=== PATIENT | male | born 1940 | race Caucasian/White ===

== ENCOUNTER → 2023-11-07 14:21 | Outpatient (REF) | payer MEDICARE, OTHER, SELFPAY | LOC: HWRAD 14:21 | PROVIDERS: ATTENDING PHYSICIAN Specialist; FAMILY PHYSICIAN Family Medicine | DX: R31.0 Gross hematuria (principal) | CPT/HCPCS: 76770 ==

== ENCOUNTER 2023-12-06 06:09 | Inpatient (IN) | payer MEDICARE, OTHER, SELFPAY ==
[2023-12-06] VITALS (15 sets, daily range): BP systolic 82–237; BP diastolic 39–115; BMI 24.1
--- NOTE | 2023-12-06 03:31 | ED.GENMED ---
History of Present Illness
<RIMA Wolfe - Last Filed: 12/07/23 06:39>
General
Chief Complaint: Breathing Problem
Source: patient
Exam Limitations: none
Time Seen by Provider: 12/06/23 03:17
Nursing documentation reviewed up to this point in time: agreed with
Travel History
Have you had any contact with someone who has COVID-19?: No
Do you have any symptoms of coronavirus? Fever > 100 degrees, chills, cough, shortness of breath, sore throat, loss of taste or smell, muscle aches, or headache?: No
History of Present Illness
History of Present Illness:
patient is an 83 y/o male with PMH of COPD presenting after a fall. patient states that he had a fall and landed on his hip. Patient admits that he is currently having lateral right hip pain. Patient admits pain shoots down right leg. Patient cannot
weight bear. Patient denies tingling. On admission patient was wheezing with decreased o2 saturation. Patient was placed on non rebreather until oxygen could be set up. patients BP on admission was 237/115. patient admits to a history of COPD with
B/L wheezing. 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 Patient admits that he had a should surgery earlier this week. Patient is on a blood thinner.
Past History
<RIMA Wolfe - Last Filed: 12/07/23 06:39>
Past History
ED Past Medical History: HTN and Hypercholesterolemia
ED Past Surgical History: Appendectomy and Orthopedic
Social History
Tobacco: Non-smoker
Living: with family
Employment: Employed
Review of Systems
<RIMA Wolfe - Last Filed: 12/07/23 06:39>
Review of Systems
All Other Systems: Not applicable
Constitutional: Reports no symptoms
EENT: Reports no symptoms
Respiratory: Reports cough and trouble breathing
Cardiac: Reports no symptoms
ABD/GI: Reports no symptoms
: Reports no symptoms
Musculoskeletal: Reports joint pain, joint swelling and edema
Skin: Reports no symptoms
Neurological: Reports no symptoms
Endocrine: Reports no symptoms
Hematologic/Lymphatic: Reports no symptoms
Psychiatric: Reports no symptoms
Phy Exam
<RIMA Wolfe - Last Filed: 12/07/23 06:39>
General Physical Exam
General Presentation: well appearing and no apparent distress
General Skin: warm and dry
General Habitus: normal
General Mental: alert
General Hydration: appears well hydrated
ENT Exam
ENT Exam: EOMI, pharynx normal, neck supple and normocephalic
Eye Exam
Eye Exam: PERRL, cornea clear and conjunctiva normal
Cardiovascular Exam
Cardiovascular Exam: normal peripheral pulses and tachycardia
Pulmonary Exam
Pulmonary Exam: generalized wheezing and respiratory distress
Respiratory Effort: tachypnea
Oxygen Status: bagged mask assistance
Cough: non productive cough
Breath Sounds: Wheeze: generalized
Gastrointestinal Exam
Gastrointestinal Exam: normal bowel sounds, non tender, soft, no organomegaly, no pulsatile mass and non distended
Neurological Exam
Neurological Exam: alert, oriented x3, no motor deficits and speech normal
Musculoskeletal Exam
Musculoskeletal Exam: other (pain to R hip on palpation)
Skin Exam
Skin Exam: normal color, warm/dry, no rash and no petechia
Psychiatric Exam
Psychiatric Exam: normal mood/affect
Scores
<RIMA Wolfe - Last Filed: 12/07/23 06:39>
Heart Failure Risk
Heart Failure Risk Score: Not Applicable
Course
<RIMA Wolfe Last Filed: 12/07/23 06:39>
Orders/Labs/Results
Orders:
Orders
12/06/23 03:14
EKG [Electrocardiogram (*1)] Urgent
Reason for Study: Shortness of Breath
EKG- Treatment ONCE
12/06/23 03:15
Portable Chest Xray [CR Chest Portable - 1 View] Urgent
Comment:
Reason For Exam: shortness of breath
Reason Study Needs to be Portable: Patient Unstable
12/06/23 03:16
Ipratropium/Albuterol Sulfate [Duoneb] 3 ml .ROUTE .STK-MED ONE
12/06/23 03:21
Hip, Right 2-3 Views [CR Hip - RT w/wo Pel 2-3 Vw*] Urgent
Comment:
Reason For Exam: fall
Include a pelvis x-ray?: Yes
12/06/23 03:27
Furosemide [Lasix] 60 mg IV NOW STA
12/06/23 03:28
Cardiac Monitoring- Treatment ONCE
EKG- Treatment ONCE
12/06/23 03:33
Type+Screen Urgent
Complete Blood Count/With Diff Urgent
Comprehensive Metabolic Panel Urgent
Magnesium Urgent
NT-proBNP Urgent
PTT Urgent
Prothrombin Time Urgent
TSH Urgent
Troponin I Urgent
12/06/23 03:41
HYDROmorphone [Dilaudid] 0.5 mg IV NOW STA
12/06/23 05:36
Admit/Transfer Patient As Directed
Co-Sign Provider:
Level of Care: Inpatient admission
Assign to:: IMU- Intermediate Care
Physician / Group: htay
Diagnosis: Acute Rt Rt intertrochanteric Fx, acute HF, PABLO, acute hypoxic RF
Reason for Hospitalization: Acute Rt Rt intertrochanteric Fx, acute HF, PABLO, Hyperkalemia , acute hypoxic RF
Expected length of stay greater than two midnights?: Yes
ELOS- Estimated Length of Stay in days: 5
I certify the patient meets the requirements for IP care: Yes
12/06/23 05:38
Code Status As Directed
Resuscitation Status: Full Code
12/06/23 06:19
COVID-19 Antigen Urgent
Source: Nasal Swab
12/06/23 07:13
HYDROmorphone [Dilaudid] 0.5 mg IV Q3HPRN PRN
12/06/23 08:14
Acetaminophen [Tylenol] 650 mg PO Q4HWA
Carvedilol [Coreg] 6.25 mg PO BID
Gabapentin [Neurontin] 300 mg PO DAILY
12/06/23 08:14
CARDIOLOGY CONSULT Routine
Consulting Provider: Wally Cuba
Was physician already notified: No
Reason for consult: Acute Rt Rt intertrochanteric Fx, acute HF, PABLO, acute hypoxic RF
Consult Notification Routine
Specialty to Notify: Cardiology
Date consulting provider notified: 12/06/23
Time consulting provider notified: 10:06
Notified:: Service
Bedside Glucose Monitoring As Directed
Frequency: AC&HS
Comment: Change to q6h if pt on TPN, tube feeding or not eating
Bladder Scan As Directed
Follow Bladder Retention/Intermittent Cath Algorithm?: Yes
PRN if no void in __ hours: 6
Comment: if not voiding 6 hrs upon arrival to floor, bladder scan & follow algorithm
12/06/23 09:24
Pneumatic Compression Sleeves As Directed
Type: Knee high
12/06/23 10:01
Dextrose 50%-Water [Dextrose 50% Syringe] 12.5 grams IV [id number] PRN
Glucagon [GlucaGen] 1 mg IM PRN PRN
Insulin Aspart Corrective Low [Novolog Flexpen-Low Resistance] See Protocol SC AC
Ipratropium/Albuterol Sulfate [Duoneb] 3 ml INH R Q4HPRN PRN
Magnesium Hydroxide [Milk of Magnesia] 30 ml PO DAILYPRN PRN
Oxycodone [Roxicodone] 5 mg PO Q4HPRN PRN
Tamsulosin [Flomax] 0.4 mg PO DAILYPRN PRN
12/06/23 10:01
HF DIETARY CONSULT Routine
HF EDUCATOR CONSULT Routine
Comment:
ORTHOPEDIC CONSULT Routine
Consulting Provider: Agapito Allison
Was physician already notified: Yes
Reason for consult: Acute Rt Rt intertrochanteric Fx, acute HF, PABLO, acute hypoxic RF
Activity As Directed
Activity Level: With Assistance
Intake/ Output As Directed
Frequency: Per unit guidelines
Intake/ Output As Directed
Frequency: Per unit guidelines
Patient Education As Directed
Type: CHF folder
Comment: give on admission. Document in Interdisciplinary Education record
Sleep Apnea Assessment by RN As Directed
Comment:
Physician Instructions:
Straight Cath As Directed
Frequency: Per Retention Algorithm
Additional Instructions: straight cath as needed per acute urinary retention algorithm for 24 hrs
Additional Instructions: for bladder scan greater than 400 mL
Vital Signs As Directed
Frequency: Other
Additional Instructions:: Q12 or per unit guidelines if more frequent.
Vital Signs As Directed
Frequency: Per unit guidelines
Weight As Directed
Frequency: Daily
Type of Scale: Standing Scale
Comment: Daily morning weight. If unable to stand, use balanced bed scale.
Weight As Directed
Frequency: Once
Type of Scale: Standing Scale
Comment: Upon Admission. If unable to stand, use balanced bed scale.
Pulse Ox/cont/shift [RESP] Routine
Quantity: 1
Special Instructions: Daily pulse oximetry at rest. If greater than 92% at rest also obtain pulse oximetry
while ambulating as tolerated.
DX Deep Vein Thrombosis Video Routine
12/06/23 10:14
BMP [Basic Metabolic Panel] Routine
Troponin I Q6H
Comment: at admission & every 6 hours x 2 (3 total), ECG to be done with each level
12/06/23 12:00
Furosemide [Lasix] 40 mg IV DAILY
Ipratropium/Albuterol Sulfate [Duoneb] 3 ml INH R QID
12/06/23 18:00
Gabapentin [Neurontin] 200 mg PO QPM
12/06/23 20:00
Docusate Sodium [Colace] 100 mg PO BID
Sennosides [Senokot] 17.2 mg PO BID
12/06/23 22:00
Atorvastatin [Lipitor] 10 mg PO HS
12/07/23 04:55
Comprehensive Metabolic Panel IN AM
Glycohemoglobin (HgbA1c) IN AM
Prothrombin Time IN AM
12/08/23 06:00
Basic Metabolic Panel IN AM
Prothrombin Time IN AM
12/09/23 06:00
Prothrombin Time IN AM
Abnormal Lab Results
12/06/23
03:33
RBC 3.62 L 10^6/uL
(4.70-6.10)
Hgb 9.9 L g/dL
(13.0-18.0)
Hct 30.4 L %
(39.0-52.0)
MCHC 32.6 L g/dL
(33.0-37.0)
RDW 14.6 H %
(11.5-14.5)
Absolute Lymphs (auto) 0.9 L 10^3/uL
(1.2-3.4)
Neutrophils % 77.4 H %
(42.2-75.2)
Lymphocytes % 11.5 L %
(20.5-51.1)
PT 17.7 H Sec
(11.4-14.6)
Potassium 5.8 H mmol/L
(3.5-5.1)
BUN 46 H mg/dl
(9-20)
Creatinine 1.5 H mg/dL
(0.7-1.3)
Glucose 182 H mg/dl
(70-99)
Magnesium 2.4 H mg/dl
(1.6-2.3)
Alkaline Phosphatase 130 H U/L
(38-126)
Troponin I 0.042 H* ng/ml
12/06/23 03:33
12/06/23 03:33
Vital Signs
Initial and Last Documented VS:
Initial Vital Signs
Temp Pulse Resp BP Pulse Ox
99.4 F 95 24 237/115 88
12/06/23 03:20 12/06/23 03:20 12/06/23 03:20 12/06/23 03:20 12/06/23 03:20
Last Documented Vital Signs
Temp Pulse Resp BP Pulse Ox
98.3 F 93 18 130/69 91
12/07/23 03:27 12/07/23 03:27 12/07/23 03:27 12/07/23 03:27 12/07/23 03:27
<Prabhakar Carrera, DO - Last Filed: 12/06/23 05:47>
Orders/Labs/Results
Orders:
Orders
12/06/23 03:14
EKG [Electrocardiogram (*1)] Urgent
Reason for Study: Shortness of Breath
EKG- Treatment ONCE
12/06/23 03:15
Portable Chest Xray [CR Chest Portable - 1 View] Urgent
Comment:
Reason For Exam: shortness of breath
Reason Study Needs to be Portable: Patient Unstable
12/06/23 03:16
Ipratropium/Albuterol Sulfate [Duoneb] 3 ml .ROUTE .STK-MED ONE
12/06/23 03:21
Hip, Right 2-3 Views [CR Hip - RT w/wo Pel 2-3 Vw*] Urgent
Comment:
Reason For Exam: fall
Include a pelvis x-ray?: Yes
12/06/23 03:27
Furosemide [Lasix] 60 mg IV NOW STA
12/06/23 03:28
Cardiac Monitoring- Treatment ONCE
EKG- Treatment ONCE
12/06/23 03:33
Type+Screen Urgent
Complete Blood Count/With Diff Urgent
Comprehensive Metabolic Panel Urgent
Magnesium Urgent
NT-proBNP Urgent
PTT Urgent
Prothrombin Time Urgent
TSH Urgent
Troponin I Urgent
12/06/23 03:41
HYDROmorphone [Dilaudid] 0.5 mg IV NOW STA
12/06/23 05:36
Admit/Transfer Patient As Directed
Co-Sign Provider:
Level of Care: Inpatient admission
Assign to:: IMU- Intermediate Care
Physician / Group: rexy
Diagnosis: Acute Rt Rt intertrochanteric Fx, acute HF, PABLO, acute hypoxic RF
Reason for Hospitalization: Acute Rt Rt intertrochanteric Fx, acute HF, PABLO, Hyperkalemia , acute hypoxic RF
Expected length of stay greater than two midnights?: Yes
ELOS- Estimated Length of Stay in days: 5
I certify the patient meets the requirements for IP care: Yes
12/06/23 05:38
Code Status As Directed
Resuscitation Status: Full Code
12/06/23 06:19
COVID-19 Antigen Urgent
Source: Nasal Swab
12/06/23 07:13
HYDROmorphone [Dilaudid] 0.5 mg IV Q3HPRN PRN
12/06/23 08:14
Acetaminophen [Tylenol] 650 mg PO Q4HWA
Carvedilol [Coreg] 6.25 mg PO BID
Gabapentin [Neurontin] 300 mg PO DAILY
12/06/23 08:14
CARDIOLOGY CONSULT Routine
Consulting Provider: Wally Cuba
Was physician already notified: No
Reason for consult: Acute Rt Rt intertrochanteric Fx, acute HF, PABLO, acute hypoxic RF
Consult Notification Routine
Specialty to Notify: Cardiology
Date consulting provider notified: 12/06/23
Time consulting provider notified: 10:06
Notified:: Service
Bedside Glucose Monitoring As Directed
Frequency: AC&HS
Comment: Change to q6h if pt on TPN, tube feeding or not eating
Bladder Scan As Directed
Follow Bladder Retention/Intermittent Cath Algorithm?: Yes
PRN if no void in __ hours: 6
Comment: if not voiding 6 hrs upon arrival to floor, bladder scan & follow algorithm
12/06/23 09:24
Pneumatic Compression Sleeves As Directed
Type: Knee high
12/06/23 10:01
Dextrose 50%-Water [Dextrose 50% Syringe] 12.5 grams IV [id number] PRN
Glucagon [GlucaGen] 1 mg IM PRN PRN
Insulin Aspart Corrective Low [Novolog Flexpen-Low Resistance] See Protocol SC AC
Ipratropium/Albuterol Sulfate [Duoneb] 3 ml INH R Q4HPRN PRN
Magnesium Hydroxide [Milk of Magnesia] 30 ml PO DAILYPRN PRN
Oxycodone [Roxicodone] 5 mg PO Q4HPRN PRN
Tamsulosin [Flomax] 0.4 mg PO DAILYPRN PRN
12/06/23 10:01
HF DIETARY CONSULT Routine
HF EDUCATOR CONSULT Routine
Comment:
ORTHOPEDIC CONSULT Routine
Consulting Provider: Agapito Allison
Was physician already notified: Yes
Reason for consult: Acute Rt Rt intertrochanteric Fx, acute HF, PABLO, acute hypoxic RF
Activity As Directed
Activity Level: With Assistance
Intake/ Output As Directed
Frequency: Per unit guidelines
Intake/ Output As Directed
Frequency: Per unit guidelines
Patient Education As Directed
Type: CHF folder
Comment: give on admission. Document in Interdisciplinary Education record
Sleep Apnea Assessment by RN As Directed
Comment:
Physician Instructions:
Straight Cath As Directed
Frequency: Per Retention Algorithm
Additional Instructions: straight cath as needed per acute urinary retention algorithm for 24 hrs
Additional Instructions: for bladder scan greater than 400 mL
Vital Signs As Directed
Frequency: Other
Additional Instructions:: Q12 or per unit guidelines if more frequent.
Vital Signs As Directed
Frequency: Per unit guidelines
Weight As Directed
Frequency: Daily
Type of Scale: Standing Scale
Comment: Daily morning weight. If unable to stand, use balanced bed scale.
Weight As Directed
Frequency: Once
Type of Scale: Standing Scale
Comment: Upon Admission. If unable to stand, use balanced bed scale.
Pulse Ox/cont/shift [RESP] Routine
Quantity: 1
Special Instructions: Daily pulse oximetry at rest. If greater than 92% at rest also obtain pulse oximetry
while ambulating as tolerated.
DX Deep Vein Thrombosis Video Routine
12/06/23 10:14
BMP [Basic Metabolic Panel] Routine
Troponin I Q6H
Comment: at admission & every 6 hours x 2 (3 total), ECG to be done with each level
12/06/23 12:00
Furosemide [Lasix] 40 mg IV DAILY
Ipratropium/Albuterol Sulfate [Duoneb] 3 ml INH R QID
12/06/23 18:00
Gabapentin [Neurontin] 200 mg PO QPM
12/06/23 20:00
Docusate Sodium [Colace] 100 mg PO BID
Sennosides [Senokot] 17.2 mg PO BID
12/06/23 22:00
Atorvastatin [Lipitor] 10 mg PO HS
12/07/23 04:55
Comprehensive Metabolic Panel IN AM
Glycohemoglobin (HgbA1c) IN AM
Prothrombin Time IN AM
12/08/23 06:00
Basic Metabolic Panel IN AM
Prothrombin Time IN AM
12/09/23 06:00
Prothrombin Time IN AM
Abnormal Lab Results
12/06/23
03:33
RBC 3.62 L 10^6/uL
(4.70-6.10)
Hgb 9.9 L g/dL
(13.0-18.0)
Hct 30.4 L %
(39.0-52.0)
MCHC 32.6 L g/dL
(33.0-37.0)
RDW 14.6 H %
(11.5-14.5)
Absolute Lymphs (auto) 0.9 L 10^3/uL
(1.2-3.4)
Neutrophils % 77.4 H %
(42.2-75.2)
Lymphocytes % 11.5 L %
(20.5-51.1)
PT 17.7 H Sec
(11.4-14.6)
Potassium 5.8 H mmol/L
(3.5-5.1)
BUN 46 H mg/dl
(9-20)
Creatinine 1.5 H mg/dL
(0.7-1.3)
Glucose 182 H mg/dl
(70-99)
Magnesium 2.4 H mg/dl
(1.6-2.3)
Alkaline Phosphatase 130 H U/L
(38-126)
Troponin I 0.042 H* ng/ml
12/06/23 03:33
12/06/23 03:33
Vital Signs
Initial and Last Documented VS:
Initial Vital Signs
Temp Pulse Resp BP Pulse Ox
99.4 F 95 24 237/115 88
12/06/23 03:20 12/06/23 03:20 12/06/23 03:20 12/06/23 03:20 12/06/23 03:20
Last Documented Vital Signs
Temp Pulse Resp BP Pulse Ox
98.3 F 93 18 130/69 91
12/07/23 03:27 12/07/23 03:27 12/07/23 03:27 12/07/23 03:27 12/07/23 03:27
<RIMA Wolfe - Last Filed: 12/07/23 06:39>
MDM/Problems Addressed
Differential Diagnosis Includes:
Hip Fracture
Soft tissue swelling
COPD exacerbation
congestive HF
MDM/Problems Addressed:
hip pain
Chronic conditions affecting care: COPD
<Prabhakar Carrera DO - Last Filed: 12/06/23 05:47>
MDM/Problems Addressed
Acute Exacerbation and/or Progression of Chronic Illness: HTN, Cardiomyopathy, Arrhythmia and COPD
<RIMA Wolfe - Last Filed: 12/07/23 06:39>
*Critical Care Note
Total Time (30-74mins, 75-104mins- exclusive of procedures): Not Applicable
<Prabhakar Carrera DO - Last Filed: 12/06/23 05:47>
*Radiology
Radiology exam reviewed: preliminary read by ED provider
*Pulse Oximetry
Patient hypoxic: yes
*EKG
Interpreted by ED Provider?: Yes
Interpretation: abnormal
Comparison EKG: no comparison EKG present
Heart Rate: 100
Rate: normal
Rhythm: sinus
Ischemia: non-specific ST changes
*Organizational Effectiveness Consultant Interpretation
Rate: normal
Interpretation: normal
Heart Rate: 88
Rhythm: sinus
*Critical Care Note
Total Time (30-74mins, 75-104mins- exclusive of procedures): 30
ED Attending Note
<RIMA Wolfe - Last Filed: 12/07/23 06:39>
-
Portions of this chart may have been created with voice recognition software.� Occasional wrong word or��sound alike� substitutions may have occurred due to the inherent limitations of voice recognition software.
<Prabhakar Carrera, DO - Last Filed: 12/06/23 05:47>
ED Attending Note
Patient seen and examined by attending physician: Yes
I performed the substantive portion of visit, reviewed & personally made and approve the management plan that is documented in note by myself or NITESH.: Yes
ED Attending Note:
Seen with student examined independently reviewed with EMS and nursing 83-year-old male status post total shoulder replacement COPD A-fib possible CHF by my review of the past medical records cardiology consultation presents after a fall EMS reports
that with audibly wheezing, no head strike, pulse ox down, has lower extremity edema blood pressure chest x-ray has been ordered
Possible pulmonary edema plan will be diuresis labs oxygen pelvis film
Discharge Plan
Departure
Patient Disposition: Admit
Date of Disposition: 12/06/23
Time of Disposition: 04:47
Presentation/result/management discussed w/ accepting MD/DO: Hospitalist
Patient with high blood pressure during this ER visit?: No
Condition: Fair
Discharge Problem:
Closed fracture of right hip, Acute hypoxic respiratory failure
Interventions
Interventions:
*Risk Screen - Suicide Last Done: 12/06/23 03:24
*General Assessment Last Done: 12/06/23 03:22
*Neglect/Abuse Screening Last Done: 12/06/23 03:24
ED- Fall Risk Assessment Last Done: 12/06/23 03:24
*ED COVID-19 Vaccine History Last Done: 12/06/23 03:22
*Nursing Disposition Last Done: 12/06/23 17:22
ED- Cardiac Assessment Last Done: 12/06/23 03:24
ED- Pulmonary Assessment Last Done: 12/06/23 03:24
Discharge Date and Time
Discharge Date/Time: 12/06/23 17:23
[2023-12-06] MEDS: LASIX 60 MG IV (03:36)
[2023-12-06] MEDS: DILAUDID 0.5 MG IV ×3 (03:45→11:51)
[2023-12-06 03:50] LABS: % Basophils 0.5 % (0-2); % Eosinophils 3.3 % (0-6); % Immature Granulocytes 0.5 % (0-0.5); % Lymphocytes 11.5 % (20.5-51.1); % Monocytes 6.8 % (1.7-9.3); % Neutrophils 77.4 % (42.2-75.2); Absolute Eosinophils 0.2 10^3/uL (0-0.7); Absolute Lymphocytes 0.9 10^3/uL (1.2-3.4); Absolute Monocytes 0.5 10^3/uL (0.1-0.6); Absolute Neutrophils 5.7 10^3/uL (1.4-6.5); Hematocrit 30.4 % (39.0-52.0); Hemoglobin 9.9 g/dL (13.0-18.0); Mean Corp Hgb Conc. 32.6 g/dL (33.0-37.0); Mean Corpuscular Hgb 27.3 pg (27.0-31.0); Mean Platelet Volume 9.7 fL (7.4-10.4); Nucleated Red Blood Cells % 0 % (-); Platelet Count 257 10^3/uL (130-400); Red Blood Cell Count 3.62 10^6/uL (4.70-6.10); Red Cell Dist. Width 14.6 % (11.5-14.5); White Blood Cell Count 7.4 10^3/uL (4.8-10.8)
[2023-12-06 04:05] LABS: ALT (SGPT) 30 U/L (0-50); APTT 33.4 Sec (23.4-35.0); AST (SGOT) 44 U/L (17-59); Albumin 3.8 g/dl (3.5-5.0); Alkaline Phosphatase 130 U/L (38-126); Blood Urea Nitrogen 46 mg/dl (9-20); Calcium 9.3 mg/dl (8.4-10.2); Carbon Dioxide 28 mmol/L (22-30); Chloride 102 mmol/L (98-107); Estimated Creatinine Clearance 43 ml/min; Glucose 182 mg/dl (70-99); INR 1.47; Magnesium 2.4 mg/dl (1.6-2.3); PT 17.7 Sec (11.4-14.6); Potassium 5.8 mmol/L (3.5-5.1); Sodium 140 mmol/L (135-145); Total Bilirubin 0.5 mg/dl (0.2-1.3); Total Protein 6.6 g/dl (6.3-8.2); eGFR 46.19
[2023-12-06 04:26] LABS: NT-proBNP 1200 pg/ml; Troponin I 0.042 ng/ml
[2023-12-06 04:41] LABS: TSH 1.21 uIU/ml (0.47-4.68)
--- NOTE | 2023-12-06 05:26 | HPS.HSE ---
Family Physician
-
Family Physician: Ruben Quiles
Chief Complaint
-
Fall, SoB, low Pox
History of Present Illness
83M HX HTN, T2DM, COPD, Prx AF on Eliquis [facility] s/p mechanical fall. He was found on the floor and difficulty breathing. Report landed on the Rt Hip and immedialy he cannot wt bear. He was [facility] wearing NRM due to desaturation.
As per ER attd , dyspnea and POx is much improved after IV Lasix 60 and IV Dilaudid.
ROS
Rt Hip Pain s/p mechanical fall
SoB
Medical History
Past Medical History
Past Medical History: Reports Other
Additional Past Medical History:
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
Type 2 diabetes mellitus
Paroxysmal atrial fibrillation on Eliquis
Essential hypertension
Hypertension
HLD
Paroxysmal Atrial Fibrillation
Past Surgical History: Reports Other
Additional Past Surgical History:
Left Shoulder Arthroplasty and Subsequent Revision
Left Shoulder Explantation and Placement of Spacer
Appendectomy
Social History
Tobacco: Smoker
Alcohol: Occasional
Family History
Family History: Not pertinent
Allergies / Home Medications
Allergies reflects when Allergies were last updated in [facility].
Home Medications with original date entered in [facility]
Allergy/Medication List:
Allergies
Allergy/AdvReac Type Severity Reaction Status Date / Time
No Known Allergies Allergy Verified 12/06/23 03:49
Home Medications
acetaminophen 500 mg tablet 1,000 mg PO Q8H PRN mild pain 03/19/23
allopurinol 100 mg tablet 100 mg PO DAILY Gout 03/19/23
apixaban 5 mg tablet 5 mg PO BID Blood Clot Prevention/Tx 03/19/23
ascorbic acid (vitamin C) 250 mg tablet (Vitamin C) 250 mg PO DAILY Supplement 03/19/23
benazepril 20 mg tablet 20 mg PO HS Blood Pressure 03/19/23
carvedilol 6.25 mg tablet 6.25 mg PO BID Heart Disease/Condition 03/19/23
cholecalciferol (vitamin D3) 50 mcg (2,000 unit) tablet (Vitamin D3) 50 mcg PO DAILY Supplement 03/19/23
coenzyme Q10 100 mg capsule (Co Q-10) 100 mg PO DAILY Supplement 03/19/23
folic acid 1 mg tablet 1 mg PO DAILY Supplement 03/19/23
metformin 500 mg tablet 500 mg PO BID@0800,1700 Diabetes 03/19/23
simvastatin 20 mg tablet 20 mg PO HS High Cholesterol 03/19/23
zolpidem 10 mg tablet 10 mg PO HS PRN insomnia 03/19/23
gabapentin 100 mg capsule 200 mg PO QPM Pain 03/29/23
gabapentin 100 mg capsule 300 mg PO DAILY Pain 03/29/23
tamsulosin 0.4 mg capsule 0.4 mg PO DAILY 12/06/23
Review of Systems
-
Constitutional: Reports No Symptoms
EENT: Reports No Symptoms
Respiratory: Reports Trouble Breathing
Cardiac: Denies Chest Pain
Abdomen/GI: Reports No Symptoms
: Reports No Symptoms
Musculoskeletal: Reports Joint Pain (Rt hip pain)
Skin: Reports No Symptoms
Neurological: Reports No Symptoms
Endocrine: Reports No Symptoms
Hematologic/Lymphatic: Reports No Symptoms
Psych: Reports No Symptoms
Physical Exam
Vital Signs
Vital Signs
Temp Pulse Resp BP Pulse Ox
99.4 F 88 19 124/58 97
12/06/23 03:20 12/06/23 04:01 12/06/23 04:01 12/06/23 04:01 12/06/23 04:01
Physical Exam
General: Well Nourished and Respiratory Distress
HEENT: NormoCephalic and Moist mucous membranes
Respiratory: Wheezes (minimal ) and Rales (at base )
Cardiac: S1/S2 and Regular Rhythm
GI: Soft, Non Tender, Non Distended and Normal Bowel Sounds
Musculoskeletal: Other (Rt hip pain to palpation, Lt shoulder with dressing, echimoses in Lt proximal arm )
Skin: Warm and Dry
Neuro: AO x 3
Psych: Anxious
Laboratory Results
-
12/06/23 03:33
12/06/23 03:33
Laboratory Results
PT 17.7 Sec (11.4-14.6) H 12/06/23 03:33
INR 1.47 12/06/23 03:33
APTT 33.4 Sec (23.4-35.0) 12/06/23 03:33
Total Bilirubin 0.5 mg/dl (0.2-1.3) 12/06/23 03:33
AST 44 U/L (17-59) 12/06/23 03:33
ALT 30 U/L (0-50) 12/06/23 03:33
Alkaline Phosphatase 130 U/L (38-126) H 12/06/23 03:33
Troponin I 0.042 ng/ml H* 12/06/23 03:33
Data Reviewed
-
Diagnostic Radiology: Report Reviewed by me
Medical Tests (Nuc Med, Echo, EKG etc): Report Reviewed by me
Lab Data: Labs Reviewed by me
Old Records: Reviewed
Impression/Plan
-
Reviewed VS: T 99.5 BP 237/115 ---> 124/58 HR 94 RR 24 POx 88 on NRM
Data
WCC 7.4
Hgb 9.9 - baseline was 11-12
INR 1.47
K 5.8
Cr 1.5 - was 0.7 on 09/17/23
eGFR 46
TPNI 0.042
p BNP 1200
CXR; CHF in my view
Rt Hip XR; Rt intertrochanteric Fx
EKG report
SINUS TACHYCARDIA
RIGHT BUNDLE BRANCH BLOCK
LEFT ANTERIOR FASCICULAR BLOCK
SEPTAL INFARCT , AGE UNDETERMINED
ABNORMAL ECG
WHEN COMPARED WITH ECG OF 17-SEP-2023 21:55,
SEPTAL INFARCT IS NOW PRESENT
02/18/23 ECHO
LVEF 65-70
indeterminate diastolic function
Mild AR
Est. pulmonary artery pressure of 35 mmHg
Last hospitalist admission: 09/18/23 - 09/18/23 DC Dx; Influenza A
ASSESSMENT & PLAN
Acute Rt Rt intertrochanteric Fx
RCRI Class II (+ acute HF)
- last dose of Eliquis was on Tuesday pm
- NPO and IVF
- Fx set protocol
- Pre OP Card eval
- Ortho consulted
Suspect acute HF type unknown - flash Pul edema ?
Associated acute hypoxic RF ; now on 4 L NC O2
Clinically significantly improved s/p Lasix and dilaudis
- IV Lasix 20 daily
- cont Carvedilol
- daily BMP
- daily IOs
- [facility] card consult for preop
PABLO - suspect cardiorenalsyndrome
Hyperkalemia 2/2 PABLO
- Held Benazepril
- Repeat K at 7 am
in NSR
HX Prx AF
- held Eliquis - last dose was Tuesday pm
- cont Carvedilol
HTN urgency - significantly improved BP s/p lasix and Dilaudid
Essential HTN
-adequate pain control
- cont carvedilol
T2DM
- Held Metformin
- add ISS low
HLD
- on Simvastatin
POD5 Lt shoulder arthroplasty at [facility] [place]
S/p should surgery earlier this week.
HX Infected left shoulder prosthesis - s/p explantation and replacement : S/p IV ABx fo 6 weeks in 2022
- Follow-up with Ortho at [place]
HX Gout
- stable
DVT Px: SCD , held Apixaban
Full code
IMU
[2023-12-06 07:02] LABS: COVID-19 Antigen Negative (Negative)
--- NOTE | 2023-12-06 07:13 | CON.ORTHO ---
Consultation
-
Date/Time Consultation Requested: 12/06/2023 @ 7:02
Date/Time Consultation Performed: 12/06/2023 @ 7:05
Requesting Provider: Ruben Queen PA-C
Performing Provider: Seth Giraldo PA-C for Dr. Allison
Reason for Consultation: Right Intertrochanteric Hip Fracture
Consultation - Orthopedics
History
HPI: The patient is a 83-year-old male with a past medical history significant for Hypertension, Type 2 Diabetes, COPD, Paroxysmal Atrial Fibrillation on Eliquis (last dose 12/05/2023 at 8 PM), who presented to [facility] with right hip pain
following a mechanical fall earlier this morning. Patient reports that he was getting up from bed when he unfortunately fell directly on his right hip. Patient was unable to get up from the floor and was brought to [facility] for
evaluation. X-rays were obtained revealing a right intertrochanteric hip fracture. Currently, he is resting in bed and does report mild discomfort to the right hip with any movement. He denies any other injuries. At baseline, patient is fully
ambulatory without assistance. Patient reports some shortness of breath, which improved per ER attending after IV Lasix 60 and IV Dilaudid. Of significance, patient recently underwent revision of left total shoulder replacement for prosthetic
infection this past , 12/01/2023 at [facility] with Dr. Ley. Orthopedic surgery was consulted regarding management of his right hip fracture.
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
, 12/01/2023, type 2 diabetes, paroxysmal atrial fibrillation on Eliquis, essential hypertension, hyperlipidemia.
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
replacement this past , 12/01/2023.
SOCIAL HISTORY: Reports tobacco use, reports occasional alcohol use. Denies any recreational drug use. Lives at home and is fully ambulatory at baseline.
FAMILY HISTORY: Non-contributory.
REVIEW OF SYSTEMS: 12-point review of systems obtained and negative except those mentioned in the HPI.
Allergies / Home Medications
Allergy/AdvReac Type Severity Reaction Status Date / Time
No Known Allergies Allergy Verified 12/06/23 03:49
Medication Instructions Recorded
acetaminophen 500 mg tablet 1,000 mg PO Q8H PRN mild pain 03/19/23
allopurinol 100 mg tablet 100 mg PO DAILY Gout 03/19/23
apixaban 5 mg tablet 5 mg PO BID Blood Clot 03/19/23
Prevention/Tx
ascorbic acid (vitamin C) 250 mg 250 mg PO DAILY Supplement 03/19/23
tablet (Vitamin C)
benazepril 20 mg tablet 20 mg PO HS Blood Pressure 03/19/23
carvedilol 6.25 mg tablet 6.25 mg PO BID Heart 03/19/23
Disease/Condition
cholecalciferol (vitamin D3) 50 50 mcg PO DAILY Supplement 03/19/23
mcg (2,000 unit) tablet (Vitamin
D3)
coenzyme Q10 100 mg capsule (Co 100 mg PO DAILY Supplement 03/19/23
Q-10)
folic acid 1 mg tablet 1 mg PO DAILY Supplement 03/19/23
metformin 500 mg tablet 500 mg PO BID@0800,1700 Diabetes 03/19/23
simvastatin 20 mg tablet 20 mg PO HS High Cholesterol 03/19/23
zolpidem 10 mg tablet 10 mg PO HS PRN insomnia 03/19/23
gabapentin 100 mg capsule 200 mg PO QPM Pain 03/29/23
gabapentin 100 mg capsule 300 mg PO DAILY Pain 03/29/23
tamsulosin 0.4 mg capsule 0.4 mg PO DAILY 12/06/23
Vital Signs / Lab Results
Temp Pulse Resp BP Pulse Ox
99.4 F 83 18 142/60 99
03/19/24 03:20 12/06/23 06:18 12/06/23 06:18 12/06/23 06:18 12/06/23 06:18
12/06/23 03:33
12/06/23 03:33
RADIOGRAPHIC FINDINGS:
CR Hip - RT w/wo Pel 2-3 Vw was obtained at [facility] on 12/06/2023 and was made available for my review today. I appreciate a right intertrochanteric hip fracture. Radiology report is not yet available for review.
PHYSICAL EXAM:
General: Well-developed, well-nourished male in no apparent distress.
HEENT: NCAT, sclera anicteric, normal conversational hearing.
Heart: No JVD.
Lungs: Normal work of breathing on On 4 L/min nasal cannula.
MSK: Focused examination of the right lower extremity reveals leg shortened and externally rotated. Positive logroll. Positive tenderness to palpation over the right hip. Range of motion deferred secondary to known fracture. Able to plantarflex
and dorsiflex the ankle. Patient is able to wiggle all toes. NVI distally. Focused examination of the left upper extremity reveals Mepilex dressing over the axillary crease with some bloody drainage contained within the Mepilex dressing. Sling
intact. Range of motion deferred.
Assessment / Plan
ASSESSMENT: 83-year-old male with a right intertrochanteric hip fracture; on Eliquis last dose 12/05/2023 at 8 PM.
PLAN: Unfortunately, the patient has sustained a right hip fracture following a mechanical fall earlier this morning. We discussed the treatment options. After thorough discussion, shared decision was to proceed with operative fixation. The
risks, benefits, potential complications, and expected postoperative course were reviewed. Surgical and blood consents were obtained and placed in the patient's chart in the ED. We will plan for OR either , 12/08/2023, or 12/09/2023
for a right hip open reduction internal fixation under the direction of Dr. Allison allowing for Eliquis washout. Patient will need preoperative cardiology evaluation per medical team. Patient is to remain NPO pMN Tuesday or . He is to
remain strict nonweightbearing to the right lower extremity until postop. Preoperative Ancef, iodine irrigation, and TXA irrigation on-call to the OR. Type and screen ordered. Right hip was marked as the correct surgical extremity. Continue with
pain management per primary team. Patient was scheduled to follow-up with his orthopedic surgeon Dr. Ley at [facility] for his left reverse total shoulder replacement this week. Orthopedic surgery will continue to follow along.
--- NOTE | 2023-12-06 08:56 | W.PN.HOSP.TC ---
Today's Communication/Plan
-
Ok for tele
continue diuresis
low sodium diet today; OR either or Tue
pain control
SCD's
ortho/cards consult
Assessment / Plan
Assessment / Plan
Mr. 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
short of breath. Patient found to have right intertrochanteric fracture. Also found to have heart failure.
Acute Rt Rt intertrochanteric Fx
RCRI Class II (+� acute HF)
- last dose of Eliquis was on Tuesday 8 pm
- appreciate ortho consult; Surgery either on or Tuesday
- He is to remain strict nonweightbearing to the right lower extremity until postop
- diet ordered
- continue to hold Eliquis
- Pre OP Card eval
- pain control
Suspect acute HF type unknown - flash Pul edema ?
Associated acute hypoxic RF ; now on 4 L NC O2
Clinically significantly improved s/p Lasix 60mg and Dilaudid
- IV Lasix 40 daily
- cont Carvedilol
- daily BMP
- daily IOs
- [facility] card consult for preop
-OK for tele
PABLO - suspect cardiorenal syndrome
Hyperkalemia 2/2 PABLO
- Held Benazepril
- awaiting AM labs
in NSR
HX Prx AF
- held Eliquis - last dose was Tuesday pm
- cont Carvedilol
HTN urgency - significantly improved BP s/p lasix and Dilaudid
Essential HTN
-adequate pain control
- cont� carvedilol�
T2DM
- Held Metformin
- add ISS low
HLD
- on Simvastatin
POD5 Lt shoulder arthroplasty at [facility]
S/p� should surgery earlier this week.
HX Infected left shoulder prosthesis� - s/p� explantation and replacement : S/p� IV ABx� fo 6 weeks in�November� 2022
�- Follow-up with Ortho at [place]
HX Gout
- stable
�
DVT Px: SCD , held Apixaban
Full code
=
Anticipated Discharge: > 48 hours
Subjective/Interval History
-
Date of Service: December 06, 2023
breathing improved
patient states he wasn't short of breath prior to fall but reported some wheezing
currently chest pain free
pain controlled with dilaudid
Objective Data
-
Labs:
Laboratory Results
12/06/23 12/06/23
03:33 08:14
WBC 7.4
Hgb 9.9 L
Hct 30.4 L
Plt Count 257
PT 17.7 H
INR 1.47
APTT 33.4
Sodium 140 Pending
Potassium 5.8 H Pending
Chloride 102 Pending
Carbon Dioxide 28 Pending
BUN 46 H Pending
Creatinine 1.5 H Pending
Glucose 182 H Pending
Calcium 9.3 Pending
Total Bilirubin 0.5
AST 44
ALT 30
Alkaline Phosphatase 130 H
Vital Signs:
Vital Signs
Temp Pulse Resp BP Pulse Ox
99.4 F 93 16 159/70 100
12/06/23 03:20 12/06/23 07:28 12/06/23 07:28 12/06/23 07:28 12/06/23 07:28
I&O
12/05/23 12/06/23 12/07/23
06:59 06:59 06:59
Output Total 500 / 500
Balance -500 / -500
Review of Systems
-
History Source: Patient
All other systems: Reviewed and negative
Physical Exam
-
General: No Apparent Distress
HEENT: Normocephalic, Atraumatic, Anicteric, PERRLA, Nose Appears Normal and Ears Appear Normal
Respiratory: Clear to Auscultation; Negative Wheezes, Rhonchi or Crackles
Cardiac: S1/S2, Irregular Rhythm and JVD; Negative Murmur
GI: Soft, Nontender, Nondistended and Normal Bowel Sounds
Genito-urinary: Other (left shoulder in sling; bandage over prior surgery site; + ecchymosis)
Musculoskeletal: No Clubbing, No Cyanosis and No Edema
Skin: Warm and Dry; Negative Jaundice
Neuro: AO x 3 and Nonfocal/Grossly Intact
Hematologic / Lymphatic: No Lymphadenopathy
Psych: Intact Judgement/Insight and Anxious
Data Reviewed
-
Diagnostic Radiology: Report Reviewed by me
Labs: Labs Reviewed by me
--- NOTE | 2023-12-06 09:39 | CON.CAR ---
Addendum entered and electronically signed by Vinod Thornton MD 12/06/23 13:07:
I saw and examined the patient.
The [employer] Laborer's note was reviewed and I agree with the note.
Comment:
GEN: No distress, awake, Ox3
HEENT: supple, anicteric, mmm
LUNGS: Scattered rhonchi
CV: Reg, S1/S2, 1/6 syst LSB, s3+
ABD: soft, BS+, NT/ND
EXT: trace edema
NEURO: Gross non-focal
SKIN: No rash
Plan:
83-year-old male with past medical history of paroxysmal atrial fibrillation, hypertension, hyperlipidemia, COPD, current tobacco abuse, right bundle branch block who had a left total shoulder replacement 5 days ago. He restarted Eliquis 12/03/2023.
Yesterday he had a mechanical fall and was found on the floor short of breath. Potassium was elevated at 5.7 and creatinine was up to 1.7.
Chest x-ray suggested increased vascular markings and possible CHF. He was hypoxic.
Will give Lasix 40 mg IV x 1 and follow potassium and kidney function. Check total CK as he was on the floor for extended period of time
Hold Eliquis in preparation for surgery later this week. Continue Coreg. Hold benazepril with elevated creatinine.
Follow on telemetry.
He will be ready for surgery likely on . He will be moderate risk.
Original Note:
Consultation
Consultation Request
Date/Time Consultation Requested: 12/06/2023
Date/Time Consultation Performed: 12/06/2023
Requesting Provider: Dr. Eubanks
Performing Provider: Lyn Frost PA-C for Dr. Thornton
Reason for Consultation: Acute hypoxic respiratory failure, pulmonary edema, pre-operative clearance
Medical History
-
History of Present Illness:
Patient is an 83-year-old male with past medical history significant for paroxysmal atrial fibrillation on chronic anticoagulation with Eliquis, hypertension, hyperlipidemia, type 2 diabetes, COPD, right bundle branch block who presented to
emergency department 12/06/2023 after having a mechanical fall and was found on the floor with acute shortness of breath. Patient complained of right hip pain and was unable to bear weight. On EMS arrival he was found to have acute hypoxic
respiratory failure with low pulse oximetry. In emergency department patient was provided IV Lasix and IV Dilaudid with some improvement of oxygenation. He was found to have acute right intertrochanteric fracture. He also had PABLO with
hyperkalemia. EKG showed sinus rhythm/tachycardia, troponin elevated at 0.042. proBNP 1200. Chest x-ray demonstrated increased interstitial markings suggestive of pulmonary edema.
At time of this evaluation he is sitting in bed, wearing oxygen but reports that he is feeling better. Denies CP, palpitations, edema. His significant other, Chrissy, reports he did seem more SOB over the last day or so following his Left total
shoulder replacement on 12/01/23. He resumed Eliquis 12/03/23.
PMH:
Paroxysmal atrial fibrillation
Chronic anticoagulation on Eliquis
Ongoing tobacco abuse
Hypertension
Hypercholesterolemia
RBBB
Type 2 diabetes
History of gout
Bilateral carotid artery stenosis, moderate to severe
Presumed COPD
COVID 19 infection March 2023
Cervical laminectomy October 2022
Small bowel obstruction March 2023
History of reverse left total shoulder with revision in 03/17/2023
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
Past Medical History
Past Medical History: Other (See HPI)
Past Surgical History: Appendectomy and Orthopedic (Rotator cuff procedure, left shoulder replacement 2020, muscle transfer March 17, 2023 at [place])
Social History
Tobacco: Smoker
Alcohol: Occasional
Drug: None
Personal:
Living: With Roomate (Chrissy, significant other)
Employment: Retired
Family History
Family History: Other (Father stroke, sibling had lung cancer)
Allergies / Home Medications
Allergy/AdvReac Type Severity Reaction Status Date / Time
No Known Allergies Allergy Verified 12/06/23 03:49
Medication Instructions Recorded Confirmed Type
allopurinol 100 mg tablet 100 mg PO DAILY Gout 03/19/23 12/06/23 History
apixaban 5 mg tablet 5 mg PO BID Blood Clot 03/19/23 12/06/23 History
Prevention/Tx
ascorbic acid (vitamin C) 250 mg 250 mg PO DAILY Supplement 03/19/23 12/06/23 History
tablet (Vitamin C)
benazepril 20 mg tablet 20 mg PO DAILY Blood Pressure 03/19/23 12/06/23 History
carvedilol 6.25 mg tablet 6.25 mg PO BID Heart 03/19/23 12/06/23 History
Disease/Condition
cholecalciferol (vitamin D3) 50 50 mcg PO DAILY Supplement 03/19/23 12/06/23 History
mcg (2,000 unit) tablet (Vitamin
D3)
folic acid 1 mg tablet 1 mg PO DAILY Supplement 03/19/23 12/06/23 History
metformin 500 mg tablet 500 mg PO BID Diabetes 03/19/23 12/06/23 History
simvastatin 20 mg tablet 20 mg PO QPM High Cholesterol 03/19/23 12/06/23 History
zolpidem 10 mg tablet 10 mg PO HS PRN insomnia 03/19/23 12/06/23 History
gabapentin 100 mg capsule 200 mg PO DAILY Pain 03/29/23 12/06/23 History
gabapentin 100 mg capsule 300 mg PO HS Pain 03/29/23 12/06/23 History
tamsulosin 0.4 mg capsule 0.4 mg PO DAILY 12/06/23 12/06/23 History
Review of Systems
-
History Source: Patient
All other systems: Negative unless noted
Physical Exam
Vital Signs
Temp Pulse Resp BP Pulse Ox
99.4 F 93 16 159/70 100
12/06/23 03:20 12/06/23 07:28 12/06/23 07:28 12/06/23 07:28 12/06/23 07:28
GEN: No distress, awake, Ox3, sitting in bed wearing oxygen
HEENT: supple, anicteric, mmm
LUNGS: few crackles at bases with mildly diminished B' on 4 LPM N/c
CV: Reg, S1/S2, no murmur, rub or gallops
ABD: soft, BS+, NT/ND
EXT: No edema, clubbing or cyanosis; LUE in immobilizer with acel in place with dried heme on bandage and moderate ecchymosis of Left arm
NEURO: Gross non-focal
SKIN: No rash, warm, dry, pink
Lab Results
12/06/23 03:33
Troponin I 0.042 ng/ml H* 12/06/23 03:33
Eol-J-Cgpeswapymv Pept 1200 pg/ml 12/06/23 03:33
Impression / Plan
-
PCP: Sarmad Elizabeth
Radio Maintainer: Dr. Membreno
Impression:
Presented 12/06/2023 with shortness of breath after having mechanical fall and unable to bear weight
Mechanical fall
Right hip pain, right intertrochanteric fracture
Acute hypoxic respiratory failure
Acute heart failure, proBNP 1200 vs flash pulm edema
Hyperkalemia
PABLO
Abnormal troponin, initial 0.042
Paroxysmal atrial fibrillation
Chronic anticoagulation on Eliquis
Chronic HFpEF
Ongoing tobacco abuse
Hypertension
Hypercholesterolemia
RBBB
Type 2 diabetes
History of gout
Bilateral carotid artery stenosis, moderate to severe
Presumed COPD
COVID 19 infection March 2023
Cervical laminectomy October 2022
Small bowel obstruction March 2023
History of reverse left total shoulder with revision in 03/17/2023
Hospitalized August 2023 with flu
Echocardiogram February 2023: Mild LVH, EF 65-70%, aortic sclerosis with mild aortic regurgitation, normal RV, normal atria, mild mitral regurgitation, mild TR, pulmonary artery pressure 35 mmHg
lexiscan mibi revealed fixed inferior defect in 03/2014.
Plan:
Patient is an 83-year-old male with past medical history significant for paroxysmal atrial fibrillation on chronic anticoagulation with Eliquis, hypertension, hyperlipidemia, type 2 diabetes, COPD, right bundle branch block who presented to
emergency department 12/06/2023 after having a mechanical fall and was found on the floor with acute shortness of breath. Patient complained of right hip pain and was unable to bear weight. On EMS arrival he was found to have acute hypoxic
respiratory failure with low pulse oximetry. In emergency department patient was provided IV Lasix and IV Dilaudid with some improvement of oxygenation. He was found to have acute right intertrochanteric fracture. He also had PABLO with
hyperkalemia. EKG showed sinus rhythm/tachycardia, troponin elevated at 0.042. proBNP 1200. Chest x-ray demonstrated increased interstitial markings suggestive of pulmonary edema.
At time of this evaluation he is sitting in bed, wearing oxygen but reports that he is feeling better. Denies CP, palpitations, edema. His significant other, Chrissy, reports he did seem more SOB over the last day or so following his Left total
shoulder replacement on 12/01/23. He resumed Eliquis 12/03/23.
-Presented 12/06/2023 with shortness of breath after having mechanical fall and unable to bear weight
-Acute heart failure with preserved ejection fraction, proBNP 1200, chest x-ray demonstrated bilateral interstitial edema. Provided 60 mg IV Lasix in emergency department with improvement of shortness of breath.
-Continue to monitor response to IV Lasix. Agree with IV diuresis with 40 mg daily.
-PABLO with admission creatinine 1.5, repeat pending
-Hyperkalemic on admission, repeat BNP pending. Continue to monitor and trend electrolytes
-Currently on 4 L/min nasal cannula, wean as tolerated
-Noted to have right intertrochanteric hip fracture. Orthopedics following with plan 2 OR either 12/08/2023 or 12/09/2023
-History of paroxysmal atrial fibrillation. Patient currently in sinus rhythm. Resumed Eliquis 12/02, last dose 12/04 in pm. Hold Eliquis pending OR later this week. Continue to monitor on telemetry. Continue Coreg.
Data Reviewed
-
EKG: Report Reviewed by me, Discussed with Physician, Discussed with Patient and Discussed with Family
Radiology: Report Reviewed by me, Discussed with Physician, Discussed with Patient and Discussed with Family
Labs: Labs Reviewed by me, Discussed with Physician, Discussed with Patient and Discussed with Family
Old Records: Reviewed
[2023-12-06 10:41] LABS: Blood Urea Nitrogen 45 mg/dl (9-20); Calcium 8.6 mg/dl (8.4-10.2); Carbon Dioxide 28 mmol/L (22-30); Chloride 106 mmol/L (98-107); Estimated Creatinine Clearance 38 ml/min; Glucose 141 mg/dl (70-99); Potassium 5.7 mmol/L (3.5-5.1); Sodium 138 mmol/L (135-145); eGFR 39.75
[2023-12-06] MEDS: DUONEB 3 ML INH (11:44)
[2023-12-06] MEDS: NEURONTIN 300 MG PO (11:50)
[2023-12-06] MEDS: COREG 6.25 MG PO (11:50)
[2023-12-06] MEDS: LASIX 40 MG IV (11:51)
[2023-12-06] MEDS: TYLENOL 650 MG PO ×4 (11:51→21:25)
[2023-12-06] MEDS: NOVOLOG FLEXPEN-LOW RESISTANCE SC ×3 (13:01→18:44)
[2023-12-06 13:02] LABS: Glucose - Point of Care 231 mg/dl (70-99)
[2023-12-06] MEDS: NOVOLOG FLEXPEN-LOW RESISTANCE 2 UNITS SC (13:10)
[2023-12-06 13:53] LABS: Creatine Phosphokinase 132 U/L (55-170)
[2023-12-06] MEDS: ProAmatine 5 MG PO (14:51)
[2023-12-06] MEDS: DUONEB INH ×2 (16:20→16:38)
[2023-12-06 16:48] LABS: Potassium 5.5 mmol/L (3.5-5.1)
[2023-12-06 17:05] LABS: Troponin I 0.046 ng/ml
--- NOTE | 2023-12-06 17:17 | W.PN.UPDATE ---
Addendum entered and electronically signed by Franny Quintero MD 12/06/23 18:17:
given decreased O2 needs and persistent low BP will give small bolus back
I had re-examined patient earlier and JVP no longer evident on exam, he does not appear in resp distress
Original Note:
Update Note
Progress Note Update
patient with low BP this afternoon. He states he has been urinating significantly; s/p midodrine with improvement. Hg drop from 9.9 to 8. No obvious new bruising on exam (bruising along left arm from prior surgical site).
concern for hematoma post fall. will obtain non-con CT (creatinine 1.7). blood consent signed. patient hoping to avoid any transfusion but accepting for life saving measures. will trend Hg.
[2023-12-06 18:43] LABS: Glucose - Point of Care 106 mg/dl (70-99)
[2023-12-06 20:22] LABS: Hemoglobin 8.5 g/dL (13.0-18.0)
[2023-12-06] MEDS: NEURONTIN 200 MG PO (21:12)
[2023-12-06] MEDS: COLACE PO (21:12)
[2023-12-06] MEDS: SENOKOT PO (21:13)
[2023-12-06] MEDS: LIPITOR 10 MG PO (21:25)
[2023-12-06 21:35] LABS: Glucose - Point of Care 215 mg/dl (70-99)
--- NOTE | 2023-12-06 21:35 | PTCARENOTE ---
Notified [facility] RESH[facility] Brush of Hemaglobin result of 8.5 (per Dr. Quintero's order); no further orders received at this time.
[2023-12-07] VITALS (7 sets, daily range): BP systolic 94–176; BP diastolic 59–96
[2023-12-07] MEDS: TYLENOL PO ×2 (00:50→04:30)
[2023-12-07 05:06] LABS: Hematocrit 27.1 % (39.0-52.0); Hemoglobin 9.1 g/dL (13.0-18.0); Mean Corp Hgb Conc. 33.6 g/dL (33.0-37.0); Mean Corpuscular Hgb 27.7 pg (27.0-31.0); Mean Corpuscular Volume 82.4 fL (80.0-94.0); Mean Platelet Volume 9.6 fL (7.4-10.4); Platelet Count 198 10^3/uL (130-400); Red Blood Cell Count 3.29 10^6/uL (4.70-6.10); Red Cell Dist. Width 14.4 % (11.5-14.5); White Blood Cell Count 6.3 10^3/uL (4.8-10.8)
[2023-12-07 05:20] LABS: INR 1.26; PT 15.6 Sec (11.4-14.6)
[2023-12-07 05:37] LABS: ALT (SGPT) 23 U/L (0-50); AST (SGOT) 32 U/L (17-59); Albumin 3.4 g/dl (3.5-5.0); Alkaline Phosphatase 110 U/L (38-126); Blood Urea Nitrogen 47 mg/dl (9-20); Carbon Dioxide 26 mmol/L (22-30); Chloride 103 mmol/L (98-107); Estimated Creatinine Clearance 36 ml/min; Glucose 127 mg/dl (70-99); Potassium 5.8 mmol/L (3.5-5.1); Sodium 134 mmol/L (135-145); Total Bilirubin 0.8 mg/dl (0.2-1.3); Total Protein 6.1 g/dl (6.3-8.2); eGFR 37.12
[2023-12-07 05:59] LABS: Troponin I 0.035 ng/ml
--- NOTE | 2023-12-07 06:05 | PTCARENOTE ---
Morning lab Troponin 0.035 critical value, but trending down as previous two were 0.060, 0.046; Terry Brush notified; no further orders at this time.
[2023-12-07 07:59] LABS: Glucose - Point of Care 158 mg/dl (70-99)
--- NOTE | 2023-12-07 08:27 | W.PN.HOSP.TC ---
Today's Communication/Plan
-
-resume coreg
-urine studies, UA
-Eliquis held
-NIGEL-I held
-appreciate renal, cards and ortho consults
-OR tomorrow or [facility]
Assessment / Plan
Assessment / Plan
Mr. 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
short of breath. Patient found to have right intertrochanteric fracture. Also found to have hypoxic respiratory insufficiency with CXR suggestive of heart failure.
CXR
IMPRESSION:
Increased interstitial markings within both lungs, most suggestive of pulmonary edema. Bilateral interstitial pneumonia would be a differential consideration.
Hip X-Ray
IMPRESSION: Intertrochanteric fracture of the right proximal femur.
�
CT A/P
IMPRESSION:
1. � Acute nondisplaced intertrochanteric fracture of the right proximal femur.
2. � No CT evidence for large acute soft tissue hematoma in the right proximal thigh.
3. � No CT evidence for acute retroperitoneal hemorrhage.
4. � Very severe diverticulosis in the descending and sigmoid colon.
5. � Moderate chronic bilateral renal disease.
6. � Severely enlarged prostate gland causing chronic urinary bladder outlet obstruction.
7. � Chronic infrarenal abdominal aortic dissection.
8. � Small hiatal hernia.
9. � Severe pancreatic parenchymal atrophy (lipomatosis).
10. 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
TTE 12/06/23
CONCLUSIONS
�Normal left ventricular size, wall thickness and systolic function.
�LV ejection fraction is 60-65% by visual assessment.
�No mitral stenosis.
�No aortic stenosis.
�Trace aortic regurgitation.
�Structurally normal tricuspid valve without significant stenosis or
�regurgitation.
�Normal pericardium without effusion.
�
Acute Rt Rt intertrochanteric Fx
RCRI Class II (+� acute HF)
- last dose of Eliquis was on Tuesday 8 pm
- appreciate ortho consult; Surgery either on or Tuesday
- He is to remain strict nonweightbearing to the right lower extremity until postop
- diet ordered
- continue to hold Eliquis
- Pre OP Card eval appreciated
- pain control
Hypoxic Respiratory Insufficiency
-s/p diuresis; patient now on room air
-concern raised for HF but now patient with rising creatinine post diuresis - further lasix held
-TTE results above - EF 60-65%
PABLO - creatinine remains elevated post lasix; potassium remains elevated
Hyperkalemia 2/2 PABLO
-Hold NIGEL-I
-start Lokelma
-low K diet
-may need fluis back?
-will consult renal today
Hypotension and Anemia
-afternoon 12/05 patient with dropping BP to SBP 80's and drop in Hg. CT A/P scan obtained non-con without e/o bleed. Hg back to > 9 this AM and BP actually hypertensive
-resume Coreg
-blood consent is signed
in NSR
HX Prx AF
- held Eliquis - last dose was Tuesday 8 pm
- cont Carvedilol
HTN urgency
Essential HTN
-adequate pain control
- cont� carvedilol�
T2DM
- Held Metformin
- add ISS low
HLD
- on Simvastatin
POD5 Lt shoulder arthroplasty at [facility]
S/p� should surgery earlier this week.
HX Infected left shoulder prosthesis� - s/p� explantation and replacement : S/p� IV ABx� fo 6 weeks in�November� 2022
�- Follow-up with Ortho at [place]
HX Gout
- stable
�
DVT Px: SCD , held Apixaban
Full code
=
Anticipated Discharge: > 48 hours
Subjective/Interval History
-
Date of Service: December 07, 2023
Objective Data
-
Labs:
Laboratory Results
12/07/23 12/07/23
04:55 14:00
WBC 6.3
Hgb 9.1 L
Hct 27.1 L
Plt Count 198 D
PT 15.6 H
INR 1.26
Sodium 134 L
Potassium 5.8 H Pending
Chloride 103
Carbon Dioxide 26
BUN 47 H
Creatinine 1.8 H
Glucose 127 H
Calcium 9.0
Total Bilirubin 0.8
AST 32
ALT 23
Alkaline Phosphatase 110
Vital Signs:
Vital Signs
Temp Pulse Resp BP Pulse Ox
99.3 F 107 18 176/96 96
12/07/23 07:20 12/07/23 07:20 12/07/23 07:20 12/07/23 07:20 12/07/23 07:20
I&O
12/06/23 12/07/23 12/08/23
06:59 06:59 06:59
Intake Total 480 / 480
Output Total 500 / 500 925 / 925
Balance -500 / -500 -445 / -445
--- NOTE | 2023-12-07 08:47 | W.PN.UPDATE ---
Update Note
Progress Note Update
Mr. Fry is resting comfortably in bed this morning. He does endorse continued pain about the hip.
Directed exam of RLE reveals no obvious erythema, ecchymosis or lesions. Tenderness to palpation about the anterior and lateral hip. Thigh soft and compressible. Calf soft and nontender. Patient able to wiggle toes, plantar and dorsiflex ankle.
Neurovascularly intact distally.
Right intertrochanteric femur fracture
--We plan to proceed with OR tomorrow under the direction of Dr. Allison after Eliquis washout. Surgical and blood consents are signed and on the patient's chart.
--NWB to RLE until surgery.
--NPO after midnight for surgery 12/08/23.
--Continue current pain management regimen. Ice for pain and edema control.
--Hgb 9.1 this AM. Continue to monitor.
--T+S completed.
--Please reach out with any additional orthopedic questions or concerns.
[2023-12-07] MEDS: NOVOLOG FLEXPEN-LOW RESISTANCE SC ×4 (09:28→16:43)
[2023-12-07] MEDS: COREG 6.25 MG PO ×2 (09:29→20:40)
[2023-12-07] MEDS: SENOKOT 17.1999999999999993 MG PO ×2 (09:29→20:40)
[2023-12-07] MEDS: FLOMAX 0.400000000000000022 MG PO (09:29)
[2023-12-07] MEDS: FOLVITE 1 MG PO (09:30)
[2023-12-07] MEDS: COLACE 100 MG PO ×2 (09:30→20:40)
[2023-12-07] MEDS: TYLENOL 650 MG PO ×5 (09:30→23:01)
[2023-12-07] MEDS: ZYLOPRIM 100 MG PO (09:30)
[2023-12-07] MEDS: NEURONTIN 300 MG PO (09:30)
[2023-12-07] MEDS: LOKELMA 10 GRAM PO ×3 (09:30→17:29)
[2023-12-07 09:49] LABS: Glycohemoglobin (HgbA1c) 6.6 % (4.0-5.6)
[2023-12-07] MEDS: ROXICODONE 5 MG PO (10:13)
--- NOTE | 2023-12-07 10:40 | CM ---
Addendum entered by Dick Hair 12/07/23 11:13:
Patient reported PCP is Dr. Sarmad Elizabeth with [facility] and records reflect Dr. Ruben Quiles.
Patient has been receiving outpatient PT for L shoulder and arm at [facility] in [place]. He prefers to do outpatient therapy after R hip surgery.
Original Note:
Initial assessment completed with patient who lives with his significant other in a one story home with no basement and 1 step to enter. 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 There is a RW in the home. No psychiatric hospitalizations.
Daughter is HC POA. Pharmacy is [facility] [address] [facility] in [place] and PCP is Dr. Sarmad Elizabeth at [facility]. Anticipate need for SNF. Will provide list after PT evaluation.
[2023-12-07] MEDS: NICODERM TRANSDERMAL 7 MG TRANSDERM (12:20)
[2023-12-07 12:51] LABS: Glucose - Point of Care 141 mg/dl (70-99)
--- NOTE | 2023-12-07 13:07 | W.CON.NEPH ---
Consultation
-
Date/Time Consultation Requested: 12/07/23 0844
Date/Time Consultation Performed: 1030
Requesting Provider: Franny Flores
Performing Provider: Clarisse Boswell
Reason for Consultation: PABLO, hyperkalemia
Medical History
-
Chief Complaint: fall and right hip fracture
History of Present Illness:
83-year-old male with past medical history of paroxysmal atrial fibrillation on AC, BB, HTN on Benzapril, DM on metformin, BPH on Flomax, hyperlipidemia, COPD, current tobacco abuse, right bundle branch block who had a left total shoulder
replacement on 11/30 at [place].�He had fall as he was trying to get out of bed and fell o his right hip. In ER noted to have left hip fracture but also note dwith acute respiratory failure with CHF and HTN BP in 200 range. He received lasix in ER, cr
was at 1.5 on admit on 12/05. repeat labs shows cr cont to increase and at 1.8 this am.. He did have hypotension in 80s last evening improving with out IVF(pt refused), in addition he also has persistent hyperkalemia. CT abd with out IV contrast
shows no bleeding. He reports no CP or sob this am. No dysuria. No n/v or abd pain. Pt is not very cooperative providing history, most of the history obtained through chart.
Past Medical History
Paroxysmal atrial fibrillation
Chronic anticoagulation on Eliquis
Ongoing tobacco abuse
Hypertension
Hypercholesterolemia
RBBB
Type 2 diabetes
History of gout
Bilateral carotid artery stenosis, moderate to severe
Presumed COPD
COVID 19 infection March 2023
Cervical laminectomy October 2022
Small bowel obstruction March 2023
History of reverse left total shoulder with revision in 03/17/2023
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
Past Surgical History: None and Other (Appendectomy and Orthopedic (Rotator cuff procedure, left shoulder replacement 2020, muscle transfer March 17, 2023 at [place]))
Social History
Tobacco: Smoker
Alcohol: Occasional
Drug: None
Personal:
Living: With Roomate (significant other)
Employment: Retired
Family History
no CKD
father stroke
sibling had lung cancer
Allergies / Home Medications
Allergy/AdvReac Type Severity Reaction Status Date / Time
No Known Allergies Allergy Verified 12/06/23 03:49
Medication Instructions Recorded Confirmed Type
allopurinol 100 mg tablet 100 mg PO DAILY Gout 03/19/23 12/06/23 History
apixaban 5 mg tablet 5 mg PO BID Blood Clot 03/19/23 12/06/23 History
Prevention/Tx
ascorbic acid (vitamin C) 250 mg 250 mg PO DAILY Supplement 03/19/23 12/06/23 History
tablet (Vitamin C)
benazepril 20 mg tablet 20 mg PO DAILY Blood Pressure 03/19/23 12/06/23 History
carvedilol 6.25 mg tablet 6.25 mg PO BID Heart 03/19/23 12/06/23 History
Disease/Condition
cholecalciferol (vitamin D3) 50 50 mcg PO DAILY Supplement 03/19/23 12/06/23 History
mcg (2,000 unit) tablet (Vitamin
D3)
folic acid 1 mg tablet 1 mg PO DAILY Supplement 03/19/23 12/06/23 History
metformin 500 mg tablet 500 mg PO BID Diabetes 03/19/23 12/06/23 History
simvastatin 20 mg tablet 20 mg PO QPM High Cholesterol 03/19/23 12/06/23 History
zolpidem 10 mg tablet 10 mg PO HS PRN insomnia 03/19/23 12/06/23 History
gabapentin 100 mg capsule 200 mg PO DAILY Pain 03/29/23 12/06/23 History
gabapentin 100 mg capsule 300 mg PO HS Pain 03/29/23 12/06/23 History
tamsulosin 0.4 mg capsule 0.4 mg PO DAILY Urinary Issue 12/06/23 12/06/23 History
Review of Systems
-
All other systems: Negative unless noted
Physical Exam
Vital Signs
Vital Signs
Temp Pulse Resp BP Pulse Ox
99.4 F 91 18 102/59 93
12/07/23 11:00 12/07/23 11:00 12/07/23 11:00 12/07/23 11:00 12/07/23 11:00
Lab Results
WBC 6.3 10^3/uL (4.8-10.8) 12/07/23 04:55
RBC 3.29 10^6/uL (4.70-6.10) L 12/07/23 04:55
Hgb 9.1 g/dL (13.0-18.0) L 12/07/23 04:55
Hct 27.1 % (39.0-52.0) L 12/07/23 04:55
Plt Count 198 10^3/uL (130-400) D 12/07/23 04:55
Sodium 134 mmol/L (135-145) L 12/07/23 04:55
Chloride 103 mmol/L (98-107) 12/07/23 04:55
Carbon Dioxide 26 mmol/L (22-30) 12/07/23 04:55
BUN 47 mg/dl (9-20) H 12/07/23 04:55
Creatinine 1.8 mg/dL (0.7-1.3) H 12/07/23 04:55
eGFR 37.12 12/07/23 04:55
Glucose 127 mg/dl (70-99) H 12/07/23 04:55
Calcium 9.0 mg/dl (8.4-10.2) 12/07/23 04:55
Enq-Z-Ujhmxmeqhuk Pept 1200 pg/ml 12/06/23 03:33
Albumin 3.4 g/dl (3.5-5.0) L 12/07/23 04:55
CXR 12/05:
PROCEDURE: CR Chest Portable - 1 View
CLINICAL INDICATION: 83-year-old with right hip fracture. Shortness of breath. On review of CoreFlow progress note, patient reportedly underwent revision of left total shoulder replacement on December 01, 2023 at the [facility].
TECHNIQUE: Portable AP sitting view of the chest obtained at 0310 hours.
COMPARISON: Previous chest radiographs, the most recent from September 17, 2023.
FINDINGS: A left shoulder prosthesis is present.
There is air density within the region of the superior aspect of the left shoulder joint, inferior to the distal clavicle and acromion. This is compatible with a history of recent surgery on December 01, 2023.
Cardiac silhouette size is within normal limits. There are increased interstitial markings within both lungs with slight indistinctness of the central pulmonary vasculature, and findings are suggestive of interstitial pulmonary edema pattern.
Differential consideration of interstitial pneumonia, felt to be less likely.
IMPRESSION:
Increased interstitial markings within both lungs, most suggestive of pulmonary edema. Bilateral interstitial pneumonia would be a differential consideration.
Echo on 12/05:
CONCLUSIONS
�Normal left ventricular size, wall thickness and systolic function.
�LV ejection fraction is 60-65% by visual assessment.
�No mitral stenosis.
�No aortic stenosis.
�Trace aortic regurgitation.
�Structurally normal tricuspid valve without significant stenosis or
�regurgitation.
�Normal pericardium without effusion.
CT 12/05:
Exams:� CT Abd/pelvis Wo Iv Cont
CPT: 33922
PROCEDURE: CT Abdomen and Pelvis without IV Contrast
CLINICAL INDICATION: Fall. Acute drop in hemoglobin. On Eliquis anticoagulation therapy. Acute right intertrochanteric proximal femoral fracture. Acute heart failure. Acute kidney injury.
TECHNIQUE: A CT examination of the abdomen and pelvis was performed without intravenous contrast. Oral contrast was not administered. Coronal and sagittal reformatted images were obtained. Automatic exposure control radiation dose reduction
technology was utilized.
COMPARISON: Comparison is made with an ultrasound examination of the kidneys and urinary bladder performed 11/07/[address] examination of the abdomen and pelvis performed 04/01/2023.
FINDINGS:
CHEST: The heart is normal in size. There is mild calcific atherosclerotic plaque in the thoracic aorta. There is no pericardial effusion. There are minimal bilateral pleural effusions. There is moderate centrilobular and paraseptal emphysema in
both lungs. There is a mild amount of subpleural subsegmental atelectasis in the basilar segments of the lower lobes of both lungs.
ABDOMEN: The liver, gallbladder, bile ducts appear normal. There is severe diffuse pancreatic parenchymal atrophy. The spleen is normal in size. There is no mesenteric or retroperitoneal lymphadenopathy. The adrenal glands are small in size. There
is severe calcific atherosclerotic plaque in the abdominal aorta. There is a chronic infrarenal abdominal aortic dissection which is not definitively changed. There is no retroperitoneal lymphadenopathy.
KIDNEYS: There is moderate bilateral renal cortical volume loss. There is no evidence for intrarenal calculus, ureteral calculus, or hydroureteronephrosis. There is a mild to moderate amount of bilateral perinephric fat stranding and inflammation.
There is no loculated perinephric fluid collection.
There is a small sliding-type hiatal hernia. The stomach is mildly distended with air. The duodenum and jejunum appear normal. There is no upper abdominal ascites or pneumoperitoneum.
PELVIS: There is no abnormal small bowel wall thickening or distention. The appendix is not clearly identified. There are surgical clips in the right lower quadrant adjacent to the cecum which could be secondary to a previous appendectomy. There is
a moderate amount of fecal material in the cecum and ascending colon. There is very severe diverticulosis in the descending colon and sigmoid colon.
The prostate gland is severely enlarged. The seminal vesicles are small in size. The urinary bladder is mildly distended. There is mild diffuse urinary bladder wall thickening and trabeculation. There is a small to moderate size fat-containing right
indirect inguinal hernia. There is minimal peritoneal fluid in the pelvis. There is no pelvic lymphadenopathy.
There is no CT evidence for acute retroperitoneal hematoma. There is a mild amount of extraperitoneal edema and inflammation in the inferior pelvis posterior to the rectum in the presacral space.
SKELETON: There is severe multilevel discogenic degenerative disease throughout the thoracic and lumbar spine with severe multilevel loss of intervertebral disc space height, large multilevel vertebral body endplate osteophytes, and multilevel
intervertebral disc vacuum phenomenon. There are multilevel calcified disc herniations in the lumbar spine causing central canal stenosis. There is mild to moderate bilateral arthritis of the sacroiliac joints.
There is an acute nondisplaced intertrochanteric fracture of the right proximal femur. There is acute soft tissue edema around the acute proximal femoral fracture. There is no CT evidence for large acute soft tissue hematoma. 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
osteoarthritis of the hips.
IMPRESSION:
1. � Acute nondisplaced intertrochanteric fracture of the right proximal femur.
2. � No CT evidence for large acute soft tissue hematoma in the right proximal thigh.
3. � No CT evidence for acute retroperitoneal hemorrhage.
4. � Very severe diverticulosis in the descending and sigmoid colon.
5. � Moderate chronic bilateral renal disease.
6. � Severely enlarged prostate gland causing chronic urinary bladder outlet obstruction.
7. � Chronic infrarenal abdominal aortic dissection.
8. � Small hiatal hernia.
9. � Severe pancreatic parenchymal atrophy (lipomatosis).
10. 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
Physical Exam
General: Awake, Alert, Oriented, AOx3, No Distress and Nontoxic
HEENT: EOMI and Anicteric
Respiratory: Clear, Nonlabored Respirations and Other (decreased BS)
Cardiac: S1/S2 and Regular Rate/Rhythm
Abdomen: Soft, Nontender and Nondistended
Musculoskeletal: No Cyanosis and No Edema
Skin: No Rash
Neuro: Nonfocal/Grossly Intact
Psych: Insight/judgement good and Appropriate
Assessment/Plan
-
IMP:
Acute Rt Rt intertrochanteric Fx s/p M fall
Acute hypoxic respiratory failure
Acute on chronic DCHF
HTN urgency
Hyperkalemia
PABLO
Hypotension
Anemia
Abnormal troponin, peak 0.06
Paroxysmal atrial fibrillation
Chronic anticoagulation on Eliquis
Chronic HFpEF
Ongoing tobacco abuse
Hypertension
Hypercholesterolemia
RBBB
Type 2 diabetes
History of gout
Bilateral carotid artery stenosis, moderate to severe
Presumed COPD
COVID 19 infection March 2023
Cervical laminectomy October 2022
Small bowel obstruction March 2023
History of reverse left total shoulder with revision in 03/17/2023
Lt shoulder arthroplasty at [facility] 12/01/23
HX Infected left shoulder prosthesis� - s/p� explantation and replacement : S/p� IV ABx� fo 6 weeks in�Nov2022
Plan:
A/w fall and noted right hip fracture waiting ELiquis wash out , recent left shoulder arthroplasty on 11/30 at [place]
PABLO-cr is high since admit upto 1.8, Dec cr was at 0.7-0.8, suspect hemodynamic related with significant drop in BPs on 12/05 from 230 to 80s
need urine studies and bladder scan was 0 before and non oliguric, check CK
no hydro on CT but has mod renal cortical thinning, need to monitor UOP if possible
holding lasix with PABLO
LOkelma course for hyperkalemia-holding ACEI, recheck labs later today
current BP are stable on BB
hold metformin and avoid nephrotoxins
for OR tomorrow hopefully k will be ok
d/w primary and nursing
Data Reviewed
-
Radiology: Report Reviewed by me
CT Scan: Report Reviewed by me
Labs: Labs Reviewed by me, Discussed with Physician and Discussed with Nurse
--- NOTE | 2023-12-07 13:17 | W.PN.CARDCBS ---
Addendum entered and electronically signed by Emil Membreno MD 12/07/23 16:39:
I saw and examined the patient.
The CATERING ASSISTANT or PA's note was reviewed and I agree with the note.
Comment: General: Well developed, well nourished in NAD.
Neck: Supple, no JVD, HJR, carotids +2 B/L, no bruits bilaterally.
Heart: Non displaced PMI, RRR, no murmurs, No S3, S4, no rubs.
Lungs: Clear to auscultation bilaterally, no wheeze, rhonchi, rubs bilaterally,
normal expiratory phase.
Extremities: No clubbing, cyanosis or edema bilaterally.
Neuro: Grossly nonfocal, awake, alert and oriented x3.
Stable cardiology status for right hip surgery in AM. Eliquis on hold for surgery. Hold off on Lasix and NIGEL inhibitor with renal insufficiency. Creatinine worsened slightly to 1.8 on 12/07
Original Note:
Today's Communication / Plan
-
hold off on further lasix
eliquis on hold. continue coreg
nigel on hold. K correction
plan for OR in AM
Impression / Plan
-
PCP: Sarmad Elizabeth
Steam Drier Operator: Dr. Membreno
Impression:
Presented 12/06/2023 with shortness of breath after having mechanical fall and unable to bear weight
Mechanical fall
Right hip pain, right intertrochanteric fracture
Acute hypoxic respiratory failure
Acute heart failure, proBNP 1200 vs flash pulm edema
Hyperkalemia
PABLO
Abnormal troponin, peak 0.06
Paroxysmal atrial fibrillation
Chronic anticoagulation on Eliquis
Chronic HFpEF
Ongoing tobacco abuse
Hypertension
Hypercholesterolemia
RBBB
Type 2 diabetes
History of gout
Bilateral carotid artery stenosis, moderate to severe
Presumed COPD
COVID 19 infection March 2023
Cervical laminectomy October 2022
Small bowel obstruction March 2023
History of reverse left total shoulder with revision in 03/17/2023
Hospitalized August 2023 with flu
Echocardiogram February 2023: Mild LVH, EF 65-70%, aortic sclerosis with mild aortic regurgitation, normal RV, normal atria, mild mitral regurgitation, mild TR, pulmonary artery pressure 35 mmHg
lexiscan mibi revealed fixed inferior defect in 03/2014.
Plan:
-He underwent L TSR 12/01/23. eliquis was resumed 12/03/23. Presented 12/06/2023 with shortness of breath after having mechanical fall and unable to bear weight
-imaging with evidence of R intertroch hip fracture
-he is frustrated today, states he is waiting to hear 'exactly' what surgery he is having tomorrow. he reports continued R leg discomfort
-he reports breathing is fine. not requiring supp O2. received 60mg IV lasix 12/05. hold off on additional diuretic at this time given hypotension overnight and uptrending Cr
-K remains elevated. OP benazepril on hold. lokelma ordered by primary service. nephrology to eval
-currently in SR on review of tele. eliquis on hold. continue OP coreg
-follow hgb, 9.1 on 12/06
-he is felt to be moderately elevated cardiac risk for surgery, however this risk is not prohibitive to proceed as scheduled due to urgency of surgery
-will follow perioperatively
-d/w nursing
PREADMIT DATA:
Patient is an 83-year-old male with past medical history significant for paroxysmal atrial fibrillation on chronic anticoagulation with Eliquis, hypertension, hyperlipidemia, type 2 diabetes, COPD, right bundle branch block who presented to
emergency department 12/06/2023 after having a mechanical fall and was found on the floor with acute shortness of breath. Patient complained of right hip pain and was unable to bear weight. On EMS arrival he was found to have acute hypoxic
respiratory failure with low pulse oximetry. In emergency department patient was provided IV Lasix and IV Dilaudid with some improvement of oxygenation. He was found to have acute right intertrochanteric fracture. He also had PABLO with
hyperkalemia. EKG showed sinus rhythm/tachycardia, troponin elevated at 0.042. proBNP 1200. Chest x-ray demonstrated increased interstitial markings suggestive of pulmonary edema.
Progress Note - Steam Drier Operator
Subjective
Date of Service: December 07, 2023
frustrated with multitude of complaints. no SOB
Objective
Labs:
12/07/23 04:55
Labs
Hgb 9.1 g/dL (13.0-18.0) L 12/07/23 04:55
Hct 27.1 % (39.0-52.0) L 12/07/23 04:55
Plt Count 198 10^3/uL (130-400) D 12/07/23 04:55
PT 15.6 Sec (11.4-14.6) H 12/07/23 04:55
INR 1.26 12/07/23 04:55
APTT 33.4 Sec (23.4-35.0) 12/06/23 03:33
Sodium 134 mmol/L (135-145) L 12/07/23 04:55
Potassium 5.8 mmol/L (3.5-5.1) H 12/07/23 04:55
BUN 47 mg/dl (9-20) H 12/07/23 04:55
Creatinine 1.8 mg/dL (0.7-1.3) H 12/07/23 04:55
Glucose 127 mg/dl (70-99) H 12/07/23 04:55
Troponins
12/06/23 12/06/23 12/06/23
03:33 10:14 14:14
Troponin I 0.042 H* 0.060 H* D Cancelled
12/06/23 12/06/23 12/07/23
16:17 20:14 04:55
Troponin I 0.046 H* Cancelled 0.035 H*
Vital Signs and I&O:
Vital Signs
Temp Pulse Resp BP Pulse Ox
99.4 F 91 18 102/59 93
12/07/23 11:00 12/07/23 11:00 12/07/23 11:00 12/07/23 11:00 12/07/23 11:00
Vital Signs
Temp Pulse Resp BP Pulse Ox
99.4 F 91 18 102/59 93
12/07/23 11:00 12/07/23 11:00 12/07/23 11:00 12/07/23 11:00 12/07/23 11:00
Intake & Output
12/05/23 12/06/23 12/07/23 12/08/23
07:59 07:59 07:59 07:59
Intake Total 480 / 480
Output Total 500 / 500 925 / 925
Balance -500 / -500 -445 / -445
Physical Exam
Physical Exam
GEN: No distress, awake, alert, oriented x3
HEENT: supple, anicteric, mmm, eomi
LUNGS: few exp wheezes
CV: Reg, S1/S2, no murmur
ABD: soft, BS+, NT/ND
EXT: No cyanosis, clubbing, edema
NEURO: Gross non-focal
SKIN: Warm, pink, dry. No rash. L shoulder dressing with mod-large amount of dried blood. katie-incisional ecchymoses
[2023-12-07 14:24] LABS: Potassium 5.7 mmol/L (3.5-5.1)
--- NOTE | 2023-12-07 15:50 | PN.CDI ---
CDI
- -
CDI:
Physician Documentation Request
Admit Date: 12/06/23 06:09
Dear Doctor Leon,
Patient admitted for hip fracture.
ER Physician Documentation: 'patient states that he had a fall and landed on his hip.'
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
12/06 Hospitalist PN: 'Acute Rt Rt intertrochanteric Fx'
Please provide further specificity regarding the diagnosis of fracture:
Due to a combination of trauma and a pathological process but the trauma alone would not likely have been sufficient to cause the fracture
Traumatic Fracture
Other
Use of terms such as suspected, likely, concern for, or probable (associated with a specific diagnosis that is being evaluated, monitored, or treated as if it exists) are acceptable and can be coded in the inpatient setting, when documented at the
time of discharge.
Thank you,
Gilda Dale RN, BSN
CDI Specialist
Available via [place] text
Please use your independent medical judgment in providing your response.
[2023-12-07 16:39] LABS: Glucose - Point of Care 134 mg/dl (70-99)
[2023-12-07 16:47] LABS: Urine Albumin Negative (Neg - Trace); Urine Bilirubin Negative (Negative); Urine Character Clear (Clear); Urine Color Yellow; Urine Glucose Negative (Negative); Urine Ketone Negative (Negative); Urine Leukocyte Negative (Negative); Urine Nitrite Negative (Negative); Urine Occult Blood Negative (Negative); Urine Urobilinogen Negative (Neg - 1+)
[2023-12-07 17:16] LABS: Urine Sodium 60 mmol/L (30-90)
[2023-12-07] MEDS: NEURONTIN 200 MG PO (17:28)
--- NOTE | 2023-12-07 18:29 | PTCARENOTE ---
Patient very difficult this shift. Consumed half of one dose of lokelma, regardless of continual re-educating r/t potassium level. Spoke with daughter twice and notified of refusal, patient then appeared to be more receptive to care. Lewis candelario
Basil Moore PA-C gave recommendation for removal of L aquacel dressing removal, cleanse, and to cut tails close to skin. Ortho notified and stated they would remove. Patient made aware.
[2023-12-07 18:57] LABS: Creatine Phosphokinase 159 U/L (55-170)
[2023-12-07] MEDS: LIPITOR 10 MG PO (20:40)
[2023-12-07 21:19] LABS: Potassium 4.8 mmol/L (3.5-5.1)
[2023-12-07 21:30] LABS: Glucose - Point of Care 156 mg/dl (70-99)
--- NOTE | 2023-12-07 21:30 | PTCARENOTE ---
Notified House SOURCING COORDINATOR of K+ result, no new orders at this time
[2023-12-08] VITALS (21 sets, daily range): BP systolic 81–141; BP diastolic 46–122; PULSE 78; O2SAT 88; BMI 23.6
[2023-12-08] MEDS: TYLENOL 650 MG PO ×4 (04:39→20:53)
[2023-12-08] MEDS: DILAUDID 0.5 MG IV (04:40)
[2023-12-08 05:03] LABS: % Basophils 0.7 % (0-2); % Eosinophils 7.9 % (0-6); % Immature Granulocytes 0.4 % (0-0.5); % Lymphocytes 12.7 % (20.5-51.1); % Monocytes 9.1 % (1.7-9.3); % Neutrophils 69.2 % (42.2-75.2); Absolute Eosinophils 0.4 10^3/uL (0-0.7); Absolute Lymphocytes 0.7 10^3/uL (1.2-3.4); Absolute Monocytes 0.5 10^3/uL (0.1-0.6); Absolute Neutrophils 3.9 10^3/uL (1.4-6.5); Hematocrit 25.9 % (39.0-52.0); Hemoglobin 8.3 g/dL (13.0-18.0); Mean Corpuscular Hgb 26.9 pg (27.0-31.0); Mean Corpuscular Volume 84.1 fL (80.0-94.0); Nucleated Red Blood Cells % 0 % (-); Platelet Count 202 10^3/uL (130-400); Red Blood Cell Count 3.08 10^6/uL (4.70-6.10); Red Cell Dist. Width 14.1 % (11.5-14.5); White Blood Cell Count 5.6 10^3/uL (4.8-10.8)
[2023-12-08 05:09] LABS: INR 1.32; PT 16.4 Sec (11.4-14.6)
[2023-12-08 05:39] LABS: Blood Urea Nitrogen 41 mg/dl (9-20); Calcium 8.7 mg/dl (8.4-10.2); Carbon Dioxide 28 mmol/L (22-30); Chloride 99 mmol/L (98-107); Estimated Creatinine Clearance 50 ml/min; Glucose 134 mg/dl (70-99); Magnesium 2.2 mg/dl (1.6-2.3); Potassium 5.1 mmol/L (3.5-5.1); Sodium 135 mmol/L (135-145); eGFR 54.85
[2023-12-08] MEDS: LOKELMA 10 GRAM PO ×2 (06:16→17:19)
[2023-12-08 07:07] LABS: Glucose - Point of Care 153 mg/dl (70-99)
--- NOTE | 2023-12-08 07:12 | W.PN.UPDATE ---
Update Note
Progress Note Update
Patient for open reduction internal fixation right hip intertrochanteric fracture later today. He will remain n.p.o. and antibiotics on-call to operating room. Surgical/blood consent signed and surgical location marked.
Status post second stage revision left shoulder replacement December 01, 2023 at [facility]. At his surgeon's request dressing was removed. Incision appears clean, dry and intact. No warmth or erythema noted. Ecchymosis present
primarily in the upper arm. Incision was cleaned with alcohol and Betadine then Steri-Strips applied. New Aquacel dressing placed. Follow-up with his shoulder surgeon after discharge from [facility].
--- NOTE | 2023-12-08 08:43 | W.PN.HOSP.TC ---
Addendum entered and electronically signed by Franny Quintero MD 12/08/23 08:47:
Due to a combination of trauma and a pathological process but the trauma alone would not likely have been sufficient to cause the fracture
Original Note:
Today's Communication/Plan
-
NPO for OR today
K WNL; PABLO resolving
Assessment / Plan
Assessment / Plan
Mr. 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
short of breath. Patient found to have right intertrochanteric fracture. Also found to have hypoxic respiratory insufficiency with CXR suggestive of heart failure.
CXR
IMPRESSION:
Increased interstitial markings within both lungs, most suggestive of pulmonary edema. Bilateral interstitial pneumonia would be a differential consideration.
Hip X-Ray
IMPRESSION: Intertrochanteric fracture of the right proximal femur.
�
CT A/P
IMPRESSION:
1. � Acute nondisplaced intertrochanteric fracture of the right proximal femur.
2. � No CT evidence for large acute soft tissue hematoma in the right proximal thigh.
3. � No CT evidence for acute retroperitoneal hemorrhage.
4. � Very severe diverticulosis in the descending and sigmoid colon.
5. � Moderate chronic bilateral renal disease.
6. � Severely enlarged prostate gland causing chronic urinary bladder outlet obstruction.
7. � Chronic infrarenal abdominal aortic dissection.
8. � Small hiatal hernia.
9. � Severe pancreatic parenchymal atrophy (lipomatosis).
10. 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
TTE 12/06/23
CONCLUSIONS
�Normal left ventricular size, wall thickness and systolic function.
�LV ejection fraction is 60-65% by visual assessment.
�No mitral stenosis.
�No aortic stenosis.
�Trace aortic regurgitation.
�Structurally normal tricuspid valve without significant stenosis or
�regurgitation.
�Normal pericardium without effusion.
�
Acute Rt Rt intertrochanteric Fx
RCRI Class II (+� acute HF)
- last dose of Eliquis was on Tuesday 8PM
- appreciate ortho consult; NPO for OR today
- He is to remain strict nonweightbearing to the right lower extremity until postop
- Pre OP Card eval appreciated
- pain control
Hypoxic Respiratory Insufficiency
-s/p diuresis; patient now on room air
-concern raised for HF but now patient with rising creatinine post diuresis - further lasix held
-TTE results above - EF 60-65%
PABLO
Hyperkalemia 2/2 PABLO
-renal function improved with holding lasix; K WNL
-appreciate renal consult
Hypotension and Anemia
-afternoon 12/05 patient with dropping BP to SBP 80's and drop in Hg. CT A/P scan obtained non-con without e/o bleed. Hg back to > 9 this AM and BP actually hypertensive
-resume Coreg
-blood consent is signed
in NSR
HX Prx AF
- held Eliquis - last dose was Tuesday 8 pm
- cont Carvedilol
HTN urgency
Essential HTN
-adequate pain control
- cont� carvedilol�
T2DM
- Held Metformin
- add ISS low
HLD
- on Simvastatin
POD5 Lt shoulder arthroplasty at [facility]
S/p� should surgery earlier this week.
HX Infected left shoulder prosthesis� - s/p� explantation and replacement : S/p� IV ABx� fo 6 weeks in�November� 2022
�- Follow-up with Ortho at [place]
- this AM: �Incision was cleaned with alcohol and Betadine then Steri-Strips applied.� New Aquacel dressing placed per ortho
HX Gout
- stable
�
DVT Px: SCD , held Apixaban
Full code
=
Anticipated Discharge: 24 - 48 hours
Subjective/Interval History
-
Date of Service: December 08, 2023
denies chest pain or shortness of breath
Objective Data
-
Labs:
Laboratory Results
12/07/23 12/08/23
20:58 04:20
WBC 5.6
Hgb 8.3 L
Hct 25.9 L
Plt Count 202
PT 16.4 H
INR 1.32
Sodium 135
Potassium 4.8 5.1
Chloride 99
Carbon Dioxide 28
BUN 41 H
Creatinine 1.3
Glucose 134 H
Calcium 8.7
Vital Signs:
Vital Signs
Temp Pulse Resp BP Pulse Ox
99.2 F 84 18 140/75 97
12/08/23 07:15 12/08/23 07:15 12/08/23 07:15 12/08/23 07:15 12/08/23 07:15
I&O
12/07/23 12/08/23 12/09/23
06:59 06:59 06:59
Intake Total 480 / 480 1200 / 1200
Output Total 925 / 925 1575 / 1575
Balance -445 / -445 -375 / -375
Review of Systems
-
History Source: Patient
All other systems: Reviewed and negative
Physical Exam
-
General: No Apparent Distress
HEENT: Normocephalic, Atraumatic, Anicteric, PERRLA, Nose Appears Normal and Ears Appear Normal
Respiratory: Clear to Auscultation; Negative Wheezes
Cardiac: S1/S2 and Irregular Rhythm; Negative Murmur
GI: Soft, Nontender, Nondistended and Normal Bowel Sounds
Genito-urinary: Other (left shoulder in sling; bandage over prior surgery site; + ecchymosis)
Musculoskeletal: No Clubbing, No Cyanosis and No Edema
Skin: Warm and Dry; Negative Jaundice
Neuro: AO x 3 and Nonfocal/Grossly Intact
Hematologic / Lymphatic: No Lymphadenopathy
Psych: Intact Judgement/Insight and Anxious
Data Reviewed
-
Diagnostic Radiology: Report Reviewed by me
Labs: Labs Reviewed by me
[2023-12-08] MEDS: NOVOLOG FLEXPEN-LOW RESISTANCE SC ×3 (09:07→17:23)
[2023-12-08] MEDS: NICODERM TRANSDERMAL 7 MG TRANSDERM (09:08)
[2023-12-08] MEDS: NEURONTIN PO (09:10)
[2023-12-08] MEDS: SENOKOT 17.1999999999999993 MG PO ×2 (09:11→20:53)
[2023-12-08] MEDS: COLACE 100 MG PO ×2 (09:12→20:52)
[2023-12-08] MEDS: FOLVITE 1 MG PO (09:12)
[2023-12-08] MEDS: COREG 6.25 MG PO ×2 (09:12→20:53)
[2023-12-08] MEDS: FLOMAX 0.400000000000000022 MG PO (09:12)
[2023-12-08] MEDS: ZYLOPRIM 100 MG PO (09:12)
--- NOTE | 2023-12-08 09:20 | W.PN.CARDCBS ---
Addendum entered and electronically signed by Courtney Chisholm DO 12/08/23 23:16:
I saw and examined the patient.
The Snow Maker's note was reviewed and I agree with the note.
Comment: Patient seen and examined this morning at 10 AM; late entry. He was seen and examined prior to the OR in room 10/20/2003. Complaining of hip pain but otherwise no complaints. No chest pain or pressure. No shortness of breath.
GEN: No distress, awake, alert, oriented x3
HEENT: mmm
LUNGS: CTA B/L anterolaterally, no wheezes
CV: Reg, S1/S2, no murmur
ABD: soft, BS+, NT/ND
EXT: No edema
NEURO: Gross non-focal
SKIN: L shoulder aquacel dressing c/d/i
Plan:
Presented following mechanical fall with right intertrochanteric fracture for ORIF today
-Stable from a cardiovascular standpoint to proceed with surgery as planned although moderately elevated risk factors.
-Monitor on telemetry following surgery.
-Monitor postop hemoglobin/creatinine/electrolytes.
-Hold Eliquis
Acute hypoxic respiratory failure/heart failure with preserved ejection fraction
-Initial proBNP 1200
-Responded well to IV Lasix on 12/05; holding further Lasix. Was not on diuretics prehospitalization
-Monitor closely post op
Paroxysmal atrial fibrillation in sinus rhythm
-Continue telemetry monitoring
-Continue carvedilol
-Resume Eliquis anticoagulation when safer from a postop standpoint
Bilateral carotid artery stenosis�outpatient surveillance monitoring
Acute kidney insufficiency following diuresis with hyperkalemia
-Appreciate nephrology input
-Follow renal function and potassium postop
-Holding NIGEL inhibitor and metformin
-Avoid NSAIDs
-He underwent redo L TSR 12/01/23 at [facility] with history of infected left shoulder prosthesis s/p� explantation; S/p� IV ABx� fo 6 weeks in�November� 2022
-Supportive orthopedic care
Will follow with you
Original Note:
Today's Communication / Plan
-
for OR today
Cr and K improved
he is felt to be moderately elevated cardiac risk for surgery, however this risk is not prohibitive to proceed
resume eliquis post op when safe from ortho standpoint. in SR
Impression / Plan
-
PCP: Sarmad Elizabeth
Prototype Engineer Manager: Dr. Membreno
Impression:
Presented 12/06/2023 with shortness of breath after having mechanical fall and unable to bear weight
Mechanical fall
Right hip pain, right intertrochanteric fracture
Acute hypoxic respiratory failure
Acute heart failure, proBNP 1200 vs flash pulm edema
Hyperkalemia
PABLO
Abnormal troponin, peak 0.06
Paroxysmal atrial fibrillation
Chronic anticoagulation on Eliquis
Chronic HFpEF
Ongoing tobacco abuse
Hypertension
Hypercholesterolemia
RBBB
Type 2 diabetes
History of gout
Bilateral carotid artery stenosis, moderate to severe
Presumed COPD
COVID 19 infection March 2023
Cervical laminectomy October 2022
Small bowel obstruction March 2023
History of reverse left total shoulder with revision in 03/17/2023
Hospitalized August 2023 with flu
Echocardiogram February 2023: Mild LVH, EF 65-70%, aortic sclerosis with mild aortic regurgitation, normal RV, normal atria, mild mitral regurgitation, mild TR, pulmonary artery pressure 35 mmHg
lexiscan mibi revealed fixed inferior defect in 03/2014.
Plan:
-He underwent L TSR 12/01/23. eliquis was resumed 12/03/23. Presented 12/06/2023 with shortness of breath after having mechanical fall and unable to bear weight
-imaging with evidence of R intertroch hip fracture
-pain for OR later today
-no issues with breathing. received dose of IV lasix 60mg on 12/05 due to concern for acute pulm edema and Cr bumped to 1.8. improved 12/07 to 1.3. holding on further diuretic at this time
-K improving, 5.1 on 12/07. OP benazepril, metformin on hold. received lokelma per primary service. nephrology to jory
-currently in SR with occasional PVCs on review of tele. eliquis on hold. continue OP coreg
-follow hgb, 8.3 on 12/07
-he is felt to be moderately elevated cardiac risk for surgery, however this risk is not prohibitive to proceed as scheduled due to urgency of surgery
-will follow perioperatively
PREADMIT DATA:
Patient is an 83-year-old male with past medical history significant for paroxysmal atrial fibrillation on chronic anticoagulation with Eliquis, hypertension, hyperlipidemia, type 2 diabetes, COPD, right bundle branch block who presented to
emergency department 12/06/2023 after having a mechanical fall and was found on the floor with acute shortness of breath. Patient complained of right hip pain and was unable to bear weight. On EMS arrival he was found to have acute hypoxic
respiratory failure with low pulse oximetry. In emergency department patient was provided IV Lasix and IV Dilaudid with some improvement of oxygenation. He was found to have acute right intertrochanteric fracture. He also had PABLO with
hyperkalemia. EKG showed sinus rhythm/tachycardia, troponin elevated at 0.042. proBNP 1200. Chest x-ray demonstrated increased interstitial markings suggestive of pulmonary edema.
Progress Note - Prototype Engineer Manager
Subjective
Date of Service: December 08, 2023
Denies chest pain or difficulty breathing. Reports continued right leg pain
Objective
Labs:
12/08/23 04:20
12/08/23 04:20
Labs
Hgb 8.3 g/dL (13.0-18.0) L 12/08/23 04:20
Hct 25.9 % (39.0-52.0) L 12/08/23 04:20
Plt Count 202 10^3/uL (130-400) 12/08/23 04:20
PT 16.4 Sec (11.4-14.6) H 12/08/23 04:20
INR 1.32 12/08/23 04:20
APTT 33.4 Sec (23.4-35.0) 12/06/23 03:33
Sodium 135 mmol/L (135-145) 12/08/23 04:20
Potassium 5.1 mmol/L (3.5-5.1) 12/08/23 04:20
BUN 41 mg/dl (9-20) H 12/08/23 04:20
Creatinine 1.3 mg/dL (0.7-1.3) 12/08/23 04:20
Glucose 134 mg/dl (70-99) H 12/08/23 04:20
Troponins
12/06/23 12/06/23 12/06/23
03:33 10:14 14:14
Troponin I 0.042 H* 0.060 H* D Cancelled
12/06/23 12/06/23 12/07/23
16:17 20:14 04:55
Troponin I 0.046 H* Cancelled 0.035 H*
Vital Signs and I&O:
Vital Signs
Temp Pulse Resp BP Pulse Ox
99.2 F 84 18 140/75 97
12/08/23 07:15 12/08/23 07:15 12/08/23 07:15 12/08/23 07:15 12/08/23 07:15
Vital Signs
Temp Pulse Resp BP Pulse Ox
99.2 F 84 18 140/75 97
12/08/23 07:15 12/08/23 07:15 12/08/23 07:15 12/08/23 07:15 12/08/23 07:15
Intake & Output
12/06/23 12/07/23 12/08/23 12/09/23
07:59 07:59 07:59 07:59
Intake Total 480 / 480 1200 / 1200
Output Total 500 / 500 925 / 925 1575 / 1575
Balance -500 / -500 -445 / -445 -375 / -375
Physical Exam
Physical Exam
GEN: No distress, awake, alert, oriented x3
HEENT: supple, anicteric, mmm, eomi
LUNGS: CTA B/L anterolaterally, no wheezes
CV: Reg, S1/S2, no murmur
ABD: soft, BS+, NT/ND
EXT: No cyanosis, clubbing, edema
NEURO: Gross non-focal
SKIN: Warm, pink, dry. No rash. L shoulder aquacel dressing c/d/i
--- NOTE | 2023-12-08 10:30 | PTCARENOTE ---
Patient uncooperative with care during shift. Patient refusing turning and repositioning and insulin. Patient education provided. Patient not receptive to education, will continue to reinforce. Dr. Quintero notified.
--- NOTE | 2023-12-08 11:07 | W.PN.NEPH.PH ---
Today's Communication / Plan
-
observe off lasix
Assessment/Plan
-
IMP:
Acute Rt Rt intertrochanteric Fx s/p M fall
Acute hypoxic respiratory failure
Acute on chronic DCHF
HTN urgency
Hyperkalemia
PABLO
Hypotension
Anemia
Abnormal troponin, peak 0.06
Paroxysmal atrial fibrillation
Chronic anticoagulation on Eliquis
Chronic HFpEF
Ongoing tobacco abuse
Hypertension
Hypercholesterolemia
RBBB
Type 2 diabetes
History of gout
Bilateral carotid artery stenosis, moderate to severe
Presumed COPD
COVID infection March 2023
Cervical laminectomy October 2022
Small bowel obstruction March 2023
History of reverse left total shoulder with revision in 03/17/2023
Lt shoulder arthroplasty at [facility] 12/01/23
HX Infected left shoulder prosthesis� - s/p� explantation and replacement : S/p� IV ABx� fo 6 weeks in�Nov2022
Plan:
A/w fall and noted right hip fracture waiting ELiquis wash out , recent left shoulder arthroplasty on 11/30 at [facility]
PABLO-baseline in Dec cr was at 0.7-0.8, cr peak at 1.8 and improving to 1.2 today
felt to be hemodynamic related with significant drop in BPs on 12/05 from 230 to 80s
bland UA and bladder scan was 0 before and non oliguric, normal CK
no hydro on CT but has mod renal cortical thinning
seem euvolemic on RA, no lasix
k normalized, would still hold ACEI till renal function return baseline
current BP are stable on BB
holdresume metformin if renal functions table tomorrow
for OR today
d/e nursing
will s/o, call with ?s
-
-
Date of Service: December 08, 2023
CC / HPI / ROS
-
Chief Complaint:
PABLO
History of Present Illness:
cr improving to 1.2
BP stable
k better at 5.1
Review of Systems:
non oliguric
pain controlled when not moving
no cp or sob
Labs
-
Labs:
WBC 5.6 10^3/uL (4.8-10.8) 12/08/23 04:20
RBC 3.08 10^6/uL (4.70-6.10) L 12/08/23 04:20
Hgb 8.3 g/dL (13.0-18.0) L 12/08/23 04:20
Hct 25.9 % (39.0-52.0) L 12/08/23 04:20
Plt Count 202 10^3/uL (130-400) 12/08/23 04:20
Sodium 135 mmol/L (135-145) 12/08/23 04:20
Potassium 5.1 mmol/L (3.5-5.1) 12/08/23 04:20
Chloride 99 mmol/L (98-107) 12/08/23 04:20
Carbon Dioxide 28 mmol/L (22-30) 12/08/23 04:20
BUN 41 mg/dl (9-20) H 12/08/23 04:20
Creatinine 1.3 mg/dL (0.7-1.3) 12/08/23 04:20
eGFR 54.85 12/08/23 04:20
Glucose 134 mg/dl (70-99) H 12/08/23 04:20
Calcium 8.7 mg/dl (8.4-10.2) 12/08/23 04:20
Izx-V-Vplynlxwwkg Pept 1200 pg/ml 12/06/23 03:33
Albumin 3.4 g/dl (3.5-5.0) L 12/07/23 04:55
Physical Exam
-
Vital Signs:
Vital Signs
Temp Pulse Resp BP Pulse Ox
99.2 F 84 18 140/75 97
12/08/23 07:15 12/08/23 07:15 12/08/23 07:15 12/08/23 07:15 12/08/23 07:15
Cardiovascular:: Regular rate and rhythm
Respiratory:: Bilateral: CTA
Lung Excursion:: Normal
Abdomen:: Nontender and Soft
Extremity Edema:: None: Bilateral:
Ramesh Catheter: No
[2023-12-08] MEDS: TYLENOL PO (12:02)
--- NOTE | 2023-12-08 14:41 | W.PN.UPDATE ---
Update Note
Progress Note Update
Patient s/p right hip gamma nail under the direction of Dr. Rose.
WBAT, restart Eliquis tomorrow.
Dr. Rose contacted Dr. Ley from [facility], and Mr. Fry may be WBAT to his left upper extremity.
[2023-12-08 14:49] LABS: Glucose - Point of Care 116 mg/dl (70-99)
--- NOTE | 2023-12-08 15:01 | CM ---
Patient had ORIF RLE. Per their request, met with daughter and significant other to discuss discharge plan of care. Provided [employer] lists [place] [id number]. They chose 5 preferences and referrals have been forwarded. [facility] is main
preference.
[2023-12-08] MEDS: DILAUDID 0.25 MG IV ×2 (15:21→15:35)
[2023-12-08] MEDS: NORMOSOL-R 1000 IV (15:41)
[2023-12-08] MEDS: ROXICODONE 10 MG PO ×2 (16:35→21:13)
[2023-12-08] MEDS: LOKELMA PO (16:38)
--- NOTE | 2023-12-08 16:41 | PTCARENOTE ---
1615: Patient received from PACU. Patient with decreased movement. Neurovascular assessment otherwise intact. R hip dressing clean, dry, and intact. IV fluids infusing per order. Telemetry reapplied. Bed locked in lowest position and safety
precautions maintained. Daughter and significant other at bedside. Urinal and call hardin within reach. PT and OT in to see patient.
[2023-12-08 17:06] LABS: Glucose - Point of Care 153 mg/dl (70-99)
[2023-12-08] MEDS: NEURONTIN 200 MG PO (18:06)
[2023-12-08] MEDS: ANCEF 5 IV (20:54)
[2023-12-08] MEDS: LIPITOR 10 MG PO (21:15)
[2023-12-08 21:37] LABS: Glucose - Point of Care 267 mg/dl (70-99)
--- NOTE | 2023-12-08 22:30 | PTCARENOTE ---
Patient HS blood sugar 267; notified House VICENTE Travis, no further orders at this time.
[2023-12-09] VITALS (8 sets, daily range): BP systolic 106–124; BP diastolic 50–67; PULSE 72; O2SAT 97–99; BMI 24.7
[2023-12-09] MEDS: TYLENOL 650 MG PO ×6 (00:17→21:25)
[2023-12-09] MEDS: ROXICODONE 10 MG PO ×4 (01:16→21:26)
[2023-12-09] MEDS: NORMOSOL-R 1000 IV (01:58)
--- NOTE | 2023-12-09 03:00 | PTCARENOTE ---
Patient complaining about the amount of times he is urinating; on his admission date a condom cath was offered, but patient refused; patient is now requesting a condom cath as he has not slept due to frequent need to urinate; Condom Cath #25 applied
and attached to drainage bag; will continue to monitor.
[2023-12-09] MEDS: ANCEF 5 IV (04:16)
[2023-12-09] MEDS: LOKELMA PO (05:29)
--- NOTE | 2023-12-09 05:30 | PTCARENOTE ---
Patient refused his 0600 dose of Lokelma; patient stated 'I will not drink that again, I will talk to the doctor during his rounds this morning to address my Potassium by changing my diet!'; attempted to have an education session with patient, but
he repeated same statement; will include in my end of shift nursing report to dayshift RN.
[2023-12-09 06:28] LABS: Hematocrit 24.2 % (39.0-52.0); Mean Corp Hgb Conc. 33.1 g/dL (33.0-37.0); Mean Corpuscular Hgb 27.4 pg (27.0-31.0); Mean Corpuscular Volume 82.9 fL (80.0-94.0); Mean Platelet Volume 10.1 fL (7.4-10.4); Platelet Count 214 10^3/uL (130-400); Red Blood Cell Count 2.92 10^6/uL (4.70-6.10); Red Cell Dist. Width 13.7 % (11.5-14.5); White Blood Cell Count 5.8 10^3/uL (4.8-10.8)
[2023-12-09 06:31] LABS: INR 1.32; PT 16.5 Sec (11.4-14.6)
--- NOTE | 2023-12-09 06:40 | W.PN.ORTHO ---
Today's Communication / Plan
-
83-year-old male status post right cephalomedullary nail fixation with Dr. Rose 08 December 2023 postop day 1
Weightbearing as tolerated to right lower extremity with assist devices as indicated
PT/OT/DC planning
Diet per primary
Pain well-controlled on current regimen
DVT prophylaxis: Resume Eliquis today baseline
Orthopedic surgery will continue to follow
Assessment
.
Distal Motor Intact: Yes
Dressing:
Clean, dry and intact.
Plan
.
Surgery / Date: 08 December [address] Rose
Activity:
Out of bed.
PT/OT
Subjective
.
.:
Patient resting comfortably. He reports his hip is doing well but is more upset about this diet
Vital Signs and Labs
.
Vital Signs and Labs:
Temp Pulse Resp BP Pulse Ox
97.5 F 68 18 108/66 99
12/09/23 03:08 12/09/23 03:08 12/09/23 03:08 12/09/23 03:08 12/09/23 03:08
PT 16.5 Sec (11.4-14.6) H 12/09/23 04:45
INR 1.32 12/09/23 04:45
Physical Exam
-
Neurovascularly intact to right lower extremity with intact dry dressings
[2023-12-09 06:41] LABS: Blood Urea Nitrogen 39 mg/dl (9-20); Calcium 8.4 mg/dl (8.4-10.2); Carbon Dioxide 28 mmol/L (22-30); Chloride 98 mmol/L (98-107); Estimated Creatinine Clearance 59 ml/min; Glucose 169 mg/dl (70-99); Magnesium 2.3 mg/dl (1.6-2.3); Potassium 5.7 mmol/L (3.5-5.1); Sodium 133 mmol/L (135-145); eGFR > 60.00
[2023-12-09 07:33] LABS: Glucose - Point of Care 143 mg/dl (70-99)
[2023-12-09] MEDS: NOVOLOG FLEXPEN-LOW RESISTANCE SC (07:59)
--- NOTE | 2023-12-09 08:44 | W.PN.HOSP.TC ---
Today's Communication/Plan
-
treat K - additional Lokelma - fluids + lasix then stop running fluids
hopefully liberalize diet this afternoon as this is what patient is most upset about
stop NIGEL-I
will need follow up labs post DC
PT/OT
appreciate ortho
Assessment / Plan
Assessment / Plan
Mr. 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
short of breath. Patient found to have right intertrochanteric fracture. Also found to have hypoxic respiratory insufficiency with CXR suggestive of heart failure.
CXR
IMPRESSION:
Increased interstitial markings within both lungs, most suggestive of pulmonary edema. Bilateral interstitial pneumonia would be a differential consideration.
Hip X-Ray
IMPRESSION: Intertrochanteric fracture of the right proximal femur.
�
CT A/P
IMPRESSION:
1. � Acute nondisplaced intertrochanteric fracture of the right proximal femur.
2. � No CT evidence for large acute soft tissue hematoma in the right proximal thigh.
3. � No CT evidence for acute retroperitoneal hemorrhage.
4. � Very severe diverticulosis in the descending and sigmoid colon.
5. � Moderate chronic bilateral renal disease.
6. � Severely enlarged prostate gland causing chronic urinary bladder outlet obstruction.
7. � Chronic infrarenal abdominal aortic dissection.
8. � Small hiatal hernia.
9. � Severe pancreatic parenchymal atrophy (lipomatosis).
10. 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
TTE 12/06/23
CONCLUSIONS
�Normal left ventricular size, wall thickness and systolic function.
�LV ejection fraction is 60-65% by visual assessment.
�No mitral stenosis.
�No aortic stenosis.
�Trace aortic regurgitation.
�Structurally normal tricuspid valve without significant stenosis or
�regurgitation.
�Normal pericardium without effusion.
�
Acute Rt Rt intertrochanteric Fx
RCRI Class II (+� acute HF)
- Pre OP Card poloal appreciated
- OR was delayed for Eliquis washout
- now s/p Open reduction, internal fixation right hip with IM
gamma nailing on 12/07
- continue pain control
- PT/OT - eventual SNF
Hypoxic Respiratory Insufficiency
-s/p diuresis; patient now on room air
-concern raised for HF but now patient with rising creatinine post diuresis - further lasix held
-TTE results above - EF 60-65%
PABLO
Hyperkalemia 2/2 PABLO
-renal function improved with holding lasix
-appreciate renal consult
-K normalized pre-op but now up to 5.7; he refused lokelma last night
-additional lokelma this AM - 250cc bolus + lasix then stop fluids (some JVP seen on exam)
-repeat K this afternoon and if resolved can liberalize diet
-stop NIGEL-I on DC
Hypotension and Anemia
-afternoon 12/05 patient with dropping BP to SBP 80's and drop in Hg. CT A/P scan obtained non-con without e/o bleed. Hg back to > 9 this AM and BP actually hypertensive
-resume Coreg
-blood consent is signed
in NSR
HX Prx AF
- OK to resume Eliquis per ortho
- cont Carvedilol
HTN urgency
Essential HTN
- adequate pain control
- cont� carvedilol�
T2DM
- Held Metformin
- add ISS low
HLD
- on Simvastatin
POD5 Lt shoulder arthroplasty at [facility]
S/p� should surgery earlier this week.
HX Infected left shoulder prosthesis� - s/p� explantation and replacement : S/p� IV ABx� fo 6 weeks in�November� 2022
�- Follow-up with Ortho at [place]
-12/07 AM: �Incision was cleaned with alcohol and Betadine then Steri-Strips applied.� New Aquacel dressing placed per ortho
HX Gout
- stable
�
DVT Px: SCD , held Apixaban
Full code
=
Anticipated Discharge: 24 - 48 hours
Subjective/Interval History
-
Date of Service: December 09, 2023
patient angry this morning about diet
Objective Data
-
Labs:
Laboratory Results
12/09/23 12/09/23 12/09/23
04:45 12:00 14:00
WBC 5.8
Hgb 8.0 L
Hct 24.2 L
Plt Count 214
PT 16.5 H
INR 1.32
Sodium 133 L
Potassium 5.7 H Cancelled Pending
Chloride 98
Carbon Dioxide 28
BUN 39 H
Creatinine 1.1
Glucose 169 H
Calcium 8.4
Vital Signs:
Vital Signs
Temp Pulse Resp BP Pulse Ox
97.8 F 64 16 115/60 97
12/09/23 07:25 12/09/23 07:25 12/09/23 07:25 12/09/23 07:25 12/09/23 07:25
I&O
12/08/23 12/09/23 12/10/23
06:59 06:59 06:59
Intake Total 1200 / 1200 2230 / 2230
Output Total 1575 / 1575 925 / 925
Balance -375 / -375 1305 / 1305
Review of Systems
-
History Source: Patient
All other systems: Reviewed and negative
Physical Exam
-
General: No Apparent Distress
HEENT: Normocephalic, Atraumatic, Anicteric, PERRLA, Nose Appears Normal and Ears Appear Normal
Respiratory: Clear to Auscultation; Negative Wheezes
Cardiac: S1/S2 and Irregular Rhythm; Negative Murmur
GI: Soft, Nontender, Nondistended and Normal Bowel Sounds
Genito-urinary: Other (left shoulder in sling; bandage over prior surgery site; + ecchymosis)
Musculoskeletal: No Clubbing, No Cyanosis and No Edema
Skin: Warm and Dry; Negative Jaundice
Neuro: AO x 3 and Nonfocal/Grossly Intact
Hematologic / Lymphatic: No Lymphadenopathy
Psych: Intact Judgement/Insight and Anxious
Data Reviewed
-
Diagnostic Radiology: Report Reviewed by me
Labs: Labs Reviewed by me
--- NOTE | 2023-12-09 09:21 | W.PN.CARDCBS ---
Addendum entered and electronically signed by Henrry Watkins DO 12/09/23 11:37:
I saw and examined the patient.
The Manager Program's note was reviewed and I agree with the note.
Comment:
In bed, reporting R hip/leg pain; no cp, sob, palpitations, lh, dizziness, weakness, pnd, orthopnea, edema, or syncope.
GEN: No distress, awake, alert, oriented x3. on supp O2
HEENT: supple, anicteric, mmm, eomi
LUNGS: CTA B/L anterolaterally, no wheezes
CV: Reg, S1/S2, no murmur
ABD: soft, BS+, NT/ND
EXT: No cyanosis, clubbing, edema
NEURO: Gross non-focal
SKIN: Warm, pink, dry. No rash. L shoulder aquacel dressing c/d/i. R hip dressing c/d/i
: vamsi
A/P as below.
Hold outpatient use due to hyperkalemia; repeat electrolytes pending
Continue beta-elizabeth
Continue Eliquis; telemetry sinus rhythm
Wean O2 as tolerated
Postoperative care per orthopedics
No further recommendations from cardiovascular standpoint, will sign off, please call with questions
Will assist in arranging outpatient cardiac follow-up with patient's primary internal sales, Dr. Emil Membreno
Original Note:
Today's Communication / Plan
-
OP benazepril stopped due to persistent hyperkalemia
continue coreg.
OP eliquis resumed. in SR.
wean supp O2
PT/OT
will arrange OP cardiac follow up
Impression / Plan
-
PCP: Sarmad Elizabeth
Rail Detector Car Operator: Dr. Membreno
Impression:
Presented 12/06/2023 with shortness of breath after having mechanical fall and unable to bear weight
Mechanical fall
Right hip pain, right intertrochanteric fracture
Acute hypoxic respiratory failure
Acute heart failure, proBNP 1200 vs flash pulm edema
Hyperkalemia
PABLO
Abnormal troponin, peak 0.06
Paroxysmal atrial fibrillation
Chronic anticoagulation on Eliquis
Chronic HFpEF
Ongoing tobacco abuse
Hypertension
Hypercholesterolemia
RBBB
Type 2 diabetes
History of gout
Bilateral carotid artery stenosis, moderate to severe
Presumed COPD
COVID 19 infection March 2023
Cervical laminectomy October 2022
Small bowel obstruction March 2023
History of reverse left total shoulder with revision in 03/17/2023
Hospitalized August 2023 with flu
Echocardiogram February 2023: Mild LVH, EF 65-70%, aortic sclerosis with mild aortic regurgitation, normal RV, normal atria, mild mitral regurgitation, mild TR, pulmonary artery pressure 35 mmHg
lexiscan mibi revealed fixed inferior defect in 03/2014.
Plan:
-He underwent L TSR 12/01/23. Presented 12/06/2023 with shortness of breath after having mechanical fall and unable to bear weight
-R intertroch hip fracture s/p ORIF with IM gamma nail 12/07
-feeling well overnight. no SOB.
-currently on 4L NC, wean to off as able. received dose of IV lasix 60mg on 12/05 due to concern for acute pulm edema and Cr bumped to 1.8. improving 12/08 to 1.1. was not on lasix prior to admission
-remains with hyperkalemia. OP benazepril stopped. nephrology following. receiving lokelma
-remains in SR upon review of tele overnight. continue OP coreg. eliquis resumed 12/08
-follow hgb, 8.0 on 12/08
-PT/OT/post op care
-will arrange OP cardiac follow up
PREADMIT DATA:
Patient is an 83-year-old male with past medical history significant for paroxysmal atrial fibrillation on chronic anticoagulation with Eliquis, hypertension, hyperlipidemia, type 2 diabetes, COPD, right bundle branch block who presented to
emergency department 12/06/2023 after having a mechanical fall and was found on the floor with acute shortness of breath. Patient complained of right hip pain and was unable to bear weight. On EMS arrival he was found to have acute hypoxic
respiratory failure with low pulse oximetry. In emergency department patient was provided IV Lasix and IV Dilaudid with some improvement of oxygenation. He was found to have acute right intertrochanteric fracture. He also had PABLO with
hyperkalemia. EKG showed sinus rhythm/tachycardia, troponin elevated at 0.042. proBNP 1200. Chest x-ray demonstrated increased interstitial markings suggestive of pulmonary edema.
Progress Note - Rail Detector Car Operator
Subjective
Date of Service: December 09, 2023
he has many concerns. denies CP, SOB.
Objective
Labs:
12/09/23 04:45
Labs
Hgb 8.0 g/dL (13.0-18.0) L 12/09/23 04:45
Hct 24.2 % (39.0-52.0) L 12/09/23 04:45
Plt Count 214 10^3/uL (130-400) 12/09/23 04:45
PT 16.5 Sec (11.4-14.6) H 12/09/23 04:45
INR 1.32 12/09/23 04:45
APTT 33.4 Sec (23.4-35.0) 12/06/23 03:33
Sodium 133 mmol/L (135-145) L 12/09/23 04:45
Potassium Cancelled 12/09/23 12:00
BUN 39 mg/dl (9-20) H 12/09/23 04:45
Creatinine 1.1 mg/dL (0.7-1.3) 12/09/23 04:45
Glucose 169 mg/dl (70-99) H 12/09/23 04:45
Troponins
12/06/23 12/06/23 12/06/23
10:14 14:14 16:17
Troponin I 0.060 H* D Cancelled 0.046 H*
12/06/23 12/07/23
20:14 04:55
Troponin I Cancelled 0.035 H*
Vital Signs and I&O:
Vital Signs
Temp Pulse Resp BP Pulse Ox
97.8 F 64 16 115/60 97
12/09/23 07:25 12/09/23 07:25 12/09/23 07:25 12/09/23 07:25 12/09/23 07:25
Vital Signs
Temp Pulse Resp BP Pulse Ox
97.8 F 64 16 115/60 97
12/09/23 07:25 12/09/23 07:25 12/09/23 07:25 12/09/23 07:25 12/09/23 07:25
Intake & Output
12/07/23 12/08/23 12/09/23 12/10/23
07:59 07:59 07:59 07:59
Intake Total 480 / 480 1200 / 1200 2230 / 2230
Output Total 925 / 925 1575 / 1575 925 / 925
Balance -445 / -445 -375 / -375 1305 / 1305
Physical Exam
Physical Exam
GEN: No distress, awake, alert, oriented x3. on supp O2
HEENT: supple, anicteric, mmm, eomi
LUNGS: CTA B/L anterolaterally, no wheezes
CV: Reg, S1/S2, no murmur
ABD: soft, BS+, NT/ND
EXT: No cyanosis, clubbing, edema
NEURO: Gross non-focal
SKIN: Warm, pink, dry. No rash. L shoulder aquacel dressing c/d/i. R hip dressing c/d/i
: vamsi
[2023-12-09] MEDS: COLACE 100 MG PO ×2 (09:44→19:26)
[2023-12-09] MEDS: FOLVITE 1 MG PO (09:44)
[2023-12-09] MEDS: SENOKOT 17.1999999999999993 MG PO ×2 (09:44→19:26)
[2023-12-09] MEDS: NEURONTIN PO (09:44)
[2023-12-09] MEDS: LOKELMA 10 GRAM PO ×2 (09:44→17:05)
[2023-12-09] MEDS: FLOMAX 0.400000000000000022 MG PO (09:44)
[2023-12-09] MEDS: ZYLOPRIM 100 MG PO (09:44)
[2023-12-09] MEDS: ELIQUIS 5 MG PO ×2 (09:45→19:26)
[2023-12-09] MEDS: NICODERM TRANSDERMAL 7 MG TRANSDERM (09:45)
[2023-12-09] MEDS: COREG 6.25 MG PO ×2 (09:45→19:27)
[2023-12-09] MEDS: LASIX 20 MG IV ×2 (09:46→17:05)
[2023-12-09] MEDS: NSS 250 IV ×2 (09:47→09:55)
[2023-12-09] MEDS: NORMOSOL-R IV (10:05)
[2023-12-09] MEDS: DILAUDID 0.5 MG IV (11:11)
--- NOTE | 2023-12-09 11:36 | PTCARENOTE ---
Patient uncooperative this AM with staff. Patient refusing medications and care until seen by hospitalist. Argumentative, yelling, and cursing at nursing staff. Patient stated 'I want my diet changed now, or you will not like it, you will be hearing
from my fur machine operator; I am not taking any medications that are not emergent right now'. Patient education provided on medications and care. Patient stated 'all nurses are stupid' and continued to focus conversation on potassium restriction lifted from his
diet. Dr. Quintero notified and to patients bedside. Demetrice Dalal, professional nursing tutor also into see patient. Care ongoing at this time.
[2023-12-09 11:54] LABS: Glucose - Point of Care 168 mg/dl (70-99)
[2023-12-09] MEDS: NOVOLOG FLEXPEN-LOW RESISTANCE 1 UNITS SC ×2 (12:06→17:25)
[2023-12-09] MEDS: MILK OF MAGNESIA 30 ML PO (13:24)
--- NOTE | 2023-12-09 14:33 | CM ---
Per MD, possible discharge on 12/10/23. Has been accepted to [facility]. Admissions called daughter. Will need transport.
NURSE TO NURSE REPORT # [phone] Ext [phone]
FAX # [phone]
Please call Urvashi in admissions on her cell # [phone]
[2023-12-09 14:57] LABS: Potassium 5.8 mmol/L (3.5-5.1)
[2023-12-09 15:53] LABS: Glucose - Point of Care 170 mg/dl (70-99)
[2023-12-09] MEDS: ROXICODONE 5 MG PO (16:59)
[2023-12-09] MEDS: DULCOLAX 10 MG RECTAL (17:00)
--- NOTE | 2023-12-09 18:14 | PTCARENOTE ---
Pt found to be chewing nicotine gum this afternoon, brought in from home via his significant other. Dr Quinteor notified, nicotine gum ordered PRN and nicotine patch discontinued. Patch removed by RN. Pt directed to ring call hardin for gum when needed,
significant other directed to take home personal nicotine gum as hospital will supply. Pt and significant other verbalized understanding.
[2023-12-09] MEDS: NEURONTIN 200 MG PO (18:35)
[2023-12-09] MEDS: NICORETTE 2 MG PO ×2 (19:27→21:25)
--- NOTE | 2023-12-09 20:52 | PTCARENOTE ---
Pt asked to go on bedpan but refused staff to touch his right leg or assist with turns. Nsg educated pt on what is needed on turns and care but became very argumentative and verbally aggressive. Pt asked to be left alone given callbell and
encouraged to call if in need of care.
--- NOTE | 2023-12-09 21:06 | PTCARENOTE ---
Spoke with pt significant other on phone and she agreed that pt will need to be touched and assisted with turns if he want to attempt bedpan and getting cleaned up. Pt continues to argue this with significant other and staff. He says he needs to be
sedated for this type of care. Nsg educated can be provided pain medications as per MAR. Pt refusing care at this time. Encouraged to call if he needs assistance.
[2023-12-09] MEDS: LIPITOR 10 MG PO (21:25)
[2023-12-09 21:48] LABS: Potassium 4.9 mmol/L (3.5-5.1)
[2023-12-09 22:13] LABS: Glucose - Point of Care 163 mg/dl (70-99)
--- NOTE | 2023-12-09 22:41 | PTCARENOTE ---
House provider notified of pt's potassium level 4.9 at this time
[2023-12-10] MEDS: TYLENOL PO (00:44)
[2023-12-10 03:30] VITALS: BP 123/61
[2023-12-10] MEDS: ROXICODONE 10 MG PO ×4 (03:43→16:37)
[2023-12-10] MEDS: TYLENOL 650 MG PO ×5 (03:44→20:43)
--- NOTE | 2023-12-10 04:21 | PTCARENOTE ---
Pt has been agreeable to have PCT assist with bedpan.
[2023-12-10 06:00] VITALS: BMI 25.2
[2023-12-10 06:22] LABS: Hemoglobin 7.2 g/dL (13.0-18.0)
[2023-12-10 07:00] VITALS: BP 112/49; BMI 25.2
--- NOTE | 2023-12-10 07:16 | W.PN.ORTHO ---
Addendum entered and electronically signed by Ata Franz PA-C 12/10/23 07:45:
[facility] hopefully today
Original Note:
Today's Communication / Plan
-
PT/OT
Weightbearing as tolerated with walker right lower extremity
Eliquis DVT prophylaxis
Likely require nursing home facility once medically stable
Skin clip removal 2 weeks postop
Follow-up Dr. Rose 1 month for x-ray and to check his progress
Follow-up Dr. Vazquez at [facility] for left shoulder next 2 weeks
Assessment
.
Distal Motor Intact: Yes
Dressing:
Clean, dry and intact.
Plan
.
Surgery / Date: 08 December [address] Rose
DVT Prophylaxis: Other (Eliquis)
Activity:
Out of bed.
PT/OT
Discharge Plan: SNF
Subjective
.
.:
Patient resting comfortably.
Vital Signs and Labs
.
Vital Signs and Labs:
Lab Results
12/10/23 05:15
12/09/23 21:27
Temp Pulse Resp BP Pulse Ox
98.4 F 67 18 123/61 100
12/10/23 03:30 12/10/23 03:30 12/10/23 03:30 12/10/23 03:30 12/10/23 03:30
PT 16.5 Sec (11.4-14.6) H 12/09/23 04:45
INR 1.32 12/09/23 04:45
[2023-12-10 07:42] LABS: Blood Urea Nitrogen 49 mg/dl (9-20); Calcium 8.4 mg/dl (8.4-10.2); Carbon Dioxide 29 mmol/L (22-30); Chloride 97 mmol/L (98-107); Estimated Creatinine Clearance 40 ml/min; Glucose 142 mg/dl (70-99); Sodium 135 mmol/L (135-145); eGFR 42.75
[2023-12-10 07:54] LABS: Glucose - Point of Care 161 mg/dl (70-99)
--- NOTE | 2023-12-10 08:05 | W.PN.HOSP.TC ---
Today's Communication/Plan
-
patient refusing blood transfusin
renal reconsulted for PABLO
repeat labs at noon
Assessment / Plan
Assessment / Plan
Mr. 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
short of breath. Patient found to have right intertrochanteric fracture. Also found to have hypoxic respiratory insufficiency with CXR suggestive of heart failure.
CXR
IMPRESSION:
Increased interstitial markings within both lungs, most suggestive of pulmonary edema. Bilateral interstitial pneumonia would be a differential consideration.
Hip X-Ray
IMPRESSION: Intertrochanteric fracture of the right proximal femur.
�
CT A/P
IMPRESSION:
1. � Acute nondisplaced intertrochanteric fracture of the right proximal femur.
2. � No CT evidence for large acute soft tissue hematoma in the right proximal thigh.
3. � No CT evidence for acute retroperitoneal hemorrhage.
4. � Very severe diverticulosis in the descending and sigmoid colon.
5. � Moderate chronic bilateral renal disease.
6. � Severely enlarged prostate gland causing chronic urinary bladder outlet obstruction.
7. � Chronic infrarenal abdominal aortic dissection.
8. � Small hiatal hernia.
9. � Severe pancreatic parenchymal atrophy (lipomatosis).
10. 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
TTE 12/06/23
CONCLUSIONS
�Normal left ventricular size, wall thickness and systolic function.
�LV ejection fraction is 60-65% by visual assessment.
�No mitral stenosis.
�No aortic stenosis.
�Trace aortic regurgitation.
�Structurally normal tricuspid valve without significant stenosis or
�regurgitation.
�Normal pericardium without effusion.
�
Acute Rt Rt intertrochanteric Fx
RCRI Class II (+� acute HF)
- Pre OP Card eval appreciated
- OR was delayed for Eliquis washout
- now s/p Open reduction, internal fixation right hip with IM
gamma nailing on 12/07
- continue pain control
- PT/OT - eventual SNF
Hypoxic Respiratory Insufficiency
-s/p diuresis on admission
-concern raised for HF but now patient with rising creatinine post diuresis - further lasix held
-TTE results above - EF 60-65%
PABLO
Hyperkalemia 2/2 PABLO
-renal function initially improved with holding lasix
-K normalized pre-op but patient hyperkalmic post op day 1
-on 12/08 I gave small bolus with lasix 20mg IV x 2 to flush out K. Unfortunately now he has PABLO again
-K is now normal s/p lasix and lokelma
-given the difficulty with volume balance and controlling potassium; patient refuses more orders from me until sees nephrology
-I also wanted to give 1 unit PRBC but patient refuses
-repeat labs at noon
-renal consulted again
-stop NIGEL-I on DC
Post-op Anemia
Acute blood loss anemia
-I discussed wanting to give patient a transfusion this morning and he refuses. discussed risks on heart and high potential Hg will continue to drop.
Hypotension and Anemia
-afternoon 12/05 patient with dropping BP to SBP 80's and drop in Hg. CT A/P scan obtained non-con without e/o bleed. Hg back to > 9 this AM and BP actually hypertensive
-resume Coreg
-blood consent is signed
in NSR
HX Prx AF
- OK to resume Eliquis per ortho
- cont Carvedilol
HTN urgency
Essential HTN
- adequate pain control
- cont� carvedilol�
T2DM
- Held Metformin
- add ISS low
HLD
- on Simvastatin
POD5 Lt shoulder arthroplasty at [facility]
S/p� should surgery earlier this week.
HX Infected left shoulder prosthesis� - s/p� explantation and replacement : S/p� IV ABx� fo 6 weeks in�November� 2022
�- Follow-up with Ortho at [place]
-3 AM: �Incision was cleaned with alcohol and Betadine then Steri-Strips applied.� New Aquacel dressing placed per ortho
HX Gout
- stable
�
DVT Px: SCD , held Apixaban
Full code
=
Anticipated Discharge: 24 - 48 hours
Subjective/Interval History
-
Date of Service: December 10, 2023
patient unwilling to accept blood transfusion
denies chest pain
denies shortness of breath
Objective Data
-
Labs:
Laboratory Results
12/09/23 12/10/23 12/10/23
21:27 05:15 12:00
Hgb 7.2 L Pending
Sodium 135 Pending
Potassium 4.9 Pending
Chloride 97 L Pending
Carbon Dioxide 29 Pending
BUN 49 H Pending
Creatinine 1.6 H Pending
Glucose 142 H Pending
Calcium 8.4 Pending
Vital Signs:
Vital Signs
Temp Pulse Resp BP Pulse Ox
97.9 F 70 14 112/49 92
12/10/23 07:00 12/10/23 07:00 12/10/23 07:00 12/10/23 07:00 12/10/23 07:00
I&O
12/09/23 12/10/23 12/11/23
06:59 06:59 06:59
Intake Total 2230 / 2230 1030 / 1030
Output Total 925 / 925 1325 / 1325
Balance 1305 / 1305 -295 / -295
Review of Systems
-
History Source: Patient
All other systems: Reviewed and negative
Physical Exam
-
General: No Apparent Distress
HEENT: Normocephalic, Atraumatic, Anicteric, PERRLA, Nose Appears Normal and Ears Appear Normal
Respiratory: Clear to Auscultation; Negative Wheezes
Cardiac: S1/S2 and Irregular Rhythm; Negative Murmur
GI: Soft, Nontender, Nondistended and Normal Bowel Sounds
Genito-urinary: Other (left shoulder in sling; bandage over prior surgery site; + ecchymosis)
Musculoskeletal: No Clubbing, No Cyanosis and No Edema
Skin: Warm and Dry; Negative Jaundice
Neuro: AO x 3 and Nonfocal/Grossly Intact
Hematologic / Lymphatic: No Lymphadenopathy
Psych: Intact Judgement/Insight and Anxious
Data Reviewed
-
Diagnostic Radiology: Report Reviewed by me
Labs: Labs Reviewed by me
[2023-12-10] MEDS: COLACE PO ×2 (08:22→20:48)
[2023-12-10] MEDS: SENOKOT PO ×2 (08:23→20:48)
[2023-12-10] MEDS: NEURONTIN 300 MG PO (08:24)
[2023-12-10] MEDS: FLOMAX 0.400000000000000022 MG PO (08:24)
[2023-12-10] MEDS: ZYLOPRIM 100 MG PO (08:25)
[2023-12-10] MEDS: ELIQUIS 5 MG PO ×2 (08:25→20:44)
[2023-12-10] MEDS: NOVOLOG FLEXPEN-LOW RESISTANCE 1 UNITS SC ×3 (08:26→17:12)
[2023-12-10] MEDS: FOLVITE 1 MG PO (08:26)
[2023-12-10] MEDS: COREG PO ×2 (08:27→20:47)
[2023-12-10 11:48] LABS: Glucose - Point of Care 170 mg/dl (70-99)
[2023-12-10 12:31] LABS: Hemoglobin 7.4 g/dL (13.0-18.0)
[2023-12-10 12:48] LABS: Blood Urea Nitrogen 46 mg/dl (9-20); Calcium 8.2 mg/dl (8.4-10.2); Carbon Dioxide 31 mmol/L (22-30); Chloride 100 mmol/L (98-107); Estimated Creatinine Clearance 50 ml/min; Glucose 148 mg/dl (70-99); Potassium 4.9 mmol/L (3.5-5.1); Sodium 133 mmol/L (135-145); eGFR 54.85
--- NOTE | 2023-12-10 13:28 | W.PN.UPDATE ---
Update Note
Progress Note Update
labs look better, no need for renal consult
no need to keep checking labs given no further fluids or lasix
Hg stable 7.4; he refuses transfusion. IV iron ordered if he will accept
--- NOTE | 2023-12-10 14:09 | CM ---
CM spoke with Ngoc from [facility], was unable to verify patients insurance on Tuesday and is unfortunately unable to verify until Tuesday. Ngoc reports she can then accept patient on Tuesday. TT sent to Hospitalist and nurse. AUDREY will continue
to follow for discharge planning needs.
Plan; [facility] SN[facility], Tuesday
NURSE TO NURSE REPORT # [phone] Ext [phone]
FAX # [phone]
Please call Urvashi in admissions on her cell # [phone]
[2023-12-10] MEDS: NICORETTE 2 MG PO (14:10)
[2023-12-10] MEDS: FEOSOL 325 MG PO (14:10)
[2023-12-10 15:20] VITALS: BP 119/81; PULSE 80; PULSE 83; O2SAT 93; O2SAT 94
[2023-12-10 15:59] VITALS: BP 107/53
--- NOTE | 2023-12-10 16:41 | PTCARENOTE ---
during VAT rounds, pt c/o right ac skin tear. pt unsure when/how tear occurred, appears there was a piv last documented 12/07. primary RN aware. area cleansed with saline, foam dressing applied. pt resting, call hardin in reach
[2023-12-10 16:57] LABS: Glucose - Point of Care 179 mg/dl (70-99)
[2023-12-10] MEDS: NEURONTIN 200 MG PO (17:12)
[2023-12-10] MEDS: ROXICODONE 5 MG PO (20:43)
[2023-12-10] MEDS: LIPITOR 10 MG PO (20:44)
[2023-12-10 21:42] LABS: Glucose - Point of Care 162 mg/dl (70-99)
[2023-12-10 22:10] VITALS: BP 131/67
[2023-12-10 23:59] VITALS: BP 131/67
[2023-12-11] MEDS: TYLENOL 650 MG PO ×3 (06:07→17:11)
[2023-12-11] MEDS: ROXICODONE 5 MG PO (06:07)
[2023-12-11 07:00] VITALS: BMI 25.2
[2023-12-11 07:20] VITALS: BP 147/60
[2023-12-11 07:23] LABS: Glucose - Point of Care 132 mg/dl (70-99)
--- NOTE | 2023-12-11 07:40 | W.PN.HOSP.TC ---
Today's Communication/Plan
-
expect DC to SNF tomorrow
see bold
Assessment / Plan
Assessment / Plan
Mr. 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
short of breath. Patient found to have right intertrochanteric fracture. Also found to have hypoxic respiratory insufficiency with CXR suggestive of heart failure.
CXR
IMPRESSION:
Increased interstitial markings within both lungs, most suggestive of pulmonary edema. Bilateral interstitial pneumonia would be a differential consideration.
Hip X-Ray
IMPRESSION: Intertrochanteric fracture of the right proximal femur.
�
CT A/P
IMPRESSION:
1. � Acute nondisplaced intertrochanteric fracture of the right proximal femur.
2. � No CT evidence for large acute soft tissue hematoma in the right proximal thigh.
3. � No CT evidence for acute retroperitoneal hemorrhage.
4. � Very severe diverticulosis in the descending and sigmoid colon.
5. � Moderate chronic bilateral renal disease.
6. � Severely enlarged prostate gland causing chronic urinary bladder outlet obstruction.
7. � Chronic infrarenal abdominal aortic dissection.
8. � Small hiatal hernia.
9. � Severe pancreatic parenchymal atrophy (lipomatosis).
10. 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
TTE 12/06/23
CONCLUSIONS
�Normal left ventricular size, wall thickness and systolic function.
�LV ejection fraction is 60-65% by visual assessment.
�No mitral stenosis.
�No aortic stenosis.
�Trace aortic regurgitation.
�Structurally normal tricuspid valve without significant stenosis or
�regurgitation.
�Normal pericardium without effusion.
�
Acute Rt Rt intertrochanteric Fx
RCRI Class II (+� acute HF)
- Pre OP Card eval appreciated
- OR was delayed for Eliquis washout
- now s/p Open reduction, internal fixation right hip with IM gamma nailing on 12/07
- continue pain control; oxy PRN
- PT/OT - eventual SNF - cannot take place until auth obtained Tuesday
Hypoxic Respiratory Insufficiency
-s/p diuresis on admission
-concern was raised for HF but patient developed rising creatinine post diuresis
-TTE results above - EF 60-65%
PABLO
Hyperkalemia 2/2 PABLO
-renal function initially improved with holding lasix
-K normalized pre-op but patient was hyperkalemic post op day 1
-on 12/08 I gave small bolus with lasix 20mg IV x 2 to flush out K. PABLO post lasix which resolved on its own following day
-K is now normal s/p lasix and lokelma given on 12/08
-stop NIGEL-I on DC
-no need for further labs inpatient given no further administration of lasix
-repeat BMP next week
-renal was reconsulted on 12/09 but consult cancelled as patient's labs normalized
Post-op Anemia
Acute blood loss anemia
-I discussed wanting to give patient a transfusion morning of 12/09 and he refuses. discussed risks on heart and potential Hg will continue to drop.
-repeat Hg on 12/09 was stable, 7.4
-patient refuses IV Iron, oral supplementation ordered
Hypotension and Anemia -afternoon 12/05 patient with dropping BP to SBP 80's and drop in Hg. CT A/P scan obtained non-con without e/o bleed. Hg back to > 9 following AM and BP actually hypertensive
in NSR
HX Prx AF
- OK to resume Eliquis per ortho
- cont Carvedilol
HTN urgency
Essential HTN
- adequate pain control
- cont� carvedilol�
T2DM
- resume Metformin on DC
- add ISS low
HLD
- on Simvastatin
POD5 Lt shoulder arthroplasty at [facility]
S/p� should surgery earlier this week.
HX Infected left shoulder prosthesis� - s/p� explantation and replacement : S/p� IV ABx� fo 6 weeks in�November� 2022
�- Follow-up with Ortho at [place]
-3/ AM: �Incision was cleaned with alcohol and Betadine then Steri-Strips applied.� New Aquacel dressing placed per ortho
HX Gout
- stable
�
DVT Px: Eliquis
Full code
=
Anticipated Discharge: 24 - 48 hours
Subjective/Interval History
-
Date of Service: December 11, 2023
no new complaints
he denies chest pain or shortness of breath
Objective Data
-
Vital Signs:
Vital Signs
Temp Pulse Resp BP Pulse Ox
98.6 F 89 20 131/67 97
12/10/23 22:10 12/10/23 22:10 12/10/23 22:10 12/10/23 22:10 12/10/23 22:10
I&O
12/10/23 12/11/23 12/12/23
06:59 06:59 06:59
Intake Total 1030 / 1030 1400 / 1400
Output Total 1325 / 1325 3100 / 3100
Balance -295 / -295 -1700 / -1700
Review of Systems
-
History Source: Patient
All other systems: Reviewed and negative
Physical Exam
-
General: No Apparent Distress
HEENT: Normocephalic, Atraumatic, Anicteric, PERRLA, Nose Appears Normal and Ears Appear Normal
Respiratory: Clear to Auscultation; Negative Wheezes
Cardiac: S1/S2 and Irregular Rhythm; Negative Murmur
GI: Soft, Nontender, Nondistended and Normal Bowel Sounds
Genito-urinary: Other (left shoulder in sling; bandage over prior surgery site; + ecchymosis)
Musculoskeletal: No Clubbing, No Cyanosis and No Edema
Skin: Warm and Dry; Negative Jaundice
Neuro: AO x 3 and Nonfocal/Grossly Intact
Hematologic / Lymphatic: No Lymphadenopathy
Psych: Intact Judgement/Insight and Anxious
Data Reviewed
-
Diagnostic Radiology: Report Reviewed by me
Labs: Labs Reviewed by me
[2023-12-11] MEDS: NOVOLOG FLEXPEN-LOW RESISTANCE SC (07:53)
[2023-12-11] MEDS: NEURONTIN 300 MG PO (08:00)
[2023-12-11] MEDS: COREG 6.25 MG PO ×2 (08:00→20:10)
[2023-12-11] MEDS: FOLVITE 1 MG PO (08:00)
[2023-12-11] MEDS: ZYLOPRIM 100 MG PO (08:00)
[2023-12-11] MEDS: TYLENOL PO ×3 (08:00→21:55)
[2023-12-11] MEDS: FEOSOL 325 MG PO (08:00)
[2023-12-11] MEDS: COLACE PO ×2 (08:00→20:10)
[2023-12-11] MEDS: FLOMAX 0.400000000000000022 MG PO (08:00)
[2023-12-11] MEDS: ELIQUIS 5 MG PO ×2 (08:00→20:10)
[2023-12-11] MEDS: SENOKOT PO ×2 (08:01→20:10)
--- NOTE | 2023-12-11 08:12 | W.PN.ORTHO ---
Today's Communication / Plan
-
PT/OT
Eliquis
Discharge to [facility] once medically stable
Orthopedics to sign off for now
Follow-up left shoulder Dr. Vazquez at [facility] in next 2 weeks
Skin clip removal 2 weeks postop either in office or at longterm facility
Follow-up Dr. Rose with [facility] in 1 month for x-ray
Assessment
.
Distal Motor Intact: Yes
Dressing:
Clean, dry and intact.
Plan
.
Surgery / Date: 08 December [address] Rose
DVT Prophylaxis: Other (Eliquis)
Activity:
Out of bed.
PT/OT
Discharge Plan: SNF
Subjective
.
.:
Patient resting comfortably.
Vital Signs and Labs
.
Vital Signs and Labs:
Lab Results
12/10/23 12:18
12/10/23 12:18
Temp Pulse Resp BP Pulse Ox
98.1 F 76 18 147/60 94
12/11/23 07:20 12/11/23 07:20 12/11/23 07:20 12/11/23 07:20 12/11/23 07:20
PT 16.5 Sec (11.4-14.6) H 12/09/23 04:45
INR 1.32 12/09/23 04:45
[2023-12-11] MEDS: ROXICODONE 10 MG PO ×2 (10:21→14:21)
[2023-12-11 11:20] VITALS: BP 120/79
[2023-12-11 11:51] LABS: Glucose - Point of Care 154 mg/dl (70-99)
[2023-12-11] MEDS: NOVOLOG FLEXPEN-LOW RESISTANCE 1 UNITS SC ×2 (12:30→17:11)
[2023-12-11] MEDS: LIDOCAINE 4% PATCH 1 PATCH TOPICAL (12:30)
[2023-12-11 13:13] VITALS: BP 129/70; PULSE 73
[2023-12-11 15:15] VITALS: BP 132/72
--- NOTE | 2023-12-11 15:56 | CM ---
CM reviewed chart. Ngoc from [facility] can accept patient tomorrow. CM will continue to follow for discharge planning needs.
Plan; [facility] SNF, Tuesday, Please call Urvashi in admissions on her cell # [phone]
NURSE TO NURSE REPORT # [phone] Ext [phone]
FAX # [phone]
[2023-12-11 16:00] VITALS: BMI 25.1
[2023-12-11 17:02] LABS: Glucose - Point of Care 156 mg/dl (70-99)
[2023-12-11] MEDS: NEURONTIN 200 MG PO (17:11)
[2023-12-11] MEDS: NICORETTE 2 MG PO (20:10)
[2023-12-11 21:32] LABS: Glucose - Point of Care 189 mg/dl (70-99)
[2023-12-11] MEDS: LIPITOR 10 MG PO (21:56)
[2023-12-11 22:59] VITALS: BP 152/73
[2023-12-12] MEDS: TYLENOL PO ×2 (00:39→05:00)
[2023-12-12 07:00] VITALS: BMI 25.1
[2023-12-12 07:15] VITALS: BP 166/72
[2023-12-12 07:41] LABS: Glucose - Point of Care 168 mg/dl (70-99)
--- NOTE | 2023-12-12 07:49 | W.PN.HOSP.TC ---
Addendum entered and electronically signed by Rodolfo Santacruz MD 12/12/23 11:53:
Correction in bold font, as below:
Post-op Anemia
Acute blood loss anemia
-Dr. Quintero discussed wanting to give patient a transfusion morning of 12/09 and he refuses. discussed risks on heart and potential Hg will continue to drop.
-repeat Hg on 12/09 was stable, 7.4
-patient refuses IV Iron, oral supplementation ordered
Original Note:
Today's Communication/Plan
-
Discharge today
Assessment / Plan
Assessment / Plan
Physical Exam
General: No Apparent Distress
HEENT: Normocephalic, Atraumatic
Respiratory: Clear to Auscultation
Cardiac: S1/S2 and Irregular Rhythm
GI: Soft, Nontender, Nondistended and Normal Bowel Sounds
Genito-urinary: Left shoulder bandage over prior surgery site; + ecchymosis
Musculoskeletal: No Cyanosis and No Edema
Skin: Warm and Dry
Neuro: AO x 3 and Nonfocal/Grossly Intact
Psych: Intact Judgement/Insight and Anxious

Assessment/Plan
Mr. 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
short of breath. Patient found to have right intertrochanteric fracture. Also found to have hypoxic respiratory insufficiency with CXR suggestive of heart failure.
CXR
IMPRESSION:
Increased interstitial markings within both lungs, most suggestive of pulmonary edema. Bilateral interstitial pneumonia would be a differential consideration.
Hip X-Ray
IMPRESSION: Intertrochanteric fracture of the right proximal femur.
�
CT A/P
IMPRESSION:
1. � Acute nondisplaced intertrochanteric fracture of the right proximal femur.
2. � No CT evidence for large acute soft tissue hematoma in the right proximal thigh.
3. � No CT evidence for acute retroperitoneal hemorrhage.
4. � Very severe diverticulosis in the descending and sigmoid colon.
5. � Moderate chronic bilateral renal disease.
6. � Severely enlarged prostate gland causing chronic urinary bladder outlet obstruction.
7. � Chronic infrarenal abdominal aortic dissection.
8. � Small hiatal hernia.
9. � Severe pancreatic parenchymal atrophy (lipomatosis).
10. 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
TTE 12/06/23
CONCLUSIONS
�Normal left ventricular size, wall thickness and systolic function.
�LV ejection fraction is 60-65% by visual assessment.
�No mitral stenosis.
�No aortic stenosis.
�Trace aortic regurgitation.
�Structurally normal tricuspid valve without significant stenosis or
�regurgitation.
�Normal pericardium without effusion.
�
Acute Rt Rt intertrochanteric Fx internal fixation right hip with IM gamma nailing on 12/07
RCRI Class II (+� acute HF)
- Pre OP Card eval appreciated
- OR was delayed for Eliquis washout
- now s/p Open reduction, internal fixation right hip with IM gamma nailing on 12/07
- continue pain control; oxy PRN
- PT/OT - discharge to SNF today
-Follow-up left shoulder Dr. Vazquez at [facility] in next 2 weeks
-Skin clip removal 2 weeks postop either in office or at [facility] facility
-Follow-up Dr. Rose with [facility] in 1 month for x-ray
Hypoxic Respiratory Insufficiency
-s/p diuresis on admission
-concern was raised for HF but patient developed rising creatinine post diuresis
-TTE results above - EF 60-65%
PABLO
Hyperkalemia 2/2 PABLO
-renal function initially improved with holding lasix
-K normalized pre-op but patient was hyperkalemic post op day 1
-on 12/08 I gave small bolus with lasix 20mg IV x 2 to flush out K. PABLO post lasix which resolved on its own following day
-K is now normal s/p lasix and lokelma given on 12/08
-stop NIGEL-I on DC
-no need for further labs inpatient given no further administration of lasix
-repeat BMP next week
-renal was reconsulted on 12/09 but consult cancelled as patient's labs normalized
Post-op Anemia
Acute blood loss anemia
-I discussed wanting to give patient a transfusion morning of 12/09 and he refuses. discussed risks on heart and potential Hg will continue to drop.
-repeat Hg on 12/09 was stable, 7.4
-patient refuses IV Iron, oral supplementation ordered
Hypotension and Anemia -afternoon 12/05 patient with dropping BP to SBP 80's and drop in Hg. CT A/P scan obtained non-con without e/o bleed. Hg back to > 9 following AM and BP actually hypertensive
in NSR
HX Prx AF
- OK to resume Eliquis per ortho
- cont Carvedilol
HTN urgency
Essential HTN
- adequate pain control
- cont� carvedilol�
T2DM
- resume Metformin on DC
- add ISS low
HLD
- on Simvastatin
POD5 Lt shoulder arthroplasty at [facility]
S/p� shoulder surgery recently
HX Infected left shoulder prosthesis� - s/p� explantation and replacement : S/p� IV ABx� fo 6 weeks in�November� 2022
�- Follow-up with Ortho at [facility]
-12/07 AM: �Incision was cleaned with alcohol and Betadine then Steri-Strips applied.� New Aquacel dressing placed per ortho
History of Gout
- stable
�
DVT Px: Eliquis
Full code
More than 30 minutes spent in discharge including
Final examination of the patient
Summarizing hospital stay
Instructions for continuing care to all relevant caregivers
Preparation of discharge records, prescriptions, and referral forms
Total time spent (in minutes): 38
Anticipated Discharge: Today
Subjective/Interval History
-
Date of Service: December 12, 2023
Patient was seen and examined. He reported being worried about pain and plan going forward, otherwise no new symptoms or complaints.
Objective Data
-
Vital Signs:
Vital Signs
Temp Pulse Resp BP Pulse Ox
98.8 F 83 18 152/73 98
12/11/23 22:59 12/11/23 22:59 12/11/23 22:59 12/11/23 22:59 12/11/23 22:59
I&O
12/11/23 12/12/23 12/13/23
06:59 06:59 06:59
Intake Total 1400 / 1400 1620 / 1620
Output Total 3100 / 3100 2925 / 2925
Balance -1700 / -1700 -1305 / -1305
[2023-12-12] MEDS: NOVOLOG FLEXPEN-LOW RESISTANCE 1 UNITS SC (08:31)
[2023-12-12] MEDS: SENOKOT 17.1999999999999993 MG PO (08:32)
[2023-12-12] MEDS: TYLENOL 650 MG PO ×2 (08:32→11:23)
[2023-12-12] MEDS: FEOSOL 325 MG PO (08:32)
[2023-12-12] MEDS: LIDOCAINE 4% PATCH 1 PATCH TOPICAL (08:32)
[2023-12-12] MEDS: NEURONTIN 300 MG PO (08:32)
[2023-12-12] MEDS: FLOMAX 0.400000000000000022 MG PO (08:32)
[2023-12-12] MEDS: FOLVITE 1 MG PO (08:32)
[2023-12-12] MEDS: ZYLOPRIM 100 MG PO (08:33)
[2023-12-12] MEDS: COREG 6.25 MG PO (08:33)
[2023-12-12] MEDS: ELIQUIS 5 MG PO (08:33)
[2023-12-12] MEDS: COLACE 100 MG PO (08:33)
[2023-12-12] MEDS: ROXICODONE 10 MG PO (08:42)
--- NOTE | 2023-12-12 10:16 | CM ---
CM following re:discharge planning.
Reviewed pt's chart, met with pt.
According to MD pt is medically stable to be discharged today. Pt is aware, expressed his agreement with discharge. IMM reviewed, placed in chart, pt has a copy.
CM spoke to [facility] area director of home health sales Jeanne and she confirmed that pt is accepted for admission today.
[facility] nursing report: [phone] Ext [phone]
Discharge instructions fax: [phone]
D/C plan: [facility].
--- NOTE | 2023-12-12 11:55 | PTCARENOTE ---
Called [facility] 3 times for report, voicemail left. Number used [phone]. [phone].
--- NOTE | 2023-12-12 12:02 | W.DS.TRANS ---
DC Summary - Counter Stacker
-
Discharge Instructions:
Discharge Diagnosis/Procedures Open reduction, internal fixation right hip with
IM gamma nailing on 12/08/23.
Hypoxic Respiratory Insufficiency, Increased
interstitial markings within both lungs, acute
kidney injury, hyperkalemia, post-op blood loss
anemia
Trace aortic regurgitation
Acute Rt Rt intertrochanteric fracture internal
fixation right hip with IM gamma nailing on 12/07
/24
Hypoxic Respiratory Insufficiency
PABLO
Hyperkalemia Secondary to PABLO
Post-op Anemia
Acute blood loss anemia
Hypotension - RESOLVED
Atrial Fibrillation
Hypertensive urgency
Essential Hypertension
T2DM
Hyperlipidemia
Recent Lt shoulder arthroplasty at [facility]
[place]
S/p shoulder surgery recently
History of Infected left shoulder prosthesis -
s/p explantation and replacement : S/p IV ABx
for 6 weeks in July 2023
History of Gout
Very severe diverticulosis in the descending and
sigmoid colon
Moderate chronic bilateral renal disease
Severely enlarged prostate gland causing chronic
urinary bladder outlet obstruction
Chronic infra-renal abdominal aortic dissection
Small hiatal hernia
Severe pancreatic parenchymal atrophy (
lipomatosis)
Severe multilevel discogenic degenerative
disease in the lumbar and thoracic spine
Diet As tolerated,Low Fat,Low Cholesterol
Activity Other activity
Additional Activity Weightbearing as tolerated with walker right
lower extremity
Driving Restrictions No driving
Bathing Restrictions None
Blood Work CBC and BMP on Tuesday12/14/23
Other Services PT,OT
Instructions:
Stand-Alone Forms:
Changes to Home Medications: Yes
Discharge Medications:
DC Medications w/original date entered in [employer]
allopurinol 100 mg tablet 100 mg PO DAILY Gout 03/19/23
apixaban 5 mg tablet 5 mg PO BID Blood Clot Prevention/Tx 03/19/23
ascorbic acid (vitamin C) 250 mg tablet (Vitamin C) 250 mg PO DAILY Supplement 03/19/23
carvedilol 6.25 mg tablet 6.25 mg PO BID Heart Disease/Condition 03/19/23
cholecalciferol (vitamin D3) 50 mcg (2,000 unit) tablet (Vitamin D3) 50 mcg PO DAILY Supplement 03/19/23
folic acid 1 mg tablet 1 mg PO DAILY Supplement 03/19/23
metformin 500 mg tablet 500 mg PO BID Diabetes 03/19/23
simvastatin 20 mg tablet 20 mg PO QPM High Cholesterol 03/19/23
zolpidem 10 mg tablet 10 mg PO HS PRN insomnia 03/19/23
gabapentin 100 mg capsule 200 mg PO DAILY Pain 03/29/23
gabapentin 100 mg capsule 300 mg PO HS Pain 03/29/23
tamsulosin 0.4 mg capsule 0.4 mg PO DAILY Urinary Issue 12/06/23
acetaminophen 325 mg tablet 650 mg PO Q4HWA #60 tabs 12/12/23
docusate sodium 100 mg capsule 100 mg PO BID #60 caps 12/12/23
ferrous sulfate 325 mg (65 mg iron) tablet (FeroSul) 325 mg PO Q OTHER DAY #60 tabs 12/12/23
lidocaine 4 % topical patch 1 patch topical DAILY #30 ea 12/12/23
nicotine (polacrilex) 2 mg gum 2 mg PO Q2HPRN PRN nicotine craving #20 ea 12/12/23
sennosides 8.6 mg tablet (Senna Laxative) 17.2 mg PO BID #60 tabs 12/12/23
Home Medication Changes
New medications include Tylenol, Docusate, Ferrous Sulfate, Lidocaine Patch, Nicotine Gum, Senna Laxative
Holding medications Metformin and Zolpidem
Stopped Benazepril
Pending Results: No
Total time spent discharging patient (in min): 38
--- NOTE | 2023-12-14 21:42 | W.DCSUMMARY ---
Discharge Summary
Discharge Data
Date of Admission: 12/06/23
Date of Discharge: 12/12/23
Total time spent discharging patient (in min): 38
-
Pending Results: No
Hospital Course
83 y/o male with a past medical history significant for recent left total shoulder replacement, Hypertension, Type 2 Diabetes, COPD, Paroxysmal Atrial Fibrillation on Eliquis, who presented to [facility] with right hip pain following a
mechanical fall. Patient was found to have an acute right intertrochanteric hip fracture. Orthopedics was consulted and patient's Eliquis was held. Cardiology was also consulted for pre-operative clearance, as well as for pulmonary edema and
hypoxia. He received some intravenous Lasix but then got hypotensive and creatinine increased so Lasix was subsequently held and some intravenous fluids were ordered back for him. Nephrology was consulted for acute kidney injury and hyperkalemia.
Patient had an open reduction, internal fixation right hip with IM gamma nailing performed on December 08, 2023. Patient refused blood transfusion for post-op anemia. Patient was later determined to be stable for discharge with close outpatient
follow-up including repeat Basic Metabolic Panel labwork.
Discharge Plan
-
Patient Disposition: Residential/SNF
Discharge Diagnosis/Procedures: Open reduction, internal fixation right hip with IM gamma nailing on 12/08/23.
Hypoxic Respiratory Insufficiency, Increased interstitial markings within both lungs, acute kidney injury, hyperkalemia, post-op blood loss anemia
Trace aortic regurgitation
Acute Rt Rt intertrochanteric fracture internal fixation right hip with IM gamma nailing on 12/08/23
Hypoxic Respiratory Insufficiency
PABLO
Hyperkalemia Secondary to PABLO
Post-op Anemia
Acute blood loss anemia
Hypotension - RESOLVED
Atrial Fibrillation
Hypertensive urgency
Essential Hypertension
T2DM
Hyperlipidemia
Recent Lt shoulder arthroplasty at [facility]
S/p shoulder surgery recently
History of Infected left shoulder prosthesis - s/p explantation and replacement : S/p IV ABx for 6 weeks in July 2023
History of Gout
Very severe diverticulosis in the descending and sigmoid colon
Moderate chronic bilateral renal disease
Severely enlarged prostate gland causing chronic urinary bladder outlet obstruction
Chronic infra-renal abdominal aortic dissection
Small hiatal hernia
Severe pancreatic parenchymal atrophy (lipomatosis)
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
Condition: Fair
Diet: As tolerated, Low Fat and Low Cholesterol
Activity: Other activity
Additional Activity: Weightbearing as tolerated with walker right lower extremity
Driving Restrictions: No driving
Bathing Restrictions: None
Blood Work: CBC and BMP on Tuesday12/14/23
Other Services: PT and OT
Activity Restrictions/Additional Instructions:
Follow-up with Dr. Vazquez at [facility] for left shoulder within the next 1-2 weeks
Referrals:
Jayy Rose MD [Active] - in two to three weeks (Post-op follow-up)
Emil Membreno MD [Active] - 01/06/24 11:20 am (Your appointment from 12/13/23 has been cancelled. You are now scheduled on 01/05 at [facility] in [facility]. Please call with questions. )
Jovi Quiles MD [Family Provider] - in less than 1 week
Additional Discharge Medication Instructions: STOP BENAZEPRIL given high potassium levels
HOLDING Metformin and Zolpidem until outpatient/SNF physician believes okay to resume
Prescriptions:
New
docusate sodium 100 mg Capsule
100 mg PO BID Qty: 60 0RF
ferrous sulfate [FeroSul] 325 mg (65 mg iron) Tablet
325 mg PO Q OTHER DAY Qty: 60 0RF
lidocaine 4 % Adhesive Patch,Medicated
1 patch topical DAILY Qty: 30 0RF
Rx Instructions:
Remove patch daily at 8 pm
nicotine (polacrilex) 2 mg Gum
2 mg PO Q2HPRN PRN (Reason: nicotine craving) Qty: 20 0RF
sennosides [Senna Laxative] 8.6 mg Tablet
17.2 mg PO BID Qty: 60 1RF
acetaminophen 325 mg Tablet
650 mg PO Q4HWA Qty: 60 0RF
Continued
carvedilol 6.25 mg tablet
6.25 mg PO BID
allopurinol 100 mg tablet
100 mg PO DAILY
ascorbic acid (vitamin C) [Vitamin C] 250 mg Tablet
250 mg PO DAILY
simvastatin 20 mg tablet
20 mg PO QPM
folic acid 1 mg Tablet
1 mg PO DAILY
cholecalciferol (vitamin D3) [Vitamin D3] 50 mcg (2,000 unit) Tablet
50 mcg PO DAILY
apixaban 5 mg Tablet
5 mg PO BID
gabapentin 100 mg capsule
200 mg PO DAILY
gabapentin 100 mg capsule
300 mg PO HS
tamsulosin 0.4 mg Capsule
0.4 mg PO DAILY
Held
metformin 500 mg tablet
500 mg PO BID
Hold Instructions: Resume on 12/16/23. Resume this medication only if renal function is okay
zolpidem 10 mg tablet
10 mg PO HS PRN (Reason: insomnia)
Hold Instructions: Resume on 12/20/23. Resume this medication only if outpatient physicians say it is okay to resume this medication.
Patient Comments:
12/06/2023, pt. filled this med. on 11/21/2023 for 90 tablets per PDMP.
Discontinued
benazepril 20 mg tablet
20 mg PO DAILY
Discharge Orders:
Discharge Patient (As Directed); Ordered 12/12/23
Ordered By: Rodolfo Santacruz
Discharge Date and Time
Discharge Date/Time: 12/12/23 12:08
Print Language: [id number]
== END 2023-12-12 12:08 | DRG 480 ==
LOC: 2 SOUTH 06:09
PROVIDERS: Orthopaedic Surgery; Student in an Organized Health Care Education/Training Program; ADMITTING PHYSICIAN Internal Medicine; ATTENDING PHYSICIAN Hospitalist; CONSULT PHYSICIAN Internal Medicine; CONSULT PHYSICIAN Internal Medicine Cardiovascular Disease; CONSULT PHYSICIAN Orthopaedic Surgery; EMERGENCY PHYSICIAN Emergency Medicine; FAMILY PHYSICIAN Internal Medicine
PROC: 0QS606Z Reposition Right Upper Femur with Intramedullary Internal Fixation Device, Open Approach (ICD-10-PCS; 2023-12-08)
DX: S72.141A Displaced intertrochanteric fracture of right femur, initial encounter for closed fracture (principal); I50.33 Acute on chronic diastolic (congestive) heart failure; J96.01 Acute respiratory failure with hypoxia; N17.9 Acute kidney failure, unspecified; W19.XXXA Unspecified fall, initial encounter; I11.0 Hypertensive heart disease with heart failure; I48.0 Paroxysmal atrial fibrillation; I16.0 Hypertensive urgency
CPT/HCPCS: 71045; 73030; 73502; 73552; 74176; 76000; 80048; 80053; 81003; 82550; 82570; 82962; 83036; 83735; 83880; 84132; 84300; 84443; 84484; 85018; 85025; 85027; 85610; 85730; 86850; 86900; 86901; 87811; 93005; 93306; 94640; 96374; 96375; 97110; 97162; 97167; 97530; 99291; 99406; C1713; C1769; J2916

== ENCOUNTER → 2024-01-13 10:00 | Outpatient (REF) | payer MEDICARE, OTHER, SELFPAY | LOC: PAVMRI 10:00 | PROVIDERS: ATTENDING PHYSICIAN Physician Assistant | DX: M25.552 Pain in left hip (principal) | CPT/HCPCS: 73721 ==

== ENCOUNTER 2024-01-13 14:46 | Inpatient (IN) | payer MEDICARE, OTHER, SELFPAY ==
[2024-01-13] VITALS (8 sets, daily range): BP systolic 125–164; BP diastolic 49–112; BMI 24.6; BMI 33.7
--- NOTE | 2024-01-13 12:46 | ED.GENMED ---
History of Present Illness
General
Chief Complaint: Musculo-Skeletal Complaint
Source: patient, spouse and family
Time Seen by Provider: 01/13/24 12:26
Travel History
Have you had any contact with someone who has COVID-19?: No
Do you have any symptoms of coronavirus? Fever > 100 degrees, chills, cough, shortness of breath, sore throat, loss of taste or smell, muscle aches, or headache?: No
History of Present Illness
History of Present Illness:
83-year-old male with past medical history of hypertension, hyperlipidemia and atrial fibrillation presenting to the emergency department from outpatient MRI after an MRI revealed a closed left femoral neck fracture stemming from a fall this past
Tuesday where patient was attempting to get out of bed to use his walker but fell on his left side. Patient went to the orthopedist on Tuesday who had ordered an x-ray which was unclear as to if a fracture had occurred so the MRI was ordered. patient
states he is having discomfort on the left side but stating the right side where he has had previous hip repair is bothering him more. Patient has been able to walk with his walker since the injury. He otherwise has no other concerns at this time.
Past History
Past History
ED Past Medical History: HTN and Hypercholesterolemia
ED Past Surgical History: Appendectomy and Orthopedic
Social History
Tobacco: Non-smoker
Alcohol: None
Drug: None
Personal:
Living: with family
Employment: Employed
Review of Systems
Review of Systems
All Other Systems: ROS reviewed and negative except as documented in HPI and ROS
Phy Exam
Physical Exam
Physical Exam:
GENERAL: Alert , in no apparent distress
EYE: Clear conjunctiva
NECK: Supple
ENT: o/p clr, mmm.
CARDIAC: Irregularly irregular, tachycardic
LUNGS: Clear breath sounds bilaterally, no acute respiratory distress,
ABDOMEN: Soft, without focal tenderness, no r/g, no cvat
NEUROLOGICAL: Alert and oriented
SKIN: Warm and dry, skin intact.
MUSCULOSKELETAL: No edema, well perfused. Tenderness along the lateral aspect of the left proximal femur. Patient still allows for some range of motion does have discomfort while doing so. Bilateral lower extremities are neurovascularly intact
PSYCH: Normal and appropriate interaction.
Scores
Heart Failure Risk
Heart Failure Risk Score: Not Applicable
Heart Score for Chest Pain Patients
STEMI patient?: Not applicable
Withdrawal Assessment of Alcohol
Withdrawal Assessment Completed?: Not applicable
Course
Orders/Labs/Results
Orders:
Orders
01/13/24 12:41
Electrocardiogram (*1) Urgent
Reason for Study: PreOp
EKG- Treatment ONCE
01/13/24 12:59
CMP [Comprehensive Metabolic Panel] Urgent
Complete Blood Count/With Diff Urgent
PTT Urgent
Prothrombin Time Urgent
01/13/24 13:02
Metoprolol [Lopressor] 5 mg IV NOW STA
01/13/24 14:10
Admit/Transfer Patient As Directed
Co-Sign Provider:
Level of Care: Inpatient admission
Assign to:: Telemetry
Physician / Group: Dr Moore
Diagnosis: Left Hip fracture
Reason for Telemetry: Arrhythmia
Date to Stop Telemetry: 01/16/24
Time to Stop Telemetry: 11:00
Reason for Hospitalization: pte p/w fall and hip fracture
Expected length of stay greater than two midnights?: Yes
ELOS- Estimated Length of Stay in days: 2
I certify the patient meets the requirements for IP care: Yes
01/13/24 14:12
Code Status As Directed
Resuscitation Status: Full Code
01/13/24 14:21
ORTHOPEDIC CONSULT Routine
Consulting Provider: Smita Winkler I.
Was physician already notified: Yes
Reason for consult: L Hip fracture
Dextrose 50%-Water [Dextrose 50% Syringe] 12.5 grams IV [id number] PRN
Glucagon [GlucaGen] 1 mg IM PRN PRN
HYDROmorphone [Dilaudid] 0.25 mg IV Q4HPRN PRN
01/13/24 14:22
Bedside Glucose Monitoring As Directed
Frequency: AC&HS
Additional Instructions:: Change to q6h if pt on TPN, tube feeding or not eating
01/13/24 14:23
Metoprolol [Lopressor] 5 mg IV Q6HPRN PRN
01/13/24 14:24
HydrALAZINE [Apresoline] 10 mg IV Q6HPRN PRN
01/13/24 14:26
HydrALAZINE [Apresoline] 10 mg IV Q6HPRN PRN
01/13/24 Dinner
Cholesterol Lowering
At Your Request: Full Participation
Cholesterol Lowering: Sodium, 2 Gram
1999 yoko/17 CHO Diabetic
01/13/24 15:17
Bisacodyl [Dulcolax] 10 mg RECTAL [id number] PRN
Docusate W/Senna [Senokot-S] 1 tablet PO BIDPRN PRN
Nicotine Polacrilex [Nicorette] 2 mg PO Q2HPRN PRN
Oxycodone Controlled Release [Oxycontin (Controlled Release)] 10 mg PO TIDPRN PRN
Polyethylene Glycol Powder [Miralax] 17 grams PO DAILYPRN PRN
Zolpidem Tartrate [Ambien] 10 mg PO HSPRN PRN
01/13/24 15:17
Activity As Directed
Activity Level: Bedrest
Comment: Out
Pneumatic Compression Sleeves As Directed
Type: Knee high
Vital Signs As Directed
Frequency: Per unit guidelines
DX Deep Vein Thrombosis Video Routine
01/13/24 16:30
Insulin Aspart Corrective Mod [Novolog Flexpen-Moderate Resistance] See Protocol SC AC
01/13/24 17:00
METFORMIN HCl [Glucophage] 500 mg PO BID AT 0800,1700
01/13/24 18:00
Atorvastatin [Lipitor] 10 mg PO QPM
01/13/24 20:00
Carvedilol [Coreg] 6.25 mg PO BID
01/13/24 22:00
Gabapentin [Neurontin] 300 mg PO HS
01/14/24 06:00
Basic Metabolic Panel IN AM
Complete Blood Count/No Diff IN AM
Glycohemoglobin (HgbA1c) IN AM
Magnesium IN AM
01/14/24 08:00
FOLic ACID [Folvite] 1 mg PO DAILY
Gabapentin [Neurontin] 200 mg PO DAILY
Lisinopril [Zestril] 20 mg PO DAILY
Polyethylene Glycol Powder [Miralax] 17 grams PO DAILY
Tamsulosin [Flomax] 0.4 mg PO DAILY
01/16/24 11:00
DC Protocol for Telemetry ONCE
Abnormal Lab Results
01/13/24
12:59
RBC 3.53 L 10^6/uL
(4.70-6.10)
Hgb 9.6 L g/dL
(13.0-18.0)
Hct 29.5 L %
(39.0-52.0)
MCHC 32.5 L g/dL
(33.0-37.0)
RDW 14.9 H %
(11.5-14.5)
Absolute Lymphs (auto) 0.6 L 10^3/uL
(1.2-3.4)
Lymphocytes % 12.9 L %
(20.5-51.1)
PT 18.6 H Sec
(11.4-14.6)
BUN 22 H mg/dl
(9-20)
Glucose 156 H mg/dl
(70-99)
Alkaline Phosphatase 149 H U/L
(38-126)
Total Protein 6.2 L g/dl
(6.3-8.2)
01/13/24 12:59
01/13/24 12:59
Vital Signs
Initial and Last Documented VS:
Initial Vital Signs
Temp Pulse Resp BP Pulse Ox
98.4 F 129 18 134/76 98
01/13/24 11:44 01/13/24 11:44 01/13/24 11:44 01/13/24 11:44 01/13/24 11:44
Last Documented Vital Signs
Temp Pulse Resp BP Pulse Ox
98.2 F 75 14 158/76 95
01/13/24 15:23 01/13/24 15:23 01/13/24 15:23 01/13/24 15:23 01/13/24 15:23
MDM/Problems Addressed
MDM/Problems Addressed:
83-year-old male presenting emergency department after he had an MRI earlier this morning which showed a oblique fracture of the left femoral neck. Patient brought to the emergency department to ultimately be admitted to be evaluated by orthopedics
with likely plan for surgery. Based off of patient's history of atrial fibrillation and being anticoagulated on Eliquis unlikely for surgery today. Patient was also incidentally found to be in A-fib with RVR. Family unsure if patient took his
Eliquis or his other medications today. Patient may require medications for rate control. Will discuss case with hospitalist team as well as notify orthopedic team.
Chronic conditions affecting care: Arrhythmia
Acute Exacerbation and/or Progression of Chronic Illness: Arrhythmia
*Pulse Oximetry
Patient hypoxic: no
*EKG
Interpreted by ED Provider?: Yes
Heart Rate: 127
Rate: tachycardiac
Rhythm: a-fib
Hyampom: normal axis
Ischemia: no ischemia
*Steel Estimator Interpretation
Rate: tachycardiac
Rhythm: a-fib
*Critical Care Note
Total Time (30-74mins, 75-104mins- exclusive of procedures): Not Applicable
Data Reviewed
Review of Other/Old Records Reveals: Radiology Studies
Patient Management
Discussion with other providers: Hospitalist and Gauge And Weigh Machine Adjuster
Escalation/DeEscalation of care consider admission/obs:
Orthopedics team is aware and will consult on the patient. Hospitalist team is also aware and accepts for continued evaluation and treatment.
ED Attending Note
-
Portions of this chart may have been created with voice recognition software.� Occasional wrong word or��sound alike� substitutions may have occurred due to the inherent limitations of voice recognition software.
Discharge Plan
Departure
Patient Disposition: Admit
Date of Disposition: 01/13/24
Time of Disposition: 12:46
Presentation/result/management discussed w/ accepting MD/DO: Hospitalist
Discharge Problem:
Closed fracture of neck of left femur, Anemia
Interventions
Interventions:
*Risk Screen - Suicide Last Done: 01/13/24 11:57
*General Assessment Last Done: 01/13/24 11:57
*Neglect/Abuse Screening Last Done: 01/13/24 11:57
*ED COVID-19 Vaccine History Last Done: 01/13/24 11:57
*Nursing Disposition Last Done: 01/13/24 15:09
ED-Musculoskeletal Assessment Last Done: 01/13/24 12:03
Discharge Date and Time
Discharge Date/Time: 01/13/24 15:10
[2024-01-13] MEDS: LOPRESSOR 5 MG IV (13:05)
[2024-01-13 13:09] LABS: % Eosinophils 3.3 % (0-6); % Immature Granulocytes 0.2 % (0-0.5); % Lymphocytes 12.9 % (20.5-51.1); % Monocytes 8.8 % (1.7-9.3); % Neutrophils 73.8 % (42.2-75.2); Absolute Basophils 0.1 10^3/uL (0-0.2); Absolute Eosinophils 0.2 10^3/uL (0-0.7); Absolute Lymphocytes 0.6 10^3/uL (1.2-3.4); Absolute Monocytes 0.4 10^3/uL (0.1-0.6); Absolute Neutrophils 3.5 10^3/uL (1.4-6.5); Hematocrit 29.5 % (39.0-52.0); Hemoglobin 9.6 g/dL (13.0-18.0); Mean Corp Hgb Conc. 32.5 g/dL (33.0-37.0); Mean Corpuscular Hgb 27.2 pg (27.0-31.0); Mean Corpuscular Volume 83.6 fL (80.0-94.0); Mean Platelet Volume 9.8 fL (7.4-10.4); Nucleated Red Blood Cells % 0 % (-); Platelet Count 265 10^3/uL (130-400); Red Blood Cell Count 3.53 10^6/uL (4.70-6.10); Red Cell Dist. Width 14.9 % (11.5-14.5); White Blood Cell Count 4.8 10^3/uL (4.8-10.8)
--- NOTE | 2024-01-13 13:13 | HPS.HSE ---
Family Physician
-
Family Physician: Sarmad Quiles
Chief Complaint
-
Sent to the hospital for left hip fracture.
History of Present Illness
Patient 83 years old male history of hypertension, hyperlipidemia, A-fib, CHF, presented to the hospital after a fall last on the when he was trying to get out of bed and used his walker but fell onto his left side. Patient had x-rays and MRI and
seen by orthopedic as outpatient and images revealed that he has a left hip fracture so he was sent over to the hospital for further evaluation. Patient found to be in atrial fibrillation with rapid ventricular response and he has been given IV
Lopressor x1 in the ED. He admitted he was upset about what transpired with his diagnosis when he had that episode of tachyarrhythmia. He currently denies any chest pain or shortness of breath or palpitations or diaphoresis and syncope. By the
time of my evaluation his A-fib under control with heart rates in the 70s to 80s. Denies fevers or chills. He does take anticoagulation and last time he took Eliquis was this morning prior to admission. In the ED, hemoglobin 9.6, sodium 138,
potassium 4.5, creatinine 0.7, glucose 156. He was referred to hospitalist for further evaluation.
Medical History
Past Medical History
Past Medical History: Reports Other (Hypertension, hyperlipidemia, paroxysmal atrial fibrillation, chronic diastolic congestive heart failure, diabetes mellitus type 2, BPH, history of gout, peripheral vascular disease, small bowel obstruction in
the past, possible COPD.)
Past Surgical History: Reports Other (Reverse left total shoulder with revision, cervical laminectomy, left shoulder replacement, appendectomy, rotator cuff procedure.)
Social History
Tobacco: Smoker
Alcohol: Occasional
Drug: None
Family History
Family History: Not pertinent
Allergies / Home Medications
Allergies reflects when Allergies were last updated in [facility].
Home Medications with original date entered in [facility]
Allergy/Medication List:
Allergies
Allergy/AdvReac Type Severity Reaction Status Date / Time
No Known Allergies Allergy Verified 12/06/23 03:49
Home Medications
allopurinol 100 mg tablet 100 mg PO DAILY Gout 03/19/23
apixaban 5 mg tablet 5 mg PO BID Blood Clot Prevention/Tx 03/19/23
ascorbic acid (vitamin C) 250 mg tablet (Vitamin C) 250 mg PO DAILY Supplement 03/19/23
carvedilol 6.25 mg tablet 6.25 mg PO BID Heart Disease/Condition 03/19/23
cholecalciferol (vitamin D3) 50 mcg (2,000 unit) tablet (Vitamin D3) 50 mcg PO DAILY Supplement 03/19/23
folic acid 1 mg tablet 1 mg PO DAILY Supplement 03/19/23
metformin 500 mg tablet 500 mg PO BID Diabetes 03/19/23
simvastatin 20 mg tablet 20 mg PO QPM High Cholesterol 03/19/23
zolpidem 10 mg tablet 10 mg PO HS PRN insomnia 03/19/23
gabapentin 100 mg capsule 200 mg PO DAILY Pain 03/29/23
gabapentin 100 mg capsule 300 mg PO HS Pain 03/29/23
tamsulosin 0.4 mg capsule 0.4 mg PO DAILY Urinary Issue 12/06/23
acetaminophen 325 mg tablet 650 mg (2 x 325 mg) PO Q4HWA #60 tabs 12/12/23
docusate sodium 100 mg capsule 100 mg PO BID #60 caps 12/12/23
ferrous sulfate 325 mg (65 mg iron) tablet (FeroSul) 325 mg PO Q OTHER DAY #60 tabs 12/12/23
lidocaine 4 % topical patch 1 patch topical DAILY #30 ea 12/12/23
nicotine (polacrilex) 2 mg gum 2 mg PO Q2HPRN PRN nicotine craving #20 ea 12/12/23
sennosides 8.6 mg tablet (Senna Laxative) 17.2 mg (2 x 8.6 mg) PO BID #60 tabs 12/12/23
Review of Systems
-
A 12 point ROS was completed and negative except as noted: Yes
Physical Exam
Vital Signs
Vital Signs
Temp Pulse Resp BP Pulse Ox
98.4 F 117 14 138/112 97
01/13/24 11:44 01/13/24 13:05 01/13/24 12:15 01/13/24 13:05 01/13/24 12:15
Physical exam:
General:. No acute distress at the moment
HEENT: Normocephalic, Atraumatic and Moist Mucous Membranes
Respiratory: Clear to Auscultation; Negative Wheezes, Rales or Rhonchi
Cardiac: Irregular rate and rhythm, and S1/S2
GI: Soft, Nontender and Nondistended
Musculoskeletal: Left lower extremity not much shortened and externally rotated. No Clubbing, No Cyanosis and No Edema
Neuro: Awake, Alert and Oriented
Psych: Calm
Physical Exam
General: Other
Impression/Plan
-
IMPRESSION:
Patient 83 years old male with multiple comorbidities came into the hospital after a fall and sustained a left hip fracture. Patient increased risk morbidity mortality due to acute presentation and multiple comorbidities subsequently treated in the
hospital and manage accordingly.
PLAN:
Left hip fracture:
Hip MRI confirms oblique fracture involving the left femoral neck
Pain control
SCD for DVT prophylaxis
OR delayed for Eliquis washout
PT OT postop
Orthopedic consulted ([place] texted Ortho today)
Preop evaluation felt to be moderately elevated however risk is not prohibitive to proceed once Eliquis out of his system.
A-fib rapid ventricular response:
Reviewed and interpreted by myself twelve-lead EKG shows atrial fibrillation at 123 bpm with underlying right bundle branch block pattern and left anterior fascicular block with nonspecific ST-T changes abnormalities.
Responded well to IV Lopressor in the ER.
Continue IV Lopressor as needed
Resume oral carvedilol tonight.
Hold off anticoagulant and will resume Eliquis when safe from a postop standpoint
Cardiac monitoring
Anemia:
Hemoglobin today 9.6 which is close or better to his baseline
Last hemoglobin on November 2023 was 7.4
Continue to monitor hemoglobin
Chronic diastolic CHF:
Does not appear to be decompensated state. Currently euvolemic
Monitor ins and outs and daily weights
Reviewed last echocardiogram November 2023, EF 60 to 65% trace aortic regurgitation, no other significant abnormalities.
CKD:
Creatinine today stable at 0.7
Last creatinine on November 2023 was 1.3 with a GFR of around 50
Continue to monitor renal function closely
Hypertension:
Continue carvedilol
Will continue with his home regimen
Add IV hydralazine as needed
Adjust blood pressure medications according to his blood pressure
Hyperlipidemia:
Continue home statins
Diabetes mellitus type 2:
Insulin sliding scale
Diabetic diet
Continue oral hypoglycemics but hold day of surgery
Gout:
Continue allopurinol
BPH:
Continue Flomax
DVT prophylaxis:
SCDs
CODE STATUS:
Full code
Total time spent on today's encounter was 75 minutes which included time spent in counseling the patient/family regarding diagnosis and treatment plan as listed above, goals of care, and symptom management. Case was discussed with nursing staff,
specialists, and care coordinators/case management. All labs and imaging personally reviewed by me. Remainder the time spent in detailed review of previous records, lab data, imaging, and other medical provider documentation.
[2024-01-13 13:18] LABS: INR 1.57; PT 18.6 Sec (11.4-14.6)
[2024-01-13 13:19] LABS: APTT 33.5 Sec (23.4-35.0)
[2024-01-13 13:26] LABS: ALT (SGPT) 18 U/L (0-50); AST (SGOT) 21 U/L (17-59); Albumin 3.5 g/dl (3.5-5.0); Alkaline Phosphatase 149 U/L (38-126); Blood Urea Nitrogen 22 mg/dl (9-20); Calcium 9.6 mg/dl (8.4-10.2); Carbon Dioxide 27 mmol/L (22-30); Chloride 105 mmol/L (98-107); Estimated Creatinine Clearance 92 ml/min; Glucose 156 mg/dl (70-99); Potassium 4.5 mmol/L (3.5-5.1); Sodium 138 mmol/L (135-145); Total Bilirubin 0.6 mg/dl (0.2-1.3); Total Protein 6.2 g/dl (6.3-8.2); eGFR > 60.00
--- NOTE | 2024-01-13 16:07 | CON.ORTHO ---
Consultation
-
Date/Time Consultation Performed: 01/13/24 @ 1:15pm
Performing Provider: Adela Mayorga PA-C for Smita Winkler
Reason for Consultation: left hip fracture
Consultation - Orthopedics
History
HPI: 83yo male who was sent to the ER for further management after outpatient MRI revealed left hip fracture. Patient was seen in our outpatient office on 01/09/24 for left hip pain. There was questionable fracture vs early osteoarthritis. Patient
sent for urgent MRI left hip which revealed left hip fracture. Patient did have an injury on 01/08/24 when he fell onto the left side when he was reaching for his walker. He has been able to bear some weight to the left leg but does continue with
pain. Of note, he recently underwent ORIF right hip fracture following a fall on 12/08/[address] Rose. He did well following this procedure. He does take Eliquis for Afib with his last dose being this morning.
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
hypertension, hyperlipidemia.
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
replacement 12/01/2023, right hip gamma nail 12/08/[address] Rose
SOCIAL HISTORY: Reports tobacco use, reports occasional alcohol use. Denies any recreational drug use. Lives at home and is fully ambulatory at baseline.
FAMILY HISTORY: Non contributory
REVIEW OF SYSTEMS: 12 point review of systems obtained and negative except those mentioned in the HPI
Allergies / Home Medications
Allergy/AdvReac Type Severity Reaction Status Date / Time
No Known Allergies Allergy Verified 12/06/23 03:49
�Medication �Instructions �Recorded
apixaban 5 mg tablet 5 mg PO BID Blood Clot 03/19/23
Prevention/Tx
ascorbic acid (vitamin C) 250 mg 250 mg PO DAILY PRN Supplement 03/19/23
tablet (Vitamin C)
carvedilol 6.25 mg tablet 6.25 mg PO BID Heart 03/19/23
Disease/Condition
folic acid 1 mg tablet 1 mg PO DAILY Supplement 03/19/23
simvastatin 20 mg tablet 20 mg PO QPM High Cholesterol 03/19/23
gabapentin 100 mg capsule 200 mg PO DAILY Pain 03/29/23
tamsulosin 0.4 mg capsule 0.4 mg PO DAILY Urinary Issue 12/06/23
nicotine (polacrilex) 2 mg gum 2 mg PO Q2HPRN PRN nicotine 12/12/23
craving #20 ea
benazepril 20 mg tablet 20 mg PO DAILY 01/13/24
gabapentin 300 mg capsule 300 mg PO HS 01/13/24
metformin 500 mg tablet 500 mg PO BID 01/13/24
oxycodone 10 mg tablet,crush 10 mg PO TIDPRN PRN severe pain 01/13/24
resistant,extended release 12 hr
(OxyContin)
zolpidem 10 mg tablet 10 mg PO HSPRN PRN insomnia 01/13/24
Vital Signs / Lab Results
Temp Pulse Resp BP Pulse Ox
98.2 F 75 14 158/76 95
01/13/24 15:23 01/13/24 15:23 01/13/24 15:23 01/13/24 15:23 01/13/24 15:23
01/13/24 12:59
01/13/24 12:59
RADIOGRAPHIC FINDINGS:
MRI left hip reveals oblique fracture involving the left femoral neck
PHYSICAL EXAM:
General: AAOx3, well developed well nourish male in no acute distress
HEENT: NCAT, sclera anicteric, normal hearing
Heart: No JVD
Lungs: Normal work of breathing on room air
MSK: Focused exam of left hip reveals skin intact. +Tenderness to palpation generally about the hip. +Log roll. ROM deferred. Calf soft and nontender. NVI distally
Assessment / Plan
ASSESSMENT: Left femoral neck fracture
PLAN: Mr. Fry unfortunately sustained a left femoral neck fracture revealed on outpatient MRI earlier today. Recommend ORIF left hip. The risks, benefits, and potential complications were discussed. He did take Eliquis this morning, therefore will
allow for washout and plan for surgery on 01/16/24 under the direction of Dr. Winkler. Surgical and blood consents obtained. He will require medical and cardiac clearance. He will need to be NPO after midnight Tuesday evening. He is to remain
on bedrest for now. Pain management as needed. His hemoglobin in the ER is 9.6 will continue to monitor. He will require medical clearance for the OR. We will continue to follow along.
[2024-01-13 16:50] LABS: Glucose - Point of Care 140 mg/dl (70-99)
[2024-01-13] MEDS: GLUCOPHAGE 500 MG PO (17:08)
[2024-01-13] MEDS: LIPITOR 10 MG PO (17:08)
[2024-01-13] MEDS: COREG 6.25 MG PO (19:46)
[2024-01-13] MEDS: OXYCONTIN (CONTROLLED RELEASE) 10 MG PO (19:46)
[2024-01-13 21:53] LABS: Glucose - Point of Care 137 mg/dl (70-99)
[2024-01-13] MEDS: AMBIEN 10 MG PO (21:56)
[2024-01-13] MEDS: NEURONTIN 300 MG PO (21:56)
[2024-01-14 04:36] VITALS: BP 118/62
[2024-01-14 07:09] LABS: Glucose - Point of Care 123 mg/dl (70-99)
[2024-01-14 07:10] VITALS: BP 132/65
[2024-01-14] MEDS: MIRALAX 17 GRAMS PO (07:43)
[2024-01-14] MEDS: COREG 6.25 MG PO ×2 (07:57→20:08)
[2024-01-14] MEDS: GLUCOPHAGE 500 MG PO ×2 (07:57→15:49)
[2024-01-14] MEDS: FOLVITE 1 MG PO (07:58)
[2024-01-14] MEDS: ZESTRIL 20 MG PO (07:58)
[2024-01-14] MEDS: NEURONTIN 200 MG PO (07:58)
[2024-01-14] MEDS: OXYCONTIN (CONTROLLED RELEASE) 10 MG PO ×3 (08:00→20:08)
[2024-01-14 08:04] LABS: Hematocrit 26.8 % (39.0-52.0); Hemoglobin 8.4 g/dL (13.0-18.0); Mean Corp Hgb Conc. 31.3 g/dL (33.0-37.0); Mean Corpuscular Hgb 26.8 pg (27.0-31.0); Mean Corpuscular Volume 85.4 fL (80.0-94.0); Mean Platelet Volume 10.1 fL (7.4-10.4); Platelet Count 243 10^3/uL (130-400); Red Blood Cell Count 3.14 10^6/uL (4.70-6.10); Red Cell Dist. Width 14.9 % (11.5-14.5); White Blood Cell Count 4.3 10^3/uL (4.8-10.8)
--- NOTE | 2024-01-14 08:06 | PTCARENOTE ---
advised pt that doctor recommends bed rest, pt became very upset at nurse. raising his voice. stating his fracture will become unstable staying in bed. Nurse just stated reasons for percaustions. and then got him OOB to chair. Refused Flomax states
takes at night. will changed time. Pain only 3-4 only has 10mg Oxy
[2024-01-14 08:48] LABS: Blood Urea Nitrogen 22 mg/dl (9-20); Calcium 9.2 mg/dl (8.4-10.2); Carbon Dioxide 27 mmol/L (22-30); Chloride 104 mmol/L (98-107); Estimated Creatinine Clearance 72 ml/min; Glucose 110 mg/dl (70-99); Magnesium 1.8 mg/dl (1.6-2.3); Potassium 4.2 mmol/L (3.5-5.1); Sodium 139 mmol/L (135-145); eGFR > 60.00
--- NOTE | 2024-01-14 09:14 | W.PN.HOSP.TC ---
Today's Communication/Plan
-
Plan for hip surgery
Assessment / Plan
Assessment / Plan
Physical exam:
General:. No acute distress at the moment
HEENT: Normocephalic, Atraumatic and Moist Mucous Membranes
Respiratory: Clear to Auscultation; Negative Wheezes, Rales or Rhonchi
Cardiac: Irregular rate and rhythm, and S1/S2
GI: Soft, Nontender and Nondistended
Musculoskeletal: Left lower extremity with tenderness to palpation. No Clubbing, No Cyanosis and No Edema
Neuro: Awake, Alert and Oriented
Psych: Calm
A/P:
Left hip fracture:
Hip MRI confirms oblique fracture involving the left femoral neck
Pain control
SCD for DVT prophylaxis
OR delayed for Eliquis washout. Plan for surgery on Tuesday
PT OT postop
Orthopedic consulted ([place] texted Ortho today)
Preop evaluation felt to be moderately elevated however risk is not prohibitive to proceed once Eliquis out of his system.
A-fib rapid ventricular response but currently rate controlled:
Reviewed and interpreted by myself twelve-lead EKG shows atrial fibrillation at 123 bpm with underlying right bundle branch block pattern and left anterior fascicular block with nonspecific ST-T changes abnormalities.
Responded well to IV Lopressor in the ER.
Continue IV Lopressor as needed
Resume oral carvedilol 6.25 mg twice a day.
Hold off anticoagulant and will resume Eliquis when safe from a postop standpoint
Cardiac monitoring
Anemia:
Hemoglobin today 8.4 (upon admission 9.6)
As well as hemoglobin over 8, given his cardiac history he is in optimal condition for surgery otherwise at risk of transfusion related complications
Continue to monitor hemoglobin
Chronic diastolic CHF:
Does not appear to be decompensated state. Currently euvolemic
Monitor ins and outs and daily weights
Reviewed last echocardiogram November 2023, EF 60 to 65% trace aortic regurgitation, no other significant abnormalities.
CKD:
Creatinine today stable at 0.9
Last creatinine on November 2023 was 1.3 with a GFR of around 50
Continue to monitor renal function closely
Hypertension:
Continue carvedilol 6.25 mg twice a day and lisinopril 20 mg p.o. daily.
Will continue with his home regimen
Add IV hydralazine as needed
Adjust blood pressure medications according to his blood pressure
Hyperlipidemia:
Continue home statins, atorvastatin 10 mg p.o. nightly
Diabetes mellitus type 2:
Insulin sliding scale
Diabetic diet changed to regular diet due to patient insistence and request so far blood sugar stable so we will monitor
Continue oral hypoglycemics, metformin 500 mg twice a day
Last hemoglobin A1c was 6.6 in November. Hemoglobin A1c this hospitalization pending
Gout:
Continue allopurinol
BPH:
Continue Flomax
DVT prophylaxis:
SCDs
CODE STATUS:
Full code
Anticipated Discharge: > 48 hours
Subjective/Interval History
-
Date of Service: January 14, 2024
He has multiple nonmedical complaints. Otherwise no chest pain or shortness of breath.
Objective Data
-
Labs:
Laboratory Results
01/14/24
06:54
WBC 4.3 L
Hgb 8.4 L
Hct 26.8 L
Plt Count 243
Sodium 139
Potassium 4.2
Chloride 104
Carbon Dioxide 27
BUN 22 H
Creatinine 0.9
Glucose 110 H
Calcium 9.2
Vital Signs:
Vital Signs
Temp Pulse Resp BP Pulse Ox
97.3 F 71 18 132/65 95
01/14/24 07:10 01/14/24 07:10 01/14/24 07:10 01/14/24 07:57 01/14/24 07:10
I&O
01/13/24 01/14/24 01/15/24
06:59 06:59 06:59
Intake Total 345 / 345
Balance 345 / 345
Review of Systems
-
All other systems: Reviewed and negative
--- NOTE | 2024-01-14 09:22 | W.PN.UPDATE ---
Update Note
Progress Note Update
Pt seen and examined. Argumentative with staff about bedrest. Pt currently in chair eating breakfast in no apparent distress.
Agree with ortho PA's consult.
LLE: edema foot. CAROM ankle. Pain with flexion and internal rotation of hip
Xray and MRI left hip and pelvis: nondisplaced left femoral neck fx
Imp: nondisplaced left femoral neck fx
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
awaiting Eliquis washout
I recommend Cannulated screw fixation left femoral neck. Risks and benefits and postop regimen discussed. All questions were answered.
Sx scheduled for Mon if medically optimized
--- NOTE | 2024-01-14 10:56 | CM ---
Initial Assessment completed with patient who lives with his significant other in a 1 story home with no basement, 2 +2 steps to enter, Patient has a RW, W/ch, grab bars in and shower chair. 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
hip fx). Would like to continue with [facility] for VN and PT for current L hip fx. Prior to hip fractures, patient was independent and drove, did not work. No psychiatric history. Pharmacy is [facility] [address] in [place], PCP is Dr. Bañuelos
Kb. Discharge Plan of Care: Patient said he is going home with [facility] services. Does not want STR. Will continue to follow.
[2024-01-14 11:05] VITALS: BP 112/51
[2024-01-14 12:22] LABS: Glucose - Point of Care 160 mg/dl (70-99)
[2024-01-14] MEDS: TYLENOL #3 1 TABLET PO (12:59)
--- NOTE | 2024-01-14 13:40 | PTCARENOTE ---
pt stated pain level at 3. offered APAP #3. he said this is junk and pushed it at nurse. pt Would like Oxycodone 10mg. Explained with a pain level of 3, 10mg is not appropriate to treat with. pt then said pain level is higher. Nurse said 'sir you
just told me it is 3 and that is why I got APAP #3'. He said he will try it when nurse explained again the levels of pain and importance of staying on top of it but that is a strong dose, when we can try to treat with a lower dose until surgery then
which things may change. But he would like something else in one hour if this does nothing. Agree he has a reason for discomfort and pain. Notified MD Dr. Moore, placing 5 mg Oxycodone order for moderate pain level coverage. Remains OOB in chair
against bedrest orders. Refused insulin.
[2024-01-14 15:25] VITALS: BP 121/62
[2024-01-14] MEDS: LIPITOR 10 MG PO (15:48)
[2024-01-14 18:00] LABS: Glucose - Point of Care 119 mg/dl (70-99)
[2024-01-14 19:17] VITALS: BP 138/64
[2024-01-14] MEDS: FLOMAX 0.4 MG PO (20:08)
[2024-01-14 21:10] LABS: Glucose - Point of Care 105 mg/dl (70-99)
[2024-01-14] MEDS: NEURONTIN 300 MG PO (21:46)
[2024-01-14] MEDS: AMBIEN 10 MG PO (21:46)
[2024-01-14 22:55] VITALS: BP 149/72
[2024-01-15 03:05] VITALS: BP 117/58
[2024-01-15 07:05] LABS: Hematocrit 26.7 % (39.0-52.0); Hemoglobin 8.7 g/dL (13.0-18.0)
[2024-01-15 07:50] VITALS: BP 131/69
[2024-01-15 08:20] LABS: Glucose - Point of Care 128 mg/dl (70-99)
[2024-01-15] MEDS: MIRALAX 17 GRAMS PO (08:24)
[2024-01-15] MEDS: ZESTRIL 20 MG PO (08:24)
[2024-01-15] MEDS: GLUCOPHAGE 500 MG PO ×2 (08:26→17:46)
[2024-01-15] MEDS: NEURONTIN 200 MG PO (08:26)
[2024-01-15] MEDS: OXYCONTIN (CONTROLLED RELEASE) 10 MG PO ×3 (08:27→21:56)
[2024-01-15] MEDS: FOLVITE 1 MG PO (08:27)
[2024-01-15] MEDS: COREG 6.25 MG PO ×2 (08:27→19:28)
--- NOTE | 2024-01-15 09:12 | W.PN.HOSP.TC ---
Today's Communication/Plan
-
Plan for hip surgery tomorrow.
Assessment / Plan
Assessment / Plan
Physical exam:
General:. No acute distress at the moment
HEENT: Normocephalic, Atraumatic and Moist Mucous Membranes
Respiratory: Clear to Auscultation; Negative Wheezes, Rales or Rhonchi
Cardiac: Irregular rate and rhythm, and S1/S2
GI: Soft, Nontender and Nondistended
Musculoskeletal: Left lower extremity with tenderness to palpation. No Clubbing, No Cyanosis and No Edema
Neuro: Awake, Alert and Oriented
Psych: Calm
A/P:
Left hip fracture:
Hip MRI confirms oblique fracture involving the left femoral neck
Pain control
SCD for DVT prophylaxis
OR delayed for Eliquis washout. Plan for surgery on Tuesday
PT OT postop
Orthopedic consulted ([place] texted Ortho today)
Family requested notification to cardiology and understand there is no need for consult. I reached out to Dr. Membreno to let him know.
Preop evaluation done and felt to be moderately elevated however risk is not prohibitive to proceed once Eliquis out of his system.
A-fib rapid ventricular response but currently rate controlled:
Reviewed and interpreted by myself twelve-lead EKG shows atrial fibrillation at 123 bpm with underlying right bundle branch block pattern and left anterior fascicular block with nonspecific ST-T changes abnormalities.
Responded well to IV Lopressor in the ER.
Continue IV Lopressor as needed
Resumed oral carvedilol 6.25 mg twice a day.
Hold off anticoagulant and will resume Eliquis when safe from a postop standpoint
Cardiac monitoring
Anemia:
Hemoglobin today 8.7 (upon admission 9.6)
As well as hemoglobin over 8, given his cardiac history he is in optimal condition for surgery otherwise at risk of transfusion related complications
Continue to monitor hemoglobin
Chronic diastolic CHF:
Does not appear to be decompensated state. Currently euvolemic
Monitor ins and outs and daily weights
Reviewed last echocardiogram November 2023, EF 60 to 65% trace aortic regurgitation, no other significant abnormalities.
CKD:
Creatinine today stable at 0.9
Last creatinine on November 2023 was 1.3 with a GFR of around 50
Continue to monitor renal function closely
Hypertension:
Continue carvedilol 6.25 mg twice a day and lisinopril 20 mg p.o. daily.
Will continue with his home regimen
Add IV hydralazine as needed
Adjust blood pressure medications according to his blood pressure
Hyperlipidemia:
Continue home statins, atorvastatin 10 mg p.o. nightly
Diabetes mellitus type 2:
Insulin sliding scale
Diabetic diet changed to regular diet due to patient insistence and request so far blood sugar stable so we will monitor
Continue oral hypoglycemics, metformin 500 mg twice a day
Last hemoglobin A1c was 6.6 in November. Hemoglobin A1c this hospitalization pending
Gout:
Continue allopurinol
BPH:
Continue Flomax
DVT prophylaxis:
SCDs
CODE STATUS:
Full code
Anticipated Discharge: > 48 hours
Subjective/Interval History
-
Date of Service: January 15, 2024
No chest pain or shortness of breath. Afebrile.
Objective Data
-
Labs:
Laboratory Results
01/15/24
06:21
Hgb 8.7 L
Hct 26.7 L
Vital Signs:
Vital Signs
Temp Pulse Resp BP Pulse Ox
98.1 F 72 16 131/69 97
01/15/24 07:50 01/15/24 07:50 01/15/24 07:50 01/15/24 08:24 01/15/24 07:50
I&O
01/14/24 01/15/24 01/16/24
06:59 06:59 06:59
Intake Total 345 / 345 1380 / 1380
Output Total 450 / 450
Balance 345 / 345 930 / 930
--- NOTE | 2024-01-15 09:15 | W.PN.UPDATE ---
Update Note
Progress Note Update
Patient is sitting up in the chair this morning. He has refused bedrest. He states his pain is about a 1/10 in the left hip. He has more discomfort in his right hip, about a 4/10.
Left femoral neck fracture
-Plan for OR tomorrow for left hip cannulated screws under the direction of Dr. Winkler
-NPO for surgery tomorrow
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
-Continue with current pain management as needed
-Will need PT/OT evaluation postop
-Will continue to follow along
--- NOTE | 2024-01-15 09:30 | PTCARENOTE ---
Spoke with PA regarding pt's pain /discomfort being higher on past surgical leg Right than on left fractured leg. She said they did do a XR in office and all hardware is in place. And current fracture may be non displaced.
[2024-01-15 11:29] VITALS: BP 119/54
[2024-01-15 12:30] LABS: Glucose - Point of Care 170 mg/dl (70-99)
[2024-01-15 15:30] VITALS: BP 128/76
[2024-01-15 17:26] LABS: Glucose - Point of Care 124 mg/dl (70-99)
[2024-01-15] MEDS: LIPITOR 10 MG PO (17:46)
[2024-01-15] MEDS: LOPRESSOR 5 MG IV ×2 (17:47→23:13)
[2024-01-15] MEDS: FLOMAX 0.4 MG PO (19:28)
[2024-01-15] MEDS: ROXICODONE 5 MG PO (19:29)
[2024-01-15 19:33] VITALS: BP 126/85
[2024-01-15 21:55] LABS: Glucose - Point of Care 165 mg/dl (70-99)
[2024-01-15] MEDS: AMBIEN 10 MG PO (21:55)
[2024-01-15] MEDS: NEURONTIN 300 MG PO (21:55)
[2024-01-15 23:15] VITALS: BP 131/71
[2024-01-16] VITALS (14 sets, daily range): BP systolic 110–147; BP diastolic 54–85; PULSE 83; O2SAT 83; BMI 23.7
--- NOTE | 2024-01-16 02:02 | PTCARENOTE ---
pt HR 120-140's on tele afib. given IV Lopressor at 2313., converted to SR around 0050 HR =70's. see monitor
[2024-01-16 05:57] LABS: Glucose - Point of Care 128 mg/dl (70-99)
[2024-01-16 06:18] LABS: Hematocrit 25.6 % (39.0-52.0); Hemoglobin 8.2 g/dL (13.0-18.0); Mean Corpuscular Hgb 27.6 pg (27.0-31.0); Mean Corpuscular Volume 86.2 fL (80.0-94.0); Platelet Count 248 10^3/uL (130-400); Red Blood Cell Count 2.97 10^6/uL (4.70-6.10); Red Cell Dist. Width 14.8 % (11.5-14.5); White Blood Cell Count 4.9 10^3/uL (4.8-10.8)
[2024-01-16 06:37] LABS: Blood Urea Nitrogen 22 mg/dl (9-20); Calcium 8.8 mg/dl (8.4-10.2); Carbon Dioxide 31 mmol/L (22-30); Chloride 103 mmol/L (98-107); Estimated Creatinine Clearance 51 ml/min; Glucose 112 mg/dl (70-99); Potassium 4.5 mmol/L (3.5-5.1); Sodium 135 mmol/L (135-145); eGFR > 60.00
[2024-01-16] MEDS: GLUCOPHAGE 500 MG PO ×2 (07:45→17:01)
[2024-01-16] MEDS: NEURONTIN 200 MG PO (07:46)
[2024-01-16] MEDS: ZESTRIL 20 MG PO (07:46)
[2024-01-16] MEDS: FOLVITE 1 MG PO (07:46)
[2024-01-16] MEDS: MIRALAX PO (07:47)
[2024-01-16] MEDS: COREG 6.25 MG PO ×2 (07:47→19:19)
[2024-01-16] MEDS: OXYCONTIN (CONTROLLED RELEASE) 10 MG PO ×2 (07:50→19:19)
--- NOTE | 2024-01-16 08:22 | W.PN.UPDATE ---
Update Note
Progress Note Update
Patient for ASNIS LEFT hip a bit later this AM via Dr. Winkler. Patient's Hgb 8.2 this AM, but EBL will be minimal. Will hold transfusion for now and trend post-op. Patient to remain NPO. 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
--- NOTE | 2024-01-16 09:01 | W.PN.HOSP.TC ---
Today's Communication/Plan
-
Plan for hip surgery today.
Assessment / Plan
Assessment / Plan
Physical exam:
General:. No acute distress at the moment
HEENT: Normocephalic, Atraumatic and Moist Mucous Membranes
Respiratory: Clear to Auscultation; Negative Wheezes, Rales or Rhonchi
Cardiac: Irregular rate and rhythm, and S1/S2
GI: Soft, Nontender and Nondistended
Musculoskeletal: Left lower extremity with tenderness to palpation. No Clubbing, No Cyanosis and No Edema
Neuro: Awake, Alert and Oriented
Psych: Calm
A/P:
Left hip fracture:
Hip MRI confirms oblique fracture involving the left femoral neck
Pain control
SCD for DVT prophylaxis
OR delayed for Eliquis washout. Plan for surgery on Tuesday
PT OT postop
Orthopedic consulted ([facility] texted Ortho today)
Family requested notification to cardiology and understand there is no need for consult. I reached out to Dr. Membreno to let him know yesterday.
Preop evaluation done and felt to be moderately elevated however risk is not prohibitive to proceed once Eliquis out of his system.
A-fib rapid ventricular response but currently rate controlled:
Reviewed and interpreted by myself twelve-lead EKG shows atrial fibrillation at 123 bpm with underlying right bundle branch block pattern and left anterior fascicular block with nonspecific ST-T changes abnormalities.
Responded well to IV Lopressor in the ER.
Continue IV Lopressor as needed
Resumed oral carvedilol 6.25 mg twice a day.
Hold off anticoagulant and will resume Eliquis when safe from a postop standpoint
Cardiac monitoring
Anemia:
Hemoglobin today 8.2 (upon admission 9.6)
As well as hemoglobin over 8, given his cardiac history he is in optimal condition for surgery otherwise at risk of transfusion related complications
Continue to monitor hemoglobin
Chronic diastolic CHF:
Does not appear to be decompensated state. Currently euvolemic
Monitor ins and outs and daily weights
Reviewed last echocardiogram November 2023, EF 60 to 65% trace aortic regurgitation, no other significant abnormalities.
CKD:
Creatinine today stable at 0.9
Last creatinine on November 2023 was 1.3 with a GFR of around 50
Continue to monitor renal function closely
Hypertension:
Continue carvedilol 6.25 mg twice a day and lisinopril 20 mg p.o. daily.
Will continue with his home regimen
Add IV hydralazine as needed
Adjust blood pressure medications according to his blood pressure
Hyperlipidemia:
Continue home statins, atorvastatin 10 mg p.o. nightly
Diabetes mellitus type 2:
Insulin sliding scale
Diabetic diet changed to regular diet due to patient insistence and request so far blood sugar stable so we will monitor
Continue oral hypoglycemics, metformin 500 mg twice a day
Last hemoglobin A1c was 6.6 in November. Hemoglobin A1c this hospitalization pending
Gout:
Continue allopurinol
BPH:
Continue Flomax
DVT prophylaxis:
SCDs
CODE STATUS:
Full code
Anticipated Discharge: 24 - 48 hours
Subjective/Interval History
-
Date of Service: January 16, 2024
Denies chest pain or shortness of breath. Complains some pain on both hips.
Objective Data
-
Labs:
Laboratory Results
01/16/24
05:59
WBC 4.9
Hgb 8.2 L
Hct 25.6 L
Plt Count 248
Sodium 135
Potassium 4.5
Chloride 103
Carbon Dioxide 31 H
BUN 22 H
Creatinine 1.0
Glucose 112 H
Calcium 8.8
Vital Signs:
Vital Signs
Temp Pulse Resp BP Pulse Ox
98.5 F 65 12 128/58 94
01/16/24 07:42 01/16/24 07:47 01/16/24 07:42 01/16/24 07:47 01/16/24 08:07
I&O
01/15/24 01/16/24 01/17/24
06:59 06:59 06:59
Intake Total 1380 / 1380 1140 / 1140
Output Total 450 / 450 200 / 200
Balance 930 / 930 940 / 940
--- NOTE | 2024-01-16 09:53 | CM ---
Reviewed the chart notes. Patient for OR today for ORIF left hip. CM continues to be available to patient/family and is monitoring medical plan for needs at discharge.
Plan: Discharge plans will depend on the patient's progress.
[2024-01-16] MEDS: LIDOCAINE 4% PATCH 1 PATCH TOPICAL (10:08)
--- NOTE | 2024-01-16 11:35 | PTCARENOTE ---
Patient found to be yelling at an RN who was helping to toilet this patient before being transported to OR for planned procedure; Patient being verbally abrasive towards multiple staff members, yelling 'no one is doing anything for me' and 'it is
the doctor's fault my hip hurts'; Patient upset that he is in pain; Reviewed pain medications available to patient in the MAR and reviewed medications that the patient has received for pain in addition to an ice pack and repositioning; Patient also
upset that his blood sugar is being monitored stating 'there's no point to this'
[2024-01-16 11:47] LABS: Glucose - Point of Care 134 mg/dl (70-99)
--- NOTE | 2024-01-16 11:52 | PTCARENOTE ---
Patient to OR for planned Left Hip ORIF at 1149
[2024-01-16 13:20] LABS: Glucose - Point of Care 127 mg/dl (70-99)
[2024-01-16] MEDS: DILAUDID 0.25 MG IV ×3 (14:19→14:54)
[2024-01-16 14:26] LABS: Glucose - Point of Care 120 mg/dl (70-99)
[2024-01-16] MEDS: NSS 1000 IV (14:39)
--- NOTE | 2024-01-16 15:21 | PTCARENOTE ---
Patient received from PACU in bed; IVF infusing; Surgical site assessed with [employer]OR; Left hip aquacell C/D/I; Bilateral pedal pulses +2; Patient states pain in left hip is 5/10 at this current moment; Assessment ongoing
[2024-01-16 15:53] LABS: Glucose - Point of Care 135 mg/dl (70-99)
[2024-01-16] MEDS: ANCEF IV (15:55)
[2024-01-16] MEDS: LIPITOR 10 MG PO (17:01)
[2024-01-16] MEDS: SENOKOT 17.2 MG PO (19:18)
[2024-01-16] MEDS: FLOMAX 0.4 MG PO (19:19)
[2024-01-16] MEDS: COLACE 100 MG PO (19:19)
[2024-01-16 21:46] LABS: Glucose - Point of Care 238 mg/dl (70-99)
[2024-01-16] MEDS: AMBIEN 10 MG PO (22:53)
[2024-01-16] MEDS: ANCEF 5 IV (22:53)
[2024-01-16] MEDS: ROXICODONE 10 MG PO (22:54)
[2024-01-16] MEDS: NEURONTIN PO (22:55)
[2024-01-16] MEDS: NEURONTIN 300 MG PO (22:56)
[2024-01-17] VITALS (8 sets, daily range): BP systolic 116–152; BP diastolic 50–69; PULSE 67–70; O2SAT 96
[2024-01-17 05:23] LABS: Hematocrit 25.6 % (39.0-52.0); Hemoglobin 8.2 g/dL (13.0-18.0); Mean Corpuscular Volume 84.2 fL (80.0-94.0); Platelet Count 255 10^3/uL (130-400); Red Blood Cell Count 3.04 10^6/uL (4.70-6.10); Red Cell Dist. Width 14.8 % (11.5-14.5); White Blood Cell Count 6.5 10^3/uL (4.8-10.8)
[2024-01-17 05:47] LABS: Blood Urea Nitrogen 25 mg/dl (9-20); Calcium 8.8 mg/dl (8.4-10.2); Carbon Dioxide 28 mmol/L (22-30); Chloride 103 mmol/L (98-107); Estimated Creatinine Clearance 80 ml/min; Glucose 119 mg/dl (70-99); Potassium 4.9 mmol/L (3.5-5.1); Sodium 133 mmol/L (135-145); eGFR > 60.00
[2024-01-17] MEDS: NSS IV ×2 (06:27→13:18)
--- NOTE | 2024-01-17 07:31 | W.PN.HOSP.TC ---
Addendum entered and electronically signed by Tannre Moore MD 01/17/24 13:30:
History of CKD stage III in the past but appears to be stage II currently.
Original Note:
Today's Communication/Plan
-
Restart Eliquis. Continue postop care. PT OT eval.
Assessment / Plan
Assessment / Plan
Physical exam:
General:. No acute distress at the moment
HEENT: Normocephalic, Atraumatic and Moist Mucous Membranes
Respiratory: Clear to Auscultation; Negative Wheezes, Rales or Rhonchi
Cardiac: Irregular rate and rhythm, and S1/S2
GI: Soft, Nontender and Nondistended
Musculoskeletal: Left lower extremity with postop findings. No Clubbing, No Cyanosis and No Edema
Neuro: Awake, Alert and Oriented
Psych: Calm
A/P:
Left hip fracture:
Hip MRI confirms oblique fracture involving the left femoral neck
Status post left femoral neck cannulated screw fixation on 01/15.
Pain control
Ortho okayed to restart Eliquis today
Orthopedic consult and follow-up appreciated
Family requested notification to cardiology and understand there is no need for consult. I reached out to Dr. Membreno to let him know.
Preop evaluation done by myself and felt to be moderately elevated however risk is not prohibitive to proceed once Eliquis out of his system. Patient doing well day #1 postop.
PT OT postop
quarry manager for discharge disposition
A-fib rapid ventricular response but currently rate controlled:
Reviewed and interpreted by myself twelve-lead EKG shows atrial fibrillation at 123 bpm with underlying right bundle branch block pattern and left anterior fascicular block with nonspecific ST-T changes abnormalities.
Responded well to IV Lopressor in the ER.
Continue IV Lopressor as needed
Resumed oral carvedilol 6.25 mg twice a day.
Resume Eliquis today
Cardiac monitoring
Right hip pain:
Started on Lidoderm patch
Ortho on board
Anemia:
Hemoglobin stable today 8.2 (upon admission 9.6)
As well as hemoglobin over 8, given his cardiac history he is in optimal condition for surgery otherwise at risk of transfusion related complications
Continue to monitor hemoglobin
Chronic diastolic CHF:
Currently euvolemic
Monitor ins and outs and daily weights
Reviewed last echocardiogram November 2023, EF 60 to 65% trace aortic regurgitation, no other significant abnormalities.
Hyponatremia:
-Mild at 133
-Trend
CKD:
Creatinine today stable at 0.8
Last creatinine on November 2023 was 1.3 with a GFR of around 50
Continue to monitor renal function closely
Hypertension:
Continue carvedilol 6.25 mg twice a day and lisinopril 20 mg p.o. daily.
Will continue with his home regimen
IV hydralazine as needed
Adjust blood pressure medications according to his blood pressure
Hyperlipidemia:
Continue home statins, atorvastatin 10 mg p.o. nightly
Diabetes mellitus type 2:
BS stable at 119 this morning
Insulin sliding scale
Diabetic diet changed to regular diet due to patient insistence and request so far blood sugar stable so we will monitor
Continue oral hypoglycemics, metformin 500 mg twice a day
Last hemoglobin A1c was 6.6 in November. Hemoglobin A1c this hospitalization pending
Gout:
Continue allopurinol
BPH:
Continue Flomax
DVT prophylaxis:
SCDs
CODE STATUS:
Full code
Anticipated Discharge: 24 - 48 hours
Subjective/Interval History
-
Date of Service: January 17, 2024
Patient doing well postop. No chest pain or shortness of breath.
Objective Data
-
Labs:
Laboratory Results
01/17/24
04:34
WBC 6.5
Hgb 8.2 L
Hct 25.6 L
Plt Count 255
Sodium 133 L
Potassium 4.9
Chloride 103
Carbon Dioxide 28
BUN 25 H
Creatinine 0.8
Glucose 119 H
Calcium 8.8
Vital Signs:
Vital Signs
Temp Pulse Resp BP Pulse Ox
97 F 64 18 125/65 95
01/17/24 02:53 01/17/24 05:48 01/17/24 05:48 01/17/24 05:48 01/17/24 02:55
I&O
01/16/24 01/17/24 01/18/24
06:59 06:59 06:59
Intake Total 1140 / 1140 1860 / 1860
Output Total 200 / 200 500 / 500
Balance 940 / 940 1360 / 1360
--- NOTE | 2024-01-17 07:36 | W.PN.ORTHO ---
Today's Communication / Plan
-
83yo male POD#1 left hip cannulated screw fixation under the direction of Dr. Winkler
-Partial weight bearing to left leg. Ambulate with walker
-PT/OT
-Ok to resume Eliquis
-Continue current pain management regimen
-Case management consult for discharge planning
-Maintain Aquacel dressing for 7-10 days
-Patient has absorbable sutures and therefore does not need them removed
-Follow up outpatient 4 weeks postop for xrays
-Of note, patient underwent right hip gamma nail about one month ago. Follow up as scheduled in regards to this fracture. Xrays of right hip/femur were obtained in the outpatient office 01/09/24 reveal good healing and no hardware complications. He
may be weight bearing as tolerated to the right leg.
-Will continue to follow along
Assessment
.
Distal Motor Intact: Yes
Dressing:
Clean, dry and intact.
Plan
.
Surgery / Date: Left cannulated screw 01/16/24 Dr. Winkler
DVT Prophylaxis: Other (Eliquis)
Activity:
Out of bed.
PT/OT
Subjective
.
.:
Patient resting comfortably in bed this morning. His pain is well controlled
Vital Signs and Labs
.
Vital Signs and Labs:
Lab Results
01/17/24 04:34
01/17/24 04:34
Temp Pulse Resp BP Pulse Ox
97 F 64 18 125/65 95
01/17/24 02:53 01/17/24 05:48 01/17/24 05:48 01/17/24 05:48 01/17/24 02:55
PT 18.6 Sec (11.4-14.6) H 01/13/24 12:59
INR 1.57 01/13/24 12:59
Physical Exam
-
LLE:
Aquacel dressing to left hip, clean dry and intact
Mild edema to left hip
Mild general TTP about hip
Able to plantarflex/dorsiflex the ankle
Calf soft and nontender
NVI distally
[2024-01-17 07:50] LABS: Glucose - Point of Care 129 mg/dl (70-99)
[2024-01-17] MEDS: GLUCOPHAGE 500 MG PO ×2 (08:01→16:18)
[2024-01-17] MEDS: NEURONTIN 200 MG PO (08:01)
[2024-01-17] MEDS: ZESTRIL 20 MG PO (08:01)
[2024-01-17] MEDS: COREG 6.25 MG PO ×2 (08:02→20:27)
[2024-01-17] MEDS: COLACE PO ×2 (08:02→20:18)
[2024-01-17] MEDS: SENOKOT PO (08:02)
[2024-01-17] MEDS: MIRALAX PO (08:02)
[2024-01-17] MEDS: FOLVITE 1 MG PO (08:02)
[2024-01-17] MEDS: LIDOCAINE 4% PATCH 1 PATCH TOPICAL (08:03)
[2024-01-17] MEDS: OXYCONTIN (CONTROLLED RELEASE) 10 MG PO ×2 (08:06→22:23)
--- NOTE | 2024-01-17 08:42 | PN.CDI ---
CDI
- -
CDI:
Physician Documentation Request
Admit Date: 01/13/24 14:46
Dear Doctor Oscar,
Please review the following and provide your response in the progress notes.
Clinical Indicators:
Pt admitted with left femoral neck fracture
Documented throughout the record, ' CKD:Creatinine today stable at 0.9 Last creatinine on November 2023 was 1.3 with a GFR of around 50...'
01/13/24 01/14/24 01/16/24
12:59 06:54 05:59
Creatinine 0.7 0.9 1.0
eGFR > 60.00 > 60.00 > 60.00
01/17/24
04:34
Creatinine 0.8
eGFR > 60.00
Clarify which of the following accurately represents the patient's renal status:
HX of CKD only
CKD (please specify stage )
Other
Stages of Chronic Kidney Disease*
Level Description GFR
G1 Normal or High >90
G2 Mildly decreased 60-89
G3a Mildly to moderately decreased 45-59
G3b Moderately to severely decreased 30-44
G4 Severely decreased 15-29
G5 Kidney failure <15
Use of terms such as suspected, likely, concern for, or probable (associated with a specific diagnosis that is being evaluated, monitored, or treated as if it exists) are acceptable and can be coded in the inpatient setting, when documented at the
time of discharge.
Thank you,
Sandra Hobson RN
CDI Specialist
[place] [facility]
Please use your independent medical judgment in providing your response.
*Source: Kidney Disease: Improving Global Outcomes (KDIGO) 2012
[2024-01-17 12:11] LABS: Glucose - Point of Care 139 mg/dl (70-99)
[2024-01-17] MEDS: ROXICODONE 10 MG PO ×3 (12:15→20:13)
[2024-01-17] MEDS: LOPRESSOR 5 MG IV (14:51)
[2024-01-17] MEDS: LIPITOR 10 MG PO (17:10)
[2024-01-17 17:15] LABS: Glucose - Point of Care 182 mg/dl (70-99)
--- NOTE | 2024-01-17 17:19 | CM ---
Received call from daughter of patient who stated that as patient has had two recent falls, she would like for him to transfer to a SNF. Reviewed PT/OT indication. Patient's daughter stated that she would like to attempt to have him transfer even
though he will be reluctant. She stated that she would like a CM to call her in the morning with an update as to when discharge is likely and whether SNF can be discussed. Patient has Medicare.
Plan: Case management will continue to follow and assist with discharge planning. Home vrs. SNF.
[2024-01-17] MEDS: ELIQUIS 5 MG PO (20:12)
[2024-01-17] MEDS: FLOMAX 0.4 MG PO (20:13)
[2024-01-17] MEDS: SENOKOT 17.2 MG PO (20:13)
[2024-01-17 21:35] LABS: Glucose - Point of Care 161 mg/dl (70-99)
[2024-01-17] MEDS: NEURONTIN 300 MG PO (22:23)
[2024-01-18] VITALS (8 sets, daily range): BP systolic 124–149; BP diastolic 75–94; PULSE 99; O2SAT 95; BMI 24.1
[2024-01-18 06:16] LABS: Hematocrit 30.3 % (39.0-52.0); Hemoglobin 9.4 g/dL (13.0-18.0); Mean Corpuscular Volume 87.1 fL (80.0-94.0); Mean Platelet Volume 10.2 fL (7.4-10.4); Platelet Count 262 10^3/uL (130-400); Red Blood Cell Count 3.48 10^6/uL (4.70-6.10); Red Cell Dist. Width 14.8 % (11.5-14.5)
[2024-01-18 06:53] LABS: Blood Urea Nitrogen 29 mg/dl (9-20); Calcium 9.6 mg/dl (8.4-10.2); Carbon Dioxide 27 mmol/L (22-30); Chloride 102 mmol/L (98-107); Estimated Creatinine Clearance 72 ml/min; Glucose 117 mg/dl (70-99); Potassium 5.1 mmol/L (3.5-5.1); Sodium 138 mmol/L (135-145); eGFR > 60.00
--- NOTE | 2024-01-18 07:58 | W.PN.UPDATE ---
Update Note
Progress Note Update
Mr. Fry is POD2 following his left hip cannulated screw fixation performed by Dr. Winkler. He reports he is doing well overall this morning, and endorses minimal pain at present. He is anxious for discharge from the hospital, and is hoping to
leave today.
Directed exam of the left lower extremity reveals Aquacel dressing clean, dry and intact. Mild tenderness to palpation about the hip. Thigh soft and compressible. Calf soft and nontender. Patient able to wiggle toes, plantar and dorsiflex ankle.
NVID.
Hgb 9.4 this AM.
83yo male POD#2 left hip cannulated screw fixation under the direction of Dr. Winkler
--Partial weight bearing to left leg. Ambulate with walker. We appreciate the assistance of PT/OT.
--Ok to resume Eliquis.
--Continue current pain management regimen.
--Case management consult for discharge planning.
--Maintain Aquacel dressing for 7-10 days. Patient has absorbable sutures and therefore does not need them removed. Follow up outpatient 4 weeks postop for x-rays.
--Of note, patient underwent right hip gamma nail about one month ago. Follow up as scheduled in regards to this fracture. Xrays of right hip/femur were obtained in the outpatient office 01/09/24 reveal good healing and no hardware complications. He
may be weight bearing as tolerated to the right leg.
--Patient is stable post-operatively from an orthopedic standpoint. Orthopedics will sign off for now. Please reach out with any additional questions or concerns.
[2024-01-18 08:35] LABS: Glucose - Point of Care 140 mg/dl (70-99)
[2024-01-18] MEDS: GLUCOPHAGE 500 MG PO ×2 (08:44→17:40)
[2024-01-18] MEDS: COLACE 100 MG PO (08:45)
[2024-01-18] MEDS: FOLVITE 1 MG PO (08:45)
[2024-01-18] MEDS: LIDOCAINE 4% PATCH 1 PATCH TOPICAL (08:45)
[2024-01-18] MEDS: NEURONTIN 200 MG PO (08:45)
[2024-01-18] MEDS: ELIQUIS 5 MG PO ×2 (08:45→20:46)
[2024-01-18] MEDS: COREG 6.25 MG PO ×2 (08:46→17:40)
[2024-01-18] MEDS: SENOKOT PO ×2 (08:46→20:45)
[2024-01-18] MEDS: ZESTRIL 20 MG PO (08:46)
[2024-01-18] MEDS: MIRALAX PO (08:47)
--- NOTE | 2024-01-18 10:12 | CM ---
Addendum entered by BISI Vargas 01/18/24 14:51:
Patient's daughter called for update and requested Saeed. Sent referral to Kandy in admissions who accepted him for acute rehab. Spoke with patient and his significant other who were agreeable.
Kandy updated in admissions that family is accepting the bed. [phone]
RN updated as well as manager community.
Will send referral through [employer] as well.
Original Note:
Reviewed chart. Patient's daughter called and wanted an update as to appox day of discharge and requested if there could be referrals made to SNF. She relayed that she spoke with patient and he would be agreeable. Met with patient at bedside and he
stated that he would be agreeable to SNF. He stated that he would like [facility], (First choice) [facility], and then if they are full he was accepting of local facilities to [place].
Will make referrals through [employer] and keep patient and his daughter updated as to the status.
Plan: Case management will continue to follow and assist with discharge planning. Patient opting for SNF.
--- NOTE | 2024-01-18 10:29 | W.PN.HOSP.TC ---
Addendum entered and electronically signed by Jacob Samaniego MD 01/18/24 16:28:
Saeed would like to observe patient overnight. DC order removed.
Original Note:
Today's Communication/Plan
-
PT and OT
Trend hemoglobin
Medically stable
Continue Eliquis
Await placement
Assessment / Plan
Assessment / Plan
Physical exam:
General:. No acute distress at the moment
HEENT: Normocephalic, Atraumatic and Moist Mucous Membranes
Respiratory: Clear to Auscultation; Negative Wheezes, Rales or Rhonchi
Cardiac: Irregular rate and rhythm, and S1/S2
GI: Soft, Nontender and Nondistended
Musculoskeletal: Left lower extremity with postop findings. No Clubbing, No Cyanosis and No Edema
Neuro: Awake, Alert and Oriented
Psych: Calm
A/P:
Left hip fracture:
Hip MRI confirms oblique fracture involving the left femoral neck
Status post left femoral neck cannulated screw fixation on 01/15.
Pain control
Ortho okayed to restart Eliquis
Orthopedic consult and follow-up appreciated
Family requested notification to cardiology and understand there is no need for consult. Dr. Moore reached out to Dr. Membreno to let him know.
Preop evaluation done by myself and felt to be moderately elevated however risk is not prohibitive to proceed once Eliquis out of his system. Patient doing well day #1 postop.
PT OT postop
superannuation funds manager for discharge disposition
A-fib rapid ventricular response but currently rate controlled:
Responded well to IV Lopressor in the ER.
Continue IV Lopressor as needed
Resumed oral carvedilol 6.25 mg twice a day.
Resume Eliquis today
Cardiac monitoring
Right hip pain:
Started on Lidoderm patch
Ortho on board
Anemia:
hgb 9.4
As well as hemoglobin over 8, given his cardiac history he is in optimal condition for surgery otherwise at risk of transfusion related complications
Continue to monitor hemoglobin
Chronic diastolic CHF:
Currently euvolemic
Monitor ins and outs and daily weights
Reviewed last echocardiogram November 2023, EF 60 to 65% trace aortic regurgitation, no other significant abnormalities.
Hyponatremia:
-Mild at 133
-Trend. resolved.
CKD:
Creatinine today stable at 0.8
Last creatinine on November 2023 was 1.3 with a GFR of around 50
Continue to monitor renal function closely
Hypertension Primary
Continue carvedilol 6.25 mg twice a day and lisinopril 20 mg p.o. daily.
Will continue with his home regimen
IV hydralazine as needed
Adjust blood pressure medications according to his blood pressure
Hyperlipidemia:
Continue home statins, atorvastatin 10 mg p.o. nightly
Diabetes mellitus type 2:
BS stable at 140this morning
Insulin sliding scale
Diabetic diet changed to regular diet due to patient insistence and request so far blood sugar stable so we will monitor
Continue oral hypoglycemics, metformin 500 mg twice a day
Hemoglobin A1c this hospitalization 6
Gout:
Continue allopurinol
BPH:
Continue Flomax
DVT prophylaxis:
SCDs
CODE STATUS:
Full code
Anticipated Discharge: Today
Subjective/Interval History
-
Date of Service: January 18, 2024
States of mild hip soreness
Objective Data
-
Labs:
Laboratory Results
01/18/24
05:35
WBC 7.0
Hgb 9.4 L
Hct 30.3 L
Plt Count 262
Sodium 138
Potassium 5.1
Chloride 102
Carbon Dioxide 27
BUN 29 H
Creatinine 0.9
Glucose 117 H
Calcium 9.6
Vital Signs:
Vital Signs
Temp Pulse Resp BP Pulse Ox
98.3 F 126 20 149/94 92
01/18/24 03:57 01/18/24 08:46 01/18/24 03:57 01/18/24 08:46 01/18/24 03:57
I&O
01/17/24 01/18/24 01/19/24
06:59 06:59 06:59
Intake Total 1860 / 1860 1540 / 1540
Output Total 500 / 500 800 / 800
Balance 1360 / 1360 740 / 740
Data Reviewed
-
Total Time Spent with Patient (in minutes): 55
[2024-01-18] MEDS: OXYCONTIN (CONTROLLED RELEASE) 10 MG PO ×2 (11:15→18:19)
[2024-01-18 12:40] LABS: Glucose - Point of Care 161 mg/dl (70-99)
--- NOTE | 2024-01-18 12:44 | PTCARENOTE ---
Dr. Samaniego notified of patient refusing 1 unit of insulin to cover a blood sugar of 161 for lunch. No new orders at this time.
[2024-01-18] MEDS: ROXICODONE 5 MG PO ×2 (16:09→23:04)
--- NOTE | 2024-01-18 16:23 | CM ---
Received a call from Kandy in admissions at [facility] who stated that upon review, patient is in a-fib and she wants his heart rate to be more stable when he transfers.
Plan: Case management will continue to follow and assist with discharge planning. Patient will transfer to [facility] when stable. Will update attending.
[2024-01-18 17:18] LABS: Glucose - Point of Care 155 mg/dl (70-99)
[2024-01-18] MEDS: LIPITOR 10 MG PO (17:40)
[2024-01-18] MEDS: COLACE PO (20:44)
[2024-01-18] MEDS: FLOMAX 0.4 MG PO (20:45)
[2024-01-18] MEDS: COREG 12.5 MG PO (20:46)
[2024-01-18] MEDS: NEURONTIN 300 MG PO (21:48)
[2024-01-18 21:53] LABS: Glucose - Point of Care 166 mg/dl (70-99)
[2024-01-19] VITALS (8 sets, daily range): BP systolic 113–136; BP diastolic 61–83; PULSE 104–110; BMI 23.9
[2024-01-19] MEDS: OXYCONTIN (CONTROLLED RELEASE) 10 MG PO ×3 (01:53→20:11)
[2024-01-19 07:34] LABS: Hematocrit 26.4 % (39.0-52.0); Hemoglobin 8.6 g/dL (13.0-18.0)
[2024-01-19 08:04] LABS: Glucose - Point of Care 139 mg/dl (70-99)
[2024-01-19] MEDS: COLACE PO ×2 (08:19→20:02)
[2024-01-19] MEDS: MIRALAX PO (08:19)
[2024-01-19] MEDS: SENOKOT PO ×2 (08:19→20:02)
[2024-01-19] MEDS: FOLVITE 1 MG PO (08:23)
[2024-01-19] MEDS: NEURONTIN 200 MG PO (08:23)
[2024-01-19] MEDS: ROXICODONE 5 MG PO (08:23)
[2024-01-19] MEDS: COREG 12.5 MG PO ×2 (08:23→20:11)
[2024-01-19] MEDS: LIDOCAINE 4% PATCH 1 PATCH TOPICAL (08:24)
[2024-01-19] MEDS: GLUCOPHAGE 500 MG PO ×2 (08:24→17:28)
[2024-01-19] MEDS: ELIQUIS 5 MG PO ×2 (08:24→20:11)
[2024-01-19] MEDS: ZESTRIL 20 MG PO (08:24)
--- NOTE | 2024-01-19 08:51 | W.PN.HOSP.TC ---
Today's Communication/Plan
-
Monitor heart rate
Cards input
Continue Eliquis
Assessment / Plan
Assessment / Plan
Physical exam:
General:. No acute distress at the moment
HEENT: Normocephalic, Atraumatic and Moist Mucous Membranes
Respiratory: Clear to Auscultation; Negative Wheezes, Rales or Rhonchi
Cardiac: Irregular rate and rhythm, and S1/S2
GI: Soft, Nontender and Nondistended
Musculoskeletal: Left lower extremity with postop findings. No Clubbing, No Cyanosis and No Edema
Neuro: Awake, Alert and Oriented
Psych: Calm
A/P:
Left hip fracture:
Hip MRI confirms oblique fracture involving the left femoral neck
Status post left femoral neck cannulated screw fixation on 01/15.
Pain control
Ortho okayed to restart Eliquis
Orthopedic consult and follow-up appreciated
Family requested notification to cardiology and understand there is no need for consult. Dr. Moore reached out to Dr. Membreno to let him know.
Preop evaluation done by myself and felt to be moderately elevated however risk is not prohibitive to proceed once Eliquis out of his system. Patient doing well day #1 postop.
PT OT postop
marketing operations manager for discharge disposition-plan for eventual dispo to acute rehab
A-fib rapid ventricular response worse with exertion
Responded well to IV Lopressor in the ER.
Continue IV Lopressor as needed
Increase coreg to 12.5mg BID
Resume Eliquis
Cardiac monitoring-heart rate in 140s yesterday with mild exertion. This morning heart rate above 120 at times while walking to the bathroom at times. Asymptomatic.
Now much improvement. Will ask cardiology for input. may need antiarrhythmics.
Right hip pain:
Started on Lidoderm patch
Ortho on board
Anemia:
As well as hemoglobin over 8, given his cardiac history he is in optimal condition for surgery otherwise at risk of transfusion related complications
Continue to monitor hemoglobin. 8.6 today.
Chronic diastolic CHF:
Currently euvolemic
Monitor ins and outs and daily weights
Reviewed last echocardiogram November 2023, EF 60 to 65% trace aortic regurgitation, no other significant abnormalities.
Hyponatremia:
-Mild at 133
-Trend. resolved.
CKD:
Creatinine today stable at 0.8
Last creatinine on November 2023 was 1.3 with a GFR of around 50
Continue to monitor renal function closely
Hypertension Primary
Continue carvedilol 6.25 mg twice a day and lisinopril 20 mg p.o. daily.
Will continue with his home regimen
IV hydralazine as needed
Adjust blood pressure medications according to his blood pressure
Hyperlipidemia:
Continue home statins, atorvastatin 10 mg p.o. nightly
Diabetes mellitus type 2:
BS stable at 140this morning
Insulin sliding scale
Diabetic diet changed to regular diet due to patient insistence and request so far blood sugar stable so we will monitor
Continue oral hypoglycemics, metformin 500 mg twice a day
Hemoglobin A1c this hospitalization 6
Gout:
Continue allopurinol
BPH:
Continue Flomax
DVT prophylaxis:
SCDs
CODE STATUS:
Full code
d/w with spouse over the phone in details
Anticipated Discharge: Within 24 hours
Subjective/Interval History
-
Date of Service: January 19, 2024
tolerating diet
remains in afib
Heart rate remains elevated with exertion.
Yesterday patient heart rate in 140s.
Objective Data
-
Labs:
Laboratory Results
01/19/24
06:44
Hgb 8.6 L
Hct 26.4 L
Vital Signs:
Vital Signs
Temp Pulse Resp BP Pulse Ox
98.1 F 104 17 126/75 93
01/19/24 07:15 01/19/24 08:24 01/19/24 07:15 01/19/24 08:24 01/19/24 07:15
I&O
01/18/24 01/19/24 01/20/24
06:59 06:59 06:59
Intake Total 1540 / 1540 700 / 700
Output Total 800 / 800 350 / 350
Balance 740 / 740 350 / 350
Data Reviewed
-
Total Time Spent with Patient (in minutes): 55
--- NOTE | 2024-01-19 10:40 | CON.CAR ---
Addendum entered and electronically signed by Seth Valentine DO 01/19/24 13:35:
I saw and examined the patient.
The Field Mechanical Meter Tester's note was reviewed and I agree with the note.
Comment:
Plan:
AFib with more difficult to control heart rate despite carvedilol. Hypertension precludes up titration. He had been on amiodarone in the past and stopped it on his own. He last saw Dr. Membreno in July 2023 and it was recommended to consider
resuming amiodarone for recurrent atrial fibrillation.
Resume amiodarone 200 mg twice daily for better heart rate control. This would also not affect his blood pressure.
He continues with anticoagulation. We did discuss with his falls that if he continues to fall that anticoagulation may need to be reconsidered. For now he prefers and agrees to continue with anticoagulation. H/H stable
Discussed with both the patient and his . They both understand and agree with current treatment plan of care.
He should be stable for rehab in the next 24 hours from a cardiac standpoint..
Outpatient cardiac follow-up to be arranged.
Original Note:
Consultation
Consultation Request
Date/Time Consultation Performed: 01/19/24
Requesting Provider: Dr. Samaniego
Performing Provider: Georgia Crocker PA-C for Dr. Thornton
Reason for Consultation: afib with RVR
Medical History
-
Chief Complaint: fall
History of Present Illness:
Patient is an 83-year-old male with past medical history of paroxysmal atrial fibrillation on chronic Eliquis therapy. He had previously been on amiodarone until he stopped it on his own 03/2023. He remains on Coreg 6.25 mg twice daily. He was
seen in November 2023 after a fall with right intertrochanteric fracture status post ORIF. He now presents back this admission with a fall and left femoral neck fracture s/p cannulated screw fixation 01/16/24. He was in rate controlled afib on arrival.
He reports his Coreg dose was decreased postoperatively and that is why his HRs are now elevated in atrial fibrillation. His Coreg was increased back to 6.25 mg twice daily on 01/17, without significant improvement in his heart rates overnight.
Cardiology now consulted for evaluation. He is very angry as he wants to leave as soon as possible. Denies CP, SOB, palpitations.
PMH:
Right intertrochanteric fracture s/p ORIF 11/2023
Paroxysmal atrial fibrillation
Chronic anticoagulation on Eliquis
Chronic HFpEF
Ongoing tobacco abuse
Hypertension
Hypercholesterolemia
RBBB
Type 2 diabetes
History of gout
Bilateral carotid artery stenosis, moderate to severe
Presumed COPD
Cervical laminectomy October 2022
Small bowel obstruction March 2023
History of reverse left total shoulder with revision in 03/17/2023
Past Medical History
Past Medical History: Other (in HPI)
Social History
Tobacco: Smoker
Alcohol: Occasional
Employment: Retired
Allergies / Home Medications
Allergy/AdvReac Type Severity Reaction Status Date / Time
No Known Allergies Allergy Verified 12/06/23 03:49
�Medication �Instructions �Recorded �Confirmed �Type
apixaban 5 mg tablet 5 mg PO BID Blood Clot 03/19/23 01/13/24 History
Prevention/Tx
ascorbic acid (vitamin C) 250 mg 250 mg PO DAILY PRN Supplement 03/19/23 01/13/24 History
tablet (Vitamin C)
carvedilol 6.25 mg tablet 6.25 mg PO BID Heart 03/19/23 01/13/24 History
Disease/Condition
folic acid 1 mg tablet 1 mg PO DAILY Supplement 03/19/23 01/13/24 History
simvastatin 20 mg tablet 20 mg PO QPM High Cholesterol 03/19/23 01/13/24 History
gabapentin 100 mg capsule 200 mg PO DAILY Pain 03/29/23 01/13/24 History
tamsulosin 0.4 mg capsule 0.4 mg PO DAILY Urinary Issue 12/06/23 01/13/24 History
nicotine (polacrilex) 2 mg gum 2 mg PO Q2HPRN PRN nicotine 12/12/23 01/13/24 Rx
craving #20 ea
benazepril 20 mg tablet 20 mg PO DAILY 01/13/24 01/13/24 History
gabapentin 300 mg capsule 300 mg PO HS 01/13/24 01/13/24 History
metformin 500 mg tablet 500 mg PO BID 01/13/24 01/13/24 History
oxycodone 10 mg tablet,crush 10 mg PO TIDPRN PRN severe pain 01/13/24 01/13/24 History
resistant,extended release 12 hr
(OxyContin)
polyethylene glycol 3350 17 gram 17 g PO DAILY 14 days #14 ea 01/18/24 Rx
oral powder packet (HealthyLax)
Review of Systems
-
History Source: Patient
All other systems: Negative unless noted
Physical Exam
Vital Signs
Temp Pulse Resp BP Pulse Ox
98.1 F 104 17 126/75 93
01/19/24 07:15 01/19/24 08:24 01/19/24 07:15 01/19/24 08:24 01/19/24 07:15
Lab Results
01/19/24 06:44
01/18/24 05:35
Physical Exam
General: No Apparent Distress, Comfortable and Other (sitting in chair)
HEENT: Normocephalic, Anicteric and Moist Mucous Membranes
Respiratory: Clear and Non Labored Respirations
Cardiac: S1/S2 and Irregular Rhythm
GI: Soft, Non Tender, Non Distended and Normal Bowel Sounds
Musculoskeletal: No Clubbing, No Cyanosis and No Edema
Skin: Warm and Dry
Neuro: AO x 3
Impression / Plan
-
Primary Budget Counselor: Dr. Membreno
Assessment:
Presentation with fall
L femoral neck fracture s/p cannulated screw fixation 01/16/24
Right intertrochanteric fracture s/p ORIF 11/2023
Paroxysmal atrial fibrillation, now with elevated HRs
Chronic anticoagulation on Eliquis
Chronic HFpEF
Ongoing tobacco abuse
Hypertension
Hypercholesterolemia
RBBB
Type 2 diabetes
History of gout
Bilateral carotid artery stenosis, moderate to severe
Presumed COPD
Cervical laminectomy October 2022
Small bowel obstruction March 2023
History of reverse left total shoulder with revision in 03/17/2023
ECHO 12/06/23: EF 60 to 65%, trace AR
Plan:
-Patient presents with fall and left femoral neck fracture status post cannulated screw fixation by Ortho 01/16/2024. Of note he presented with a fall with right hip fracture status post repair 11/2023
-He was in afib on admission however was rate controlled until 01/18/24 when HRs became elevated. Cardiology consulted as HRs remain elevated on outpatient Coreg 6.25 mg twice daily with marginal blood pressure room for further uptitration
-Patient is very angry that this is holding up his discharge. We discussed that our goal is to discharge him safely and that rehab will not take him with elevated HRs. At multiple points during our conversation he attempted to place blame on
others for his issues, without any personal accountability. He made multiple condescending remarks throughout our discussion. I discussed that being rude to me/staff is not acceptable and does not change his current problem. I attempted to keep him
focused on the current issue and how we can fix it. He had previously been on amiodarone 200 mg twice daily however stopped it on his own in 03/2023. Patient does not recall this. Will plan to restart today. hopeful for DC to [facility] vs SNF in AM if
rates improved
-Eliquis has been resumed postoperatively. Hemoglobin stable at 8.6
-recent echo with results as above, will not repeat at this time
-continue post op care
Data Reviewed
-
EKG: Tracing Personally Visualized and interpreted
Medical Tests (Nuc Med, Echo etc): Report Reviewed by me
Labs: Labs Reviewed by me
Old Records: Reviewed
[2024-01-19] MEDS: PACERONE 200 MG PO ×2 (11:17→20:11)
[2024-01-19 12:37] LABS: Glucose - Point of Care 159 mg/dl (70-99)
--- NOTE | 2024-01-19 13:45 | CM ---
Patient has been accepted to [facility] for acute rehab. Patient has been experiencing tachycardia. Cardio evaluated patient and is adjusting medications. Discharge Plan of Care: [facility] when medically stable.
[2024-01-19 16:59] LABS: Glucose - Point of Care 162 mg/dl (70-99)
[2024-01-19] MEDS: LIPITOR 10 MG PO (17:28)
[2024-01-19] MEDS: FLOMAX 0.4 MG PO (20:11)
[2024-01-19] MEDS: NEURONTIN 300 MG PO (22:09)
[2024-01-19 22:12] LABS: Glucose - Point of Care 143 mg/dl (70-99)
[2024-01-20 06:00] VITALS: BMI 23.8
[2024-01-20 07:25] VITALS: BP 135/65
[2024-01-20 07:28] LABS: Glucose - Point of Care 135 mg/dl (70-99)
[2024-01-20] MEDS: NEURONTIN 200 MG PO (09:36)
[2024-01-20] MEDS: PACERONE 200 MG PO (09:36)
[2024-01-20] MEDS: ZESTRIL 20 MG PO (09:37)
[2024-01-20] MEDS: GLUCOPHAGE 500 MG PO (09:37)
[2024-01-20] MEDS: OXYCONTIN (CONTROLLED RELEASE) 10 MG PO (09:38)
[2024-01-20] MEDS: COREG 12.5 MG PO (09:38)
[2024-01-20] MEDS: ELIQUIS 5 MG PO (09:38)
[2024-01-20] MEDS: FOLVITE 1 MG PO (09:38)
[2024-01-20] MEDS: MIRALAX PO (09:39)
[2024-01-20] MEDS: COLACE PO (09:39)
[2024-01-20] MEDS: LIDOCAINE 4% PATCH 1 PATCH TOPICAL (09:39)
[2024-01-20] MEDS: SENOKOT PO (09:39)
--- NOTE | 2024-01-20 09:44 | CM ---
entered order for discharge.
Spoke with Kandy Chin at [facility] 80 this am . Kandy reviewed pt and accepted him to [facility] today.
Spoke with dgt Trang and patient notified of dc plan. Both in agreement with dc to [facility] today.
IMM reviewed with pt and he agrees with dc.
[facility]
report [phone]
fax [phone]
PLAN To [facility] today
--- NOTE | 2024-01-20 10:08 | W.PN.HOSP.TC ---
Today's Communication/Plan
-
fountain today
Assessment / Plan
Assessment / Plan
Physical exam:
General:. No acute distress at the moment
HEENT: Normocephalic, Atraumatic and Moist Mucous Membranes
Respiratory: Clear to Auscultation; Negative Wheezes, Rales or Rhonchi
Cardiac: Normal sinus rhythm S1/S2
GI: Soft, Nontender and Nondistended
Musculoskeletal: Left lower extremity with postop findings. No Clubbing, No Cyanosis and No Edema
Neuro: Awake, Alert and Oriented
Psych: Calm
A/P:
Left hip fracture:
Hip MRI confirms oblique fracture involving the left femoral neck
Status post left femoral neck cannulated screw fixation on 01/15.
Pain control
Ortho okayed to restart Eliquis
Orthopedic consult and follow-up appreciated
PT OT postop-acute rehab.
procurement services manager for discharge disposition-plan for eventual dispo to acute rehab
A-fib rapid ventricular response worse with exertion
Responded well to IV Lopressor in the ER.
Continue IV Lopressor as needed
Increase coreg to 12.5mg BID
Resume Eliquis
Converted to normal sinus rhythm.
Continue amiodarone 200mg BID
Right hip pain:
Started on Lidoderm patch
Ortho on board
Anemia:
As well as hemoglobin over 8, given his cardiac history he is in optimal condition for surgery otherwise at risk of transfusion related complications
Continue to monitor hemoglobin. 8.6. Refusing labs.
Chronic diastolic CHF:
Currently euvolemic
Monitor ins and outs and daily weights
Reviewed last echocardiogram November 2023, EF 60 to 65% trace aortic regurgitation, no other significant abnormalities.
Hyponatremia:
-Mild at 133
-Trend. resolved.
CKD:
Creatinine today stable at 0.9
Last creatinine on November 2023 was 1.3 with a GFR of around 50
Continue to monitor renal function closely
Hypertension Primary
Continue carvedilol 12.5mg mg twice a day and lisinopril 20 mg p.o. daily.
Hyperlipidemia:
Continue home statins, atorvastatin 10 mg p.o. nightly
Diabetes mellitus type 2:
BS stable at 135 this morning
Insulin sliding scale
Diabetic diet changed to regular diet due to patient insistence and request so far blood sugar stable so we will monitor
Continue oral hypoglycemics, metformin 500 mg twice a day
Hemoglobin A1c this hospitalization 6
Gout:
Continue allopurinol
BPH:
Continue Flomax
DVT prophylaxis:
SCDs
CODE STATUS:
Full code
Patient refusing labs
Discussed with cardiology Dr. Membreno pt primary e commerce specialist okay for discharge on amiodarone.
d/w with spouse over the phone in details on 01/18.
More than 30 minutes spent in discharge including
Final examination of the patient
Summarizing hospital stay
Instructions for continuing care to all relevant caregivers
Preparation of discharge records, prescriptions, and referral forms
Total time spent (in minutes): 55
Anticipated Discharge: Today
Subjective/Interval History
-
Date of Service: January 20, 2024
Converted to normal sinus rhythm.
Heart rate 68
States of mild left hip pain
Tolerating diet
Objective Data
-
Labs:
Laboratory Results
01/20/24
06:00
WBC Pending
Hgb Pending
Hct Pending
Plt Count Pending
Sodium Pending
Potassium Pending
Chloride Pending
Carbon Dioxide Pending
BUN Pending
Creatinine Pending
Glucose Pending
Calcium Pending
Vital Signs:
Vital Signs
Temp Pulse Resp BP Pulse Ox
98.4 F 82 17 135/65 96
05/03/24 07:25 01/20/24 09:38 01/20/24 07:25 01/20/24 09:38 01/20/24 09:46
I&O
01/19/24 01/20/24 01/21/24
06:59 06:59 06:59
Intake Total 700 / 700 840 / 840
Output Total 350 / 350
Balance 350 / 350 840 / 840
--- NOTE | 2024-01-20 10:30 | PTCARENOTE ---
pt refused labs this AM ..per overnight nurse
--- NOTE | 2024-01-20 10:32 | W.DCSUMMARY ---
Discharge Summary
Discharge Data
Date of Admission: 01/13/24
Date of Discharge: 01/20/24
-
Pending Results: No
Hospital Course
83 years old male history of hypertension, hyperlipidemia, A-fib, CHF, chronic diastolic congestive heart failure, diabetes mellitus type 2, BPH, history of gout, peripheral vascular disease, small bowel obstruction in the past, who presented to the
hospital after a fall while trying to get out of bed. Patient fell on the left side. Patient's orthopedic and he had underwent x-rays and MRI which showed he had a left hip fracture and was admitted to the hospital. Patient was seen by
orthopedic and he underwent surgery of left hip s/p cannulated screw fixation under the direction of Dr. Winkler on 01/15. Postop patient was eval by physical and Occupational Therapy. Hemoglobin was trended did not require transfusion. Patient
was also found to be in atrial fibrillation with rapid ventricular response. Carvedilol dose was increased. Patient persistently tachycardic and with soft blood pressure cardiology was consulted. Patient was started on amiodarone 200 mg p.o.
twice daily. Patient converted to normal sinus rhythm. Patient will be going to [facility].
Discharge Plan
-
Patient Disposition: Acute Rehab Facility
Discharge Diagnosis/Procedures: Left hip fracture status post cannulated screw fixation 01/15
Atrial fibrillation rapid ventricular response
Right hip pain
Anemia
Mild hyponatremia
Condition: Fair
Diet: Diabetic, Carb Controlled
Additional Diets: CBC and BMp in 5-7 days with primary doctor
Activity: With assistance and As tolerated
Driving Restrictions: Not until seen by your Dr
Activity Restrictions/Additional Instructions:
Maintain Aquacel dressing for 7-10 days
-Patient has absorbable sutures and therefore does not need them removed
-Follow up outpatient 4 weeks postop for xrays
-Partial weight bearing to left leg. Ambulate with walker. If any questions, call orthopedic office.
Referrals:
Smita Winkler I., DO [Active] - in three to four weeks
Emil Membreno MD [Active] - 02/15/24 11:20 pm (You have a cardiology follow up appointment at the [facility] in [facility]. Please call with questions. )
Sarmad Quiles MD [Family Provider] - in less than 1 week
Prescriptions:
New
polyethylene glycol 3350 [HealthyLax] 17 gram Powder In Packet
17 g PO DAILY 14 Days Qty: 14 0RF
carvedilol 6.25 mg Tablet
12.5 mg PO BID 30 Days Qty: 120 0RF
amiodarone [Pacerone] 200 mg Tablet
200 mg PO BID 30 Days Qty: 60 0RF
Continued
ascorbic acid (vitamin C) [Vitamin C] 250 mg Tablet
250 mg PO DAILY PRN (Reason: Supplement)
simvastatin 20 mg tablet
20 mg PO QPM
folic acid 1 mg Tablet
1 mg PO DAILY
apixaban 5 mg Tablet
5 mg PO BID
gabapentin 100 mg capsule
200 mg PO DAILY
tamsulosin 0.4 mg Capsule
0.4 mg PO DAILY
nicotine (polacrilex) 2 mg Gum
2 mg PO Q2HPRN PRN (Reason: nicotine craving) Qty: 20 0RF
metformin 500 mg Tablet
500 mg PO BID
gabapentin 300 mg Capsule
300 mg PO HS
benazepril 20 mg Tablet
20 mg PO DAILY
oxycodone [OxyContin] 10 mg tablet,oral only,ext.rel.12 hr
10 mg PO TIDPRN PRN (Reason: severe pain)
Discontinued
carvedilol 6.25 mg tablet
6.25 mg PO BID
zolpidem 10 mg Tablet
10 mg PO HSPRN PRN (Reason: insomnia)
Discharge Orders:
Discharge Patient (As Directed); Ordered 01/20/24
Ordered By: Jacob Samaniego
Discharge Date and Time
Print Language: ROMANSH
[2024-01-20 11:05] VITALS: BP 139/65
--- NOTE | 2024-01-20 11:17 | PTCARENOTE ---
pt is verbally abusive to staff, demanding. Able to get wt and and EKG but with being called names and he swung at tech.
--- NOTE | 2024-01-20 13:10 | W.PN.CARDCBS ---
Today's Communication / Plan
-
Stable cardiology status for transfer to [facility]
Impression / Plan
-
Primary Council On Aging Director: Dr. Membreno
Assessment:
Presentation with fall
L femoral neck fracture s/p cannulated screw fixation 01/16/24
Right intertrochanteric fracture s/p ORIF 11/2023
Paroxysmal atrial fibrillation, now with elevated HRs
Chronic anticoagulation on Eliquis
Chronic HFpEF
Ongoing tobacco abuse
Hypertension
Hypercholesterolemia
RBBB
Type 2 diabetes
History of gout
Bilateral carotid artery stenosis, moderate to severe
Presumed COPD
Cervical laminectomy October 2022
Small bowel obstruction March 2023
History of reverse left total shoulder with revision in 03/17/2023
ECHO 12/06/23: EF 60 to 65%, trace AR
Plan:
He remains in sinus rhythm.
Will continue amiodarone 200 mg p.o. twice daily
Stable cardiology status for transfer to [facility]
Will arrange office follow-up
Progress Note - [employer] On Aging Director
Subjective
Date of Service: January 20, 2024
No complaints.
Objective
Labs:
01/20/24 06:00
Labs
Hgb 8.6 g/dL (13.0-18.0) L 01/19/24 06:44
Hct 26.4 % (39.0-52.0) L 01/19/24 06:44
Plt Count 262 10^3/uL (130-400) 01/18/24 05:35
PT 18.6 Sec (11.4-14.6) H 01/13/24 12:59
INR 1.57 01/13/24 12:59
APTT 33.5 Sec (23.4-35.0) 01/13/24 12:59
Sodium Cancelled 01/20/24 06:00
Potassium Cancelled 01/20/24 06:00
BUN Cancelled 01/20/24 06:00
Creatinine Cancelled 01/20/24 06:00
Glucose Cancelled 01/20/24 06:00
Vital Signs and I&O:
Vital Signs
Temp Pulse Resp BP Pulse Ox
98.2 F 66 17 139/65 96
01/20/24 11:05 01/20/24 11:05 01/20/24 11:05 01/20/24 11:05 01/20/24 11:05
Vital Signs
Temp Pulse Resp BP Pulse Ox
98.2 F 66 17 139/65 96
01/20/24 11:05 01/20/24 11:05 01/20/24 11:05 01/20/24 11:05 01/20/24 11:05
Intake & Output
01/18/24 01/19/24 01/20/24 01/21/24
06:59 06:59 06:59 06:59
Intake Total 1540 / 1540 700 / 700 840 / 840
Output Total 800 / 800 350 / 350
Balance 740 / 740 350 / 350 840 / 840
Physical Exam
Physical Exam
General: Well developed, well nourished in NAD.
Neck: Supple, no JVD, HJR, carotids +2 B/L, no bruits bilaterally.
Heart: Non displaced PMI, RRR, no murmurs, No S3, S4, no rubs.
Lungs: Clear to auscultation bilaterally, no wheeze, rhonchi, rubs bilaterally,
normal expiratory phase.
Extremities: No clubbing, cyanosis or edema bilaterally.
Neuro: Grossly nonfocal, awake, alert and oriented x3.
== END 2024-01-20 14:14 | DRG 481 ==
LOC: 2 SOUTH 14:46
PROVIDERS: Physician Assistant Medical; Physician Assistant Surgical; ADMITTING PHYSICIAN Hospitalist; ATTENDING PHYSICIAN Hospitalist; CONSULT PHYSICIAN Orthopaedic Surgery; EMERGENCY PHYSICIAN Emergency Medicine; FAMILY PHYSICIAN Family Medicine; OTHER PHYSICIAN Internal Medicine Cardiovascular Disease
PROC: 0QH704Z Insertion of Internal Fixation Device into Left Upper Femur, Open Approach (ICD-10-PCS; 2024-01-16)
DX: S72.045A Nondisplaced fracture of base of neck of left femur, initial encounter for closed fracture (principal); E87.1 Hypo-osmolality and hyponatremia; I50.32 Chronic diastolic (congestive) heart failure; I13.0 Hypertensive heart and chronic kidney disease with heart failure and stage 1 through stage 4 chronic kidney disease, or unspecified chronic kidney disease; I48.0 Paroxysmal atrial fibrillation; D64.9 Anemia, unspecified; E78.00 Pure hypercholesterolemia, unspecified; E11.9 Type 2 diabetes mellitus without complications; M10.9 Gout, unspecified; N40.0 Benign prostatic hyperplasia without lower urinary tract symptoms; N18.2 Chronic kidney disease, stage 2 (mild); W19.XXXA Unspecified fall, initial encounter
CPT/HCPCS: 73522; 73721; 76000; 80048; 80053; 82962; 83036; 83735; 85014; 85018; 85025; 85027; 85610; 85730; 86850; 86900; 86901; 93005; 96374; 97110; 97116; 97162; 97167; 97535; 99284; 99406; C1713; C1769

== ENCOUNTER 2024-03-02 16:02 | Emergency (ER) | payer MEDICARE, OTHER, SELFPAY ==
[2024-03-02 16:05] VITALS: BP 147/80
--- NOTE | 2024-03-02 16:24 | ED.GENMED ---
History of Present Illness
General
Chief Complaint: Urinary Symptoms
Source: patient and significant other
Exam Limitations: none
Time Seen by Provider: 03/02/24 16:23
Nursing documentation reviewed up to this point in time: agreed with
Travel History
Have you had any contact with someone who has COVID-19?: No
Do you have any symptoms of coronavirus? Fever > 100 degrees, chills, cough, shortness of breath, sore throat, loss of taste or smell, muscle aches, or headache?: No
History of Present Illness
History of Present Illness:
73-year-old male with history of A-fib on Xarelto, HTN, HLD, NIDDM states he has had a little squirts of nonbloody diarrhea or just liquid stool when he wiped himself for the past 2 weeks. His PCP sent him for an outpatient CT scan today and when
he called with results he was told that 'my kidneys are full of fluid' and was told to come to the ER for evaluation. He states he had no trouble urinating. He states his abdomen is a little sore but not pain related to the diarrhea.
He states he does not want to eat because 'it just goes right through me.'
No recent antibiotic use, no recent travel.
He denies fever or chills. Denies chest pain or trouble breathing.
Past History
Past History
ED Past Medical History: Arrthythmia (A-fib on Eliquis), HTN and Hypercholesterolemia
ED Past Surgical History: Appendectomy and Orthopedic
Social History
Tobacco: Smoker
Alcohol: None
Drug: None
Personal: Partner (Significant other)
Living: with family
Employment: Employed
Review of Systems
Review of Systems
Allergies reviewed?: Yes
All Other Systems: ROS reviewed and negative except as documented in HPI and ROS
Constitutional: Denies fever or chills
Respiratory: Denies trouble breathing
Cardiac: Denies chest pain
ABD/GI: Reports abdominal pain and anorexia (Does not feel like eating because 'it just goes right through me.'); Denies nausea, vomiting, bloody stools or black stools
: Denies dysuria, frequency, incontinence, difficulty voiding, urgency or bleeding
Musculoskeletal: Reports no symptoms
Skin: Reports no symptoms
Neurological: Reports no symptoms
Phy Exam
Physical Exam
Physical Exam:
GENERAL: No acute distress. A&Ox3.
CONSTITUTIONAL: Afebrile.
EYES: Clear, conjunctivae normal
ENMT: moist mucus membranes, Pharynx nl
RESPIRATORY: Regular respirations, nonlabored, lungs clear.
CARDIOVASCULAR: Regular rate and rhythm, no murmurs, no rubs.
GI: Soft, tender across mid to lower abdomen, normal BS
MUSCULOSKELETAL: Moves with ease. Well perfused. No edema
SKIN: Warm, dry, pink
PSYCH: Normal mood and affect. Well kept, interactive and appropriate
NEUROLOGIC: Awake, alert and oriented. No focal neurological deficits
Course
Orders/Labs/Results
Orders:
Orders
03/02/24 16:26
Bladder Scan- Treatment ONCE
03/02/24 16:55
Complete Blood Count/With Diff Urgent
Comprehensive Metabolic Panel Urgent
03/02/24 17:42
Urinalysis Reflex To Culture Urgent
Date Specimen was Collected: 03/02/24
Time Specimen was Collected: 17:06
Urine Microscopic Reflex Cult Urgent
03/02/24 18:03
CT Abd/pel Without Iv Or Oral Urgent
Comment: Drank for CT earlier today, unable to get results
Reason For Exam: Abd pain
03/02/24 20:52
Magnesium Citrate [Citroma] 300 ml PO ONCE ONE
Abnormal Lab Results
03/02/24 03/02/24
16:55 17:42
RBC 3.91 L 10^6/uL
(4.70-6.10)
Hgb 10.4 L g/dL
(13.0-18.0)
Hct 33.1 L %
(39.0-52.0)
MCH 26.6 L pg
(27.0-31.0)
MCHC 31.4 L g/dL
(33.0-37.0)
RDW 15.1 H %
(11.5-14.5)
Absolute Lymphs (auto) 0.8 L 10^3/uL
(1.2-3.4)
Lymphocytes % 15.4 L %
(20.5-51.1)
BUN 31 H mg/dl
(9-20)
Glucose 104 H mg/dl
(70-99)
Alkaline Phosphatase 135 H U/L
(38-126)
Leukocyte Esterase Rfl Trace A
(Negative)
Urine Bacteria (Reflex) Few A
(Negative)
03/02/24 16:55
03/02/24 16:55
Vital Signs
Initial and Last Documented VS:
Initial Vital Signs
Temp Pulse Resp BP Pulse Ox
98.2 F 68 18 147/80 99
03/02/24 16:05 03/02/24 16:05 03/02/24 16:05 03/02/24 16:05 03/02/24 16:05
Last Documented Vital Signs
Temp Pulse Resp BP Pulse Ox
98.2 F 74 18 167/88 97
03/02/24 16:05 03/02/24 21:04 03/02/24 21:04 03/02/24 21:04 03/02/24 21:04
MDM/Problems Addressed
Differential Diagnosis Includes:
diverticulitis, colitis
MDM/Problems Addressed:
73-year-old male with history of A-fib on Xarelto, HTN, HLD, NIDDM states he has had a little squirts of nonbloody diarrhea or just liquid stool when he wiped himself for the past 2 weeks. His PCP sent him for an outpatient CT scan today and when
he called with results he was told that 'my kidneys are full of fluid' and was told to come to the ER for evaluation. He states he had no trouble urinating. He states his abdomen is a little sore but no pain related to the diarrhea.
He states he does not want to eat because 'it just goes right through me.'
No recent antibiotic use, no recent travel.
He denies fever or chills. Denies chest pain or trouble breathing.
NAD, lying calmly in bed
5:45 PM
CBC: No clinically significant abnormality
CMP: No clinically significant abnormality. BUN 31, IV fluids infusing for mild dehydration.
UA negative
CAT scan will be done plain as patient had IV and oral contrast earlier today for a CAT scan at another facility. Radiology aware
8:[address] abdomen pelvis with no contrast radiology report read: IMPRESSION:
There is evidence of obstructive uropathy on the right. There is diffuse prominent generalized urinary bladder wall thickening with associated soft tissue stranding of the bladder margins. The differential includes cystitis versus neoplasm. Urinary
bladder wall thickening may be a cause for obstructive uropathy on the right.
Proctitis.
Constipation with large fecal burden throughout the colon. No small bowel obstruction.
9:00 PM
Pt had several small brown liquid stools, hematest neg while here
Consulted Dr. Lennon, Urologist who reviewed CT results, tests back: 'would have him F/U with [facility] no emergent intervention required for right hydro, he may need repeat imaging. See Dr. Luque for F/U within 2 weeks.'
states since no PABLO, no sign of infection, large stool burden most likely contributing to some of his symptoms, agrees with aggressive bowel regimen, and he should f/u with his Urologist Dr. Luque.
Pt is comfortable with this plan. Bottle of Magnesium Citrate given to him to take at home
He will also use Miralax, he also will take prune juice.
*Critical Care Note
Total Time (30-74mins, 75-104mins- exclusive of procedures): Not Applicable
ED Attending Note
-
Portions of this chart may have been created with voice recognition software.� Occasional wrong word or��sound alike� substitutions may have occurred due to the inherent limitations of voice recognition software.
Discharge Plan
Departure
Patient Disposition: Home (Routine Discharge)
Date of Disposition: 03/02/24
Time of Disposition: 20:57
Patient with high blood pressure during this ER visit?: No
Condition: Fair
Discharge Problem:
Acute constipation, Hydronephrosis of right kidney
Instructions: Hydronephrosis, Adult (DC), Constipation, Adult ED, Abdominal pain in adults - Discharge instructions
Prescriptions:
No Action
ascorbic acid (vitamin C) [Vitamin C] 250 mg Tablet
250 mg PO DAILY PRN (Reason: Supplement)
simvastatin 20 mg tablet
20 mg PO QPM
folic acid 1 mg Tablet
1 mg PO DAILY
apixaban 5 mg Tablet
5 mg PO BID
gabapentin 100 mg capsule
200 mg PO DAILY
metformin 500 mg Tablet
500 mg PO BID
gabapentin 300 mg Capsule
300 mg PO HS
benazepril 20 mg Tablet
20 mg PO DAILY
carvedilol 6.25 mg Tablet
6.25 mg PO BID 30 Days Qty: 60 0RF
lidocaine 4 % Adhesive Patch,Medicated
1 patch topical DAILY 30 Days Qty: 30 0RF
acetaminophen 325 mg Tablet
650 mg PO QID PRN (Reason: mild pain) 30 Days Qty: 100 0RF
oxycodone 10 mg Tablet
10 mg PO Q8 5 Days Qty: 15 0RF
amiodarone [Pacerone] 200 mg Tablet
200 mg PO BID 30 Days Qty: 60 0RF
Referrals:
Sarmad Quiles MD [Family Provider] -
Activity Restrictions/Additional Instructions:
As we discussed, your CT scan shows significant constipation/large amount stool throughout the colon, this is causing leakage of fluid around the hard stool.
Take the Magnesium Citrate (the whole bottle) and follow the constipation instruction provided.
Use Miralax as directed on the label daily until your bowels empty
It is important that you get your bowels moving as the pressure may be contributing to your abdominal discomfort and swelling.
I spoke with Dr. Lennon, Dr. Luque's associate. He saw the CT results and lab results. Without signs of infection, and normal kidney function, nothing needs to be done emergently from a Urology standpoint. He recommends no antibiotics at this
time.
Call Dr. Luque's office on Tuesday morning and make appointment for sometime in the next 2 weeks.
Return here immediately for worse abdominal pain, vomiting or feeling sicker in any way
Interventions
Interventions:
*Risk Screen - Suicide Last Done: 03/02/24 21:08
*General Assessment Last Done: 03/02/24 21:08
*Neglect/Abuse Screening Last Done: 03/02/24 21:08
ED- Fall Risk Assessment Last Done: 03/02/24 21:08
*ED COVID-19 Vaccine History Last Done: 03/02/24 21:08
*Nursing Disposition Last Done: 03/02/24 21:18
ED-Male Genitourinary Assessment Last Done: 03/02/24 18:04
Discharge Date and Time
Discharge Date/Time: 03/02/24 21:19
Print Language: OCCITAN
[2024-03-02 17:09] LABS: % Basophils 1.3 % (0-2); % Immature Granulocytes 0.2 % (0-0.5); % Lymphocytes 15.4 % (20.5-51.1); % Monocytes 6.8 % (1.7-9.3); % Neutrophils 72.3 % (42.2-75.2); Absolute Basophils 0.1 10^3/uL (0-0.2); Absolute Eosinophils 0.2 10^3/uL (0-0.7); Absolute Lymphocytes 0.8 10^3/uL (1.2-3.4); Absolute Monocytes 0.4 10^3/uL (0.1-0.6); Absolute Neutrophils 3.8 10^3/uL (1.4-6.5); Hematocrit 33.1 % (39.0-52.0); Hemoglobin 10.4 g/dL (13.0-18.0); Mean Corp Hgb Conc. 31.4 g/dL (33.0-37.0); Mean Corpuscular Hgb 26.6 pg (27.0-31.0); Mean Corpuscular Volume 84.7 fL (80.0-94.0); Nucleated Red Blood Cells % 0 % (-); Platelet Count 243 10^3/uL (130-400); Red Blood Cell Count 3.91 10^6/uL (4.70-6.10); Red Cell Dist. Width 15.1 % (11.5-14.5); White Blood Cell Count 5.3 10^3/uL (4.8-10.8)
[2024-03-02 17:16] LABS: ALT (SGPT) 14 U/L (0-50); AST (SGOT) 24 U/L (17-59); Alkaline Phosphatase 135 U/L (38-126); Blood Urea Nitrogen 31 mg/dl (9-20); Calcium 9.8 mg/dl (8.4-10.2); Carbon Dioxide 28 mmol/L (22-30); Chloride 102 mmol/L (98-107); Glucose 104 mg/dl (70-99); Potassium 4.6 mmol/L (3.5-5.1); Sodium 137 mmol/L (135-145); Total Bilirubin 0.7 mg/dl (0.2-1.3); Total Protein 6.7 g/dl (6.3-8.2); eGFR 54.85
[2024-03-02 18:01] LABS: Urine Albumin Negative (Neg - Trace); Urine Bilirubin Negative (Negative); Urine Character Clear (Clear); Urine Color Yellow; Urine Glucose Negative (Negative); Urine Ketone Negative (Negative); Urine Leukocyte Trace (Negative); Urine Nitrite Negative (Negative); Urine Occult Blood Negative (Negative); Urine Urobilinogen Negative (Neg - 1+)
[2024-03-02 18:09] LABS: Urine Bacteria Few (Negative); Urine Red Blood Cell 0-2 /HPF (0-2); Urine White Cell 0-2 /HPF (0-5)
[2024-03-02] MEDS: CITROMA 300 ML PO (21:03)
[2024-03-02 21:04] VITALS: BP 167/88
== END 2024-03-02 21:19 | disposition home or self-care (01) ==
LOC: EMR 16:02
PROVIDERS: Registered Nurse; EMERGENCY PHYSICIAN Emergency Medicine; FAMILY PHYSICIAN Family Medicine
DX: K59.00 Constipation, unspecified (principal); R10.9 Unspecified abdominal pain; R63.0 Anorexia; N13.30 Unspecified hydronephrosis; N40.1 Benign prostatic hyperplasia with lower urinary tract symptoms; N13.8 Other obstructive and reflux uropathy; I48.91 Unspecified atrial fibrillation; I10 Essential (primary) hypertension; E78.00 Pure hypercholesterolemia, unspecified; E11.9 Type 2 diabetes mellitus without complications; F17.200 Nicotine dependence, unspecified, uncomplicated; Z79.01 Long term (current) use of anticoagulants
CPT/HCPCS: 99284; 51798; 74176; 80053; 81003; 81015; 85025

== ENCOUNTER → 2024-03-09 11:59 | Outpatient (REF) | payer MEDICARE, OTHER, SELFPAY ==
[2024-03-09 16:51] LABS: PSA, Total - Diagnostic 3.31 ng/ml (0.0-4.0)
== END ==
LOC: HWLAB 11:59
PROVIDERS: ATTENDING PHYSICIAN Specialist; FAMILY PHYSICIAN Family Medicine
DX: N40.1 Benign prostatic hyperplasia with lower urinary tract symptoms (principal); N13.30 Unspecified hydronephrosis
CPT/HCPCS: 36415; 84153

== ENCOUNTER → 2024-03-29 09:28 | Outpatient (REF) | payer MEDICARE, OTHER, SELFPAY ==
[2024-03-29 13:21] LABS: Blood Urea Nitrogen 39 mg/dl (9-20)
== END ==
LOC: HWLAB 09:28
PROVIDERS: ATTENDING PHYSICIAN Specialist; FAMILY PHYSICIAN Family Medicine
DX: N13.30 Unspecified hydronephrosis (principal)
CPT/HCPCS: 36415; 82565; 84520

== ENCOUNTER 2024-04-03 01:34 | Inpatient (IN) | payer MEDICARE, OTHER, SELFPAY ==
[2024-04-02] VITALS (21 sets, daily range): BP systolic 60–209; BP diastolic 33–82; BMI 22.1
[2024-04-02] MEDS: TYLENOL 1000 MG PO (20:26)
[2024-04-02] MEDS: NSS 2300 ML IV (20:26)
[2024-04-02 20:29] LABS: % Basophils 0.7 % (0-2); % Eosinophils 1.7 % (0-6); % Immature Granulocytes 0.5 % (0-0.5); % Lymphocytes 5.4 % (20.5-51.1); % Monocytes 9.1 % (1.7-9.3); % Neutrophils 82.6 % (42.2-75.2); Absolute Eosinophils 0.1 10^3/uL (0-0.7); Absolute Lymphocytes 0.2 10^3/uL (1.2-3.4); Absolute Monocytes 0.4 10^3/uL (0.1-0.6); Absolute Neutrophils 3.4 10^3/uL (1.4-6.5); Hematocrit 30.8 % (39.0-52.0); Hemoglobin 10.1 g/dL (13.0-18.0); Mean Corp Hgb Conc. 32.8 g/dL (33.0-37.0); Mean Corpuscular Volume 79.4 fL (80.0-94.0); Mean Platelet Volume 9.6 fL (7.4-10.4); Nucleated Red Blood Cells % 0 % (-); Platelet Count 318 10^3/uL (130-400); Red Blood Cell Count 3.88 10^6/uL (4.70-6.10); Red Cell Dist. Width 15.6 % (11.5-14.5); White Blood Cell Count 4.1 10^3/uL (4.8-10.8)
[2024-04-02 20:51] LABS: ALT (SGPT) 14 U/L (0-50); AST (SGOT) 21 U/L (17-59); Albumin 3.7 g/dl (3.5-5.0); Alkaline Phosphatase 103 U/L (38-126); Blood Urea Nitrogen 43 mg/dl (9-20); Calcium 9.5 mg/dl (8.4-10.2); Carbon Dioxide 28 mmol/L (22-30); Chloride 99 mmol/L (98-107); Estimated Creatinine Clearance 27 ml/min; Glucose 138 mg/dl (70-99); Potassium 5.2 mmol/L (3.5-5.1); Sodium 138 mmol/L (135-145); Total Bilirubin 0.7 mg/dl (0.2-1.3); Total Protein 6.1 g/dl (6.3-8.2); eGFR 27.66
[2024-04-02 20:53] LABS: Troponin I 0.029 ng/ml
[2024-04-02] MEDS: ZOSYN 100 IV (20:57)
[2024-04-02 21:10] LABS: INR 1.45; PT 17.5 Sec (11.4-14.6)
[2024-04-02 21:11] LABS: APTT 29.6 Sec (23.4-35.0)
--- NOTE | 2024-04-02 21:42 | ED.GENMED ---
History of Present Illness
General
Chief Complaint: Abdominal Symptoms
Time Seen by Provider: 04/02/24 20:13
History of Present Illness
History of Present Illness:
83-year-old male with history of hypertension, hyperlipidemia, diabetes, A-fib on Xarelto presenting for vomiting and low blood pressure. Patient arrives with spouse. Patient had gone to see a GI doctor today to get a biopsy of a polyp. Prior to
the procedure, he started to vomit and his blood pressure dropped, so they did not end up doing the procedure. Patient subsequently left the facility. Spouse took him home, however he continued to vomit so she took him to the hospital. On
arrival, patient lethargic, pale. Spouse notes recent admission in February for diarrhea. CT at that time showed obstructive uropathy with bladder wall thickening. Patient followed up with urology and had cystoscopy. He also had a colonoscopy,
diagnosed with polyps, however some of the polyps were too high to reach, which is why he went to an additional GI doctor today to get a biopsy. Patient denies any present abdominal pain. He notes generalized fatigue and weakness. He denies chest
pain or difficulty breathing. Per spouse, vomit dark in color. Spouse notes history of bowel obstruction in the past, several years ago. Patient however denies abdominal surgeries
Past History
Past History
ED Past Medical History: Arrthythmia (A-fib on Eliquis), HTN and Hypercholesterolemia
ED Past Surgical History: Appendectomy and Orthopedic
Social History
Tobacco: Smoker
Alcohol: None
Drug: None
Personal: Partner (Significant other)
Living: with family
Employment: Employed
Phy Exam
Physical Exam
Physical Exam:
General: Pale, lethargic
HEENT: protecting airway
Neck: appears supple
CV: Normal heart rate, regular rhythm
Resp: No accessory muscle use, no increased work of breathing, lungs clear to auscultation bilaterally
Abd: Mild distention, no tenderness
Extremities: No deformities, no swelling, no erythema, pulses and sensation intact
Neuro: alert, no focal neurologic deficit
: deferred
Rectal: deferred
Psych: Normal affect
Skin: Intact
Course
Orders/Labs/Results
Orders:
Orders
04/02/24 20:10
EKG [Electrocardiogram (*1)] Urgent
Reason for Study: Other
Other Reason for Exam: ab pain
04/02/24 20:11
EKG- Treatment ONCE
04/02/24 20:13
Urinalysis Reflex To Culture Urgent
Date Specimen was Collected: 04/03/24
Time Specimen was Collected: 02:28
0.9% Sodium Chloride 1000 ml [Nss] 2,300 ml IV NOW STA
Acetaminophen [Tylenol] 1,000 mg PO NOW STA
04/02/24 20:14
CR Chest Portable - 1 View Urgent
Comment:
Reason For Exam: vomiting, septic
Reason Study Needs to be Portable: Patient Unstable
04/02/24 20:22
Complete Blood Count/With Diff Urgent
Comprehensive Metabolic Panel Urgent
Lactic Acid Q4H
Comment: CANCEL 2nd LACTIC ACID IF 1st LACTIC ACID IS LESS THAN 2
Troponin I Urgent
Blood Culture Urgent
ALAN Source: Blood/Venous
Specimen Description:
04/02/24 20:44
Protime/PTT Urgent
04/02/24 20:50
Piperacillin/Tazo 4.5 Gram [Zosyn] 4.5 gram in 100 ml IV NOW
04/02/24 22:03
Ondansetron Injectable [Zofran] 4 mg IV NOW STA
04/02/24 22:25
Ondansetron Injectable [Zofran] 4 mg .ROUTE .STK-MED ONE
Ondansetron Injectable [Zofran] 4 mg IV NOW STA
04/02/24 23:02
NORepinephrine 4 MG/250 ML [Levophed] 4 mg in 250 ml .ROUTE .STK-MED
04/02/24 23:15
NORepinephrine 4 MG/250 ML [Levophed] 4 mg in 250 ml IV PER PROTOCOL
Initial dose in mcg/min, then titrate:: 0.1
Titrate to keep:: SBP > 90 mmHg
Titrate by mcg/min:: 1-2 mcg/min
Frequency of titrations (minutes):: 5
Maximum dose in ICU in mcg/min:: 30
Maximum dose in IMU in mcg/min:: 8
Maximum dose in IVU in mcg/min:: 4
Begin to taper infusion when:: Remained at goal for 4hrs
Taper by mcg/min:: 1-2 mcg/min
Frequency of taper (minutes) if patient maintains goal:: 30
Taper to off?: Yes
If infusion off & no longer maintaining goal:: Contact Provider
NORepinephrine 4 MG/250 ML [Levophed] 4 mg in 250 ml IV PER PROTOCOL
Initial dose in mcg/min, then titrate:: 5
Titrate to keep:: MAP > 65 mmHg
Titrate by mcg/min:: 1-2 mcg/min
Frequency of titrations (minutes):: 5
Maximum dose in ICU in mcg/min:: 30
Maximum dose in IMU in mcg/min:: 8
Maximum dose in IVU in mcg/min:: 4
Begin to taper infusion when:: Remained at goal for 4hrs
Taper by mcg/min:: 1-2 mcg/min
Frequency of taper (minutes) if patient maintains goal:: 30
Taper to off?: Yes
If infusion off & no longer maintaining goal:: Contact Provider
04/02/24 23:31
FentaNYL 1,000 MCG/100 ML [Sublimaze] 1,000 mcg in 100 ml .ROUTE .STK-MED
04/02/24 23:32
CR Chest Portable - 1 View Stat
Comment:
Reason For Exam: intubation
Reason Study Needs to be Portable: Unable to Transport
04/02/24 23:45
FentaNYL 1,000 MCG/100 ML [Sublimaze] 1,000 mcg in 100 ml IV PER PROTOCOL
Indication:: Deep Sedation
Begin Infusion:: Now
Goal:: RASS </= -3, BIS 40-60, ventilator synchrony
Maximum dose in mcg/hr:: 300
Continue currently infusing dose and titrate:: Yes
Titration Instructions:: Titrate Q30 min until ventilator synchrony, RASS or BIS goal is met.
Titration Instructions:: If RASS >/= -2 or BIS > 60 or ventilator dyssynchrony:
Titration Instructions:: administer bolus dose and increase infusion by 25 mcg/hr.
Titration Instructions:: Administer analgesia bolus dose(s) & titrate analgesia prior to
Titration Instructions:: adjusting sedation.
Over-sedation Instructions:: if BIS < 40 and pt is synchronous with ventilator, decrease infusion by
Over-sedation Instructions:: 25 mcg/hr every 2 hours until BIS = 40-60.
Over-sedation Instructions:: Do not wean infusion to off if patient is receiving a continuous NMBA or
Over-sedation Instructions:: has received a bolus dose of NMBA within the past 3 hours.
Notify provider:: immediately if pt exhibits signs/symptoms of chest wall rigidity,
Notify provider:: hemodynamic instability, or agitation/pain despite maximum dosing.
Additional Instructions:: Patient MUST be mechanically ventilated.
Propofol 1,000,000 Mcg/100 ml [Diprivan] 1,000,000 mcg in 100 ml IV PER PROTOCOL
Indication:: Deep Sedation
Begin Infusion:: Now
Goal:: RASS -3 to -5 or BIS < 60 or ventilator synchrony
Maximum dose in mcg/kg/min:: 50
Continue currently infusion dose and titrate:: Yes
Titration Instructions:: Titrate by 5-10 mcg/kg/min every 5 minutes until RASS -3 to -5 or
Titration Instructions:: BIS < 60 or ventilator synchrony is met.
Titration Instructions:: Administer analgesia bolus dose(s) & titrate analgesia prior to
Titration Instructions:: adjusting sedation.
Taper Instructions:: If RASS is at or below goal for 4 consecutive hours decrease infusion by
Taper Instructions:: 5-10 mcg/kg/min every 2 hours. Do not wean infusion to off if patient is
Taper Instructions:: receiving a continuous NMBA or has received bolus NMBA with the past 3 hrs
Over-sedation Instructions:: If BIS < 40 and synchronous with ventilator decrease infusion by
Over-sedation Instructions:: 5-10 mcg/kg/min every 2 hour until BIS = 40-60.
Notify provider:: immediately if patient exhibits signs/symptoms of propofol-related
Notify provider:: infusion syndrome.
Additional Instructions:: Patient MUST be mechanically ventilated and MUST receive analgesia.
04/02/24 23:50
Fentanyl Citrate/Pf [Sublimaze] 75 mcg IV NOW STA
04/02/24 23:52
Fentanyl Citrate/Pf [Sublimaze] 100 mcg IV NOW STA
04/02/24 23:57
Propofol 1,000,000 Mcg/100 ml [Diprivan] 1,000,000 mcg in 100 ml .ROUTE .STK-MED
04/03/24 00:03
0.9% Sodium Chloride 1000 ml [Nss] 1,000 ml IV BOLUS
04/03/24 00:16
ABG [Arterial Blood Gas] Urgent
%Oxygen/Room Air: 100
04/03/24 00:19
Lorazepam [Ativan] 2 mg .ROUTE .STK-MED ONE
Lorazepam [Ativan] 2 mg IV NOW STA
04/03/24 00:22
CT Head W/o Iv Contrast Urgent
Comment:
Reason For Exam: s/p arrest
04/03/24 00:42
Pantoprazole 80 mg/100 ml Nss [Protonix] 80 mg in 100 ml IV NOW
04/03/24 00:59
Lorazepam [Ativan] 1 mg PO NOW STA
04/03/24 01:15
CT Chest/abd/pel Wo Iv Cont Urgent
Comment: per DR Reeder no oral or iv contrast due to labs
Reason For Exam: sepsis, dark vomit, c/o obstruction
04/03/24 01:16
Admit/Transfer Patient As Directed
Co-Sign Provider:
Level of Care: Inpatient admission
Assign to:: ICU
Physician / Group: Kris/Hospitalist
Diagnosis: Septic shock, Upper GI bleed
Reason for Hospitalization: Septic shock, Upper GI bleed
Expected length of stay greater than two midnights?: Yes
ELOS- Estimated Length of Stay in days: 5
I certify the patient meets the requirements for IP care: Yes
04/03/24 01:19
Code Status As Directed
Resuscitation Status: Full Code
04/03/24 01:57
0.9% Sodium Chloride 1000 ml [Nss] 1,000 ml IV 125 mls/hr
NORepinephrine 4 MG/250 ML [Levophed] 4 mg in 250 ml IV PER PROTOCOL
Currently infusing. Continue current dose and titrate:: Yes
Titrate to keep:: MAP > 65 mmHg
Titrate by mcg/min:: 1-2 mcg/min
Frequency of titrations (minutes):: 5
Maximum dose in ICU in mcg/min:: 30
Maximum dose in IMU in mcg/min:: 8
Maximum dose in IVU in mcg/min:: 4
Begin to taper infusion when:: Remained at goal for 4hrs
Taper by mcg/min:: 1-2 mcg/min
Frequency of taper (minutes) if patient maintains goal:: 30
Taper to off?: Yes
If infusion off & no longer maintaining goal:: Contact Provider
Propofol 1,000,000 Mcg/100 ml [Diprivan] 1,000,000 mcg in 100 ml IV PER PROTOCOL
Indication:: Deep Sedation
Begin Infusion:: Now
Goal:: RASS -3 to -5 or BIS < 60 or ventilator synchrony
Maximum dose in mcg/kg/min:: 50
Continue currently infusion dose and titrate:: Yes
Titration Instructions:: Titrate by 5-10 mcg/kg/min every 5 minutes until RASS -3 to -5 or
Titration Instructions:: BIS < 60 or ventilator synchrony is met.
Titration Instructions:: Administer analgesia bolus dose(s) & titrate analgesia prior to
Titration Instructions:: adjusting sedation.
Taper Instructions:: If RASS is at or below goal for 4 consecutive hours decrease infusion by
Taper Instructions:: 5-10 mcg/kg/min every 2 hours. Do not wean infusion to off if patient is
Taper Instructions:: receiving a continuous NMBA or has received bolus NMBA with the past 3 hrs
Over-sedation Instructions:: If BIS < 40 and synchronous with ventilator decrease infusion by
Over-sedation Instructions:: 5-10 mcg/kg/min every 2 hour until BIS = 40-60.
Notify provider:: immediately if patient exhibits signs/symptoms of propofol-related
Notify provider:: infusion syndrome.
Additional Instructions:: Patient MUST be mechanically ventilated and MUST receive analgesia.
04/03/24 01:57
Consult Notification Routine
Specialty to Notify: Gastroenterology
Date consulting provider notified: 04/03/24
Time consulting provider notified: 07:21
Notified:: Provider
Consult Notification Routine
Specialty to Notify: Smt Technician
Date consulting provider notified: 04/03/24
Time consulting provider notified: 07:20
Notified:: Provider
Smt Technician Consult Routine
Consulting Provider: Albino Robertson
Was physician already notified: No
Reason for consult: septic shock, s/p code, upper GI bleed, PABLO, ? intra-abd process
Activity As Directed
Activity Level: Bedrest
INT (Intravenous Needle Therapy) As Directed
Comment: Place 2 IV catheters of the largest bore possible until stable
Intake/ Output As Directed
Frequency: Per unit guidelines
Orthostatic Vital Signs As Directed
Orthostatic VS Frequency: Now
Comment: then every four hours for twenty-four hours
Pneumatic Compression Sleeves As Directed
Type: Knee high
Precautions As Directed
Type of Precautions: Aspiration
Vital Signs As Directed
Frequency: Per unit guidelines
Weight As Directed
Frequency: Daily
DX Deep Vein Thrombosis Video Routine
04/03/24 02:00
Acetaminophen [Tylenol/Feverall] 650 mg RECTAL Q6H
Piperacillin/Tazo 2.25 Gram [Zosyn] 2.25 grams in 50 ml IV Q6H
VANCOMYCIN Pharmacy to Dose [VANCOCIN Pharmacy to Dose] 1 each Pharmacy To Prepare [Call Pharmacy To Prepare] 0 ml IV PER PROTOCOL
04/03/24 02:22
Type+Screen Stat
H&H Q8H
Lactic Acid Q4H
Comment: repeat q4 hours x 4 or until less than 2 mmol/L
Triglycerides Routine
Comment: baseline levels with propofol infusion
04/03/24 05:31
Complete Blood Count/With Diff IN AM
Comprehensive Metabolic Panel IN AM
Lactic Acid Q4H
Comment: repeat q4 hours x 4 or until less than 2 mmol/L
04/03/24 08:00
Amiodarone [Pacerone] 200 mg PO DAILY
04/03/24 10:00
Pantoprazole 80 mg/100 ml Nss [Protonix] 80 mg in 100 ml IV Q10H
04/03/24 11:08
H&H Q8H
Lactic Acid Q4H
Comment: repeat q4 hours x 4 or until less than 2 mmol/L
04/03/24 15:51
H&H Q8H
Lactic Acid Q4H
Comment: repeat q4 hours x 4 or until less than 2 mmol/L
04/04/24 08:00
Polyethylene Glycol Powder [Miralax] 17 grams TUBE DAILY
04/06/24 06:00
Triglycerides Q3D
Comment: every 72 hours while patient is on propofol
04/09/24 06:00
Triglycerides Q3D
Comment: every 72 hours while patient is on propofol
04/12/24 06:00
Triglycerides Q3D
Comment: every 72 hours while patient is on propofol
Abnormal Lab Results
04/02/24 04/02/24 04/03/24
20:22 20:44 00:16
WBC 4.1 L 10^3/uL
(4.8-10.8)
RBC 3.88 L 10^6/uL
(4.70-6.10)
Hgb 10.1 L g/dL
(13.0-18.0)
Hct 30.8 L %
(39.0-52.0)
MCV 79.4 L fL
(80.0-94.0)
MCH 26.0 L pg
(27.0-31.0)
MCHC 32.8 L g/dL
(33.0-37.0)
RDW 15.6 H %
(11.5-14.5)
Absolute Lymphs (auto) 0.2 L 10^3/uL
(1.2-3.4)
Neutrophils % 82.6 H %
(42.2-75.2)
Lymphocytes % 5.4 L %
(20.5-51.1)
PT 17.5 H Sec
(11.4-14.6)
pH 7.25 L
(7.35-7.45)
pCO2 55 H mmHg
(35-48)
pO2 354 H mmHg
(83-108)
ABG O2 Sat (Measured) 100.0 H %
(94-98)
Potassium 5.2 H mmol/L
(3.5-5.1)
BUN 43 H mg/dl
(9-20)
Creatinine 2.3 H mg/dL
(0.7-1.3)
Glucose 138 H mg/dl
(70-99)
Lactic Acid 4.0 H* mmol/L
(0.7-2.0)
Total Protein 6.1 L g/dl
(6.3-8.2)
04/02/24 20:22
04/02/24 20:22
Vital Signs
Initial and Last Documented VS:
Initial Vital Signs
Temp Pulse Resp BP Pulse Ox
101.2 F H 100 16 60/33 94
04/02/24 19:56 04/02/24 19:56 04/02/24 19:56 04/02/24 19:56 04/02/24 19:56
Last Documented Vital Signs
Temp Pulse Resp BP Pulse Ox
98.4 F 81 17 130/69 99
04/05/24 11:42 04/05/24 13:00 04/05/24 13:00 04/05/24 12:00 04/05/24 13:00
Procedures
Intubations
Procedure completed by: Valeri Reeder
Method of Intubation: curved blade
Tube size (cm): 7.5
Placement confirmed by: CXR and direct visualization
Breath sounds after intubation: right greater than left
Intubation complications: no complications
MDM/Problems Addressed
MDM/Problems Addressed:
83-year-old male with history of A-fib on Xarelto, diabetes, hypertension, hyperlipidemia presenting with vomiting and lethargy. Vital signs on arrival significant for hypotension, fever, mild tachycardia.
On exam, patient appears lethargic, however answering questions appropriately, awake and alert. Patient meeting criteria for SIRS. Will obtain laboratory analysis including cultures and start IV fluids given hypotension. Concern for
intra-abdominal pathology given report of vomiting and recent intra-abdominal procedures. Will obtain CT abdomen and pelvis.
20:30 - Patient's lactic acid is 4. Patient meeting criteria for severe sepsis/septic shock. Patient will receive full 30 cc/kg fluid bolus. Patient also with elevated creatinine. Will obtain CT abdomen pelvis without contrast. Zosyn ordered
for intra-abdominal coverage
23:00 -blood pressure continues to drop despite fluids, will start Levophed. Pending CT. Delay in obtaining CT due to persistent vomiting, zofran given x 2.
23:40 -while patient in CT, vomited, lost pulses and coded. ACLS immediately started. Patient brought back to hospital room, intubated. He received 3 rounds of epinephrine with ROSC. Family updated, full code. Vancomycin added for aspiration.
Patient on fentanyl for sedation. Remains on Levophed. Family updated.
00:30 - ICU WELL CONTROL INSTRUCTOR at bedside. Patient sedated on propofol and fentanyl, BP labile on levophed. Pending CT for ultimate dispositon.
01:30 - CT obtained. Patient admitted to ICU. CT appears consistent with obstruction, possible ischemia. Will need surgical consultation.
*EKG
Interpreted by ED Provider?: Yes
EKG Intrepretation Date: 04/02/24
EKG Intrepretation Time: 20:20
Interpretation: normal
Comparison EKG: no changes
Heart Rate: 91
Rate: normal
Rhythm: sinus
[place]: normal axis
Interval: normal interval
QRS Pattern: right bundle branch block and other (LAFB)
Ischemia: no ischemia
*Critical Care Note
Total Time (30-74mins, 75-104mins- exclusive of procedures): Not Applicable (45)
comment:
The high probability of a clinically significant, sudden or life threatening deterioration, patient in septic shock, required my full and direct attention, intervention and personal management. The aggregate critical care time was 90 minutes. This
time is in addition to time spent performing reported procedures but includes the following:
[x] Data Review and interpretation
[x] Patient assessment and monitoring of vital signs
[x] Documentation
[x] Medication orders and management
ED Attending Note
-
Portions of this chart may have been created with voice recognition software.� Occasional wrong word or��sound alike� substitutions may have occurred due to the inherent limitations of voice recognition software.
Discharge Plan
Departure
Patient Disposition: Admit
Date of Disposition: 04/03/24
Time of Disposition: 01:06
Admit to: ICU
Presentation/result/management discussed w/ accepting MD/DO: Hospitalist
Patient with high blood pressure during this ER visit?: No
Condition: Critical
Discharge Problem:
Septic shock, Cardiac arrest with successful resuscitation
Interventions
Interventions:
*General Assessment Last Done: 04/02/24 21:18
*Neglect/Abuse Screening Last Done: 04/02/24 21:18
*Nursing Disposition Last Done: 04/02/24 21:18
KG-Yljnup-Jwrcdsymum Assessment Last Done: 04/02/24 21:48
Discharge Date and Time
Discharge Date/Time: 04/03/24 02:24
[2024-04-02] MEDS: ZOFRAN 4 MG IV ×2 (22:05→22:26)
[2024-04-02] MEDS: LEVOPHED 250 IV (23:08)
[2024-04-02] MEDS: SUBLIMAZE 100 MCG IV (23:34)
[2024-04-02] MEDS: SUBLIMAZE 100 IV (23:38)
[2024-04-03] VITALS (46 sets, daily range): BP systolic 69–153; BP diastolic 30–109; BMI 22.1
--- NOTE | 2024-04-03 | PTCARENOTE ---
no changes in pt assessment.
[2024-04-03] MEDS: DIPRIVAN 100 IV ×2 (00:02→16:13)
[2024-04-03] MEDS: NSS 1000 IV ×5 (00:04→22:33)
[2024-04-03 00:23] LABS: B.E. -3.3 mmol/L; HCO3 24.1 mmol/L (21-28); PCO2 55 mmHg (35-48); PO2 354 mmHg (83-108); pH 7.25 (7.35-7.45)
[2024-04-03] MEDS: ATIVAN 2 MG IV (00:23)
[2024-04-03 00:24] LABS: O2 Therapy 100%
[2024-04-03] MEDS: ATIVAN 1 MG PO (01:04)
[2024-04-03] MEDS: PROTONIX 100 IV (01:10)
--- NOTE | 2024-04-03 01:11 | EDRN ---
Addendum entered by Sally Mercer RN 04/03/24 01:27:
OG tube placed by dr. reeder following intubation.
Original Note:
This RN accompanied pt to CT. Pt vomitted 2 times sitting up with assist of RN and technical laboratory asst, following the 2nd pt groaned, vomitted, became unresponsive with a weak thready pulse. Dr. Reeder called to CT by another RN. Pt became pulseless, CPR
initiated immediately by this RN. PT returned to room see code 9 sheet.
--- NOTE | 2024-04-03 01:29 | RESPNOTE ---
PT coded on the CT scan table and CPR was started immediately and subsequent intubation was done. CPR continued and ROSC was achieved shortly thereafter. PT was placed on the vent after, settings: A/C-20/500/+5/50%. 7.5 ETT was used to intubate @
2330 and it was secured at 22 cm at the lip and verified with end tidal and CXR. ABG was obtained and PT was taken to CT for the second time and brought back to the ED. Currently waiting to transport to ICU.
--- NOTE | 2024-04-03 01:40 | HPS.HSE ---
Family Physician
-
Family Physician: Sarmad Quiles
Chief Complaint
-
vomiting, hypotension, fever, status post cardiac arrest
History of Present Illness
The patient is an 83 yo gentleman with past medical history significant for hypertension, hyperlipidemia, A-fib on Eliquis, CHF, chronic diastolic congestive heart failure, diabetes mellitus type 2, BPH, gout, peripheral vascular disease, small
bowel obstruction, and recent right hip fracture with gamma nail placement 1 month ago, who presented to the ED due to fever, vomiting, and low blood pressure.
Of note on 03/20 he had colonoscopy with [facility] due to change in bowel habit and weight loss, findings of rectal nodularity with heaped up mucosa and mild ulceration in the circumferential distribution, with recommendation for miralax BID
to TID, and possible expedited colorectal surgery consultation. Of note the patient went to see the GI doctor for a polyp biopsy today, however prior to the procedure he started vomiting and his blood pressure dropped so they were unable to do the
procedure. He was sent home at that time per the family. After he got home he continued to have vomiting and he was taken back to this hospital. On arrival he was pale and lethargic. He was hypotensive and started on pressors. He also also was
febrile. The patient has been following outpatient with urology for cystoscopy due to obstructive uropathy with bladder wall thickening. He has also had weight loss. He was admitted in February for diarrhea. Initially on arrival to the ED it is
noted that he denied abdominal pain. He is positive for generalized fatigue and weakness. Initially denied chest pain or trouble breathing. He had been vomiting dark vomit at home. Of note he has had prior history of bowel obstruction. After
being started on pressors in the emergency department he was taken to the CT scan where he then ended up having a cardiac arrest. He received chest compressions and 3 rounds of epinephrine and was intubated. He had return of circulation. He then
had seizure-like activity. He has received a total of 4 mg IV of Ativan. He remains intubated and is sedated with propofol. He remains on Levophed drip.
Medical History
Past Medical History
Past Medical History: Reports Other (Hypertension, hyperlipidemia, paroxysmal atrial fibrillation, chronic diastolic congestive heart failure, diabetes mellitus type 2, BPH, history of gout, peripheral vascular disease, small bowel obstruction in
the past, possible COPD.)
Past Surgical History: Reports Other (Reverse left total shoulder with revision, cervical laminectomy, left shoulder replacement, appendectomy, rotator cuff procedure.)
Social History
Tobacco: Smoker
Alcohol: Occasional
Drug: None
Family History
Family History: Not pertinent
Allergies / Home Medications
Allergies reflects when Allergies were last updated in [employer].
Home Medications with original date entered in [employer]
Allergy/Medication List:
Allergies
Allergy/AdvReac Type Severity Reaction Status Date / Time
No Known Allergies Allergy Verified 04/02/24 19:56
Home Medications
apixaban 5 mg tablet 5 mg PO BID Blood Clot Prevention/Tx 03/19/23
folic acid 1 mg tablet 1 mg PO DAILY Supplement 03/19/23
simvastatin 20 mg tablet 20 mg PO QPM High Cholesterol 03/19/23
gabapentin 100 mg capsule 200 mg PO DAILY Pain 03/29/23
benazepril 20 mg tablet 20 mg PO DAILY 01/13/24
gabapentin 300 mg capsule 300 mg PO HS 01/13/24
metformin 500 mg tablet 500 mg PO BID 01/13/24
carvedilol 6.25 mg tablet 6.25 mg PO BID Blood pressure 30 days #60 tabs 01/25/24
allopurinol 100 mg tablet 100 mg PO DAILY 04/02/24
amiodarone 200 mg tablet (Pacerone) 200 mg PO DAILY Arrhythmia 04/02/24
polyethylene glycol 3350 17 gram oral powder packet (Miralax) 17 g PO DAILY 04/02/24
tamsulosin 0.4 mg capsule (Flomax) 0.4 mg PO DAILY 04/02/24
Review of Systems
-
Unable to obtain full review of systems at this time due to: Patient Intubation
Physical Exam
Vital Signs
Vital Signs
Temp Pulse Resp BP Pulse Ox
101.2 F H 100 24 99/48 94
04/02/24 19:56 04/03/24 01:25 04/03/24 01:25 04/03/24 01:25 04/03/24 01:25
Physical Exam
General: Appears Chronically Ill
HEENT: Other (intubated, sedated)
Respiratory: Wheezes and Other (ETT)
Cardiac: S1/S2 and Regular Rhythm
GI: Normal Bowel Sounds, Distended and Other (NG tube - coffee ground emesis)
Musculoskeletal: No Clubbing, No Cyanosis and No Edema
Skin: Warm and Dry
Neuro: Sedated (intubated)
Laboratory Results
-
04/02/24 20:22
04/02/24 20:22
Laboratory Results
PT 17.5 Sec (11.4-14.6) H 04/02/24 20:44
INR 1.45 04/02/24 20:44
APTT 29.6 Sec (23.4-35.0) 04/02/24 20:44
pH 7.25 (7.35-7.45) L 04/03/24 00:16
pCO2 55 mmHg (35-48) H 04/03/24 00:16
pO2 354 mmHg (83-108) H 04/03/24 00:16
HCO3 24.1 mmol/L (21-28) 04/03/24 00:16
Lactic Acid 4.0 mmol/L (0.7-2.0) H* 04/02/24 20:22
Total Bilirubin 0.7 mg/dl (0.2-1.3) 04/02/24 20:22
AST 21 U/L (17-59) 04/02/24 20:22
ALT 14 U/L (0-50) 04/02/24 20:22
Alkaline Phosphatase 103 U/L (38-126) 04/02/24 20:22
Troponin I 0.029 ng/ml 04/02/24 20:22
Data Reviewed
-
Diagnostic Radiology: Image Personally Visualized and interpreted (CXR no acute pathology, ETT noted, readjustments made by ED ) and Report Reviewed by me
CT Scan: Other (CT a/p pending report CT chest pending report)
Impression/Plan
-
IMPRESSION:
# Septic shock status postcardiac arrest , status post 3 rounds of epinephrine and chest compressions , febrile, hypotensive, leukocytosis
# Concern is for an intra-abdominal process as the etiology, coffee-ground emesis, possible upper GI bleed, possible bowel ischemia versus distal obstruction
�He is currently intubated and sedated on propofol drip.
�Continue propofol drip, continue Levophed drip
�Medical Biller/Coder consultation
�Findings are discussed with the radiologist CT of the head shows somewhat decreased garcia-white differentiation raising the possibility of early anoxic injury
-CT of the chest shows emphysema with small patchy groundglass foci presumably inflammatory or infectious with a small pleural effusion and left shoulder prosthesis
�CT of the abdomen and pelvis concerning for possible bowel ischemia versus distal obstruction.
�Vascular surgery was called. We addressed the need for CTA of the abdomen and pelvis for further diagnosis.
-I called the patient's contact, his daughter, Trang Canela and had a lengthy discussion regarding the risk versus benefits of CTA in the setting of acute renal failure. We discussed that in order to delineate a diagnosis as to whether he has bowel
ischemia, CTA would be required in this setting. The patient's daughter reaffirmed that her father would want to proceed with surgical intervention if indicated.
Our recommendation is to proceed with CTA a/p at this time and the patient's daughter is in agreement with this plan.
-s/p 3 L of IV fluids and we will continue him on IV fluids which was discussed with his daughter. We will closely monitor renal function and laboratory.
�Continue propofol drip, continue Levophed drip, continue respiratory therapy with endotracheal intubation, DuoNebs scheduled
-Blood cultures , respiratory cultures, urine cultures pending
-CTA abdomen and pelvis pending at this time.
# Concern for upper GI bleed
-GI consultation is placed, does not appear to be actively bleeding
-IV PPI drip to continue
-Serial monitoring of hemoglobin
# Acute renal failure
-Will continue with IV fluids status post 3 L sepsis bolus
-Strict intake and output monitoring and daily weights
Additional PMH:
Status post Left hip fracture with cannulated Screw 01/16/24:
Right hip fracture S/P gamma nail about one month ago
Anemia: Multifactorial
Gout
HTN
HLD
Atrial fibrillation/Flutter����������������������
Chronic CHF: EF 60-65% 12/06/23
DM II
DVT Prophylaxis: mechanical and HOLD Eliquis.
Code Status:� Full code
85 minutes of critical care time was spent on the care of this patient
--- NOTE | 2024-04-03 02:30 | PTCARENOTE ---
pt adm from ER, arrived intubated, IV x 3 WNL- Prop, Levo, Protonix infusing per work list. OGT present- brown drainage. Ramesh cath placed on arrival- resistance at insertion- coude cath used. prop titrated for tachypnea/accessory muscle use. care
ongoing.
[2024-04-03] MEDS: ZOSYN 50 IV ×4 (02:39→20:32)
[2024-04-03 02:44] LABS: Urine Albumin 1+ (Neg - Trace); Urine Bilirubin Negative (Negative); Urine Character Slightly Cloudy (Clear); Urine Color Yellow; Urine Glucose Negative (Negative); Urine Ketone Negative (Negative); Urine Leukocyte Trace (Negative); Urine Nitrite Negative (Negative); Urine Occult Blood 4+ (Negative); Urine Specific Gravity 1.015 (<1.030); Urine Urobilinogen Negative (Neg - 1+)
[2024-04-03 02:52] LABS: Hematocrit 28.8 % (39.0-52.0); Hemoglobin 9.4 g/dL (13.0-18.0)
[2024-04-03 02:54] LABS: Triglycerides 205 mg/dl (10-149)
[2024-04-03 02:55] LABS: Lactic Acid 3.6 mmol/L (0.7-2.0)
[2024-04-03 04:08] LABS: Urine Bacteria Moderate (Negative); Urine Red Blood Cell 30-40 /HPF (0-2); Urine White Cell 0-2 /HPF (0-5)
[2024-04-03] MEDS: VANCOCIN 300 MG IV (04:21)
[2024-04-03] MEDS: VANCOCIN 300 ML IV (04:21)
--- NOTE | 2024-04-03 05:24 | W.PN.UPDATE ---
Update Note
Progress Note Update
�
Procedure Note: Arterial Line�
� Left Wrist Arrow 20 (11/20)�
Diagnosis:��Septic shock, post cardiac arrest
IV Line Comments: Uneventful Procedure�
Jose's test completed pre-procedure: Yes�
A-Line Comments: Sterile technique as per standard protocol, Ultrasound guided insertion�
Functioning A-line in situ: Yes�
A-line Insertion Start Time:�0505�
A-line in at:��0510
--- NOTE | 2024-04-03 05:28 | W.PN.SEPSIS ---
Sepsis
Vital Signs
Temp Pulse Resp BP Pulse Ox
99.3 F 73 20 70/43 98
04/03/24 03:52 04/03/24 05:00 04/03/24 05:00 04/03/24 05:00 04/03/24 05:00
Physical Exam
Physical Exam:
A focused exam was performed after fluid resuscitation.
Capillary Refill
Bilateral Lower Extremity:
Esther Time: Greater than or equal to 3 sec
Pulse Evaluation
Bilateral Posterior Tibial:
Pulse Evaluation: Present
[2024-04-03] MEDS: LEVOPHED 250 IV ×3 (05:50→11:48)
[2024-04-03 05:54] LABS: B.E. -0.6 mmol/L; HCO3 24.9 mmol/L (21-28); PCO2 44 mmHg (35-48); PO2 137 mmHg (83-108); Potassium 4.8 mMOL/L (3.5-5.1); Sodium 135 mMOL/L (136-145); pH 7.36 (7.35-7.45)
[2024-04-03] MEDS: CALCIUM CHLORIDE 10% SYRINGE 60 MG IV (06:17)
[2024-04-03 06:32] LABS: Lactic Acid 2.3 mmol/L (0.7-2.0)
[2024-04-03 06:41] LABS: AST (SGOT) 32 U/L (17-59); Albumin 2.6 g/dl (3.5-5.0); Alkaline Phosphatase 90 U/L (38-126); Blood Urea Nitrogen 45 mg/dl (9-20); Calcium 7.9 mg/dl (8.4-10.2); Carbon Dioxide 24 mmol/L (22-30); Estimated Creatinine Clearance 24 ml/min; Glucose 159 mg/dl (70-99); Potassium 4.7 mmol/L (3.5-5.1); Total Bilirubin 0.6 mg/dl (0.2-1.3); Total Protein 4.6 g/dl (6.3-8.2); eGFR 23.87
[2024-04-03 06:45] LABS: % Basophils 0.4 % (0-2); % Eosinophils 0.4 % (0-6); % Immature Granulocytes 1.2 % (0-0.5); % Lymphocytes 7.8 % (20.5-51.1); % Monocytes 6.3 % (1.7-9.3); % Neutrophils 83.9 % (42.2-75.2); Absolute Lymphocytes 0.2 10^3/uL (1.2-3.4); Absolute Monocytes 0.2 10^3/uL (0.1-0.6); Absolute Neutrophils 2.2 10^3/uL (1.4-6.5); Hematocrit 26.6 % (39.0-52.0); Hemoglobin 8.7 g/dL (13.0-18.0); Mean Corp Hgb Conc. 32.7 g/dL (33.0-37.0); Mean Corpuscular Hgb 26.8 pg (27.0-31.0); Mean Corpuscular Volume 81.8 fL (80.0-94.0); Nucleated Red Blood Cells % 0 % (-); Platelet Count 242 10^3/uL (130-400); Red Blood Cell Count 3.25 10^6/uL (4.70-6.10); Red Cell Dist. Width 15.3 % (11.5-14.5); White Blood Cell Count 2.6 10^3/uL (4.8-10.8)
[2024-04-03 06:54] LABS: ALT (SGPT) 17 U/L (0-50); Chloride 104 mmol/L (98-107); Sodium 136 mmol/L (135-145); Triglycerides 174 mg/dl (10-149)
--- NOTE | 2024-04-03 07:23 | CON.GS ---
Medical History
-
Chief Complaint: Abdominal pain, nausea, emesis
History of Present Illness:
Patient is an 83 yo M with a PMH of HTN, HLD, A-fib (on Eliquis, LD 03/31), CHF, NIDDM, PVD, prior SBO's, s/p cervical laminectomy, s/p LEFT shoulder replacement and revision, RIGHT hip fracture s/p IMN on 12/08/2023, LEFT hip fracture s/p canulated
screw on 01/16/2024, and s/p appendectomy. Patient is intubated and sedated. History was obtained from chart review and discussion with his daughter and decision-maker Trang Canela. Reports that back in November and December he suffered several multiple
falls with fractures of his bilateral hips, both of which were repaired here at . Postoperatively he had issues with constipation, and since that time has had issues with constipation and diarrhea. Because of this diarrhea he underwent workup by
his PCP with a CT scan which demonstrated obstructive uropathy on the RIGHT as well as soft tissue stranding of the bladder. He was evaluated by Dr. Luque from Urology and underwent a outpatient cystoscopy (unable to see op report or pathology).
To further workup his diarrhea he underwent a colonoscopy at [facility] on 03/20. Operative report and pathology scanned into the system and notable for 'heaped up nodular irregularity of the rectum' with an inability to traverse and
complete the exam; pathology benign. He was instructed to undergo a repeat colonoscopy at an outpatient facility which she was scheduled to undergo on 04/02. Upon presentation to this colonoscopy was found to be hypotensive and severely weak. He
was discharged back to home, at which time he developed abdominal pain, nausea, vomiting. No reports of bright red bloody bowel movements. Reports of dark foul-smelling emesis. No fevers or chills.
Upon presentation to the ED he was found to be in septic shock with a leukopenia, elevated lactate, and hypotension with systolics in the 70s. He is currently on max doses of Levo and Danny. He underwent a noncontrast CT scan of the chest abdomen
and pelvis. He coded during that procedure with ROSC. Head CT was concerning for possible ischemic event. He underwent a CTA of the abdomen and pelvis. Final reports of this above-noted imaging are pending.
Past Medical History
Past Medical History: Arrhythmias (Afib (on Eliquis)), CHF, HTN, Hypercholesterolemia, NIDDM and Other (PVD)
Past Surgical History: Appendectomy and Orthopedic (Cervical laminectomy, LEFT shoulder replacement and revision, RIGHT femoral IMN, LEFT femoral cannulated screw)
Social History
Tobacco: Smoker
Alcohol: Occasional
Drug: None
Family History
Family History: Reviewed & Noncontributory
Allergies / Home Medications
Allergy/AdvReac Type Severity Reaction Status Date / Time
No Known Allergies Allergy Verified 04/02/24 19:56
�Medication �Instructions �Recorded �Confirmed �Type
apixaban 5 mg tablet 5 mg PO BID Blood Clot 03/19/23 04/02/24 History
Prevention/Tx
folic acid 1 mg tablet 1 mg PO DAILY Supplement 03/19/23 04/02/24 History
simvastatin 20 mg tablet 20 mg PO QPM High Cholesterol 03/19/23 04/02/24 History
gabapentin 100 mg capsule 200 mg PO DAILY Pain 03/29/23 04/02/24 History
benazepril 20 mg tablet 20 mg PO DAILY 01/13/24 04/02/24 History
gabapentin 300 mg capsule 300 mg PO HS 01/13/24 04/02/24 History
metformin 500 mg tablet 500 mg PO BID 01/13/24 04/02/24 History
carvedilol 6.25 mg tablet 6.25 mg PO BID Blood pressure 30 01/25/24 04/02/24 Rx
days #60 tabs
allopurinol 100 mg tablet 100 mg PO DAILY 04/02/24 04/02/24 History
amiodarone 200 mg tablet (Pacerone) 200 mg PO DAILY Arrhythmia 04/02/24 04/02/24 History
polyethylene glycol 3350 17 gram 17 g PO DAILY 04/02/24 04/02/24 History
oral powder packet (Miralax)
tamsulosin 0.4 mg capsule (Flomax) 0.4 mg PO DAILY 04/02/24 04/02/24 History
Review of Systems
-
A 10 point review of systems was completed, and was negative except as per HPI.
Physical Exam
Vital Signs
Temp Pulse Resp BP Pulse Ox
99.3 F 69 20 92/50 97
04/03/24 03:52 04/03/24 07:15 04/03/24 07:15 04/03/24 05:18 04/03/24 07:15
04/02/24 04/03/24 04/04/24
06:59 06:59 06:59
Actual Weight 76.1 kg
Body Mass Index (BMI) 22.1
Lab Results
04/03/24 05:31
WBC 2.6 10^3/uL (4.8-10.8) L 04/03/24 05:31
Hgb 8.7 g/dL (13.0-18.0) L 04/03/24 05:31
Hct 26.6 % (39.0-52.0) L 04/03/24 05:31
Plt Count 242 10^3/uL (130-400) D 04/03/24 05:31
Abs Immat Gran (auto) 0.0 10^3/uL (0-0.05) 04/03/24 05:31
Neutrophils % 83.9 % (42.2-75.2) H 04/03/24 05:31
Physical Exam
General: Intubated and Other (Sedated)
Respiratory: Non Labored Respirations and Other (On mechanical ventilation)
Cardiac: Irregular Rhythm
GI: Soft (Slightly firm), Distended, Incisions (Well-healed) and Other (Difficult to assess pain or peritoneal signs given intubation and sedation)
Skin: Other (Cool)
Neuro: Sedated
Data Reviewed
-
Radiology: Image Personally Visualized and interpreted
CT Scan: Image Personally Visualized and interpreted
Labs: Labs Reviewed by me
Assessment / Plan
-
Patient is an 83 yo M p/w septic shock likely secondary to ischemic bowel
CT scan imaging reviewed and demonstrates dilated loops of small bowel with wall thickening and a significant amount of intra-abdominal ascites. No evidence of pneumatosis or free air. Final reads of imaging pending. Most likely cause of his
bowel ischemia is low flow state secondary to severe dehydration and underlying CHF. Possibly embolic given history of A-fib and currently off Eliquis, though appears to have patent visceral vasculature, final review by radiology and vascular
surgery pending. Possibly infectious given the prolonged history of diarrhea. Possible component of adhesive or malignant bowel obstruction. The above was discussed with the patient's daughter and decision maker (Trang Canela). Options for
management including no surgical intervention and continued resuscitation and antibiotics in the ICU versus upfront surgical intervention were considered and discussed. Pros and cons of both approaches was discussed. Given his hemodynamic
instability with continued pressor requirements recommend operative exploration to rule out ischemic bowel and resect if necessary. Daughter agrees and is willing to proceed. We specifically discussed that this is a high risk situation with a
potential poor outcome. Goals of care discussion was had, daughter states that she would like to proceed with any and all care.
Plan for a exploratory laparotomy, possible bowel resection, possible ostomy, possible open abdomen. The procedure itself, as well as the risks, benefits, and alternatives was discussed. Specifically, we discussed the risks of bleeding, infection,
injury to surrounding structures (bowel, bladder), wound complications, general anesthetic complications, need for further procedures. Typical postprocedural recovery was discussed. All questions answered. Telephone consent signed.
-- Exploratory laparotomy, possible bowel resection, possible ostomy, possible open abdomen
-- NPO, NGT
-- IVF, patient needs more aggressive IV fluid resuscitation is likely severe dehydration (plan for 1 L bolus and increase rate), trend lactate
-- Maintain Ramesh, may need Nephrology consult
-- Abx: Vancomycin and Zosyn
-- Hold Eliquis, OK for DVT ppx post-op
-- ICU level care
[2024-04-03] MEDS: DUONEB 3 ML INH (07:41)
--- NOTE | 2024-04-03 07:58 | W.SUR.PREOP ---
Pre-Operative Surgical Note
-
I have examined this patient prior to the performance of the scheduled procedure.
The patient's condition is unchanged from the time of the current History and
Physical and the patient is able to undergo the scheduled procedure.
[2024-04-03] MEDS: PACERONE PO (08:01)
--- NOTE | 2024-04-03 08:47 | PTCARENOTE ---
Received patient, handoff at bedside at 0700. Dr. Branham requested for 1 liter of NS. Patient tolerated well. BP increased to 119/68. Scheduled for OR @0830 for possible bowel obstruction or ischemia. Patient sedated, eye movement noted when
suctioned. Normal sinus rhythm with RBBB. Vent 7.5 @23, 40%/500/5. Coarse expiratory wheezes, louder on the right side. Stomach round and distended with absent bowel sounds. Ramesh (coude) catheter in place, dry and intact. Continued use of
restraints (L+R wrists/4 Rail) ,skin around them dry and intact. Patient transported down to OR at 8:30.
--- NOTE | 2024-04-03 08:53 | PHA.VAN.IN ---
Assessment
- Assessment
Renal Function: Appears elevated from baseline (SCR 2.3-->2.6 vs 0.7-1 in 2023)
Concomitant Antimicrobials: piperacillin/tazobactam
Plan
- Plan
Initial / Loading Dose: 1500mg - 04/03 04:21
Maintenance Regimen: dosing by level - give additional 500mg to complete 2g load (~26mg/kg)
Monitoring: random 04/04 600
Pharmacokinetics Vancomycin I
- -
Patient Age: 83
Patient Sex: Male
Vancomycin Day #: 1
Indication: Gi / Intra-Abdominal
Requesting Provider: Dr. Ponce
Pertinent Antimicrobial Allergies:
NKDA
Height / Weight:
Height 6 ft 1 in
Actual Weight 76.1 kg
Pertinent Past Medical History: DM
- Vital Signs / Lab Results
Temp Pulse Resp BP Pulse Ox
99.5 F 68 20 92/50 98
04/03/24 07:42 04/03/24 07:46 04/03/24 07:46 04/03/24 05:18 04/03/24 07:46
Lab Results - Hematology
04/02/24 04/03/24
20:22 05:31
WBC 4.1 L 2.6 L
Lab Results - Chemistry
04/02/24 04/03/24
20:22 05:31
BUN 43 H 45 H
Creatinine 2.3 H 2.6 H
Estimated Creat Clear
Albumin 3.7 2.6 L
04/02/24 04/03/24 04/03/24
20:22 00:15 02:22
Lactic Acid 4.0 H* Cancelled 3.6 H
04/03/24
05:31
Lactic Acid 2.3 H
Lab Results - Urine
04/03/24 04/03/24 04/03/24
02:29 02:29 02:29
Urine Nitrite (Reflex) Negative Cancelled
Leukocyte Esterase Rfl Trace A Cancelled
Urine WBC (Reflex) 0-2
Urine Bacteria (Reflex) Moderate A
--- NOTE | 2024-04-03 08:58 | W.PN.HOSP.TC ---
Today's Communication/Plan
-
see outlined plan
Assessment / Plan
Assessment / Plan
Assessment:
Cardiac arrest in setting of acute illness, septic shock
- s/p 3 rounds EPI/CPR
- monitor mental status when sedation lifted
- initial CT head was negative
Septic shock from acute ischemic bowel
- on pressors
- wean as able
- continue aggressive IVF per protocol; trend lactate levels
- continue empiric broad spectrum Vancomycin and Zosyn pending cultures
Acute abdomen (Acute ischemic bowel)
- CT prelim suggest bowel obstruction/ischemic - await formal read. Also await formal CTA results
- GS following; for OR today for ex-lap, possible bowel resection, possible ostomy, possible open abdomen
- NPO and NGT
VDRF in setting of critical illness
- vent/sedation protocols per ICU team
PABLO with hyperkalemia
- likely in setting of acute sepsis
- hold nephrotoxins
- obtain urine studies; Ramesh in place for critical care. No need for bladder scans currently
- nephrology consulted
Acute anemia related to critical illness
- check anemia workup
Hypocalcemia
Initial concern for UGI
- continue PPI Drip
- monitor Hb
- hold off GI evaluation for now
Status post Left hip fracture with cannulated Screw 01/16/24:
Right hip fracture S/P gamma nail about one month ago
hx of Gout
hx of essential HTN
- hold BP agents for sepsis
HLD
Atrial fibrillation/Flutter
- continue Amiodarone
- holding Eliquis����������������������
Chronic HFpEF
- monitor volume status
type 2 diabetes
- holding MFM
- SSI
DVT ppx: SCDs
Code: Full
Anticipated Discharge: > 48 hours
Subjective/Interval History
-
Date of Service: April 03, 2024
intubated, sedated, on 3 pressors
for urgent OR today with ex-lap
Objective Data
-
Labs:
Laboratory Results
04/02/24 04/03/24 04/03/24
20:44 00:16 02:22
WBC
Hgb 9.4 L
Hct 28.8 L
Plt Count
PT 17.5 H
INR 1.45
APTT 29.6
HCO3 24.1
Sodium
Potassium
Chloride
Carbon Dioxide
BUN
Creatinine
Glucose
Calcium
Total Bilirubin
AST
ALT
Alkaline Phosphatase
04/03/24 04/03/24 04/03/24
05:31 05:31 05:47
WBC 2.6 L
Hgb 8.7 L
Hct 26.6 L
Plt Count 242 D
PT
INR
APTT
HCO3 Cancelled Cancelled 24.9
Sodium 136
Potassium 4.7
Chloride 104
Carbon Dioxide 24
BUN 45 H
Creatinine 2.6 H
Glucose 159 H
Calcium 7.9 L D
Total Bilirubin 0.6
AST 32
ALT 17
Alkaline Phosphatase 90
04/03/24 04/03/24
09:57 17:57
WBC
Hgb Pending Pending
Hct Pending Pending
Plt Count
PT
INR
APTT
HCO3
Sodium
Potassium
Chloride
Carbon Dioxide
BUN
Creatinine
Glucose
Calcium
Total Bilirubin
AST
ALT
Alkaline Phosphatase
Vital Signs:
Vital Signs
Temp Pulse Resp BP Pulse Ox
99.5 F 68 20 92/50 98
04/03/24 07:42 04/03/24 07:46 04/03/24 07:46 04/03/24 05:18 04/03/24 07:46
I&O
04/02/24 04/03/24 04/04/24
06:59 06:59 06:59
Intake Total 808.0 / 1065.1 1514.2 / 1514.2
Output Total 320 / 320 35 / 35
Balance 488.0 / 745.1 1479.2 / 1479.2
Physical Exam
-
General: Intubated
HEENT: Normocephalic and Atraumatic
Respiratory: Other (mechanical ventilation); Negative Wheezes
Cardiac: Irregular Rhythm
GI: Distended
Skin: Other (cool)
Neuro: Sedated
Data Reviewed
-
Critical Care Time (in minutes): 45
Labs: Labs Reviewed by me
--- NOTE | 2024-04-03 10:33 | W.IMMPOSTOP ---
Addendum entered and electronically signed by Blu Branham MD 04/03/24 10:51:
[facility]#[id number]
Original Note:
Surgical Immed Post Op Note
-
Primary Surgeon: Yonas
Assisting Surgeon: None
Pre-op Diagnosis: Ischemic bowel
Post-op Diagnosis: Severe dehydration
Procedure Performed: Exploratory laparotomy
Anesthesia Type: General
Specimen / Cultures: None
Estimated Blood Loss: 7 cc
Complications: None
Operative Findings:
1. Large volume serous reactive ascites, no obvious evidence of metastatic disease or masses
2. Viable stomach, small bowel, colon, palpable mesenteric pulses, SB adhesions within RLQ densely adherent to mesentery prohibiting safe lysis, no clear transition point
3. Closure of abdominal wall
Plan:
-- Aggressive resuscitation, wean pressors as able
-- Zosyn for translocation
-- NPO, NGT
--- NOTE | 2024-04-03 10:54 | CON.INTV ---
Consultation
Consultation Request
Date/Time Consultation Requested: 04/03/2024
Date/Time Consultation Performed: 04/03/2024
Requesting Provider: Dr. Ponce
Performing Provider: Dr. Albino Ye
Reason for Consultation: Septic shock/respiratory failure requiring intubation
Medical History
-
History of Present Illness:
83-year-old man with extensive past medical history including hypertension, hyperlipidemia, atrial fibrillation anticoagulation, chronic diastolic heart failure, type 2 diabetes, BPH, gout, peripheral vascular disease, small bowel obstruction,
recent right hip fracture with gamma nail placement 1 month ago, presented to the emergency room due to fever, vomiting and low blood pressure. Patient had recently colonoscopy on 03/20/2024. During the visit to the GI doctor to review colonoscopy
results patient had some vomiting and low blood pressure. He was sent home. Vomiting continued including dark possible coffee-ground emesis. He was sent to the hospital for evaluation. On arrival patient was pale and lethargic, hypotensive,
started on vasopressors.
It is noted in the chart that patient has history of prior bowel obstruction.
He has multiple other abnormalities that have been followed including obstructive uropathy. Follow with urology. Weight loss of unclear etiology.
He was sent to radiology for a CT of the abdomen pelvis and patient developed cardiac respiratory arrest. Per note received chest compressions, 3 rounds of epinephrine and then he was intubated. He regained spontaneous circulation. Had some
possible seizure activity as well.
Further evaluation discovered possible bowel ischemia. He was taken to the operating room emergently 04/03/2024 for exploratory laparotomy. Operative report reviewed. Patient noted to be severely dehydrated. No obvious bowel ischemia found.
Multiple additions unable to rise.
There is no clear transition point.
Currently on vasopressors, on mechanical ventilation, sedated. Unable to provide history.
Critically ill.
Past Medical History
Past Medical History: Other (See assessment and plan section)
Social History
Tobacco: Smoker
Alcohol: Occasional
Drug: None
Family History
Family History: Unable to Obtain
Allergies / Home Medications
Allergies
Allergy/AdvReac Type Severity Reaction Status Date / Time
No Known Allergies Allergy Verified 04/02/24 19:56
Home Medications
�Medication �Instructions �Recorded �Confirmed �Last Taken �Type
apixaban 5 mg tablet 5 mg PO BID Blood Clot 03/19/23 04/02/24 03/30/24 History
Prevention/Tx
folic acid 1 mg tablet 1 mg PO DAILY Supplement 03/19/23 04/02/24 04/01/24 History
simvastatin 20 mg tablet 20 mg PO QPM High Cholesterol 03/19/23 04/02/24 04/01/24 History
gabapentin 100 mg capsule 200 mg PO DAILY Pain 03/29/23 04/02/24 04/01/24 History
benazepril 20 mg tablet 20 mg PO DAILY 01/13/24 04/02/24 04/01/24 History
gabapentin 300 mg capsule 300 mg PO HS 01/13/24 04/02/24 04/01/24 History
metformin 500 mg tablet 500 mg PO BID 01/13/24 04/02/24 04/01/24 History
carvedilol 6.25 mg tablet 6.25 mg PO BID Blood pressure 30 01/25/24 04/02/24 04/01/24 Rx
days #60 tabs
allopurinol 100 mg tablet 100 mg PO DAILY 04/02/24 04/02/24 04/01/24 History
amiodarone 200 mg tablet (Pacerone) 200 mg PO DAILY Arrhythmia 04/02/24 04/02/24 04/01/24 History
polyethylene glycol 3350 17 gram 17 g PO DAILY 04/02/24 04/02/24 Unknown History
oral powder packet (Miralax)
tamsulosin 0.4 mg capsule (Flomax) 0.4 mg PO DAILY 04/02/24 04/02/24 04/01/24 History
Review of Systems
-
Unable to Obtain full review of systems at this time due to: Patient Intubation
Vitals / Labs / Diagnostic Testing
Vital Signs
Temp Pulse Resp BP Pulse Ox
99.5 F 70 20 119/63 99
04/03/24 07:42 04/03/24 08:31 04/03/24 08:31 04/03/24 08:00 04/03/24 08:31
Lab Data
04/03/24 05:31
Laboratory Results
04/02/24 04/02/24 04/03/24
20:22 20:44 00:16
PT Cancelled 17.5 H
INR Cancelled 1.45
APTT Cancelled 29.6
pH 7.25 L
pCO2 55 H
pO2 354 H
HCO3 24.1
O2 Delivery Level 100%
04/03/24 04/03/24 04/03/24
05:31 05:31 05:31
PT
INR
APTT
pH Cancelled Cancelled
pCO2 Cancelled Cancelled
pO2 Cancelled
HCO3
O2 Delivery Level
04/03/24 04/03/24 04/03/24
05:31 05:31 05:31
PT
INR
APTT
pH
pCO2
pO2 Cancelled
HCO3 Cancelled Cancelled
O2 Delivery Level Cancelled Cancelled
04/03/24
05:47
PT
INR
APTT
pH 7.36
pCO2 44
pO2 137 H
HCO3 24.9
O2 Delivery Level Not Reportable
Diagnostic Testing:
Physical Exam
-
HEENT: Normocephalic and Other (ET tube in place without secretions)
Cardiovascular: S1/S2
Respiratory: Non-Labored Respirations
GI: Soft, Non Distended, Other (Absent bowel sound) and Other (Surgical incision intact and dressed.)
Neurology: Other (Sedated on mechanical ventilation)
Skin: Warm
General: Respiratory Distress (n)
Assessment
-
83-year-old man with extensive past medical history. Admitted through the emergency room after developing nausea and significant vomiting. Found to be lethargic and hypotensive in the emergency room. There is reports of coffee-ground emesis.
Patient has been losing weight at home. Developed cardiorespiratory arrest while on CAT scan. 3 rounds of epinephrine were given with regain of spontaneous circulation. Intubated on mechanical ventilation. Transferred to the critical care unit
for further evaluation.
Septic shock: Possible intra-abdominal process-? Bowel obstruction
Status post exploratory laparotomy 04/03/2024: No evidence for bowel ischemia. Adhesions were noted without transition point
UA: Moderate bacteria/30-40 RBCs/possible leukocyte Esterace/WBCs 0-2
CT chest: Patchy bilateral groundglass opacity.
Volume depletion due to nausea and vomiting
Cardiorespiratory arrest 04/02/2022
Possible anoxic brain injury.
Hypercapnic respiratory failure requiring intubation 04/03/2024 secondary to above.
ABG 7.25/55/354-100% FiO2
Lactic acidosis
Acute kidney injury likely ATN/volume depletion
Conditions present prior admission:
Hypertension
Hyperlipidemia
Paroxysmal atrial fibrillation
Chronic diastolic heart failure
Echocardiogram LVEF 60-65% 12/06/2023.
Type 2 diabetes
BPH
History of gout
Peripheral vascular disease
History of the small bowel obstruction
? COPD history
History of reverse left total shoulder surgery
Cervical laminectomy
Left shoulder replacement
Appendectomy
Recent colonoscopy 03/20/2024 at [place] for weight loss/found rectal nodularity with circumferential distribution
Status post left hip fracture with cannulated screw 01/16/2024-
Status post right hip fracture status post gamma nail about a month ago.

Assessment and plan:
Critically ill, intubated on mechanical ventilation. On multiple vasopressors.
-
Septic shock/volume depletion
Continue IV fluid with normal saline at 125 cc an hour
Status post large-volume IV fluid resuscitation
Discontinue epinephrine
Continue norepinephrine and Danny-Synephrine. Target mean arterial blood pressure 65 mmHg
Lactic acid is trending lower
Follow renal function and urinary output.
Ramesh in place
-
Acute kidney injury secondary to above
On CAT scan patient does have obstructive uropathy on the right with hydronephrosis since February. Unclear etiology.
Currently with poor urinary output.
Follow serial BMPs
Avoid nephrotoxins
-
Source of infection possibly intra-abdominal. Presented with nausea and vomiting.
Possible partial bowel obstruction
Status post exploratory laparotomy, no transition point noted, adhesions noted. No evidence for ischemia.
Continue Zosyn and vancomycin for now
Cultures were sent we will follow
-
Acute hypercapnic respiratory failure post cardiorespiratory arrest
Pulmonary mechanics reviewed
Continue mechanical ventilation without change
Repeat ABG now and will adjust ventilator as necessary
Continue sedation with propofol, fentanyl as needed.
Not ready for spontaneous breathing trial
-
Chest x-ray and CT chest noted: Patchy bilateral groundglass opacities.
Possibly aspiration.
Nebulizers as needed, not bronchospastic on exam
No indication for systemic corticosteroids
Already on antibiotics.
-
Possible some degree of anoxic brain injury based on CAT scan
Continue sedation breaks as able
Will continue to follow mental status closely
-
Maintain NG tube in place to suction
N.p.o. for now
Head of bed elevation
-
Anemia: No further coffee-ground emesis.
Follow H&H
Transfuse as necessary
PPI twice daily will continue IV
If there is ongoing high output NG tube secretions/vomiting may need GI evaluation at some point from
Antiemetics as needed
-
Atrial fibrillation-rate controlled
Heart failure with preserved ejection fraction. Monitor volume status closely.
At this point not requiring significant amount of oxygen. No need for diuresis.
Hold anticoagulation for now usually on apixaban
-
Type 2 diabetes-follow blood sugars, target 140-180
Hold metformin, high risk for metabolic acidosis
Insulin sliding scale for now.
-
DVT prophylaxis with SCDs for now.
-
Critical care statement: A total of 45 minutes of critical care time was provided for this patient today. This includes management of unstable vital signs, evaluation of the patient at bedside, reviewing the patient's pertinent medical records
including ventilator settings, arterial blood gases, radiographs, microbiology, laboratory evaluations and discussion with primary team, critical care nursing, and respiratory therapy.

Imaging reviewed:
CT chest abdomen pelvis 04/03/2024:
Suspected small bowel obstruction with small bowel loops located lateral to the colon within the right hemiabdomen, a new finding since 03/02/2024, and may be related to internal hernia. There is no overt small bowel wall thickening, and the small
bowel itself is difficult to evaluate without intravenous contrast, however there does appear to be some findings of small bowel edema which can be seen in the setting of ischemia. No pneumatosis.
Stable mild to moderate right hydronephrosis. No obstructing radiopaque calculus. These findings are stable since 03/02/2024.
Subtle bilateral groundglass foci which likely represents mild multifocal pneumonia.
Trace right pleural effusion. Small volume abdominopelvic ascites.
Intimal calcifications within the lumen of the infrarenal abdominal aorta consistent with underlying dissection. Findings are unchanged from 04/01/2023 and suboptimally evaluated without intravenous contrast.
CT abdomen angiogram:
Small bowel obstruction with transition point in the right hemiabdomen (image numbers documented above) likely due to internal hernia, as there are now small bowel loops located lateral to the colon within the right hemiabdomen which is a new
finding since 03/02/2024. There is bowel wall thickening and surrounding edema, however no overt hypoenhancement or pneumatosis at this time. These findings are suspicious for developing ischemia.
Patent mesenteric vasculature. 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
Stable mild to moderate right hydronephrosis. No obstructing radiopaque calculus.
Trace right pleural effusion. Small volume abdominopelvic ascites.
Stable focal abdominal aortic dissection without extension into aortic branches.
Chest x-ray 04/03/2024:
Reviewed, endotracheal tube is present of 5.6 cm above the oly. Increased interstitial markings bilaterally. Small right pleural effusion.
--- NOTE | 2024-04-03 11:18 | PTCARENOTE ---
Received from OR. On Epi, Levo, Danny, Propofol. Discontinued Epi per order due to HTN. Abdominal dressing clean and intact, small amount of drainage noted. Labs sent. Review plan of care with chemistry technician.
[2024-04-03 11:23] LABS: Hematocrit 26.5 % (39.0-52.0); Hemoglobin 8.6 g/dL (13.0-18.0)
[2024-04-03] MEDS: SUBLIMAZE 50 MCG IV ×4 (11:24→21:08)
[2024-04-03 11:27] LABS: B.E. -4.8 mmol/L; HCO3 21.1 mmol/L (21-28); O2 Saturation % 99.7 % (94-98); PCO2 42 mmHg (35-48); PO2 100 mmHg (83-108); pH 7.31 (7.35-7.45)
[2024-04-03] MEDS: VANCOCIN HCL 500 MG 100 IV (11:28)
[2024-04-03] MEDS: PROTONIX IV 40 MG IV ×2 (11:35→20:32)
[2024-04-03] MEDS: NSS (PRESERVATIVE FREE) 10 ML IV ×2 (11:36→20:32)
[2024-04-03 11:43] LABS: Lactic Acid 2.1 mmol/L (0.7-2.0)
[2024-04-03 11:48] LABS: Blood Urea Nitrogen 42 mg/dl (9-20); Calcium 7.5 mg/dl (8.4-10.2); Carbon Dioxide 23 mmol/L (22-30); Chloride 104 mmol/L (98-107); Estimated Creatinine Clearance 24 ml/min; Glucose 211 mg/dl (70-99); Potassium 4.6 mmol/L (3.5-5.1); Sodium 134 mmol/L (135-145); eGFR 23.87
[2024-04-03 11:57] LABS: Glucose - Point of Care 226 mg/dl (70-99)
[2024-04-03 12:07] LABS: B.E. - POC -2.8 mmol/L; Glucose - POC 193 mg/dl (65-99); HCO3 - POC 24 mmol/L (21-29); Hematocrit - POC 25 % PCV (42-52); Hemodilution- POC Yes; Hemoglobin Calculated - POC 8.7; Ionized Calcium - POC 1.17 mmol/L (1.12-1.27); O2 Saturation %Calculated-POC 99.2 5 (92-96); PCO2 - POC 51 mmHg (35-45); PO2 - POC 161 mmHg (80-100); POC Comment PRE; Potassium - POC 4.2 mmol/L (3.6-5.0); Sodium - POC 140 mmol/L (135-145); pH - POC 7.28 (7.35-7.45)
--- NOTE | 2024-04-03 12:11 | CM ---
CM following re: discharge planning.
Reviewed pt's chart, met with pt.
Pt is an 83 year old male, admitted with primary dx of Septic shock/ Status post exploratory laparotomy 04/03/2024. Pt currently intubated, on mechanical ventilation, continue supportive care.
Pt lives with SO in [place], 2 steps to enter. Pt ambulates with a walker, has a wheelchair, grab bars, known to [facility], was at [facility] in December 2023.
PCP: Sarmad Quiles
Pharmacy: [facility].
D/C plan: uncertain at this time and will depend on pt's progress.
CM will follow with discharge plan updates as hospitalization progresses
[2024-04-03] MEDS: NOVOLOG FLEXPEN-LOW RESISTANCE 2 UNITS SC (12:12)
[2024-04-03] MEDS: LEVOPHED 258 MG IV ×3 (12:13→21:02)
--- NOTE | 2024-04-03 12:31 | PTCARENOTE ---
Patient turned and repositioned, hygiene performed. Medication titration per work order. ET tube 23@ lip on the left.
[2024-04-03 13:43] LABS: Urine Sodium 46 mmol/L (30-90)
--- NOTE | 2024-04-03 13:59 | W.CON.NEPH ---
Consultation
-
Date/Time Consultation Requested: 04/03/2024 9:11AM
Date/Time Consultation Performed: 04/03/2024 1:59PM
Requesting Provider: Clive Morales
Performing Provider: Brittney Garay
Reason for Consultation: PABLO
Medical History
-
Chief Complaint: PABLO
History of Present Illness:
Mr. Fry is a 83YOM with PMH of HTN, DLD, Afib (on eliquis), CHF, T2DM, BPH, gout, SBO, R hip fracture who presented to the ER with nausea,vomiting and low blood pressure. History is obtained from [facility] nurse and chart review as the patient is
currently intubated and sedated without family at bedside.
Of note on 03/20 he had colonoscopy with Britton/Christopher due to change in bowel habit and weight loss, findings of rectal nodularity with heaped up mucosa and mild ulceration in the circumferential distribution, with recommendation for miralax BID
to TID, and possible expedited colorectal surgery consultation. He was supposed to have a polyp biopsy yesterday, but could not be done due to vomiting and hypotension. He was sent home at that time per the family. After he got home he continued to
have vomiting and he was taken back to this hospital. On arrival he was pale and lethargic. He was hypotensive and started on pressors. He also also was febrile. Initially on arrival to the ED it is noted that he denied abdominal pain. He is
positive for generalized fatigue and weakness. Initially denied chest pain or trouble breathing. He had been vomiting dark vomit at home. Of note he has had prior history of bowel obstruction. After being started on pressors in the emergency
department he was taken to the CT scan where he then ended up having a cardiac arrest. He received chest compressions and 3 rounds of epinephrine and was intubated. He had return of circulation. He then had seizure-like activity. He has received
a total of 4 mg IV of Ativan. He remains intubated and is sedated. He was taken emergently to the OR this morning for an ex lap. No obvious bowel ischemia was found, did have multiple adhesions that were not able to be lysed. He is on multiple
pressors at this time.
Past Medical History
Hypertension, hyperlipidemia, paroxysmal atrial fibrillation, chronic diastolic congestive heart failure, diabetes mellitus type 2, BPH, history of gout, peripheral vascular disease, small bowel obstruction in the past, possible COPD
Past Surgical History: Other ((Reverse left total shoulder with revision, cervical laminectomy, left shoulder replacement, appendectomy, rotator cuff procedure)
Social History
Tobacco: Smoker
Alcohol: Occasional
Drug: None
Family History
Family History: Not Pertinent
Allergies / Home Medications
Allergy/AdvReac Type Severity Reaction Status Date / Time
No Known Allergies Allergy Verified 04/02/24 19:56
�Medication �Instructions �Recorded �Confirmed �Type
apixaban 5 mg tablet 5 mg PO BID Blood Clot 03/19/23 04/02/24 History
Prevention/Tx
folic acid 1 mg tablet 1 mg PO DAILY Supplement 03/19/23 04/02/24 History
simvastatin 20 mg tablet 20 mg PO QPM High Cholesterol 03/19/23 04/02/24 History
gabapentin 100 mg capsule 200 mg PO DAILY Pain 03/29/23 04/02/24 History
benazepril 20 mg tablet 20 mg PO DAILY Blood Pressure 01/13/24 04/02/24 History
gabapentin 300 mg capsule 300 mg PO HS Pain 01/13/24 04/02/24 History
metformin 500 mg tablet 500 mg PO BID Diabetes 01/13/24 04/02/24 History
carvedilol 6.25 mg tablet 6.25 mg PO BID Blood pressure 30 01/25/24 04/02/24 Rx
days #60 tabs
allopurinol 100 mg tablet 100 mg PO DAILY Gout 04/02/24 04/02/24 History
amiodarone 200 mg tablet (Pacerone) 200 mg PO DAILY Arrhythmia 04/02/24 04/02/24 History
polyethylene glycol 3350 17 gram 17 g PO DAILY Constipation 04/02/24 04/02/24 History
oral powder packet (Miralax)
tamsulosin 0.4 mg capsule (Flomax) 0.4 mg PO DAILY Urinary Issue 04/02/24 04/02/24 History
Review of Systems
-
Unable to obtain full review of systems at this time due to: Patient Intubation
Physical Exam
Vital Signs
Vital Signs
Temp Pulse Resp BP Pulse Ox
98.6 F 76 20 148/73 98
04/03/24 11:09 04/03/24 13:00 04/03/24 13:00 04/03/24 12:00 04/03/24 13:00
Lab Results
WBC 2.6 10^3/uL (4.8-10.8) L 04/03/24 05:31
RBC 3.25 10^6/uL (4.70-6.10) L 04/03/24 05:31
Plt Count 242 10^3/uL (130-400) D 04/03/24 05:31
Sodium 134 mmol/L (135-145) L 04/03/24 11:13
Potassium 4.6 mmol/L (3.5-5.1) 04/03/24 11:13
Chloride 104 mmol/L (98-107) 04/03/24 11:13
Carbon Dioxide 23 mmol/L (22-30) 04/03/24 11:13
BUN 42 mg/dl (9-20) H 04/03/24 11:13
Creatinine 2.6 mg/dL (0.7-1.3) H 04/03/24 11:13
eGFR 23.87 04/03/24 11:13
Glucose 211 mg/dl (70-99) H 04/03/24 11:13
Calcium 7.5 mg/dl (8.4-10.2) L 04/03/24 11:13
Albumin 2.6 g/dl (3.5-5.0) L 04/03/24 05:31
Physical Exam
General: Other (intubated and sedated)
HEENT: Other (eyes closed, PERRL)
Respiratory: Other (mechanical breath sounds)
Cardiac: S1/S2 and Regular Rate/Rhythm
Breast: N/A
Abdomen: Soft, Nondistended and Other (ex lap scar noted)
Rectal: Deferred by Provider
Genito-urinary: Clear Urine and Other (Ramesh in place)
Musculoskeletal: No Clubbing, No Cyanosis and No Edema
Skin: No Rash, Warm, Dry, No Clubbing, No Cyanosis, Normal Turgor and No Bruising
Neuro: Sedated
Hematologic/Lymphatic: No Cervical Lymphadenopathy
Data Reviewed
-
Radiology: Image Personally Visualized and interpreted (ET tube in place, c/f COPD in bilateral lungs, R pleural effusion)
CT Scan: Report Reviewed by me (Small bowel obstruction with transition point in the right hemiabdomen (image numbers documented above) likely due to internal hernia, as there are now small bowel loops located lateral to the colon within the right
hemiabdomen which is a new finding since 03/02/2024.)
Labs: Labs Reviewed by me, Discussed with Physician and Discussed with Nurse
Old Records: Reviewed
Assessment/Plan
-
Assessment:
PABLO (bl 1)
hypercapnice respiratory failure
s/p cardiac arrest
possible intra-abd process
BPH
T2DM
s/p recent hip fracture
Plan:
- Cr rising from 1 to 2.6
- most likely this is ATN in the setting of recent cardiac arrest, sepsis, volume depletion
- agree with fluid resuscitation as you are doing
- please continue pressor support to maintain MAP >65
- follow serial BMPs
- avoid further npehrotxins
- note accurate I/Os
The patient's prognosis remains gaurded. No urgent indications for HD now but we will follow along with you.
[2024-04-03] MEDS: PITRESSIN 100 IV (15:14)
[2024-04-03 16:04] LABS: Hematocrit 25.6 % (39.0-52.0); Hemoglobin 8.6 g/dL (13.0-18.0)
[2024-04-03 16:20] LABS: Blood Urea Nitrogen 45 mg/dl (9-20); Calcium 7.6 mg/dl (8.4-10.2); Carbon Dioxide 19 mmol/L (22-30); Chloride 105 mmol/L (98-107); Estimated Creatinine Clearance 25 ml/min; Glucose 235 mg/dl (70-99); Potassium 5.2 mmol/L (3.5-5.1); Sodium 133 mmol/L (135-145); eGFR 25.02
--- NOTE | 2024-04-03 16:21 | PTCARENOTE ---
Addendum entered by Alesia Funez RN 04/03/24 17:43:
reviewed plan with trim technician. updated with labs. for repeat labs@2100, orders as noted. propofol resumed low dose, fentanyl as per NOV.
Original Note:
assessments per work list. propofol off for neuro assessment. patient opens eyes to name, hand grasps and foot pushes to command. grimacing. medicated with fentanyl per prn orders. propofol resumed@10mcq. vasopressin initiated, carlos off, weaning
Levophed. labs sent. Dr Ye in to speak with and update family. wrist restraints applied for patient safety. mid abdomen Aquacel dressing in place with small amount drainage. right IJ triple line inserted in OR, good blood returns from all ports
--- NOTE | 2024-04-03 16:55 | W.PN.UPDATE ---
Update Note
Progress Note Update
Hemoglobin stable.
Mild hyperkalemia.
Continue IV fluid resuscitation.
Repeat labs later. If remains hyperkalemic and acidotic then we will need to switch to bicarbonate drip.
Hyperglycemia, will transition to known dextrose IV fluids.
Patient did receive Decadron in the emergency operating room, if there is no improvement on blood sugars with insulin sliding scale and leading Decadron washout and adjustment of her IV fluids then will need insulin drip.
[2024-04-03] MEDS: NOVOLOG FLEXPEN-HIGH RESISTANCE 4 UNITS SC (17:54)
[2024-04-03 18:04] LABS: Glucose - Point of Care 226 mg/dl (70-99)
--- NOTE | 2024-04-03 20:30 | PTCARENOTE ---
vein pumper, intermittent agitation/reaching arms up, biting ett, Prop gtt increased as documented. B/L pupils 3R. SR HR 80s. RIJ WNL- Prop, Levo, vaso, NSS infusing per work list. L radial AL WNL, weaning levo gtt. OGT to intermittent suction-
flushed. Ramesh draining yellow urine. mouth care done.
[2024-04-03 21:27] LABS: Blood Urea Nitrogen 46 mg/dl (9-20); Calcium 7.6 mg/dl (8.4-10.2); Carbon Dioxide 21 mmol/L (22-30); Chloride 104 mmol/L (98-107); Estimated Creatinine Clearance 23 ml/min; Glucose 196 mg/dl (70-99); Potassium 5.3 mmol/L (3.5-5.1); Sodium 134 mmol/L (135-145); eGFR 22.82
[2024-04-03] MEDS: SODIUM BICARBONATE 50 MEQ IV (22:33)
[2024-04-03 22:43] LABS: Glucose - Point of Care 211 mg/dl (70-99)
[2024-04-03] MEDS: NOVOLIN R INSULIN INFUSION 100 IV (23:05)
[2024-04-03] MEDS: NOVOLIN R 4 UNITS IV (23:10)
--- NOTE | 2024-04-03 23:30 | PTCARENOTE ---
pt started on Glycemic Protocol- no further changes in assessment.
[2024-04-04] VITALS (14 sets, daily range): BP systolic 124–152; BP diastolic 46–61; BMI 24.3
[2024-04-04] MEDS: PITRESSIN 100 IV ×3 (00:19→23:08)
[2024-04-04 00:21] LABS: Glucose - Point of Care 171 mg/dl (70-99)
[2024-04-04] MEDS: ZOSYN 50 IV ×4 (00:57→20:11)
--- NOTE | 2024-04-04 03:00 | DOWNTIME ---
There was a [employer] Client Voice Professor Downtime on 04/04/2024 from 0100 to 04/04/2024 at 0255. Downtime documentation of patient's care, including medication administrations, has been reconciled in the electronic record per guidelines. Refer to the
patient's paper chart under the miscellaneous tab to see printed paper medication records and downtime forms.
[2024-04-04 03:30] LABS: B.E. -3.9 mmol/L; HCO3 20.7 mmol/L (21-28); PCO2 35 mmHg (35-48); PO2 147 mmHg (83-108); pH 7.38 (7.35-7.45)
[2024-04-04 03:32] LABS: Glucose - Point of Care 137 mg/dl (70-99)
[2024-04-04 04:02] LABS: ALT (SGPT) 23 U/L (0-50); AST (SGOT) 37 U/L (17-59); Albumin 2.5 g/dl (3.5-5.0); Alkaline Phosphatase 78 U/L (38-126); Blood Urea Nitrogen 49 mg/dl (9-20); Calcium 7.6 mg/dl (8.4-10.2); Carbon Dioxide 19 mmol/L (22-30); Chloride 106 mmol/L (98-107); Estimated Creatinine Clearance 23 ml/min; Glucose 116 mg/dl (70-99); Magnesium 1.6 mg/dl (1.6-2.3); Sodium 137 mmol/L (135-145); Total Bilirubin 0.6 mg/dl (0.2-1.3); Total Protein 4.7 g/dl (6.3-8.2); eGFR 22.82
[2024-04-04 04:04] LABS: Vancomycin Random 14.3 ug/ml
[2024-04-04 04:05] LABS: Hematocrit 26.1 % (39.0-52.0); Hemoglobin 8.6 g/dL (13.0-18.0); Mean Corpuscular Hgb 26.5 pg (27.0-31.0); Mean Corpuscular Volume 80.3 fL (80.0-94.0); Mean Platelet Volume 10.2 fL (7.4-10.4); Platelet Count 225 10^3/uL (130-400); Red Blood Cell Count 3.25 10^6/uL (4.70-6.10); Red Cell Dist. Width 15.7 % (11.5-14.5); White Blood Cell Count 16.3 10^3/uL (4.8-10.8)
[2024-04-04 04:40] LABS: Monocytes 5 % (2-9); Myelocytes 1 % (-)
[2024-04-04 04:45] LABS: Absolute Neutrophils -Man Diff 13.8 10^3/uL (1.4-6.5); Band Neutrophils 39 % (0-3); Lymphocytes 5 % (20-51); Segmented Neutrophils 46 % (42-75)
[2024-04-04 04:46] LABS: Metamyelocytes 4 % (-)
[2024-04-04 04:47] LABS: Anisocytosis 1+; Microcytosis 1+; Normal RBC Morphology No; Platelets Checked Yes
[2024-04-04 04:48] LABS: Total Cells Counted 100; Vacuolated Segs 1+
[2024-04-04] MEDS: SUBLIMAZE 50 MCG IV ×3 (04:57→18:40)
[2024-04-04] MEDS: DIPRIVAN 100 IV ×3 (05:00→23:08)
[2024-04-04 05:16] LABS: Glucose - Point of Care 138 mg/dl (70-99)
[2024-04-04] MEDS: LEVOPHED 258 MG IV ×3 (05:31→18:20)
[2024-04-04] MEDS: NSS 1000 IV (06:33)
[2024-04-04 07:14] LABS: Glucose - Point of Care 116 mg/dl (70-99)
--- NOTE | 2024-04-04 07:55 | W.PN.ANS.POP ---
Anesthesia Post Operative
- Anesthesia Post Op Note
Vital Signs Stable-See Nursing Note: No (vital signs supported by significant pressors)
Airway Patent: Yes
Adequate Pain Control: Yes
Change in Mental Status: No
Current Postoperative Nausea & Vomiting: No
Anesthesia Complications: No
General Anesthetic Recall: No
Unplanned Admission: No
Post Op Hydration Adequate: Yes
--- NOTE | 2024-04-04 08:00 | PTCARENOTE ---
Received pt with eyes closed.Pt shook head no when questioned if he had pain and was able to show thumb upon command.+ASHBY.Restless during sedation vacation.SB with BBB noted.Right IJ intact with Levophed,Vasopressin,Propofol,Insulin and
IVF.Titrating Levophed as ordered.Left A line intact and zeroed.## 7.5 ETT to vent AC 20 500 40% +5.Decreased breath sounds throughout.POX 100%Suctioned for small amount martin secretions.Oral GT intact draining bilious fluid.Dr Garces OK with using GT
for medications.No BM.Ramesh draining yellow urine.Skin integrity as documented.Pt's daughter called in,plan of care discussed.
--- NOTE | 2024-04-04 08:12 | PHA.VAN.FU ---
Vancomycin Assessment / Plan
- Assessment
Renal Function: Stable
In the past 24 hrs, patient has been: Afebrile
Concomitant Antimicrobials: piperacillin/tazobactam
- Assessment - Therapeutic Drug Monitoring
Random Level: 14.3 - drawn ~16H after previous dose of 500mg (received 2g divided load)
- Dosing Plan
Dosing by Level: Re-dose today (Vanc 1000mg)
- Monitoring Plan
Random Level: 04/05 06
- Follow Up
Pharmacy will continue to follow.
Vancomycin Follow UP
- -
Patient Age: 83
Patient Sex: Male
Vancomycin Day #: 2
Indication: Gi / Intra-Abdominal
Requesting Provider: Dr. Ponce
Pertinent Antimicrobial Allergies:
NKDA
Height / Weight:
Height 6 ft 1 in
Actual Weight 83.5 kg
Pertinent Past Medical History: DM
- Vital Signs / Lab Results
Temp Pulse Resp BP Pulse Ox
98.3 F 62 20 149/55 99
04/04/24 07:16 04/04/24 06:00 04/04/24 06:00 04/04/24 04:00 04/04/24 07:33
Lab Results - Hematology
04/02/24 04/03/24 04/04/24
20:22 05:31 03:21
WBC 4.1 L 2.6 L 16.3 H
Band Neutrophils 39 H
Lab Results - Chemistry
04/02/24 04/03/24 04/03/24
20:22 05:31 11:13
BUN 43 H 45 H 42 H
Creatinine 2.3 H 2.6 H 2.6 H
Estimated Creat Clear
Albumin 3.7 2.6 L
04/03/24 04/03/24 04/04/24
15:51 21:04 03:20
BUN 45 H 46 H 49 H
Creatinine 2.5 H 2.7 H 2.7 H
Estimated Creat Clear
Albumin 2.5 L
04/02/24 04/03/24 04/03/24
20:22 00:15 02:22
Lactic Acid 4.0 H* Cancelled 3.6 H
04/03/24 04/03/24 04/03/24
05:31 11:08 15:51
Lactic Acid 2.3 H 2.1 H 2.0
Microbiology Results
04/02/24 20:22 Blood Culture - Preliminary
Blood/Venous No Growth in 24 hours- Final report to follow
Therapeutic Drug Monitoring
Random Vancomycin 14.3 ug/ml 04/04/24 03:20
[2024-04-04 08:24] LABS: Glucose - Point of Care 154 mg/dl (70-99)
[2024-04-04 08:25] LABS: Glucose - Point of Care 130 mg/dl (70-99)
[2024-04-04 08:54] LABS: Glucose - Point of Care 85 mg/dl (70-99)
--- NOTE | 2024-04-04 08:57 | W.PN.NEPH.PH ---
Today's Communication / Plan
-
reduce IVF
Assessment/Plan
-
Assessment:
PABLO (bl 1), now ATN
hypercapnice respiratory failure
s/p cardiac arrest
possible intra-abd process
BPH
T2DM
s/p recent hip fracture
Plan:
follow BMP
reduce IVF
can trial lasix tomorrow
maintain agustin
wean pressors as allowed
critical care time 31 minutes
-
-
Date of Service: April 04, 2024
CC / HPI / ROS
-
Chief Complaint:
PABLO
History of Present Illness:
remains on pressors for hypotension
on Vent
critically ill in ICU
PABLO/Cr stable at 2.7
acidosis improved
nonoliguric
Review of Systems:
sedated/intubated
Labs
-
Labs:
WBC 16.3 10^3/uL (4.8-10.8) H 04/04/24 03:21
RBC 3.25 10^6/uL (4.70-6.10) L 04/04/24 03:21
Hgb 8.6 g/dL (13.0-18.0) L 04/04/24 03:21
Hct 26.1 % (39.0-52.0) L 04/04/24 03:21
Plt Count 225 10^3/uL (130-400) 04/04/24 03:21
Sodium 137 mmol/L (135-145) 04/04/24 03:20
Potassium 5.0 mmol/L (3.5-5.1) 04/04/24 03:20
Chloride 106 mmol/L (98-107) 04/04/24 03:20
Carbon Dioxide 19 mmol/L (22-30) L 04/04/24 03:20
BUN 49 mg/dl (9-20) H 04/04/24 03:20
Creatinine 2.7 mg/dL (0.7-1.3) H 04/04/24 03:20
eGFR 22.82 04/04/24 03:20
Glucose 116 mg/dl (70-99) H 04/04/24 03:20
Calcium 7.6 mg/dl (8.4-10.2) L 04/04/24 03:20
Albumin 2.5 g/dl (3.5-5.0) L 04/04/24 03:20
Physical Exam
-
Vital Signs:
Vital Signs
Temp Pulse Resp BP Pulse Ox
98.3 F 62 20 149/55 99
04/04/24 07:16 04/04/24 06:00 04/04/24 06:00 04/04/24 04:00 04/04/24 07:33
Cardiovascular:: Regular rate and rhythm
Respiratory:: Bilateral: Coarse
Lung Excursion:: Normal
Abdomen:: Nontender and Soft
Bowel Sounds:: Normal
Extremity Edema:: +1: Bilateral:
[2024-04-04] MEDS: NSS (PRESERVATIVE FREE) 10 ML IV ×2 (09:00→20:10)
[2024-04-04] MEDS: PROTONIX IV 40 MG IV ×2 (09:00→20:09)
[2024-04-04 09:29] LABS: Glucose - Point of Care 93 mg/dl (70-99)
[2024-04-04 10:10] LABS: Glucose - Point of Care 100 mg/dl (70-99)
[2024-04-04 10:24] LABS: Glycohemoglobin (HgbA1c) 6.3 % (4.0-5.6)
[2024-04-04] MEDS: PACERONE 200 MG PO (10:55)
[2024-04-04 11:10] LABS: Glucose - Point of Care 110 mg/dl (70-99)
--- NOTE | 2024-04-04 11:15 | W.PN.INTV ---
Today's Communication / Plan
Recommendations
Continue mechanical ventilation without change
Wean down vasopressors as able
Insulin drip Target blood sugars 140-180
Follow cultures
Continue antibiotics for now
Sedation with propofol and fentanyl, sedation breaks as per protocol continue IV fluid
N.p.o. for now
Assessment
-
83-year-old man with extensive past medical history. Admitted through the emergency room after developing nausea and significant vomiting. Found to be lethargic and hypotensive in the emergency room. There is reports of coffee-ground emesis.
Patient has been losing weight at home. Developed cardiorespiratory arrest while on CAT scan. 3 rounds of epinephrine were given with regain of spontaneous circulation. Intubated on mechanical ventilation. Transferred to the critical care unit
for further evaluation.
Septic shock: Possible intra-abdominal process-? Bowel obstruction
Status post exploratory laparotomy 04/03/2024: No evidence for bowel ischemia. Adhesions were noted without transition point
UA: Moderate bacteria/30-40 RBCs/possible leukocyte Esterace/WBCs 0-2
CT chest: Patchy bilateral groundglass opacity.
Volume depletion due to nausea and vomiting
Cardiorespiratory arrest 04/02/2022
Possible anoxic brain injury.
Hypercapnic respiratory failure requiring intubation 04/03/2024 secondary to above.
ABG 7.25/55/354-100% FiO2
Lactic acidosis
Acute kidney injury likely ATN/volume depletion
Conditions present prior admission:
Hypertension
Hyperlipidemia
Paroxysmal atrial fibrillation
Chronic diastolic heart failure
Echocardiogram LVEF 60-65% 12/06/2023.
Type 2 diabetes
BPH
History of gout
Peripheral vascular disease
History of the small bowel obstruction
? COPD history
History of reverse left total shoulder surgery
Cervical laminectomy
Left shoulder replacement
Appendectomy
Recent colonoscopy 03/20/2024 at [facility] for weight loss/found rectal nodularity with circumferential distribution
Status post left hip fracture with cannulated screw 01/16/2024-
Status post right hip fracture status post gamma nail about a month ago.

Assessment and plan:
Critically ill, intubated on mechanical ventilation. On multiple vasopressors.
-
Septic shock/volume depletion
-improved but is still requiring moderate dose of Levophed Target mean arterial blood pressure 65 mmHg
Continue normal saline for now, if patient has worsening metabolic acidosis will consider bicarbonate drip
Status post large-volume IV fluid resuscitation
Lactic acid has cleared.
Follow renal function and urinary output.
Ramesh in place
-
Acute kidney injury secondary to above-stable. Improved
On CAT scan patient does have obstructive uropathy on the right with hydronephrosis since February. Unclear etiology.
Currently with poor urinary output.
Follow serial BMPs
Avoid nephrotoxins
-
Source of infection possibly intra-abdominal. Presented with nausea and vomiting.
Possible partial bowel obstruction
Status post exploratory laparotomy, no transition point noted, adhesions noted. No evidence for ischemia.
Continue Zosyn and vancomycin for now
Will consider discontinuation of vancomycin in the next 24 hours if cultures negative
Cultures negative so far
-
Acute hypercapnic respiratory failure post cardiorespiratory arrest
Pulmonary mechanics reviewed and acceptable.
Continue mechanical ventilation without change
ABG 04/04/2024: 7.38/35/147
Continue sedation with propofol, fentanyl as needed.
Will attempt spontaneous breathing trial once septic shock component improved. Currently on moderate dose of Levophed.
Sedation breaks reported
-
Chest x-ray and CT chest noted: Patchy bilateral groundglass opacities.
Possibly aspiration.
Nebulizers as needed, not bronchospastic on exam
No indication for systemic corticosteroids
Continue antibiotics as above
-
Possible some degree of anoxic brain injury based on CAT scan
Continue sedation breaks as able
Will continue to follow mental status closely
-
Maintain NG tube in place to suction
N.p.o. for now
Head of bed elevation
-
Anemia: No further coffee-ground emesis.
Follow H&H
Transfuse as necessary
PPI twice daily will continue IV
Antiemetics as needed
-
Atrial fibrillation-rate controlled
Heart failure with preserved ejection fraction. Monitor volume status closely.
At this point not requiring significant amount of oxygen. No need for diuresis.
Hold anticoagulation for now usually on apixaban
-
Type 2 diabetes-follow blood sugars, target 140-180
Hold metformin, high risk for metabolic acidosis
Continue insulin drip per
-
DVT prophylaxis with SCDs for now. Heparin subcu started every 12.
-
Critical care statement: A total of 38 minutes of critical care time was provided for this patient today. This includes management of unstable vital signs, evaluation of the patient at bedside, reviewing the patient's pertinent medical records
including ventilator settings, arterial blood gases, radiographs, microbiology, laboratory evaluations and discussion with primary team, critical care nursing, and respiratory therapy.

Imaging reviewed:
CT chest abdomen pelvis 04/03/2024:
Suspected small bowel obstruction with small bowel loops located lateral to the colon within the right hemiabdomen, a new finding since 03/02/2024, and may be related to internal hernia. There is no overt small bowel wall thickening, and the small
bowel itself is difficult to evaluate without intravenous contrast, however there does appear to be some findings of small bowel edema which can be seen in the setting of ischemia. No pneumatosis.
Stable mild to moderate right hydronephrosis. No obstructing radiopaque calculus. These findings are stable since 03/02/2024.
Subtle bilateral groundglass foci which likely represents mild multifocal pneumonia.
Trace right pleural effusion. Small volume abdominopelvic ascites.
Intimal calcifications within the lumen of the infrarenal abdominal aorta consistent with underlying dissection. Findings are unchanged from 04/01/2023 and suboptimally evaluated without intravenous contrast.
CT abdomen angiogram:
Small bowel obstruction with transition point in the right hemiabdomen (image numbers documented above) likely due to internal hernia, as there are now small bowel loops located lateral to the colon within the right hemiabdomen which is a new
finding since 03/02/2024. There is bowel wall thickening and surrounding edema, however no overt hypoenhancement or pneumatosis at this time. These findings are suspicious for developing ischemia.
Patent mesenteric vasculature. 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
Stable mild to moderate right hydronephrosis. No obstructing radiopaque calculus.
Trace right pleural effusion. Small volume abdominopelvic ascites.
Stable focal abdominal aortic dissection without extension into aortic branches.
Chest x-ray 04/03/2024:
Reviewed, endotracheal tube is present of 5.6 cm above the oly. Increased interstitial markings bilaterally. Small right pleural effusion.
Subjective Dataa
Subjective Data
Date of Service:
Date of Service: April 04, 2024
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
Subjective:
Remains sedated, on mechanical ventilation per
Unable to provide history
Requiring vasopressors.
Review of Systems
General: Unobtainable - Sedation
Objective Data
Data Reviewed
Vital Signs / I&O / Oxygen:
Vital Signs
Temp Pulse Resp BP Pulse Ox
97.6 F 62 20 149/55 100
04/04/24 11:11 04/04/24 06:00 04/04/24 06:00 04/04/24 04:00 04/04/24 08:00
Intake and Output
04/03/24 04/04/24 04/05/24
06:59 06:59 06:59
Intake Total 808.0 / 1065.1 5871.8 / 6054.7 552.7 / 552.7
Output Total 320 / 320 1112 / 1142 145 / 145
Balance 488.0 / 745.1 4759.8 / 4912.7 407.7 / 407.7
SaO2 [A/C] 100
SaO2 99
Physical Exam
General: Comfortable
HEENT: Normocephalic
Cardiovascular: S1-S2 and Regular Rhythm
Respiratory: Clear and Non-Labored Respirations
GI: Soft, Distended (Decreased bowel sounds) and Other (Midline incision intact.)
Neurology: Other (Sedated on mechanical ventilation)
Skin: Warm
Labs/Micro/Reports
Lab Data
04/04/24 03:21
04/04/24 03:20
Laboratory Results
04/03/24 04/04/24
11:09 03:21
pH 7.31 L 7.38
pCO2 42 35
pO2 100 147 H
HCO3 21.1 20.7 L
O2 Delivery Level
Microbiology
04/03/24 02:29 Urine Urine Culture - Final
NO GROWTH
04/02/24 20:22 Blood/Venous Blood Culture - Preliminary
No Growth in 24 hours- Final report to follow
--- NOTE | 2024-04-04 11:24 | W.PN.GS2 ---
Today's Communication / Plan
-
Wean vent/pressors as lacy
Cont NGT
Assessment / Plan
-
83M POD1 s/p negative ex lap for presumed ischemic bowel, limited NATALIE was performed without sbr
Remains sedated/intubated
Remains on pressors
Plan:
Cont NGT
May eventually benefit from TPN, would consider pending successful pressor/vent wean
Rec goals of care discussion with family
Agree with IV abx, f/u Cx
Considering Hb stable and no evidence of bleeding, would be OK from surg standpoint to initiate A/C (if hep gtt, no bolus)
Surgery will follow
Subjective Data
-
Date of Service: April 04, 2024
Sedated/intubated
Objective Data
-
Intake and Output
04/03/24/ 07/
06:59 06:59 06:59
Intake Total 808.0 / 1065.1 5871.8 / 6054.7 552.7 / 552.7
Output Total 320 / 320 1112 / 1142 145 / 145
Balance 488.0 / 745.1 4759.8 / 4912.7 407.7 / 407.7
Intake:
IV fluids (Total) 758.0 / 1015.1 5481.8 / 5664.7 552.7 / 552.7
Epi 34 / 34
NSS Bolus 1000 / 1000
Danny 152 / 152
Nss 1,000 ml @ 125 mls/hr IV . 320 / 445 2750 / 2875 250 / 250
Q8H FAM Rx#:[id number]
Nss 1,000 ml @ 50 mls/hr IV . 100 / 100
Q20H FAM Rx#:[id number]
insulin 12.7 / 15.0 4.2 / 4.2
levophed 347.0 / 460.0 1241.4 / 1278.9 135.1 / 135.1
propofol 41.0 / 50.1 136.7 / 145.8 36.4 / 36.4
protonix 50 / 60 20
vasopressin 135 / 144
IV piggybacks 50 300 / 300
Amount instilled into GI Tube (
Total)
Yolo Sump
Output:
Gastrointestinal tube output ( 300 / 300 275 / 275
Total)
Yolo Sump 300 / 300 275 / 275
Urine, Ramesh 837 / 837 115 / 115
Urine, Voided
Vital Signs
Temp Pulse Resp BP Pulse Ox
97.6 F 62 20 149/55 100
04/04/24 11:11 04/04/24 06:00 04/04/24 06:00 04/04/24 04:00 04/04/24 08:00
Lab Results
04/04/24 03:21
04/04/24 03:20
Calcium 7.6 mg/dl (8.4-10.2) L 04/04/24 03:20
Magnesium 1.6 mg/dl (1.6-2.3) 04/04/24 03:20
Total Bilirubin 0.6 mg/dl (0.2-1.3) 04/04/24 03:20
AST 37 U/L (17-59) 04/04/24 03:20
ALT 23 U/L (0-50) 04/04/24 03:20
Alkaline Phosphatase 78 U/L (38-126) 04/04/24 03:20
Total Protein 4.7 g/dl (6.3-8.2) L 04/04/24 03:20
Albumin 2.5 g/dl (3.5-5.0) L 04/04/24 03:20
Physical Exam
-
Gen: sedated/intubated
Abd: soft, mild distention, unable to appreciate ttp
[2024-04-04] MEDS: VANCOCIN 200 IV (11:42)
[2024-04-04 12:13] LABS: Glucose - Point of Care 122 mg/dl (70-99)
--- NOTE | 2024-04-04 12:29 | W.PN.HOSP.TC ---
Today's Communication/Plan
-
wean pressors, and later vent when able
continue IVF
continue empiric IV Abx
follow GS recs; keep NPO/NGT
Assessment / Plan
Assessment / Plan
Assessment:
Cardiac arrest in setting of acute illness, septic shock
- s/p 3 rounds EPI/CPR
- monitor mental status when sedation lifted
- initial CT head was negative
Septic shock from acute ischemic bowel
- on pressors
- wean as able; currently Levophed at 14
- continue aggressive IVF per protocol; trend lactate levels
- continue empiric broad spectrum Vancomycin and Zosyn pending cultures. if MRSA negative, Vancomycin can dc.
Acute abdomen (Acute ischemic bowel)
- CT prelim suggest bowel obstruction/ischemic
- GS following
- s/p ex-lap 04/03: negative ex lap for presumed ischemic bowel, limited NATALIE was performed without sbr
- NGT, NPO, IVF
- may need TPN when more weaned from vent/pressors
VDRF in setting of critical illness
- vent/sedation protocols per ICU team
PABLO with hyperkalemia
- likely in setting of acute sepsis, ATN
- hold nephrotoxins
- obtain urine studies; Ramesh in place for critical care. No need for bladder scans currently
- nephrology following
Acute anemia related to critical illness
- follow Hb
- check anemia workup
Hypocalcemia
Initial concern for UGI
- continue PPI BID
- monitor Hb
- hold off GI evaluation for now
Status post Left hip fracture with cannulated Screw 01/16/24:
Right hip fracture S/P gamma nail about one month ago
hx of Gout
hx of essential HTN
- hold BP agents for sepsis
HLD
Atrial fibrillation/Flutter
- continue Amiodarone
- holding Eliquis; m ay consider IV heparin tomorrow��������������������
Chronic HFpEF
- monitor volume status
type 2 diabetes
- holding MFM
- SSI
- A1c is 6.3%
DVT ppx: SCDs
Code: Full
More than 30 minutes spent in discharge including
Final examination of the patient
Summarizing hospital stay
Instructions for continuing care to all relevant caregivers
Preparation of discharge records, prescriptions, and referral forms
Total time spent (in minutes): 42
Anticipated Discharge: > 48 hours
Subjective/Interval History
-
Date of Service: April 04, 2024
remains intubated, sedated on Levophed 14
Objective Data
-
Labs:
Laboratory Results
04/04/24 04/04/24
03:20 03:21
WBC 16.3 H
Hgb 8.6 L
Hct 26.1 L
Plt Count 225
HCO3 20.7 L
Sodium 137
Potassium 5.0
Chloride 106
Carbon Dioxide 19 L
BUN 49 H
Creatinine 2.7 H
Glucose 116 H
Calcium 7.6 L
Total Bilirubin 0.6
AST 37
ALT 23
Alkaline Phosphatase 78
Vital Signs:
Vital Signs
Temp Pulse Resp BP Pulse Ox
97.6 F 62 20 149/55 99
04/04/24 11:11 04/04/24 06:00 04/04/24 06:00 04/04/24 04:00 04/04/24 11:37
I&O
04/03/24 04/04/24 04/05/24
06:59 06:59 06:59
Intake Total 808.0 / 1065.1 5871.8 / 6054.7 653.1 / 653.1
Output Total 320 / 320 1112 / 1142 175 / 175
Balance 488.0 / 745.1 4759.8 / 4912.7 478.1 / 478.1
Physical Exam
-
General: No Apparent Distress and Intubated
HEENT: Normocephalic, Atraumatic and Other (+NGT)
Respiratory: Negative Wheezes
Cardiac: Irregular Rhythm
GI: Soft
Genito-urinary: No Costovertebral Tender
Neuro: Sedated
Data Reviewed
-
Critical Care Time (in minutes): 42
--- NOTE | 2024-04-04 13:12 | PTCARENOTE ---
Pt assessed.No change in assessment noted.Levophed weaned to 14 mcg.
[2024-04-04 14:25] LABS: Glucose - Point of Care 93 mg/dl (70-99)
--- NOTE | 2024-04-04 14:28 | CM ---
M following re: discharge planning.
Reviewed pt's chart, met with pt.
Pt is POD1 s/p negative ex lap for presumed ischemic bowel, limited NATALIE was performed without sbr. Pt remains intubated, on mechanical ventilation, continue supportive care.
Pt lives with [facility] in [place], 2 steps to enter. Pt ambulates with a walker, has a wheelchair, grab bars, known to [facility], was at [facility] in December 2023.
D/C plan: uncertain at this time and will depend on pt's progress.
CM will follow with discharge plan updates as hospitalization progresses
[2024-04-04 16:28] LABS: Glucose - Point of Care 94 mg/dl (70-99)
[2024-04-04 18:31] LABS: Glucose - Point of Care 104 mg/dl (70-99)
--- NOTE | 2024-04-04 18:44 | PTCARENOTE ---
Pt grimacing,nodded yes when asked if he had pain.Medicated with Fentanyl as ordered.
[2024-04-04] MEDS: HEPARIN 5000 UNITS SC (20:10)
[2024-04-04 20:18] LABS: Glucose - Point of Care 105 mg/dl (70-99)
--- NOTE | 2024-04-04 20:28 | PTCARENOTE ---
Pt received at 19:00. Intubated and sedated. RASS -2. Nods y/n, follows simple commands. SR-sinus belkis w/ BBB and prolonged QT. L radial a-line, zeroed and transduced, correlating with cuff pressure. +2 generalized edema. Palpable radial pulses, DP
by doppler. #7.5 ETT @ 23cm, received on the R, repositioned to the L. AC 20/500/40%/+5. B/S coarse t/o. OGT to LIWS, bilious output, flushed as ordered. Ramesh in place, draining yellow urine-adequate output. Continues on glycemic protocol.
Levophed, vasopressin, and propofol gtts infusing as ordered. Midline abdominal dressing intact, dressing appears unchanged. Safe environment maintained, call hardin within reach, pt repositioned.
[2024-04-04 22:29] LABS: Glucose - Point of Care 74 mg/dl (70-99)
[2024-04-04] MEDS: NOVOLIN R INSULIN INFUSION 100 IV (23:09)
[2024-04-04 23:30] LABS: Glucose - Point of Care 94 mg/dl (70-99)
[2024-04-05] VITALS (18 sets, daily range): BP systolic 110–142; BP diastolic 50–69; PULSE 2–88; BMI 24.5
--- NOTE | 2024-04-05 00:27 | PTCARENOTE ---
Pt assessment unchanged. Safe environment maintained, pt repositioned.
[2024-04-05 00:35] LABS: Glucose - Point of Care 102 mg/dl (70-99)
[2024-04-05] MEDS: NSS 1000 IV (01:10)
[2024-04-05] MEDS: ZOSYN 50 IV ×2 (01:10→07:18)
[2024-04-05 01:36] LABS: Glucose - Point of Care 117 mg/dl (70-99)
[2024-04-05] MEDS: SUBLIMAZE 50 MCG IV (02:30)
[2024-04-05 02:44] LABS: Glucose - Point of Care 107 mg/dl (70-99)
[2024-04-05 03:42] LABS: Glucose - Point of Care 101 mg/dl (70-99)
[2024-04-05 04:13] LABS: Hematocrit 22.4 % (39.0-52.0); Hemoglobin 7.5 g/dL (13.0-18.0); Mean Corp Hgb Conc. 33.5 g/dL (33.0-37.0); Mean Corpuscular Hgb 26.5 pg (27.0-31.0); Mean Corpuscular Volume 79.2 fL (80.0-94.0); Mean Platelet Volume 11.3 fL (7.4-10.4); Platelet Count 181 10^3/uL (130-400); Red Blood Cell Count 2.83 10^6/uL (4.70-6.10); Red Cell Dist. Width 15.9 % (11.5-14.5); White Blood Cell Count 12.9 10^3/uL (4.8-10.8)
[2024-04-05 04:29] LABS: ALT (SGPT) 33 U/L (0-50); AST (SGOT) 38 U/L (17-59); Albumin 2.3 g/dl (3.5-5.0); Alkaline Phosphatase 79 U/L (38-126); Blood Urea Nitrogen 55 mg/dl (9-20); Calcium 7.6 mg/dl (8.4-10.2); Carbon Dioxide 18 mmol/L (22-30); Chloride 107 mmol/L (98-107); Estimated Creatinine Clearance 24 ml/min; Glucose 80 mg/dl (70-99); Potassium 4.6 mmol/L (3.5-5.1); Sodium 137 mmol/L (135-145); Total Bilirubin 0.6 mg/dl (0.2-1.3); Total Protein 4.4 g/dl (6.3-8.2); eGFR 22.82
[2024-04-05 04:31] LABS: Iron < 20 ug/dl (49-181)
[2024-04-05 04:33] LABS: Vancomycin Random 16.9 ug/ml
[2024-04-05 04:39] LABS: Total Iron Binding Capacity 172 ug/dl (261-462)
[2024-04-05 04:57] LABS: Absolute Neutrophils -Man Diff 11.2 10^3/uL (1.4-6.5); Band Neutrophils 31 % (0-3); Lymphocytes 8 % (20-51); Metamyelocytes 2 % (-); Monocytes 3 % (2-9); Normal RBC Morphology No; Platelets Checked Yes; Segmented Neutrophils 56 % (42-75); Total Cells Counted 100
[2024-04-05 04:58] LABS: Anisocytosis 1+; Target Cells 1+; Toxic Granulation 1+
[2024-04-05 04:59] LABS: Acanthocytes Occasional; Ovalocytes 1+; Tear Drop Red Blood Cells Occasional; Vacuolated Segs Occasional
[2024-04-05 05:34] LABS: Folate > 20.0 ng/ml (2.76-20); Vitamin B12 > 1000 pg/ml (239-931)
[2024-04-05 05:36] LABS: Glucose - Point of Care 108 mg/dl (70-99)
[2024-04-05] MEDS: PROTONIX IV 40 MG IV ×2 (07:17→20:18)
[2024-04-05] MEDS: PACERONE 200 MG PO (07:17)
[2024-04-05] MEDS: NSS (PRESERVATIVE FREE) 10 ML IV ×2 (07:17→20:18)
[2024-04-05] MEDS: HEPARIN 5000 UNITS SC ×2 (07:18→20:18)
--- NOTE | 2024-04-05 07:20 | PTCARENOTE ---
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 Patient is intubated, sedated. He has a #7.5 ETT positioned at 23 on right. AC 20/500/5/40% saturating 98%. peak pressures in high 20s, low 30s. Suctioned for thin martin/white secretions, mouth care completed.
Patient is sinus belkis on monitor in 50s, has been bradycardic to 39 briefly. Amio given through OGT. Patient has left radial Candice, transduced at phlebostatic axis and zeroed to atmospheric pressure. Patient on levo and vaso gtt, handoff as
charted in worklist. Propofol dropped to 10 for spontaneous awakening, patient is following commands. Patient has OGT to Low intermittent suction, clamped after amio administration. Patient has agustin for criticial I&Os. Patient has midline
incision with originaly aquacell dressing, no new darainge noted. Intermittent hypoactive bowel sounds auscultated. Some penile edema noted. SCDs on and heparin ordered for DVT prophalaxis. will review orders and maintain safe environment.
Plan to wean.
[2024-04-05 07:53] LABS: Glucose - Point of Care 92 mg/dl (70-99)
[2024-04-05] MEDS: DIPRIVAN 100 IV (07:53)
--- NOTE | 2024-04-05 08:27 | W.PN.GS2 ---
Today's Communication / Plan
-
`
Assessment / Plan
-
83M POD2 s/p negative ex lap for presumed ischemic bowel, limited NATALIE was performed without sbr
AFVSS
continues to wean down on levophed
OGT with minimal outputs - nonbloody loose stools this AM
acute blood loss anemia on chronic anemia - hgb 7.5 this am reflective of hemodilution - no signs of active bleeding
Plan:
continue to wean sedation as able and assess neuro status with wean
vent wean per pulm - appreciate assistance with post op management
OGT can be removed when extubated
Zosyn for empiric abx
Subjective Data
-
Date of Service: April 05, 2024
pt seen and examined
remains on sedation but responsive
d/w nursing
no overnight events
+loose bowels moving this AM
Objective Data
-
Intake and Output
04/04/24 07/24 07/
06:59 06:59 06:59
Intake Total 5871.8 / 6054.7 2659.7 / 2796.3 212.6 / 212.6
Output Total 1112 / 1142 1165 / 1165 60 / 60
Balance 4759.8 / 4912.7 1494.7 / 1631.3 152.6 / 152.6
Intake:
IV fluids (Total) 5481.8 / 5664.7 2329.7 / 2406.3 152.6 / 152.6
Epi 34 / 34
NSS Bolus 1000 / 1000
Danny 152 / 152
Nss 1,000 ml @ 125 mls/hr IV . 2750 / 2875 250 / 250
Q8H FAM Rx#:[id number]
Nss 1,000 ml @ 50 mls/hr IV . 1100 / 1150 100 / 100
Q20H FAM Rx#:[id number]
insulin 12.7 / 15.0 27.1 / 28.1 1.4 / 1.4
levophed 1241.4 / 1278.9 527.2 / 534.7 15.0 / 15.0
propofol 136.7 / 145.8 218.4 / 227.5 18.2 / 18.2
protonix 20 / 20
vasopressin 135 / 144 207 / 216 18 / 18
IV piggybacks 300 / 300 300 / 300
Amount instilled into GI Tube ( 90 / 90 30 / 90 60 / 60
Total)
Mcdonald Sump 90 / 90 30 / 90 60 / 60
Output:
Gastrointestinal tube output ( 275 / 275 100 / 100
Total)
Mcdonald Sump 275 / 275 100 / 100
Urine, Ramesh 837 / 837 1035 / 1035 60 / 60
Urine, Voided 0 30 30 / 30
Vital Signs
Temp Pulse Resp BP Pulse Ox
97.7 F 52 20 131/51 98
04/05/24 07:33 04/05/24 07:17 04/05/24 06:30 04/05/24 07:17 04/05/24 08:00
Lab Results
04/05/24 03:34
04/05/24 03:34
Calcium 7.6 mg/dl (8.4-10.2) L 04/05/24 03:34
Magnesium 1.6 mg/dl (1.6-2.3) 04/04/24 03:20
Total Bilirubin 0.6 mg/dl (0.2-1.3) 04/05/24 03:34
AST 38 U/L (17-59) 04/05/24 03:34
ALT 33 U/L (0-50) 04/05/24 03:34
Alkaline Phosphatase 79 U/L (38-126) 04/05/24 03:34
Total Protein 4.4 g/dl (6.3-8.2) L 04/05/24 03:34
Albumin 2.3 g/dl (3.5-5.0) L 04/05/24 03:34
Physical Exam
-
NAD - intubated, sedated but responsive
ABD: softly distended, tympanitic; nontender on light palpation
OGT in place - minimal gastric contents - currently clamped for PO amio
-loose brown BM - now
--- NOTE | 2024-04-05 08:45 | PTCARENOTE ---
started wean, prop off
--- NOTE | 2024-04-05 09:30 | W.PN.NEPH.PH ---
Today's Communication / Plan
-
cap IVF
Assessment/Plan
-
Assessment:
PABLO (bl 1), now ATN
hypercapnice respiratory failure
s/p cardiac arrest
possible intra-abd process
BPH
T2DM
s/p recent hip fracture
Plan:
follow BMP
cap IVF
no lasix today, nonoliguric
maintain agustin
wean pressors as allowed
critical care time 31 minutes
-
-
Date of Service: April 05, 2024
CC / HPI / ROS
-
Chief Complaint:
PABLO
History of Present Illness:
remains on pressors for hypotension, weaned to levophed
on Vent
critically ill in ICU
PABLO/Cr stable at 2.7 unchanged
acidosis with bicarb 18
nonoliguric
hgb down to 7.5
Review of Systems:
sedated/intubated
opens eyes to voice
Labs
-
Labs:
WBC 12.9 10^3/uL (4.8-10.8) H 04/05/24 03:34
RBC 2.83 10^6/uL (4.70-6.10) L 04/05/24 03:34
Hgb 7.5 g/dL (13.0-18.0) L 04/05/24 03:34
Hct 22.4 % (39.0-52.0) L 04/05/24 03:34
Plt Count 181 10^3/uL (130-400) 04/05/24 03:34
Sodium 137 mmol/L (135-145) 04/05/24 03:34
Potassium 4.6 mmol/L (3.5-5.1) 04/05/24 03:34
Chloride 107 mmol/L (98-107) 04/05/24 03:34
Carbon Dioxide 18 mmol/L (22-30) L 04/05/24 03:34
BUN 55 mg/dl (9-20) H 04/05/24 03:34
Creatinine 2.7 mg/dL (0.7-1.3) H 04/05/24 03:34
eGFR 22.82 04/05/24 03:34
Glucose 80 mg/dl (70-99) 04/05/24 03:34
Calcium 7.6 mg/dl (8.4-10.2) L 04/05/24 03:34
Albumin 2.3 g/dl (3.5-5.0) L 04/05/24 03:34
Physical Exam
-
Vital Signs:
Vital Signs
Temp Pulse Resp BP Pulse Ox
97.7 F 49 20 113/69 99
04/05/24 07:33 04/05/24 09:00 04/05/24 09:00 04/05/24 08:00 04/05/24 09:00
Cardiovascular:: Regular rate and rhythm
Respiratory:: Bilateral: Coarse
Lung Excursion:: Normal
Abdomen:: Nontender and Soft
Bowel Sounds:: None
Extremity Edema:: +3: Bilateral:
[2024-04-05 09:53] LABS: Glucose - Point of Care 77 mg/dl (70-99)
[2024-04-05 10:42] LABS: Glucose - Point of Care 90 mg/dl (70-99)
[2024-04-05 11:21] LABS: B.E. -4.8 mmol/L; HCO3 21.1 mmol/L (21-28); O2 Saturation % 99.4 % (94-98); PCO2 42 mmHg (35-48); PO2 150 mmHg (83-108); pH 7.31 (7.35-7.45)
--- NOTE | 2024-04-05 11:37 | W.PN.INTV ---
Today's Communication / Plan
Recommendations
Extubate
Wean off vasopressors
Continue antibiotics-transition to Augmentin.
Ins continue insulin supplement
Restart anticoagulation in the next 24 to 48 hours if stable
Assessment
-
83-year-old man with extensive past medical history. Admitted through the emergency room after developing nausea and significant vomiting. Found to be lethargic and hypotensive in the emergency room. There is reports of coffee-ground emesis.
Patient has been losing weight at home. Developed cardiorespiratory arrest while on CAT scan. 3 rounds of epinephrine were given with regain of spontaneous circulation. Intubated on mechanical ventilation. Transferred to the critical care unit
for further evaluation.
Septic shock: Possible intra-abdominal process-? Bowel obstruction
Status post exploratory laparotomy 04/03/2024: No evidence for bowel ischemia. Adhesions were noted without transition point
UA: Moderate bacteria/30-40 RBCs/possible leukocyte Esterace/WBCs 0-2
CT chest: Patchy bilateral groundglass opacity.
Volume depletion due to nausea and vomiting
Cardiorespiratory arrest 04/02/2022
Possible anoxic brain injury.
Hypercapnic respiratory failure requiring intubation 04/03/2024 secondary to above.
ABG 7.25/55/354-100% FiO2
Lactic acidosis
Acute kidney injury likely ATN/volume depletion
Conditions present prior admission:
Hypertension
Hyperlipidemia
Paroxysmal atrial fibrillation
Chronic diastolic heart failure
Echocardiogram LVEF 60-65% 12/06/2023.
Type 2 diabetes
BPH
History of gout
Peripheral vascular disease
History of the small bowel obstruction
? COPD history
History of reverse left total shoulder surgery
Cervical laminectomy
Left shoulder replacement
Appendectomy
Recent colonoscopy 03/20/2024 at [place] for weight loss/found rectal nodularity with circumferential distribution
Status post left hip fracture with cannulated screw 01/16/2024-
Status post right hip fracture status post gamma nail about a month ago.

Assessment and plan:
Critically ill, intubated on mechanical ventilation. On multiple vasopressors.
-
Septic shock/volume depletion
Improved vasopressor requirement. Levophed down to 4 mics per minute.
Continue IV fluids for now per
Lactic acid has cleared.
Follow renal function and urinary output.
Ramesh in place
-
Acute kidney injury secondary to above-stable. Improved
On CAT scan patient does have obstructive uropathy on the right with hydronephrosis since February. Unclear etiology.
Nonoliguric
BMP daily
Avoid nephrotoxins
-
Source of infection possibly intra-abdominal. Presented with nausea and vomiting.
Possible partial bowel obstruction
Status post exploratory laparotomy, no transition point noted, adhesions noted. No evidence for ischemia.
Discontinue Zosyn/vancomycin. Start Unasyn. Complete 7 days of antibiotic
Cultures negative so far
-
Acute hypercapnic respiratory failure post cardiorespiratory arrest
Pulmonary mechanics reviewed and acceptable.
Continue mechanical ventilation without change
ABG 04/04/2024: 7.38/35/147
Continue sedation with propofol, fentanyl as needed.
Patient appropriate with sedation break.
Spontaneous breathing trial performed 04/05/2024. Patient is comfortable. Following commands. Has a strong cough effort. Not tachycardic.
ABG with borderline acidosis but patient clinically appears to be very comfortable.
Will extubate with close observation, avoid further sedatives as able to
-
Chest x-ray and CT chest noted: Patchy bilateral groundglass opacities.
Possibly aspiration.
Nebulizers as needed, not bronchospastic on exam
No indication for systemic corticosteroids
Continue antibiotics as above
-
Possible some degree of anoxic brain injury based on CAT scan
Continue sedation breaks as able
Will continue to follow mental status closely
-
Maintain NG tube in place to suction
N.p.o. for now
Head of bed elevation
-
Anemia: No further coffee-ground emesis.
Follow H&H
Transfuse as necessary
PPI twice daily will continue IV
Antiemetics as needed
-
Atrial fibrillation-rate controlled
Heart failure with preserved ejection fraction. Monitor volume status closely.
At this point not requiring significant amount of oxygen. No need for diuresis.
Hold anticoagulation for now usually on apixaban
-
Type 2 diabetes-follow blood sugars, target 140-180
Hold metformin, high risk for metabolic acidosis
Status post insulin drip, continue insulin supplementation
-
DVT prophylaxis with SCDs for now. Heparin subcu started every 12. Restart anticoagulation in the next 24 hours per
-
Critical care statement: A total of 35minutes of critical care time was provided for this patient today. This includes management of unstable vital signs, evaluation of the patient at bedside, reviewing the patient's pertinent medical records
including ventilator settings, arterial blood gases, radiographs, microbiology, laboratory evaluations and discussion with primary team, critical care nursing, and respiratory therapy.

Imaging reviewed:
CT chest abdomen pelvis 04/03/2024:
Suspected small bowel obstruction with small bowel loops located lateral to the colon within the right hemiabdomen, a new finding since 03/02/2024, and may be related to internal hernia. There is no overt small bowel wall thickening, and the small
bowel itself is difficult to evaluate without intravenous contrast, however there does appear to be some findings of small bowel edema which can be seen in the setting of ischemia. No pneumatosis.
Stable mild to moderate right hydronephrosis. No obstructing radiopaque calculus. These findings are stable since 03/02/2024.
Subtle bilateral groundglass foci which likely represents mild multifocal pneumonia.
Trace right pleural effusion. Small volume abdominopelvic ascites.
Intimal calcifications within the lumen of the infrarenal abdominal aorta consistent with underlying dissection. Findings are unchanged from 04/01/2023 and suboptimally evaluated without intravenous contrast.
CT abdomen angiogram:
Small bowel obstruction with transition point in the right hemiabdomen (image numbers documented above) likely due to internal hernia, as there are now small bowel loops located lateral to the colon within the right hemiabdomen which is a new
finding since 03/02/2024. There is bowel wall thickening and surrounding edema, however no overt hypoenhancement or pneumatosis at this time. These findings are suspicious for developing ischemia.
Patent mesenteric vasculature. 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
Stable mild to moderate right hydronephrosis. No obstructing radiopaque calculus.
Trace right pleural effusion. Small volume abdominopelvic ascites.
Stable focal abdominal aortic dissection without extension into aortic branches.
Chest x-ray 04/03/2024:
Reviewed, endotracheal tube is present of 5.6 cm above the oly. Increased interstitial markings bilaterally. Small right pleural effusion.
Subjective Dataa
Subjective Data
Date of Service:
Date of Service: April 05, 2024
Chief Complaint: Human Services Program Specialist Follow Up (Septic shock/respiratory failure requiring mechanical ventilation)
Subjective:
Clinically improving, less vasopressor requirement
Remains intubated and critically ill.
With sedation breaks following commands
Review of Systems
General: Fever (n) and Other (Difficult to obtain due to intubation status, sedation)
Objective Data
Data Reviewed
Vital Signs / I&O / Oxygen:
Vital Signs
Temp Pulse Resp BP Pulse Ox
97.7 F 75 25 113/69 99
04/05/24 07:33 04/05/24 10:30 04/05/24 10:30 04/05/24 08:00 04/05/24 10:30
Intake and Output
04/04/24 04/05/24 04/06/24
06:59 06:59 06:59
Intake Total 5871.8 / 6054.7 2659.7 / 2796.3 329.6 / 329.6
Output Total 1112 / 1142 1165 / 1165 205 / 205
Balance 4759.8 / 4912.7 1494.7 / 1631.3 124.6 / 124.6
SaO2 [A/C] 100
SaO2 99
Physical Exam
General: Comfortable and Other (Cachectic)
HEENT: Normocephalic
Cardiovascular: S1-S2 and Regular Rhythm
Respiratory: Clear and Non-Labored Respirations
GI: Soft, Distended (Decreased bowel sounds) and Other (Midline incision intact.)
Neurology: Other (Follows commands with sedation breaks)
Skin: Warm
Labs/Micro/Reports
Lab Data
04/05/24 03:34
04/05/24 03:34
Laboratory Results
04/05/24
11:00
pH 7.31 L
pCO2 42
pO2 150 H
HCO3 21.1
O2 Delivery Level
Microbiology
04/02/24 20:22 Blood/Venous Blood Culture - Preliminary
No Growth in 48 hours- Final report to follow
04/03/24 02:29 Urine Urine Culture - Final
NO GROWTH
[2024-04-05 11:43] LABS: Glucose - Point of Care 96 mg/dl (70-99)
[2024-04-05] MEDS: DECADRON 6 MG IV ×2 (11:45→17:11)
--- NOTE | 2024-04-05 11:45 | W.PN.UPDATE ---
Update Note
Progress Note Update
Immediately after extubation, patient with upper airway sounds/stridor.
Likely airway edema.
Stat nebulizer will be given
Stat 6 mg of dexamethasone
CPAP may be needed
[2024-04-05] MEDS: NOVOLOG FLEXPEN-MODERATE RESISTANCE SC (11:47)
[2024-04-05] MEDS: DUONEB 3 ML INH ×2 (11:50→15:55)
--- NOTE | 2024-04-05 12:00 | PTCARENOTE ---
Patient having some wheezing/stridor after extubation. Given nebulizers and stat dose of steroids as charted in NOV. Then placed on CPAP, Patient was following all commands but did have increased work of breathing. STated he was having chest
pain, rated 5:10. Obtained ECG. Dr. Ye, assessed at bedside. IV ofirmev ordered and given. Will keep patient on mask, update daughter Trang.
[2024-04-05] MEDS: OFIRMEV 100 IV ×2 (12:08→20:25)
[2024-04-05] MEDS: VAPONEFRIN NEBS 0.5 ML INH (12:13)
--- NOTE | 2024-04-05 12:20 | W.PN.UPDATE ---
Update Note
Progress Note Update
Complaining of chest discomfort
Reproducible
EKG with some conduction abnormalities. No ST elevations.
Obtain troponins
Suspect chest pain is musculoskeletal post CPR and increased work of breathing due to airway edema continues to have mild stridor.
For now continue BiPAP
[2024-04-05 12:53] LABS: Troponin I 0.046 ng/ml
--- NOTE | 2024-04-05 13:03 | W.PN.HOSP.TC ---
Today's Communication/Plan
-
continue IV Abx
CPAP, steroid x 1
wean CPAP as able
nebs
NPO, ST/OT/PT tomorrow
Assessment / Plan
Assessment / Plan
Assessment:
Cardiac arrest in setting of acute illness, septic shock
- s/p 3 rounds EPI/CPR
- monitor mental status when sedation lifted
- initial CT head was negative
Septic shock from acute ischemic bowel
- shock resolved with pressors stopped
- continue IVF
- continue Abx, Unasyn, day 3 of Abx
Acute abdomen (Acute ischemic bowel)
- CT prelim suggest bowel obstruction/ischemic
- GS following
- s/p ex-lap 04/03: negative ex lap for presumed ischemic bowel, limited NATALIE was performed without sbr
- s/p NGT
- speech evals
- may need TPN if oral intake inadequate
VDRF in setting of critical illness
- extubated 04/05 to CPAP
- continue IV Steroids for stridor/wheezing
PABLO with hyperkalemia
- likely in setting of acute sepsis, ATN
- hold nephrotoxins
- Ramesh in place for critical care. No need for bladder scans currently
- nephrology following
Acute anemia related to critical illness
- also dilutional component
- monitor Hb
Hypocalcemia
Initial concern for UGI
- continue PPI BID
- monitor Hb
- hold off GI evaluation for now
Status post Left hip fracture with cannulated Screw 01/16/24:
Right hip fracture S/P gamma nail about one month ago
hx of Gout
hx of essential HTN
- hold BP agents for sepsis
HLD
Atrial fibrillation/Flutter
- continue Amiodarone
- holding Eliquis; m ay consider IV heparin tomorrow��������������������
Chronic HFpEF
- monitor volume status
type 2 diabetes
- holding MFM
- SSI
- A1c is 6.3%
DVT ppx: SCDs
Code: Full
Total Critical Care Time 45 minutes. I was immediately available to the patient and staff. I personally examined, reviewed labs, diagnostic images/reports, interpretations, treatment plans, discussed patient care with other providers and family
or caregivers (if patient is unable to make decisions), entered orders as appropriate and documented the medical record.
Anticipated Discharge: > 48 hours
Subjective/Interval History
-
Date of Service: April 05, 2024
extubated to CPAP
off pressors and insulin drip
Objective Data
-
Labs:
Laboratory Results
04/05/24 04/05/24
03:34 11:00
WBC 12.9 H
Hgb 7.5 L
Hct 22.4 L
Plt Count 181
HCO3 21.1
Sodium 137
Potassium 4.6
Chloride 107
Carbon Dioxide 18 L
BUN 55 H
Creatinine 2.7 H
Glucose 80
Calcium 7.6 L
Total Bilirubin 0.6
AST 38
ALT 33
Alkaline Phosphatase 79
Vital Signs:
Vital Signs
Temp Pulse Resp BP Pulse Ox
98.4 F 88 20 113/69 96
04/05/24 11:42 04/05/24 12:20 04/05/24 12:20 04/05/24 08:00 04/05/24 12:20
I&O
04/04/24 04/05/24 04/06/24
06:59 06:59 06:59
Intake Total 5871.8 / 6054.7 2659.7 / 2796.3 429.6 / 429.6
Output Total 1112 / 1142 1165 / 1165 255 / 255
Balance 4759.8 / 4912.7 1494.7 / 1631.3 174.6 / 174.6
Physical Exam
-
General: No Apparent Distress
HEENT: Normocephalic and Atraumatic
Respiratory: Rhonchi; Negative Wheezes
Cardiac: Regular Rhythm and S1/S2
GI: Soft and Nontender
Genito-urinary: No Costovertebral Tender
Neuro: Awake and Alert
Hematologic / Lymphatic: No Lymphadenopathy
Psych: Calm
Data Reviewed
-
Critical Care Time (in minutes): 45
Labs: Labs Reviewed by me
[2024-04-05] MEDS: UNASYN IV (13:11)
--- NOTE | 2024-04-05 14:58 | CM ---
CM following re: discharge planning.
Reviewed pt's chart, met with pt.
Pt extubated today to Bi-Pap, continue supportive care.
Pt lives with [facility] in [place], 2 steps to enter. Pt ambulates with a walker, has a wheelchair, grab bars, known to [facility].
PT and OT will valuate the pt when clinically appropriate to determine a level of care at discharge.
CM will follow with discharge plan updates as hospitalization progresses
--- NOTE | 2024-04-05 15:14 | PTCARENOTE ---
Weanted pressors off, briefly needed levo as charted in worklist. Will change to standard concentration if needed again. abx changed to Unasyn. Will continue to trend troponin, next draw at 1800. Patient no longer complains of chest pain but has
said his breathing is difficult. explained to patient about edema and need to stay on Bipap. Steroids given and wheezing has diminished.
--- NOTE | 2024-04-05 16:56 | W.PN.UPDATE ---
Update Note
Progress Note Update
Clinically improved
Still with mild stridor.
Will give additional 6 mg of dexamethasone.
Continue nebulizers
Continue CPAP as needed
Will keep n.p.o. for now
[2024-04-05] MEDS: NOVOLOG FLEXPEN-MODERATE RESISTANCE 1 UNITS SC (17:19)
[2024-04-05 17:32] LABS: Glucose - Point of Care 157 mg/dl (70-99)
[2024-04-05 18:39] LABS: Troponin I 0.028 ng/ml
--- NOTE | 2024-04-05 20:00 | PTCARENOTE ---
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 pt c/o back pain- prn ofirmev given, repositioned. mouth care done. DEONTE with aquacel intact. RIJ WNL, L rad AL leveled/zeroed. POC
discussed. call hardin with pt.
[2024-04-06] VITALS (12 sets, daily range): BP systolic 114–166; BP diastolic 59–80; PULSE 2–74; O2SAT 99; BMI 24.5
[2024-04-06] MEDS: NOVOLOG FLEXPEN-MODERATE RESISTANCE SC ×5 (00:03→23:09)
[2024-04-06 00:10] LABS: Glucose - Point of Care 136 mg/dl (70-99)
[2024-04-06] MEDS: DUONEB 3 ML INH (00:11)
[2024-04-06] MEDS: UNASYN IV ×3 (01:43→17:25)
[2024-04-06] MEDS: DILAUDID 0.25 MG IV (02:25)
--- NOTE | 2024-04-06 02:30 | PTCARENOTE ---
pt c/o pain from agustin catheter and intermittent back pain, no relief after ofirmev dose earlier in shift, dilaudid 0.25mg IV x 1 admin per CERTIFIED HYPERBARIC TECHNICIAN order in NOV. no further changes.
[2024-04-06 06:36] LABS: ALT (SGPT) 32 U/L (0-50); AST (SGOT) 28 U/L (17-59); Albumin 2.4 g/dl (3.5-5.0); Alkaline Phosphatase 102 U/L (38-126); Blood Urea Nitrogen 64 mg/dl (9-20); Calcium 7.8 mg/dl (8.4-10.2); Carbon Dioxide 19 mmol/L (22-30); Chloride 110 mmol/L (98-107); Estimated Creatinine Clearance 29 ml/min; Glucose 125 mg/dl (70-99); Sodium 140 mmol/L (135-145); Total Bilirubin 0.5 mg/dl (0.2-1.3); Total Protein 4.7 g/dl (6.3-8.2); Triglycerides 331 mg/dl (10-149); eGFR 29.17
[2024-04-06 06:58] LABS: Glucose - Point of Care 131 mg/dl (70-99)
[2024-04-06 07:29] LABS: Hematocrit 23.1 % (39.0-52.0); Hemoglobin 7.7 g/dL (13.0-18.0); Mean Corp Hgb Conc. 33.3 g/dL (33.0-37.0); Mean Corpuscular Hgb 26.1 pg (27.0-31.0); Mean Corpuscular Volume 78.3 fL (80.0-94.0); Mean Platelet Volume 11.1 fL (7.4-10.4); Nucleated Red Blood Cells % 0 % (-); Platelet Count 157 10^3/uL (130-400); Red Blood Cell Count 2.95 10^6/uL (4.70-6.10); Red Cell Dist. Width 16.2 % (11.5-14.5); White Blood Cell Count 11.5 10^3/uL (4.8-10.8)
[2024-04-06] MEDS: NSS (PRESERVATIVE FREE) 10 ML IV ×2 (07:44→19:58)
[2024-04-06] MEDS: PROTONIX IV 40 MG IV ×2 (07:44→19:58)
[2024-04-06] MEDS: HEPARIN 5000 UNITS SC (07:44)
[2024-04-06] MEDS: PACERONE PO (07:45)
--- NOTE | 2024-04-06 08:20 | W.PN.GS2 ---
Today's Communication / Plan
-
PROJECT HIRE eval then clear liquids if able
Assessment / Plan
-
83M POD 3 s/p negative ex lap for presumed ischemic bowel, limited NATALIE was performed without sbr
AFVSS
Extubated/off pressors
Labs stable
+flatus/stools but still with some abd distention
Plan:
Awaiting PROJECT HIRE prior to dietary advancement. Would start with clear liquids once cleared to begin taking PO
Zosyn for empiric abx
Medical management as per primary team
Subjective Data
-
Date of Service: April 06, 2024
Patient seen and examined at bedside with Dr. Sales. Denies n/v. Passing flatus/stools. Denies pain.
Objective Data
-
Intake and Output
04/05/24 04/06/24 04/07/24
06:59 06:59 06:59
Intake Total 2659.7 / 2796.3 653.4 / 653.4
Output Total 1165 / 1165 1420 / 1420
Balance 1494.7 / 1631.3 -766.6 / -766.6
Intake:
IV fluids (Total) 2329.7 / 2406.3 273.4 / 273.4
Nss 1,000 ml @ 125 mls/hr IV . 250 / 250
Q8H FAM Rx#:[id number]
Nss 1,000 ml @ 50 mls/hr IV . 1100 / 1150 200 / 200
Q20H FAM Rx#:[id number]
insulin 27.1 / 28.1 1.8 / 1.8
levophed 527.2 / 534.7 26.4 / 26.4
propofol 218.4 / 227.5 18.2 / 18.2
vasopressin 207 / 216 27 / 27
IV piggybacks 300 / 300 320 / 320
Amount instilled into GI Tube ( 60 60
Total)
[place] Sump 60 60
Output:
Gastrointestinal tube output ( 100 / 100
Total)
[place] Sump 100 / 100
Urine, Ramesh 1035 / 1035 1420 / 1420
Urine, Voided 30
Vital Signs
Temp Pulse Resp BP Pulse Ox
96.8 F L 60 14 123/77 99
04/06/24 07:14 04/06/24 07:00 04/06/24 07:00 04/06/24 00:00 04/06/24 07:57
Lab Results
04/06/24 04:30
04/06/24 04:30
Calcium 7.8 mg/dl (8.4-10.2) L 04/06/24 04:30
Magnesium 1.6 mg/dl (1.6-2.3) 04/04/24 03:20
Total Bilirubin 0.5 mg/dl (0.2-1.3) 04/06/24 04:30
AST 28 U/L (17-59) 04/06/24 04:30
ALT 32 U/L (0-50) 04/06/24 04:30
Alkaline Phosphatase 102 U/L (38-126) 04/06/24 04:30
Total Protein 4.7 g/dl (6.3-8.2) L 04/06/24 04:30
Albumin 2.4 g/dl (3.5-5.0) L 04/06/24 04:30
Physical Exam
-
NAD, answers questions appropriately
ABD: softly distended, mildly tympanitic; nontender on light palpation
Midline incision with intact staple line, no drainage or eythema
--- NOTE | 2024-04-06 09:51 | W.PN.INTV ---
Today's Communication / Plan
Recommendations
DC IVF
Speech eval and possible advance diet
PT?OT
monitor HH
Cont. ABX
restart Apixaban.
transfer to IMU, CCM will sign off.
Assessment
-
83-year-old man with extensive past medical history. Admitted through the emergency room after developing nausea and significant vomiting. Found to be lethargic and hypotensive in the emergency room. There is reports of coffee-ground emesis.
Patient has been losing weight at home. Developed cardiorespiratory arrest while on CAT scan. 3 rounds of epinephrine were given with regain of spontaneous circulation. Intubated on mechanical ventilation. Transferred to the critical care unit
for further evaluation.
Septic shock: Possible intra-abdominal process-? Bowel obstruction
Status post exploratory laparotomy 04/03/2024: No evidence for bowel ischemia. Adhesions were noted without transition point
UA: Moderate bacteria/30-40 RBCs/possible leukocyte Esterace/WBCs 0-2
CT chest: Patchy bilateral groundglass opacity.
Volume depletion due to nausea and vomiting
Cardiorespiratory arrest 04/02/2022
Possible anoxic brain injury.
Hypercapnic respiratory failure requiring intubation 04/03/2024 secondary to above.
ABG 7.25/55/354-100% FiO2
Extubated 04/05/2024
Developed airway edema - improved with steroids.
Lactic acidosis
Acute kidney injury likely ATN/volume depletion
Conditions present prior admission:
Hypertension
Hyperlipidemia
Paroxysmal atrial fibrillation
Chronic diastolic heart failure
Echocardiogram LVEF 60-65% 12/06/2023.
Type 2 diabetes
BPH
History of gout
Peripheral vascular disease
History of the small bowel obstruction
? COPD history
History of reverse left total shoulder surgery
Cervical laminectomy
Left shoulder replacement
Appendectomy
Recent colonoscopy 03/20/2024 at [facility] for weight loss/found rectal nodularity with circumferential distribution
Status post left hip fracture with cannulated screw 01/16/2024-
Status post right hip fracture status post gamma nail about a month ago.

Assessment and plan:
Improved clinically, extubated on 04/05/2024.
-
Septic shock/volume depletion - resolved.
Lactic acid has cleared.
Ramesh in place
-
Acute kidney injury secondary to above-stable. Improved
On CAT scan patient does have obstructive uropathy on the right with hydronephrosis since February. Unclear etiology.
Nonoliguric
BMP daily
Avoid nephrotoxins
-
Source of infection possibly intra-abdominal. Presented with nausea and vomiting.
Possible partial bowel obstruction
Status post exploratory laparotomy, no transition point noted, adhesions noted. No evidence for ischemia.
Unasyn. Complete 7 days of antibiotic
Cultures negative so far
-
Acute hypercapnic respiratory failure post cardiorespiratory arrest
extubated 04/05/2024
Developed airway edema, required 2 dosed of dexametasone and CPAP support. on 04/05/2024
Can us CPAP PRN and no further steorids required.
improved today, no stridor on exam 04/06/2024
Cont. nebs to aid secretion clearance.
IS as able
Increase activity as able.
-
Chest x-ray and CT chest noted: Patchy bilateral groundglass opacities.
Possibly aspiration.
Nebulizers as needed, not bronchospastic on exam
No indication for systemic corticosteroids
Continue antibiotics as above
-
Possible some degree of anoxic brain injury based on CAT scan
monitor mental status- back to baseline.
PT/OT as able.
-
Speech eval. hopefully can start clear liquids.
-
Anemia: No further coffee-ground emesis.
Follow H&H
Transfuse as necessary
PPI twice daily will continue IV
Antiemetics as needed
-
Atrial fibrillation-rate controlled
Heart failure with preserved ejection fraction. Monitor volume status closely.
At this point not requiring significant amount of oxygen. No need for diuresis.
Ok to restart apixaban
-
Type 2 diabetes-follow blood sugars, target 140-180
Hold metformin, high risk for metabolic acidosis
continue insulin supplementation
-
DVT prophylaxis dcHeparin subcu started every 12. Restart anticoagulation today
-
Will transfer to IMU.
CCM will sign off. Please call with questions.

Imaging reviewed:
CT chest abdomen pelvis 04/03/2024:
Suspected small bowel obstruction with small bowel loops located lateral to the colon within the right hemiabdomen, a new finding since 03/02/2024, and may be related to internal hernia. There is no overt small bowel wall thickening, and the small
bowel itself is difficult to evaluate without intravenous contrast, however there does appear to be some findings of small bowel edema which can be seen in the setting of ischemia. No pneumatosis.
Stable mild to moderate right hydronephrosis. No obstructing radiopaque calculus. These findings are stable since 03/02/2024.
Subtle bilateral groundglass foci which likely represents mild multifocal pneumonia.
Trace right pleural effusion. Small volume abdominopelvic ascites.
Intimal calcifications within the lumen of the infrarenal abdominal aorta consistent with underlying dissection. Findings are unchanged from 04/01/2023 and suboptimally evaluated without intravenous contrast.
CT abdomen angiogram:
Small bowel obstruction with transition point in the right hemiabdomen (image numbers documented above) likely due to internal hernia, as there are now small bowel loops located lateral to the colon within the right hemiabdomen which is a new
finding since 03/02/2024. There is bowel wall thickening and surrounding edema, however no overt hypoenhancement or pneumatosis at this time. These findings are suspicious for developing ischemia.
Patent mesenteric vasculature. 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
Stable mild to moderate right hydronephrosis. No obstructing radiopaque calculus.
Trace right pleural effusion. Small volume abdominopelvic ascites.
Stable focal abdominal aortic dissection without extension into aortic branches.
Chest x-ray 04/03/2024:
Reviewed, endotracheal tube is present of 5.6 cm above the oly. Increased interstitial markings bilaterally. Small right pleural effusion.
Subjective Dataa
Subjective Data
Date of Service:
Date of Service: April 06, 2024
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
Subjective:
Pt states that he feels better.
Denied any chest pain this AM
Denies abdominal pain.
Review of Systems
GI: Nausea (n) and Vomiting (n)
Objective Data
Data Reviewed
Vital Signs / I&O / Oxygen:
Vital Signs
Temp Pulse Resp BP Pulse Ox
96.8 F L 68 13 121/64 99
04/06/24 07:14 04/06/24 09:00 04/06/24 09:00 04/06/24 08:00 04/06/24 09:00
Intake and Output
04/05/24 04/06/24 04/07/24
06:59 06:59 06:59
Intake Total 2659.7 / 2796.3 653.4 / 653.4 0 / 0
Output Total 1165 / 1165 1420 / 1470 140 / 140
Balance 1494.7 / 1631.3 -766.6 / -816.6 -140 / -140
SaO2 [A/C] 100
SaO2 99
Nasal Cannula flow liters per 6
minute
Physical Exam
General: Comfortable and Other (Cachectic)
HEENT: Normocephalic
Cardiovascular: S1-S2 and Regular Rhythm
Respiratory: Clear and Non-Labored Respirations
GI: Soft, Non Tender, Other (Decreased bowel sounds.) and Other (Midline incision intact.)
Neurology: Awake, Alert and No Motor Deficits
Skin: Warm
Labs/Micro/Reports
Lab Data
04/06/24 04:30
04/06/24 04:30
Laboratory Results
04/05/24
11:00
pH 7.31 L
pCO2 42
pO2 150 H
HCO3 21.1
O2 Delivery Level
Microbiology
04/02/24 20:22 Blood/Venous Blood Culture - Preliminary
No Growth in 72 hours- Final report to follow
04/03/24 02:29 Urine Urine Culture - Final
NO GROWTH
--- NOTE | 2024-04-06 11:50 | PTOTSP ---
SPEECH THERAPY SWALLOW EVALUATION:
Patient exhibits clinical signs of oropharyngeal dysphagia, likely acutely related to recent 3-day endotracheal intubation/VDRF secondary to septic shock, cardiac arrest, s/p 3 rounds EPI/CPR, ex-lap, acute ischemic bowel. Patient remains at risk
for aspiration and related complications at this time. Recommend continue NPO except for necessary medications crushed in puree if medically cleared to do so and ARHP via small ice chips and small sips of water, sparingly, with RN supervision,
following oral care and with aspiration precautions in place. Speech therapy to follow, re-assess patient in 24 hours, determine readiness for additional p.o. trials/textures and/or diet initiation, determine indication for instrumental assessment
of swallowing if appropriate, and provide continued diagnostic swallow therapy as appropriate. Discussed recommendations with patient/RN.
RECOMMEND:
1) NPO except for necessary medications crushed in puree if medically cleared to do so
2) ARHP via small ice chips and small sips of water, sparingly, with RN supervision, following oral care and with aspiration precautions in place
3) Speech therapy to follow, re-assess patient in 24 hours
[2024-04-06 12:27] LABS: Glucose - Point of Care 137 mg/dl (70-99)
--- NOTE | 2024-04-06 13:03 | W.PN.NEPH.PH ---
Today's Communication / Plan
-
- Cr improving, continue to trend
Assessment/Plan
-
Assessment:
PABLO (bl 1), now ATN
hypercapnice respiratory failure
s/p cardiac arrest
possible intra-abd process
BPH
T2DM
s/p recent hip fracture
Plan:
Cr peak 2.7, down to 2.2
UOP improving, no need for lasix
follow BMP
cap IVF
maintain agustin
extubated 04/05
off pressors now, keep >65
-
-
Date of Service: April 06, 2024
CC / HPI / ROS
-
Chief Complaint:
PABLO
History of Present Illness:
off pressors today
extubated on 04/05
PABLO/Cr improved at 2.2
nonoliguric
Review of Systems:
awake, minimall interactive
resting comfortably
Labs
-
Labs:
WBC 11.5 10^3/uL (4.8-10.8) H 04/06/24 04:30
RBC 2.95 10^6/uL (4.70-6.10) L 04/06/24 04:30
Hgb 7.7 g/dL (13.0-18.0) L 04/06/24 04:30
Hct 23.1 % (39.0-52.0) L 04/06/24 04:30
Plt Count 157 10^3/uL (130-400) 04/06/24 04:30
Sodium 140 mmol/L (135-145) 04/06/24 04:30
Potassium 5.0 mmol/L (3.5-5.1) 04/06/24 04:30
Chloride 110 mmol/L (98-107) H 04/06/24 04:30
Carbon Dioxide 19 mmol/L (22-30) L 04/06/24 04:30
BUN 64 mg/dl (9-20) H 04/06/24 04:30
Creatinine 2.2 mg/dL (0.7-1.3) H 04/06/24 04:30
eGFR 29.17 04/06/24 04:30
Glucose 125 mg/dl (70-99) H 04/06/24 04:30
Calcium 7.8 mg/dl (8.4-10.2) L 04/06/24 04:30
Albumin 2.4 g/dl (3.5-5.0) L 04/06/24 04:30
Physical Exam
-
Vital Signs:
Vital Signs
Temp Pulse Resp BP Pulse Ox
97.6 F 68 13 121/64 99
04/06/24 11:13 04/06/24 09:00 04/06/24 09:00 04/06/24 08:00 04/06/24 09:00
Cardiovascular:: Regular rate and rhythm
Respiratory:: Bilateral: Coarse
Lung Excursion:: Normal
Abdomen:: Nontender and Soft
Bowel Sounds:: Normal
Extremity Edema:: None: Bilateral:
Agustin Catheter: Yes
--- NOTE | 2024-04-06 13:17 | PTCARENOTE ---
No change in patient's assessment.Patient has not been cleared yet for diet from speech, but is allowed surervised intermittent sips and meds to be crushed in applesauce. Continuing to turn and reposition. Was able to stand at the bedside with
physical therapy. patient is written for IMU status.
--- NOTE | 2024-04-06 14:11 | W.PN.HOSP.TC ---
Today's Communication/Plan
-
transfer to IMU
continue IV abx
ongoing PT/OT/ST
Assessment / Plan
Assessment / Plan
Assessment:
Cardiac arrest in setting of acute illness, septic shock
- s/p 3 rounds EPI/CPR
- monitor mental status when sedation lifted
- initial CT head was negative
Septic shock from acute ischemic bowel
- shock resolved with pressors stopped
- received IVFs
- continue Unasyn, day 12/24
Acute abdomen (Acute ischemic bowel)
- CT prelim suggest bowel obstruction/ischemic
- GS following
- s/p ex-lap 04/03: negative ex lap for presumed ischemic bowel, limited NATALIE was performed without sbr
- s/p NGT
- speech evals; currently NPO
- may need TPN if oral intake inadequate
VDRF in setting of critical illness
- extubated 04/05 to CPAP
- s/p IV steroids x 2 for stridor
PABLO with hyperkalemia
- likely in setting of acute sepsis, ATN
- hold nephrotoxins
- Ramesh in place for critical care. No need for bladder scans currently
- nephrology following
- Cr 2.2
- consider Lasix if UOP inadequate
Acute anemia related to critical illness
- also dilutional component
- monitor Hb
Hypocalcemia
Initial concern for UGI
- continue PPI BID
- monitor Hb
- hold off GI evaluation for now
Status post Left hip fracture with cannulated Screw 01/16/24:
Right hip fracture S/P gamma nail about one month ago
hx of Gout
hx of essential HTN
- hold BP agents for sepsis
HLD
Atrial fibrillation/Flutter
- continue Amiodarone/Eliquis���������
Chronic HFpEF
- monitor volume status
type 2 diabetes
- holding MFM
- SSI
- A1c is 6.3%
DVT ppx: SCDs
Code: Full
transfer to U
Anticipated Discharge: > 48 hours
Subjective/Interval History
-
Date of Service: April 06, 2024
feels better no complaints
Objective Data
-
Labs:
Laboratory Results
04/06/24
04:30
WBC 11.5 H
Hgb 7.7 L
Hct 23.1 L
Plt Count 157
Sodium 140
Potassium 5.0
Chloride 110 H
Carbon Dioxide 19 L
BUN 64 H
Creatinine 2.2 H
Glucose 125 H
Calcium 7.8 L
Total Bilirubin 0.5
AST 28
ALT 32
Alkaline Phosphatase 102
Vital Signs:
Vital Signs
Temp Pulse Resp BP Pulse Ox
97.6 F 74 19 114/63 99
04/06/24 11:13 04/06/24 13:30 04/06/24 13:30 04/06/24 12:02 04/06/24 13:00
I&O
04/05/24 04/06/24 04/07/24
06:59 06:59 06:59
Intake Total 2659.7 / 2796.3 653.4 / 653.4 120 / 120
Output Total 1165 / 1165 1420 / 1470 415 / 415
Balance 1494.7 / 1631.3 -766.6 / -816.6 -295 / -295
Physical Exam
-
General: No Apparent Distress
HEENT: Normocephalic and Atraumatic
Respiratory: Rhonchi; Negative Wheezes
Cardiac: Regular Rhythm and S1/S2
Musculoskeletal: No Edema
Neuro: AO x 3
Psych: Calm
Data Reviewed
-
Total Time Spent with Patient (in minutes): 45
Labs: Labs Reviewed by me
--- NOTE | 2024-04-06 14:18 | CM ---
CM following re: discharge planning.
Reviewed pt's chart, met with pt.
Pt extubated yesterday, uses Bi-Pap at night, requires 6L NC of O2, continue supportive care.
Pt lives with SO in [place], 2 steps to enter. Pt ambulates with a walker, has a wheelchair, grab bars, known to [place] .
PT and OT evaluations noted - skilled level of care recommended. CM discussed it with the pt and he stated h was at [facility] in the past and he is requested only going to [facility]. pt stated he was at [facility] in the past and
did not have good experience.
CM will make a referral to [facility] when appropriate.
D/C plan: [facility]. Pt strongly declined to have an alternative plan in case [facility] will not be an option.
CM will follow with discharge plan updates as hospitalization progresses
[2024-04-06 17:53] LABS: Glucose - Point of Care 138 mg/dl (70-99)
[2024-04-06] MEDS: ELIQUIS 2.5 MG PO (19:58)
--- NOTE | 2024-04-06 20:00 | PTCARENOTE ---
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 pt able to cough up secretions on own and use yankeur to suction. tolerating sips of clears/eliquis given with applesauce. Ramesh cath draining adequate amt yellow
urine. POC discussed, call hardin with patient.
[2024-04-06] MEDS: TYLENOL 650 MG PO (22:26)
[2024-04-06 23:20] LABS: Glucose - Point of Care 144 mg/dl (70-99)
[2024-04-07] VITALS (17 sets, daily range): BP systolic 121–156; BP diastolic 66–89; BMI 24.1
--- NOTE | 2024-04-07 | PTCARENOTE ---
no changes in pt assessment.
[2024-04-07] MEDS: UNASYN IV ×5 (00:19→23:31)
[2024-04-07 03:48] LABS: Hematocrit 27.1 % (39.0-52.0); Hemoglobin 8.7 g/dL (13.0-18.0); Mean Corp Hgb Conc. 32.1 g/dL (33.0-37.0); Mean Corpuscular Volume 81.1 fL (80.0-94.0); Mean Platelet Volume 10.7 fL (7.4-10.4); Platelet Count 161 10^3/uL (130-400); Red Blood Cell Count 3.34 10^6/uL (4.70-6.10); White Blood Cell Count 14.2 10^3/uL (4.8-10.8)
[2024-04-07 04:08] LABS: ALT (SGPT) 26 U/L (0-50); AST (SGOT) 18 U/L (17-59); Albumin 2.6 g/dl (3.5-5.0); Alkaline Phosphatase 84 U/L (38-126); Blood Urea Nitrogen 61 mg/dl (9-20); Calcium 8.2 mg/dl (8.4-10.2); Carbon Dioxide 23 mmol/L (22-30); Chloride 108 mmol/L (98-107); Estimated Creatinine Clearance 34 ml/min; Glucose 129 mg/dl (70-99); Potassium 4.8 mmol/L (3.5-5.1); Sodium 140 mmol/L (135-145); Total Bilirubin 0.4 mg/dl (0.2-1.3); Total Protein 4.9 g/dl (6.3-8.2); eGFR 34.79
[2024-04-07 04:28] LABS: % Basophils 0.2 % (0-2); % Lymphocytes 3.7 % (20.5-51.1); % Monocytes 6.3 % (1.7-9.3); % Neutrophils 88.8 % (42.2-75.2); Absolute Immature Granulocytes 0.1 10^3/uL (0-0.05); Absolute Lymphocytes 0.5 10^3/uL (1.2-3.4); Absolute Monocytes 0.9 10^3/uL (0.1-0.6); Absolute Neutrophils 12.6 10^3/uL (1.4-6.5); Nucleated Red Blood Cells % 0 % (-)
[2024-04-07] MEDS: NOVOLOG FLEXPEN-MODERATE RESISTANCE SC ×4 (05:56→23:31)
[2024-04-07 06:04] LABS: Glucose - Point of Care 143 mg/dl (70-99)
[2024-04-07] MEDS: PROTONIX IV 40 MG IV ×2 (08:25→19:18)
[2024-04-07] MEDS: NSS (PRESERVATIVE FREE) 10 ML IV ×2 (08:25→19:18)
[2024-04-07] MEDS: ELIQUIS 2.5 MG PO ×2 (08:25→19:18)
[2024-04-07] MEDS: PACERONE 200 MG PO (08:25)
[2024-04-07] MEDS: DUONEB 3 ML INH ×3 (08:56→16:07)
--- NOTE | 2024-04-07 09:03 | PTCARENOTE ---
report received, assessments per work list. patient c/o slight abdominal discomfort, but declining pain meds at this time. oriented to person and place, forgetful, no recollection of events that initiated admission. left arm weak with limited
mobility. patient states this is his baseline due to shoulder issues.monitor nsr with bbb, pvc's. generalized anasarca, pitting. wheezes and rhonci bilaterally. coughing frequently, thick martin secretions. using yankaur. abdominal incision
approximated with velma in place. agustin draining clear urnine. rectal trumpet in place, small amount loose stool. hyperactive bowels sounds. call hardin in place. Rt updated, to administer neb for wheezing
--- NOTE | 2024-04-07 10:35 | W.PN.GS2 ---
Today's Communication / Plan
-
clear liquids when tolerating po
Assessment / Plan
-
83M POD 4 s/p negative ex lap for presumed ischemic bowel, limited NATALIE was performed without sbr
AFVSS
remains extubated/off pressors
WBC trended up today, h/h stable
+flatus/loose stools
Plan:
Awaiting [employer]IE[employer] prior to dietary advancement. Would start with clear liquids once cleared to begin taking PO
ABX as per primary team
Medical management as per primary team
Subjective Data
-
Date of Service: April 07, 2024
Patient seen and examined at bedside with Dr. Perry. Discomfort improving, feeling better everyday. Denies n/v. Eager to eat again.
Objective Data
-
Intake and Output
04/06/24 04/07/24 04/08/24
06:59 06:59 06:59
Intake Total 653.4 / 653.4 1080 / 1080
Output Total 1420 / 0 1879 / 1879 325 / 325
Balance -766.6 / -816.6 -800 / -800 -325 / -325
Intake:
Oral fluids 840 / 840
IV fluids (Total) 273.4 / 273.4 0 / 0
Nss 1,000 ml @ 50 mls/hr IV . 200 / 200
Q20H FAM Rx#:[id number]
insulin 1.8 / 1.8
levophed 26.4 / 26.4 0 / 0
propofol 18.2 / 18.2
vasopressin 27 / 27
IV piggybacks 320 / 320 240 / 240
Amount instilled into GI Tube ( 60 / 60
Total)
[place] 60 / 60
Output:
Urine, Ramesh 1420 / 1470 1879 325 / 325
Vital Signs
Temp Pulse Resp BP Pulse Ox
97.7 F 81 19 151/69 96
04/07/24 08:06 04/07/24 10:00 04/07/24 10:00 04/07/24 10:00 04/07/24 10:29
Lab Results
04/07/24 03:24
04/07/24 03:24
Calcium 8.2 mg/dl (8.4-10.2) L 04/07/24 03:24
Magnesium 1.6 mg/dl (1.6-2.3) 04/04/24 03:20
Total Bilirubin 0.4 mg/dl (0.2-1.3) 04/07/24 03:24
AST 18 U/L (17-59) 04/07/24 03:24
ALT 26 U/L (0-50) 04/07/24 03:24
Alkaline Phosphatase 84 U/L (38-126) 04/07/24 03:24
Total Protein 4.9 g/dl (6.3-8.2) L 04/07/24 03:24
Albumin 2.6 g/dl (3.5-5.0) L 04/07/24 03:24
Physical Exam
-
NAD, answers questions appropriately
ABD: soft, minmal distention, minimal incisional tenderness
Midline incision with intact staple line, no drainage or erythema
[2024-04-07 12:30] LABS: Glucose - Point of Care 136 mg/dl (70-99)
--- NOTE | 2024-04-07 12:30 | W.PN.NEPH.PH ---
Today's Communication / Plan
-
- continue to trend Cr
Assessment/Plan
-
Assessment:
PABLO (bl 1), now ATN
hypercapnice respiratory failure
s/p cardiac arrest
possible intra-abd process
BPH
T2DM
s/p recent hip fracture
Plan:
Cr peak 2.7, down to 1.9
UOP improving, no need for lasix
follow BMP
cap IVF
maintain agustin
extubated 04/05, much more interactive now
off pressors now, keep >65
-
-
Date of Service: April 07, 2024
CC / HPI / ROS
-
Chief Complaint:
PABLO
History of Present Illness:
off pressors today
extubated on 04/05
PABLO/Cr improved at 1.9
nonoliguric
Review of Systems:
awake, very interactive
resting comfortably
Labs
-
Labs:
WBC 14.2 10^3/uL (4.8-10.8) H 04/07/24 03:24
RBC 3.34 10^6/uL (4.70-6.10) L 04/07/24 03:24
Hgb 8.7 g/dL (13.0-18.0) L 04/07/24 03:24
Hct 27.1 % (39.0-52.0) L 04/07/24 03:24
Plt Count 161 10^3/uL (130-400) 04/07/24 03:24
Sodium 140 mmol/L (135-145) 04/07/24 03:24
Potassium 4.8 mmol/L (3.5-5.1) 04/07/24 03:24
Chloride 108 mmol/L (98-107) H 04/07/24 03:24
Carbon Dioxide 23 mmol/L (22-30) 04/07/24 03:24
BUN 61 mg/dl (9-20) H 04/07/24 03:24
Creatinine 1.9 mg/dL (0.7-1.3) H 04/07/24 03:24
eGFR 34.79 04/07/24 03:24
Glucose 129 mg/dl (70-99) H 04/07/24 03:24
Calcium 8.2 mg/dl (8.4-10.2) L 04/07/24 03:24
Albumin 2.6 g/dl (3.5-5.0) L 04/07/24 03:24
Physical Exam
-
Vital Signs:
Vital Signs
Temp Pulse Resp BP Pulse Ox
98.2 F 82 16 151/69 96
04/07/24 11:47 04/07/24 12:20 04/07/24 12:20 04/07/24 10:00 04/07/24 12:20
Cardiovascular:: Regular rate and rhythm
Respiratory:: Bilateral: Coarse
Lung Excursion:: Normal
Abdomen:: Nontender and Soft
Bowel Sounds:: Normal
Extremity Edema:: None: Bilateral:
Agustin Catheter: Yes
--- NOTE | 2024-04-07 12:30 | W.PN.HOSP.TC ---
Today's Communication/Plan
-
continue IV Abx
mucolytics
repeat CXR
ongoing discussions of DHT vs less favorably TPN vs patient refusal for anything. Daughter will come and facilitate a decision
Assessment / Plan
Assessment / Plan
Assessment:
Cardiac arrest in setting of acute illness, septic shock
- s/p 3 rounds EPI/CPR
- monitor mental status when sedation lifted
- initial CT head was negative
Septic shock from acute ischemic bowel
- shock resolved with pressors stopped
- received IVFs
- continue Unasyn, day 01/23
Acute abdomen (Acute ischemic bowel)
- CT prelim suggest bowel obstruction/ischemic
- GS following
- s/p ex-lap 04/03: negative ex lap for presumed ischemic bowel, limited NATALIE was performed without sbr
- s/p NGT
- speech evals; currently NPO
- may need DHT (or less favorably TPN) if agreeable
VDRF in setting of critical illness
- extubated 04/05 to CPAP
- s/p IV steroids x 2 for stridor
- repeat CXR today
PABLO with hyperkalemia
- likely in setting of acute sepsis, ATN
- hold nephrotoxins
- Ramesh in place for critical care. No need for bladder scans currently
- nephrology following
- Cr 1.9
- consider Lasix if UOP inadequate
Acute anemia related to critical illness
- also dilutional component
- monitor Hb
Hypocalcemia
Initial concern for UGI
- continue PPI BID
- monitor Hb
- hold off GI evaluation for now
Status post Left hip fracture with cannulated Screw 01/16/24:
Right hip fracture S/P gamma nail about one month ago
hx of Gout
hx of essential HTN
- hold BP agents for sepsis
HLD
Atrial fibrillation/Flutter
- continue Amiodarone/Eliquis���������
Chronic HFpEF
- monitor volume status
type 2 diabetes
- holding MFM
- SSI
- A1c is 6.3%
DVT ppx: SCDs
Code: Full
Anticipated Discharge: > 48 hours
Subjective/Interval History
-
Date of Service: April 07, 2024
thick secretions per nursing
patient again not ready for PO Per speech
Objective Data
-
Labs:
Laboratory Results
04/07/24
03:24
WBC 14.2 H
Hgb 8.7 L
Hct 27.1 L
Plt Count 161
Sodium 140
Potassium 4.8
Chloride 108 H
Carbon Dioxide 23
BUN 61 H
Creatinine 1.9 H
Glucose 129 H
Calcium 8.2 L
Total Bilirubin 0.4
AST 18
ALT 26
Alkaline Phosphatase 84
Vital Signs:
Vital Signs
Temp Pulse Resp BP Pulse Ox
98.2 F 82 16 151/69 96
04/07/24 11:47 04/07/24 12:20 04/07/24 12:20 04/07/24 10:00 04/07/24 12:20
I&O
04/06/24 04/07/24 04/08/24
06:59 06:59 06:59
Intake Total 653.4 / 653.4 1080 / 1080
Output Total 1420 / 1470 1880 / 1880 475 / 475
Balance -766.6 / -816.6 -800 / -800 -450 / -450
Physical Exam
-
General: No Apparent Distress
HEENT: Normocephalic and Atraumatic
Respiratory: Rhonchi
Cardiac: Regular Rhythm and S1/S2
GI: Soft
Neuro: AO x 3
Psych: Calm
Data Reviewed
-
Total Time Spent with Patient (in minutes): 45
Labs: Labs Reviewed by me
--- NOTE | 2024-04-07 12:38 | PTCARENOTE ---
patient assisted to dangle and stand at the bedside. generalized weakness in addition to left arm weakness. lungs with rhonchi, coarse wheezes. RT to administer nebulizer. continues to cough large amount thick martin sputum. aspiration precautions
maintained. patient significant other updated. hospitalist at bedside
[2024-04-07 13:11] LABS: Magnesium 1.9 mg/dl (1.6-2.3); Phosphorus 4.9 mg/dl (2.5-4.5); Triglycerides 345 mg/dl (10-149)
[2024-04-07 14:28] LABS: Prealbumin (Transthyretin) 8.1 mg/dl (17.6-36.0)
--- NOTE | 2024-04-07 16:07 | PTCARENOTE ---
dobhoff inserted right nare, abdominal xray taken. tube feeds ordered. jxray confirms placement. tiger text to hospitalist re:abdominal film results, awaiting orders
[2024-04-07 18:10] LABS: Glucose - Point of Care 122 mg/dl (70-99)
--- NOTE | 2024-04-07 18:41 | PTCARENOTE ---
patient in rapid afib, heart rate 120-150. Dr Morales called, orders received. ekg down. stat orders sent to pharmacy
[2024-04-07] MEDS: LOPRESSOR 5 MG IV ×2 (18:57→21:54)
--- NOTE | 2024-04-07 19:00 | PTCARENOTE ---
stat dose lopressor given. report to oncoming RN
[2024-04-07] MEDS: COREG 6.25 MG TUBE (19:18)
--- NOTE | 2024-04-07 19:57 | PTCARENOTE ---
Received patient AAOx3, following commands, denying pain, ASHBY. Left arm weaker than right due to history of shoulder surgeries. Patient LYTTON in both ears. Afib, 110s-120s, BP stable 120s-130s/60s-70s. Normothermic. +2 generalized anasarca. SCDs on.
Lung sounds coarse and rhonchorous throughout. Moist, productive cough with thick, martin secretions. On 1 liter nasal cannula saturating 96%. Right nare DHT at 65 cm. On jevity 1.5 at 20 ml/hr with 25 ml/hr flush. No residuals. Rectal trumpet in place
draining loose brown stool. Hypoactive bowel sounds, abdomen round and soft. Incision on abdomen approximated, velma intact. Ramesh in place draining clear, yellow urine. Foam on sacrum and heels. RIJ triple lumen patent, WNL, 3 PIVs on right arm
patent, WNL. Ice chips provided. Call hardin within reach.
[2024-04-07 23:41] LABS: Glucose - Point of Care 130 mg/dl (70-99)
[2024-04-08] VITALS (11 sets, daily range): BP systolic 133–177; BP diastolic 76–105; BMI 23.5
[2024-04-08] MEDS: UNASYN IV ×4 (05:09→23:39)
[2024-04-08] MEDS: NOVOLOG FLEXPEN-MODERATE RESISTANCE 1 UNITS SC ×2 (05:14→13:24)
[2024-04-08 05:25] LABS: % Basophils 0.1 % (0-2); % Eosinophils 0.1 % (0-6); % Immature Granulocytes 0.9 % (0-0.5); % Lymphocytes 5.6 % (20.5-51.1); % Monocytes 11.1 % (1.7-9.3); % Neutrophils 82.2 % (42.2-75.2); Absolute Immature Granulocytes 0.1 10^3/uL (0-0.05); Absolute Lymphocytes 0.6 10^3/uL (1.2-3.4); Absolute Monocytes 1.1 10^3/uL (0.1-0.6); Absolute Neutrophils 8.3 10^3/uL (1.4-6.5); Glucose - Point of Care 162 mg/dl (70-99); Hematocrit 25.9 % (39.0-52.0); Hemoglobin 8.6 g/dL (13.0-18.0); Mean Corp Hgb Conc. 33.2 g/dL (33.0-37.0); Mean Corpuscular Hgb 25.7 pg (27.0-31.0); Mean Corpuscular Volume 77.5 fL (80.0-94.0); Mean Platelet Volume 10.3 fL (7.4-10.4); Nucleated Red Blood Cells % 0 % (-); Platelet Count 162 10^3/uL (130-400); Red Blood Cell Count 3.34 10^6/uL (4.70-6.10); Red Cell Dist. Width 16.2 % (11.5-14.5); White Blood Cell Count 10.1 10^3/uL (4.8-10.8)
[2024-04-08 05:48] LABS: ALT (SGPT) 22 U/L (0-50); AST (SGOT) 17 U/L (17-59); Albumin 2.7 g/dl (3.5-5.0); Alkaline Phosphatase 82 U/L (38-126); Blood Urea Nitrogen 52 mg/dl (9-20); Calcium 8.4 mg/dl (8.4-10.2); Carbon Dioxide 23 mmol/L (22-30); Chloride 111 mmol/L (98-107); Estimated Creatinine Clearance 46 ml/min; Glucose 155 mg/dl (70-99); Potassium 4.3 mmol/L (3.5-5.1); Sodium 144 mmol/L (135-145); Total Bilirubin 0.6 mg/dl (0.2-1.3); Total Protein 5.2 g/dl (6.3-8.2); eGFR 50.18
--- NOTE | 2024-04-08 05:50 | PTCARENOTE ---
CHG bath done, shampoo cap used and hair brushed. Repositioned, fresh sheets and pad placed. Labs sent, covered with 1 unit of insulin. Rectal trumpet was not putting out any stool and patient was complaining of discomfort, removed. Call hardin within
reach.
--- NOTE | 2024-04-08 06:01 | PTCARENOTE ---
Patient consistently in afib 130s-150s, WATERPROOF MATERIAL FOLDER notified, amio gtt ordered.
--- NOTE | 2024-04-08 06:21 | W.PN.UPDATE ---
Update Note
Progress Note Update
Pt's sustained in Afib 130-150s overnight. Total of 5mg IV Lopressor given with no improvement. Rx Amiodarone gtt. Hold PO Aminodarone.
[2024-04-08] MEDS: CORDARONE 518 MG IV (06:26)
[2024-04-08] MEDS: DUONEB 3 ML INH ×3 (07:53→19:56)
--- NOTE | 2024-04-08 08:05 | W.PN.GS2 ---
Today's Communication / Plan
-
Continue tube feeds
Assessment / Plan
-
83M POD 5 s/p negative ex lap for presumed ischemic bowel, limited NATALIE was performed without sbr
AFVSS
remains extubated/off pressors
WBC normalized, h/h stable
Dobhoff placed for TF. XR with sm. bowel dilatation, not unexpected given recent surgery and septic illness. Tolerating trickle feeds thus far.
Plan:
Awaiting MODELING DIRECTOR prior to dietary advancement.
Continue trickle feeds, advance as tolerated once passing more flatus
ABX as per primary team
Medical management as per primary team
Subjective Data
-
Date of Service: April 08, 2024
Patient seen and examined at bedside. Denies n/v. Denies abd pain. Notes that he wants his SCD's off. Not sure if he has been passing flatus. Rectal tube removed given no outputs
Objective Data
-
Intake and Output
04/07/24 04/08/24 04/09/24
06:59 06:59 06:59
Intake Total 1080 / 1080 1238.3 / 1238.3
Output Total 1879 2400 / 2400
Balance -800 / -800 -1161.7 / -1161.7
Intake:
Oral fluids 840 / 840 25 / 25
IV fluids (Total) 0 / 0 33.3 / 33.3
amio 33.3 / 33.3
levophed 0 / 0
IV piggybacks 240 / 240 510 / 510
Tube feeding 280 / 280
Feeding tube flush amount 390 / 390
Output:
Liquid stool amount 100 / 100
Rectum 100 / 100
Urine, Ramesh 1879 / 1879 2300 / 2300
Vital Signs
Temp Pulse Resp BP Pulse Ox
98.4 F 85 16 154/98 93
04/08/24 07:07 04/08/24 07:56 04/08/24 07:56 04/08/24 04:01 04/08/24 07:56
Lab Results
04/08/24 05:14
04/08/24 05:14
Calcium 8.4 mg/dl (8.4-10.2) 04/08/24 05:14
Phosphorus 4.9 mg/dl (2.5-4.5) H 04/07/24 03:24
Magnesium 1.9 mg/dl (1.6-2.3) 04/07/24 03:24
Total Bilirubin 0.6 mg/dl (0.2-1.3) 04/08/24 05:14
AST 17 U/L (17-59) 04/08/24 05:14
ALT 22 U/L (0-50) 04/08/24 05:14
Alkaline Phosphatase 82 U/L (38-126) 04/08/24 05:14
Total Protein 5.2 g/dl (6.3-8.2) L 04/08/24 05:14
Albumin 2.7 g/dl (3.5-5.0) L 04/08/24 05:14
Physical Exam
-
NAD, answers questions appropriately
ABD: soft, minimal distention, minimal incisional tenderness, dobhoff present
Midline incision with intact staple line, no drainage or erythema
--- NOTE | 2024-04-08 08:15 | PTCARENOTE ---
Assumed care of patient. Pt rec'd A&O to person and place. Occasional confused to time. Poor historian in reference to hospital admission. ASHBY's but weak LE's and left arm/shoulder due to previous shoulder surgery. Uses walker w/ mod assist x 2
to get OOB to chair. Afib on tip printer w/ amiodarone gtt infusing via RIJ TLC. +DP/PT's confirmed w/ doppler. On 1L N/C...sats 98%. Right nare dhr w/ jevity 1.5 @ 20ml/hr and 25ml/hr water flushes. Prosource daily. Ramesh draining
cloudy yellow urine. Mid line incision HOOF AND SHOE INSPECTOR w/ velma. Intact optifoam on sacrum and bilateral heels. Full assessment documented. NPO per speech...for video swallow in am. VS documented. Call hardin within reach.
[2024-04-08] MEDS: NSS (PRESERVATIVE FREE) 10 ML IV ×2 (08:17→20:32)
[2024-04-08] MEDS: PROTONIX IV 40 MG IV ×2 (08:17→20:32)
[2024-04-08] MEDS: COREG 6.25 MG TUBE (08:18)
[2024-04-08] MEDS: ELIQUIS 2.5 MG PO (08:18)
[2024-04-08 08:40] LABS: Magnesium 1.8 mg/dl (1.6-2.3)
--- NOTE | 2024-04-08 10:30 | PTCARENOTE ---
Pt yelling 'help, help'. RN's immediately at bedside. Pt had removed N/C (1L), removed right nare dhf, and removed RIJ TLC. Immediate pressure applied to right neck and dry dressing applied. Amiodarone gtt restarted in peripheral site. Pt
stated 'I told you I wanted the catheters out'. made aware of events. Pt refusing reinsertion of dobhoff...will update dtr.
--- NOTE | 2024-04-08 11:32 | W.PN.HOSP.TC ---
Today's Communication/Plan
-
VSE Tuesday; currently without DHT which he pulled out
monitor labs
continue IV Abx
Continue IV Amiodarone
DCA Cards consulted
Assessment / Plan
Assessment / Plan
Assessment:
Cardiac arrest in setting of acute illness, septic shock
- s/p 3 rounds EPI/CPR
- monitor mental status when sedation lifted
- initial CT head was negative
Septic shock from acute ischemic bowel
- shock resolved with pressors stopped
- received IVFs
- continue Unasyn, day 02/23
Acute abdomen (Acute ischemic bowel)
- CT prelim suggest bowel obstruction/ischemic
- GS following
- s/p ex-lap 04/03: negative ex lap for presumed ischemic bowel, limited NATALIE was performed without sbr
- s/p NGT
- speech evals; currently NPO pending VSE Tuesday.
- DHT placed 04/07 successfully, patient pulled it out 04/08 and refusing replacement. May need TPN
Rapaid Atrial fibrillation/Flutter
- without DHT access, cannot take Eliquis or PO Amio
- continue IV Amio
- DCA Cards consulted
- if patient does not pass swallow test, may need to consider IV Heparin in interim������
VDRF in setting of critical illness
- extubated 04/05 to CPAP
- s/p IV steroids x 2 for stridor
- repeat CXR stable
PABLO with hyperkalemia
- likely in setting of acute sepsis, ATN
- hold nephrotoxins
- required Ramesh for critical I/Os, now removed
- nephrology following
- Cr 1.4
Acute anemia related to critical illness
- also dilutional component
- monitor Hb
Hypocalcemia
Initial concern for UGI
- continue PPI BID
- monitor Hb
- hold off GI evaluation for now
Status post Left hip fracture with cannulated Screw 01/16/24:
Right hip fracture S/P gamma nail about one month ago
hx of Gout
hx of essential HTN
- hold BP agents for sepsis
HLD
��
Chronic HFpEF
- monitor volume status
type 2 diabetes
- holding MFM
- SSI
- A1c is 6.3%
DVT ppx: SCDs
Code: Full
Anticipated Discharge: > 48 hours
Subjective/Interval History
-
Date of Service: April 08, 2024
Last evening went into rapid Afib, no improvement with resumption of oral BB and requiring IV AMio which he remains on
No chest pain or SOB or other complaints
Later this morning he pulled out DHT, Triple lumen catheter and wanted to remove Ramesh as well; later Ramesh removed by RN per Nephrology
failed speech eval again but refuses DHT replacement
Objective Data
-
Labs:
Laboratory Results
04/08/24
05:14
WBC 10.1
Hgb 8.6 L
Hct 25.9 L
Plt Count 162
Sodium 144
Potassium 4.3
Chloride 111 H
Carbon Dioxide 23
BUN 52 H
Creatinine 1.4 H
Glucose 155 H
Calcium 8.4
Total Bilirubin 0.6
AST 17
ALT 22
Alkaline Phosphatase 82
Vital Signs:
Vital Signs
Temp Pulse Resp BP Pulse Ox
98.7 F 129 16 170/105 93
04/08/24 11:28 04/08/24 08:18 04/08/24 07:56 04/08/24 08:18 04/08/24 07:56
I&O
04/07/24 04/08/24 04/09/24
06:59 06:59 06:59
Intake Total 1080 / 1080 1238.3 / 1238.3
Output Total 1879 2400 / 2400
Balance -800 / -800 -1161.7 / -1161.7
Physical Exam
-
General: No Apparent Distress
HEENT: Normocephalic and Atraumatic
Respiratory: Rhonchi
Cardiac: Irregular Rhythm
GI: Soft
Neuro: AO x 3
Psych: Calm
Data Reviewed
-
Total Time Spent with Patient (in minutes): 45
Labs: Labs Reviewed by me
--- NOTE | 2024-04-08 11:45 | PTCARENOTE ---
Reviewed w/ pt and pt's dtr multiple times about the reasons he is NPO and why he cannot eat. Dtr appears to understand review of NPO status.
[2024-04-08 12:25] LABS: Glucose - Point of Care 193 mg/dl (70-99)
--- NOTE | 2024-04-08 13:21 | PTCARENOTE ---
Report called to Parvin ADDISON...pt to transfer to Room 3382.
--- NOTE | 2024-04-08 13:40 | PTCARENOTE ---
Pt to transfer to Room 335 when bed available.
--- NOTE | 2024-04-08 13:48 | W.PN.NEPH.PH ---
Today's Communication / Plan
-
- d/c vamsi
Assessment/Plan
-
Assessment:
PABLO (bl 1), now ATN
hypercapnice respiratory failure
s/p cardiac arrest
possible intra-abd process
BPH
T2DM
s/p recent hip fracture
Plan:
Cr peak 2.7, down to 1.4
UOP improving, no need for lasix
follow BMP
cap IVF
okay to TOV and d/c vamsi
extubated 04/05, much more interactive now
off pressors now, keep >65
-
-
Date of Service: April 08, 2024
CC / HPI / ROS
-
Chief Complaint:
PABLO
History of Present Illness:
off pressors today
extubated on 04/05
PABLO/Cr improved at 1.4
nonoliguric
Review of Systems:
awake, very interactive
resting comfortably
Labs
-
Labs:
WBC 10.1 10^3/uL (4.8-10.8) 04/08/24 05:14
RBC 3.34 10^6/uL (4.70-6.10) L 04/08/24 05:14
Hgb 8.6 g/dL (13.0-18.0) L 04/08/24 05:14
Hct 25.9 % (39.0-52.0) L 04/08/24 05:14
Plt Count 162 10^3/uL (130-400) 04/08/24 05:14
Sodium 144 mmol/L (135-145) 04/08/24 05:14
Potassium 4.3 mmol/L (3.5-5.1) 04/08/24 05:14
Chloride 111 mmol/L (98-107) H 04/08/24 05:14
Carbon Dioxide 23 mmol/L (22-30) 04/08/24 05:14
BUN 52 mg/dl (9-20) H 04/08/24 05:14
Creatinine 1.4 mg/dL (0.7-1.3) H 04/08/24 05:14
eGFR 50.18 04/08/24 05:14
Glucose 155 mg/dl (70-99) H 04/08/24 05:14
Calcium 8.4 mg/dl (8.4-10.2) 04/08/24 05:14
Phosphorus 4.9 mg/dl (2.5-4.5) H 04/07/24 03:24
Albumin 2.7 g/dl (3.5-5.0) L 04/08/24 05:14
Physical Exam
-
Vital Signs:
Vital Signs
Temp Pulse Resp BP Pulse Ox
98.7 F 116 26 149/95 93
04/08/24 11:28 04/08/24 12:00 04/08/24 12:00 04/08/24 12:00 04/08/24 10:00
Cardiovascular:: Regular rate and rhythm
Respiratory:: Bilateral: Coarse
Lung Excursion:: Normal
Abdomen:: Nontender and Soft
Bowel Sounds:: Normal
Extremity Edema:: None: Bilateral:
Ramesh Catheter: Yes
--- NOTE | 2024-04-08 13:49 | CON.CAR ---
Consultation
Consultation Request
Date/Time Consultation Requested: 04/08/2024 10: 00
Date/Time Consultation Performed: 04/08/2024 11: 30
Requesting Provider: Andrew
Performing Provider: Temi
Reason for Consultation: atrial fibrillation
Medical History
-
Chief Complaint: Vomiting and abdominal pain
History of Present Illness:
Watson has past medical history of paroxysmal atrial fibrillation on chronic Eliquis therapy. He had previously been on amiodarone until he stopped it on his own 03/2023. He was seen in November 2023 after a fall with right intertrochanteric
fracture status post ORIF. He he suffered a left femoral neck fracture and had cannulated screw fixation 01/16/24. He was in rate controlled afib. He spontaneously converted to sinus rhythm and amiodarone was restarted. He was in sinus rhythm at
the time of January 2024 office visit.
He was admitted with vomiting as well as severe weakness. He was started on pressors for severe hypotension. He ended up having a cardiac arrest in the CT scan and received epinephrine as well as CPR was intubated. He subsequent was weaned off of
Levophed and extubated. He has been treated for acute ischemic bowel. Cardiology is now consulted for atrial fibrillation. He denies chest pain, short of breath, or palpitations. Of note he pulled his central line out as well as NG tube earlier
this morning.
PMH:
Right intertrochanteric fracture s/p ORIF 11/2023
Paroxysmal atrial fibrillation
Chronic anticoagulation on Eliquis
Chronic HFpEF
Ongoing tobacco abuse
Hypertension
Hypercholesterolemia
RBBB
Type 2 diabetes
History of gout
Bilateral carotid artery stenosis, moderate to severe
Presumed COPD
Cervical laminectomy October 2022
Small bowel obstruction March 2023
History of reverse left total shoulder with revision in 03/17/2023
Past Medical History
Past Medical History: Other (in HPI)
Social History
Tobacco: Smoker
Alcohol: Occasional
Employment: Retired
Allergies / Home Medications
Allergy/AdvReac Type Severity Reaction Status Date / Time
No Known Allergies Allergy Verified 04/02/24 19:56
�Medication �Instructions �Recorded �Confirmed �Type
apixaban 5 mg tablet 5 mg PO BID Blood Clot 03/19/23 04/02/24 History
Prevention/Tx
folic acid 1 mg tablet 1 mg PO DAILY Supplement 03/19/23 04/02/24 History
simvastatin 20 mg tablet 20 mg PO QPM High Cholesterol 03/19/23 04/02/24 History
gabapentin 100 mg capsule 200 mg PO DAILY Pain 03/29/23 04/02/24 History
benazepril 20 mg tablet 20 mg PO DAILY Blood Pressure 01/13/24 04/02/24 History
gabapentin 300 mg capsule 300 mg PO HS Pain 01/13/24 04/02/24 History
metformin 500 mg tablet 500 mg PO BID Diabetes 01/13/24 04/02/24 History
carvedilol 6.25 mg tablet 6.25 mg PO BID Blood pressure 30 01/25/24 04/02/24 Rx
days #60 tabs
allopurinol 100 mg tablet 100 mg PO DAILY Gout 04/02/24 04/02/24 History
amiodarone 200 mg tablet (Pacerone) 200 mg PO DAILY Arrhythmia 04/02/24 04/02/24 History
polyethylene glycol 3350 17 gram 17 g PO DAILY Constipation 04/02/24 04/02/24 History
oral powder packet (Miralax)
tamsulosin 0.4 mg capsule (Flomax) 0.4 mg PO DAILY Urinary Issue 04/02/24 04/02/24 History
Review of Systems
-
History Source: Patient
All other systems: Negative unless noted
Constitutional: No Symptoms
EENT: No Symptoms
Respiratory: No Symptoms
Cardiac: No Symptoms
Abdomen/GI: Other (Unable to take p.o.'s currently with severe swelling)
: No Symptoms
Musculoskeletal: No Symptoms
Skin: No Symptoms
Neurological: No Symptoms
Endocrine: No Symptoms
Hematologic/Lymphatic: No Symptoms
Physical Exam
Vital Signs
Temp Pulse Resp BP Pulse Ox
98.7 F 116 26 149/95 93
04/08/24 11:28 04/08/24 12:00 04/08/24 12:00 04/08/24 12:00 04/08/24 10:00
General: Well developed, well nourished in NAD.
Neck: Supple, no JVD, HJR, carotids +2 B/L, no bruits bilaterally.
Heart: Non displaced PMI, irregular, no murmurs, No S3, S4, no rubs.
Lungs: Scattered rhonchi
Extremities: No clubbing, cyanosis or edema bilaterally.
Neuro: Grossly nonfocal, awake, alert and oriented x3.
Lab Results
04/08/24 05:14
04/08/24 05:14
Troponin I 0.028 ng/ml D 04/05/24 18:03
Impression / Plan
-
Primary Rack Worker: Dr. Membreno
Assessment:
Admitted with sepsis and hypotension requiring pressors
Status postcardiac arrest
Status post VDRF
Paroxysmal atrial fibrillation 04/08/2024
Chronic anticoagulation on Eliquis
Chronic HFpEF
L femoral neck fracture s/p cannulated screw fixation 01/16/24
Right intertrochanteric fracture s/p ORIF 11/2023
Ongoing tobacco abuse
Hypertension
Hypercholesterolemia
RBBB
Type 2 diabetes
History of gout
Bilateral carotid artery stenosis, moderate to severe
Presumed COPD
Cervical laminectomy October 2022
Small bowel obstruction March 2023
History of reverse left total shoulder with revision in 03/17/2023
ECHO 12/06/23: EF 60 to 65%, trace AR
Plan:
He was admitted with sepsis and hypotension requiring pressors. He had cardiac arrest felt to be due to septic shock. He was intubated and is now extubated.
Cardiology is consulted for atrial fibrillation. IV amiodarone has been started. Of note patient pulled out central line as well as NG tube and cannot get p.o. medications
Eliquis is currently on hold.
Awaiting video swallow on 04/09 to assess whether patient is able to take p.o. medications
Coreg is on hold as well as he is n.p.o.
May need to give IV Lopressor if heart rate becomes an issue but will continue IV amiodarone now but this will need to be discontinued on 04/09 as he no longer has a central line
If remains in atrial fibrillation could consider cardioversion prior to discharge but would prefer rate control for now in case anticoagulation would have to be stopped with another GI issue
Discussed with primary service, nursing, daughter at bedside
Data Reviewed
-
EKG: Tracing Personally Visualized and interpreted
Radiology: Report Reviewed by me
Medical Tests (Nuc Med, Echo etc): Report Reviewed by me
Labs: Labs Reviewed by me
Old Records: Reviewed
--- NOTE | 2024-04-08 14:10 | CHAP ---
Visited Mr. Fry at 10:50. Emotional support provided - speaking to him with respect, honoring his dignity.
[2024-04-08] MEDS: LOPRESSOR 5 MG IV ×2 (14:50→20:32)
--- NOTE | 2024-04-08 15:24 | PTCARENOTE ---
Addendum entered by Parvin Beavers RN 04/08/24 16:41:
Patient arrived to 3W.
Original Note:
1430: Patient arrived to 2S. Full head to toe assessment completed. Midline incision open to air with stables. Amio drip hand-off with ICU nurse. 1L NC with SpO2 greater than 92%. Call hardin within reach and bed in lowest position.
--- NOTE | 2024-04-08 16:20 | PTCARENOTE ---
Dr. Morales made aware of patient having +3 edema to his L arm. Radial pulse is normal and palpable to L wrist. No new orders at this time. Care ongoing.
[2024-04-08 18:00] LABS: Glucose - Point of Care 148 mg/dl (70-99)
[2024-04-08] MEDS: NOVOLOG FLEXPEN-MODERATE RESISTANCE SC ×2 (18:02→23:38)
--- NOTE | 2024-04-08 23:04 | PTCARENOTE ---
Patient refusing bipap mask. Switched to n/c @ 2L. RT made aware via TT.
[2024-04-08 23:36] LABS: Glucose - Point of Care 123 mg/dl (70-99)
[2024-04-08] MEDS: ELIQUIS PO (23:39)
[2024-04-09] MEDS: LOPRESSOR 5 MG IV ×3 (02:59→13:38)
[2024-04-09 03:21] VITALS: BP 163/86
[2024-04-09] MEDS: UNASYN IV ×3 (04:59→17:58)
[2024-04-09 05:51] LABS: Glucose - Point of Care 140 mg/dl (70-99)
[2024-04-09] MEDS: NOVOLOG FLEXPEN-MODERATE RESISTANCE SC ×4 (05:57→17:58)
[2024-04-09 06:00] VITALS: BMI 23.5
[2024-04-09 06:21] LABS: % Basophils 0.2 % (0-2); % Eosinophils 0.2 % (0-6); % Immature Granulocytes 1.6 % (0-0.5); % Lymphocytes 6.1 % (20.5-51.1); % Monocytes 7.5 % (1.7-9.3); % Neutrophils 84.4 % (42.2-75.2); Absolute Immature Granulocytes 0.1 10^3/uL (0-0.05); Absolute Lymphocytes 0.5 10^3/uL (1.2-3.4); Absolute Monocytes 0.7 10^3/uL (0.1-0.6); Absolute Neutrophils 7.5 10^3/uL (1.4-6.5); Hemoglobin 6.6 g/dL (13.0-18.0); Mean Corpuscular Hgb 25.6 pg (27.0-31.0); Mean Corpuscular Volume 77.5 fL (80.0-94.0); Mean Platelet Volume 10.4 fL (7.4-10.4); Nucleated Red Blood Cells % 0 % (-); Platelet Count 136 10^3/uL (130-400); Red Blood Cell Count 2.58 10^6/uL (4.70-6.10); Red Cell Dist. Width 15.8 % (11.5-14.5); White Blood Cell Count 8.9 10^3/uL (4.8-10.8)
[2024-04-09 06:32] LABS: ALT (SGPT) 13 U/L (0-50); AST (SGOT) 17 U/L (17-59); Albumin 2.3 g/dl (3.5-5.0); Alkaline Phosphatase 67 U/L (38-126); Blood Urea Nitrogen 45 mg/dl (9-20); Calcium 7.2 mg/dl (8.4-10.2); Carbon Dioxide 16 mmol/L (22-30); Chloride 114 mmol/L (98-107); Estimated Creatinine Clearance 54 ml/min; Glucose 104 mg/dl (70-99); Potassium 3.6 mmol/L (3.5-5.1); Sodium 152 mmol/L (135-145); Total Bilirubin 0.8 mg/dl (0.2-1.3); Total Protein 5.1 g/dl (6.3-8.2); eGFR > 60.00
--- NOTE | 2024-04-09 06:49 | W.PN.UPDATE ---
Update Note
Progress Note Update
This a.m. RN reports HH 6.8 from 8.6 yesterday
PT without signs of bleeding per RN. On eliquis but did not receive last night at he took out DHT yesterday and is strict NPO (failed swallow studies)
Type and screen ordered and recheck hh to be sure it was accurate
OR consent included blood consent.
One unit of PRBC ordered but Pt has been know to refuse blood transfusions in past
Hemodynamically stable
[2024-04-09 07:30] VITALS: BP 174/106
[2024-04-09 07:45] LABS: Hematocrit 28.3 % (39.0-52.0); Hemoglobin 9.4 g/dL (13.0-18.0)
[2024-04-09] MEDS: PROTONIX IV 40 MG IV ×2 (08:12→22:26)
[2024-04-09] MEDS: ELIQUIS PO (08:13)
[2024-04-09] MEDS: NSS (PRESERVATIVE FREE) 10 ML IV ×2 (08:13→22:26)
--- NOTE | 2024-04-09 08:56 | W.PN.GS2 ---
Addendum entered and electronically signed by Jr Sales MD 04/09/24 16:15:
I saw and examined the patient independently.
The Buckle Assembler's note was reviewed and I agree with the note, assessment and plan except where noted below.
Comment: 83-year-old male postoperative day 6 from negative ex lap for presumed bowel ischemia with noted intraoperative small bowel adhesions. Patient endorses return of bowel function.
Tolerating clears, okay for p.o. diet per PAPER CAP MACHINE OPERATOR and primary.
General surgery will follow peripherally.
Patient to follow-up with Dr. Branham as an outpatient.
Original Note:
Today's Communication / Plan
-
VSE prior to dietary advancement
Assessment / Plan
-
83M POD 6 s/p negative ex lap for presumed ischemic bowel, limited NATALIE was performed without sbr
AFVSS
WBC normalized, h/h stable (labs repeated today to confirm)
Dobhoff placed for TF with tolerating of trickle feeds over approx 24h, however, pt removed own dobhoff and refusing feeding tube now
PAPER CAP MACHINE OPERATOR following with VSE pending today
Plan:
Awaiting VSE prior to dietary advancement
ABX as per primary team
Medical management as per primary team
Subjective Data
-
Date of Service: April 09, 2024
Patient seen and examined at bedside. Denies pain. Denies nausea. Not sure if he passed any gas but notes he has had BMs. Has refused some care and meds including bipap, scd's and some Eliquis. Removed own dobhoff yesterday.
Objective Data
-
Intake and Output
04/08/24 04/09/24 04/10/24
06:59 06:59 06:59
Intake Total 1238.3 / 1316.6 588.2 / 588.2
Output Total 2400 / 2400 975 / 975
Balance -1161.7 / -1083.4 -386.8 / -386.8
Intake:
Oral fluids 25 / 25
IV fluids (Total) 33.3 / 66.6 233.2 / 233.2
amio 33.3 / 66.6 233.2 / 233.2
IV piggybacks 510 / 510 100 / 100
Tube feeding 280 / 300 80 / 80
Feeding tube flush amount 390 / 415 175 / 175
Output:
Liquid stool amount 100 / 100
Rectum 100 / 100
Urine, Ramesh 2300 / 2300 450 / 450
Urine, Voided 525 / 525
Other:
Number of approximated MODERATE 1
amounts of urine
How many times incontinent 1
MODERATE amount urine
Vital Signs
Temp Pulse Resp BP Pulse Ox
98.4 F 108 18 174/106 95
04/09/24 07:30 04/09/24 07:30 04/09/24 07:30 04/09/24 07:30 04/09/24 07:30
Lab Results
04/09/24 07:07
04/09/24 05:44
Calcium 7.2 mg/dl (8.4-10.2) L 04/09/24 05:44
Phosphorus 4.9 mg/dl (2.5-4.5) H 04/07/24 03:24
Magnesium 1.8 mg/dl (1.6-2.3) 04/08/24 05:14
Total Bilirubin 0.8 mg/dl (0.2-1.3) 04/09/24 05:44
AST 17 U/L (17-59) 04/09/24 05:44
ALT 13 U/L (0-50) 04/09/24 05:44
Alkaline Phosphatase 67 U/L (38-126) 04/09/24 05:44
Total Protein 5.1 g/dl (6.3-8.2) L 04/09/24 05:44
Albumin 2.3 g/dl (3.5-5.0) L 04/09/24 05:44
Physical Exam
-
NAD, answers questions appropriately but forgetful
ABD: soft, ND, NT
Midline incision with intact staple line, no drainage or erythema
[2024-04-09 11:30] VITALS: BP 176/118
[2024-04-09] MEDS: ELIQUIS 2.5 MG PO ×2 (12:11→22:26)
--- NOTE | 2024-04-09 12:48 | PTOTSP ---
Video Swallow Examination
Mild oral/pharyngeal stasis. No aspiration but risk elevated given instance of trace laryngeal penetration of thin liquid. Esophageal stasis and redirection below level of pharyngo-esophageal segment increased risk for reverse aspiration.
Recommend
1. Initiate IDDSI 6 and Mildly thick liquids
2. Aspiration precautions
3. Meds whole in applesauce.
4. Continue to allow sips of water in between meals per Aspiration Risk Hydration Protocol.
--- NOTE | 2024-04-09 13:02 | W.PN.HOSP.TC ---
Today's Communication/Plan
-
CTA to r/o PE
IVF with bicarbonate for hypernatremia and non-gap acidemia
Resume beta-elizabeth at home dose for HFrEF, AF + RVR
Day 7/7 of IV Abx
Assessment / Plan
Assessment / Plan
#S/P Cardiac arrest
#RV dilation on TTE
#HFrEF (EF 40%)
-Unclear cause of cardiac arrest; DDx include PE, sepsis
-S/P 3 rounds EPI/CPR; mentating adequately and near baseline
-CT head was negative; TTE showing reduced LVEF and RV dilation with new pulm HTN
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
-Currently HD stable without vasopressor support, on RA
Plan
-Order CTA chest to assess for PE, c/w home eliquis dose for now
-Consider in-patient LHC for newly reduced EF, defer to cardiology
-Resume beta-blockade for tachy, Plan to titrate GDMT as hemodynamics allow
-Hold loop diuretic for now as he appears euvolemic
-Monitor on telemetry
#PABLO
#Normal gap metabolic acidosis
#Hypernatremia
-Suspect pre-renal state with dehydration; S/P agustin catheter
-PABLO is improving with IVF, Creatinine down to 1.2 today
-Home nephrotoxic meds held for pre-renal PABLO and hyperkalemia on admission
-nephrology following, started
Plan
-Hold ACEi, tamsulosin, metformin
-Supportive IVF with bicarbonate
-Trend daily BMP
-Encourage oral hydration
#Rapid AF/AFL
-Home medications include eliquis, beta-elizabeth, amiodarone
-Was NPO post-cardiac arrest but has been resumed on an oral regimen
-HR still tachycardic, in low 100s today
-C/w PO beta-elizabeth standing, IV PRN for HR > 120
#S/P Circulatory shock
-Unclear cause, initially thought to be mesenteric ischemia though ex-lap did not show bowel ischemia
-shock resolved with pressors stopped; remains on IVF with bicarbonate for hypernatremia, acidosis, PABLO
-Unclear if truly infected, benefits outweigh risks of completing 7 day Unasyn course
-Continue Unasyn, day 03/25
-Blood cultures remain negative
#Acute abdomen
-CT prelim suggest bowel obstruction/ischemic
-s/p ex-lap 04/03: negative ex lap for presumed ischemic bowel, limited NATALIE was performed without sbr
-s/p NGT and VSE, back on PO diet
-resolved without known cause
��
#Normocytic anemia
-Suspect multifactorial with chronic disease, age, possibly nutritional deficiency
-Hb trend has went up over last few days, no signs of active bleeding
-Trend CBC
#Hypocalcemia
-Encourage PO intake, consider Ca supplement if worsening
#H/O of Gout
-stable on allopurinol
#H/O of essential HTN
-Home BP regimen was held due to circulatory shock on arrival
-Resumed carvedilol now, plan to monitor vitals and titrate meds as needed
#HLD
-No ASCVD history known, continued on moderate intensity statin��
#type 2 diabetes
-A1c was 6.3%; c/b peripheral neuropathy for which he takes gabapentin
-Holding metformin due to PABLO, currently on ISS + AccuCheck
#Status post Left hip fracture with cannulated Screw 01/16/24
#Right hip fracture S/P gamma nail about one month ago
DVT ppx: Eliquis
Diet: House
Code: Full
Anticipated Discharge: > 48 hours
Subjective/Interval History
-
Date of Service: April 09, 2024
Seen and examined at bedside. No events overnight, telemetry without events. Removed DHT overnight, VSE was done and patient back on PO intake. Denies chest pain, dyspnea
Objective Data
-
Labs:
Laboratory Results
04/09/24 04/09/24
05:44 07:07
WBC 8.9
Hgb 6.6 L* D 9.4 L D
Hct 20.0 L* 28.3 L
Plt Count 136
Sodium 152 H D
Potassium 3.6
Chloride 114 H
Carbon Dioxide 16 L
BUN 45 H
Creatinine 1.2
Glucose 104 H
Calcium 7.2 L
Total Bilirubin 0.8
AST 17
ALT 13
Alkaline Phosphatase 67
Vital Signs:
Vital Signs
Temp Pulse Resp BP Pulse Ox
97.6 F 114 18 176/118 92
04/09/24 11:30 04/09/24 11:30 04/09/24 11:30 04/09/24 11:30 04/09/24 11:30
I&O
04/08/24 04/09/24 04/10/24
06:59 06:59 06:59
Intake Total 1238.3 / 1316.6 588.2 / 588.2
Output Total 2400 / 2400 975 / 975
Balance -1161.7 / -1083.4 -386.8 / -386.8
Review of Systems
-
History Source: Patient
All other systems: Reviewed and negative
Physical Exam
-
General: No Apparent Distress and Comfortable; Negative Pain
HEENT: Normocephalic, Atraumatic, Moist Mucous Membranes and Anicteric
Respiratory: Clear to Auscultation
Cardiac: S1/S2, Irregular Rhythm and Tachycardic; Negative Murmur, Rub, JVD or Gallop
GI: Soft, Nontender, Nondistended and Normal Bowel Sounds
Musculoskeletal: No Clubbing, No Cyanosis and No Edema
Skin: Warm and Dry; Negative Rash
Neuro: AO x 3, No Motor Deficits, Nonfocal/Grossly Intact and Central Nerve's Intact
Data Reviewed
-
Labs: Labs Reviewed by me
[2024-04-09 13:48] LABS: Glucose - Point of Care 134 mg/dl (70-99)
--- NOTE | 2024-04-09 13:51 | W.PN.NEPH.PH ---
Today's Communication / Plan
-
D5w for hypernatremia
Assessment/Plan
-
Assessment:
PABLO (bl 1), now ATN
hypercapnice respiratory failure
s/p cardiac arrest
possible intra-abd process
BPH
T2DM
s/p recent hip fracture
Plan:
PABLO-cr improving to 1.2 now, non oliguric
mild-mod stable right hydro f/u out pt
poor po intake with dysphagia, DHT was removed
hypernatremia-FWD 3.4lit, will start d5w and follow labs
encourage water intake if possible
met acidosis noted,mild bicarn in IVF
echo noted with EF 35-40%, mild to mod MR, severe pulm HTN
he is on RA, no peripheral edema noted, no DVT of UE
follow PVR off agustin
d/w nursing
-
-
Date of Service: April 09, 2024
CC / HPI / ROS
-
Chief Complaint:
PABLO
History of Present Illness:
extubated on 04/05, on RA now
echo noted low EF and severe pulm HTN
PABLO/Cr improved at 1.2, na up at 152
nonoliguric
Review of Systems:
awake, very interactive
resting comfortably
offers no complaints
aware of asp precautions. speech felt dysphagia diet appropriate
off DHT feeds since 04/08
Labs
-
Labs:
WBC 8.9 10^3/uL (4.8-10.8) 04/09/24 05:44
RBC 2.58 10^6/uL (4.70-6.10) L 04/09/24 05:44
Hgb 9.4 g/dL (13.0-18.0) L D 04/09/24 07:07
Hct 28.3 % (39.0-52.0) L 04/09/24 07:07
Plt Count 136 10^3/uL (130-400) 04/09/24 05:44
Sodium 152 mmol/L (135-145) H D 04/09/24 05:44
Potassium 3.6 mmol/L (3.5-5.1) 04/09/24 05:44
Chloride 114 mmol/L (98-107) H 04/09/24 05:44
Carbon Dioxide 16 mmol/L (22-30) L 04/09/24 05:44
BUN 45 mg/dl (9-20) H 04/09/24 05:44
Creatinine 1.2 mg/dL (0.7-1.3) 04/09/24 05:44
eGFR > 60.00 04/09/24 05:44
Glucose 104 mg/dl (70-99) H 04/09/24 05:44
Calcium 7.2 mg/dl (8.4-10.2) L 04/09/24 05:44
Phosphorus 4.9 mg/dl (2.5-4.5) H 04/07/24 03:24
Albumin 2.3 g/dl (3.5-5.0) L 04/09/24 05:44
Physical Exam
-
Vital Signs:
Vital Signs
Temp Pulse Resp BP Pulse Ox
97.6 F 114 18 176/118 92
04/09/24 11:30 04/09/24 11:30 04/09/24 11:30 04/09/24 11:30 04/09/24 11:30
Cardiovascular:: Regular rate and rhythm
Respiratory:: Bilateral: CTA
Lung Excursion:: Normal
Abdomen:: Nontender and Soft
Extremity Edema:: None: Bilateral:
Agustin Catheter: No
[2024-04-09 14:25] VITALS: BP 160/99; PULSE 95
[2024-04-09] MEDS: SODIUM BICARBONATE 1050 MEQ IV (14:38)
--- NOTE | 2024-04-09 15:14 | W.PN.CARDCBS ---
Addendum entered and electronically signed by Emil Membreno MD 04/09/24 16:57:
CT with no evidence of pulmonary embolism. Evidence of bilateral pleural effusions. Will add IV Lasix. Consider NIGEL inhibitor in a.m.
Original Note:
Today's Communication / Plan
-
Continue rate control with amiodarone and Coreg
Change Lopressor to as needed
Newly reduced ejection fraction of 35-40% and will treat medically for now with confusion and admission for ischemic bowel
New dilated hypokinetic right ventricle and severe pulm hypertension will check CT to exclude pulmonary embolism
Remains confused at present
Impression / Plan
-
Primary Inspection Clerk: Dr. Membreno
Assessment:
Admitted with sepsis and hypotension requiring pressors
Status postcardiac arrest
Status post VDRF
Paroxysmal atrial fibrillation 04/08/2024
Chronic anticoagulation on Eliquis
Newly reduced ejection fraction of 35-40% on echocardiogram 04/09/2024
New dilated hypokinetic right ventricle with severe pulm hypertension 04/09/2024
Chronic HFpEF
L femoral neck fracture s/p cannulated screw fixation 01/16/24
Right intertrochanteric fracture s/p ORIF 11/2023
Ongoing tobacco abuse
Hypertension
Hypercholesterolemia
RBBB
Type 2 diabetes
History of gout
Bilateral carotid artery stenosis, moderate to severe
Presumed COPD
Cervical laminectomy October 2022
Small bowel obstruction March 2023
History of reverse left total shoulder with revision in 03/17/2023
ECHO 12/06/23: EF 60 to 65%, trace AR
Yeah echocardiogram 04/09/2024: Ejection fraction 35 to 40%, global hypokinesis, mild to moderate MR, mild AI, dilated and hypokinetic right ventricle with severe pulm hypertension and PA systolic of 70 mmHg
Plan:
He remains in atrial fibrillation
He is taking p.o. medications
Will attempt to continue rate control with amiodarone and carvedilol, continue Eliquis
Change Lopressor IV to as needed
We could consider cardioversion to sinus rhythm as he has been anticoagulated since going into atrial fibrillation
However his mental status remains reduced and rate control might be appropriate at the current time
He has new reduction in ejection fraction from 60-65% to 35-40%.
Etiology unclear but ejection fraction may have been difficult to determine with A-fib and could be due to sepsis
Hold off on ischemic evaluation for now as he recovers from his ischemic bowel
He also has new dilated hypokinetic right ventricle with severe pulm hypertension
Need to exclude pulmonary embolism
Discussed with primary service and will do CT with chest with IV contrast if he is able to tolerate being in the scanner with his current confusion
Progress Note - Inspection Clerk
Subjective
Date of Service: April 09, 2024
Confused at present.
Objective
Labs:
04/09/24 07:07
Labs
Hgb 9.4 g/dL (13.0-18.0) L D 04/09/24 07:07
Hct 28.3 % (39.0-52.0) L 04/09/24 07:07
Plt Count 136 10^3/uL (130-400) 04/09/24 05:44
PT 17.5 Sec (11.4-14.6) H 04/02/24 20:44
INR 1.45 04/02/24 20:44
APTT 29.6 Sec (23.4-35.0) 04/02/24 20:44
Sodium 152 mmol/L (135-145) H D 04/09/24 05:44
Potassium 3.6 mmol/L (3.5-5.1) 04/09/24 05:44
BUN 45 mg/dl (9-20) H 04/09/24 05:44
Creatinine 1.2 mg/dL (0.7-1.3) 04/09/24 05:44
Glucose 104 mg/dl (70-99) H 04/09/24 05:44
Vital Signs and I&O:
Vital Signs
Temp Pulse Resp BP Pulse Ox
97.6 F 114 18 176/118 92
04/09/24 11:30 04/09/24 11:30 04/09/24 11:30 04/09/24 11:30 04/09/24 11:30
Vital Signs
Temp Pulse Resp BP Pulse Ox
97.6 F 114 18 176/118 92
04/09/24 11:30 04/09/24 11:30 04/09/24 11:30 04/09/24 11:30 04/09/24 11:30
Intake & Output
04/07/24 04/08/24 04/09/24 04/10/24
06:59 06:59 06:59 06:59
Intake Total 1080 / 1080 1238.3 / 1316.6 588.2 / 588.2
Output Total 1880 / 1880 2400 / 2400 975 / 975
Balance -800 / -800 -1161.7 / -1083.4 -386.8 / -386.8
Physical Exam
Physical Exam
General: Well developed, well nourished in NAD.
Neck: Supple, no JVD, HJR, carotids +2 B/L, no bruits bilaterally.
Heart: Non displaced PMI, irregular, no murmurs, No S3, S4, no rubs.
Lungs: Scattered rhonchi
Extremities: No clubbing, cyanosis or edema bilaterally.
Neuro: Grossly nonfocal, awake, alert and oriented x3.
--- NOTE | 2024-04-09 15:16 | CM ---
CM reviewed chart and Saeed referral pending
Call with Kandy/admission- she will reviewreferral
PMR consult requested per Saeed request
TT/Dr Sánchez with request
Discharge Disposition- acute vs SNF
[2024-04-09 17:35] LABS: Glucose - Point of Care 146 mg/dl (70-99)
[2024-04-09] MEDS: LASIX 40 MG IV (17:58)
[2024-04-09 19:30] VITALS: BP 134/75
[2024-04-09 22:03] LABS: Glucose - Point of Care 161 mg/dl (70-99)
[2024-04-09] MEDS: COREG 6.25 MG PO (22:26)
--- NOTE | 2024-04-09 22:55 | W.PN.UPDATE ---
Update Note
Progress Note Update
pt refusing 2200 bmp.
pt difficult stick and after lab/tech unable to get blood he refuses further sticks tonight
RN also called daughter who tried to encourage him
--- NOTE | 2024-04-09 23:00 | PTCARENOTE ---
Pt agitated, uncooperative and angry. In beginning of shift, pt refused lab work to be drawn by tech. Daughter of pt informed him to cooperate with hospital staff over his cell phone. Tech reattempted to obtain lab work with this RN at bedside. Pt
stated, 'You are only allowed to stick me once'. Tech attempted, unable to draw blood. Pt stated, 'Get that out of my arm'. Unable to obtain lab work, pt refused. CLIP AND HANGER ATTACHER made aware.
[2024-04-10 03:15] VITALS: BP 156/86
[2024-04-10] MEDS: SODIUM BICARBONATE 1050 MEQ IV (05:58)
[2024-04-10 06:00] VITALS: BMI 23.2
[2024-04-10 07:06] LABS: % Basophils 0.1 % (0-2); % Eosinophils 0.5 % (0-6); % Immature Granulocytes 2.1 % (0-0.5); % Lymphocytes 4.7 % (20.5-51.1); % Monocytes 5.2 % (1.7-9.3); % Neutrophils 87.4 % (42.2-75.2); Absolute Eosinophils 0.1 10^3/uL (0-0.7); Absolute Immature Granulocytes 0.3 10^3/uL (0-0.05); Absolute Lymphocytes 0.6 10^3/uL (1.2-3.4); Absolute Monocytes 0.7 10^3/uL (0.1-0.6); Absolute Neutrophils 11.9 10^3/uL (1.4-6.5); Hematocrit 28.1 % (39.0-52.0); Hemoglobin 9.2 g/dL (13.0-18.0); Mean Corp Hgb Conc. 32.7 g/dL (33.0-37.0); Mean Corpuscular Hgb 26.4 pg (27.0-31.0); Mean Corpuscular Volume 80.5 fL (80.0-94.0); Mean Platelet Volume 10.7 fL (7.4-10.4); Nucleated Red Blood Cells % 0 % (-); Platelet Count 259 10^3/uL (130-400); Red Blood Cell Count 3.49 10^6/uL (4.70-6.10); Red Cell Dist. Width 16.1 % (11.5-14.5); White Blood Cell Count 13.6 10^3/uL (4.8-10.8)
[2024-04-10 07:40] LABS: Glucose - Point of Care 202 mg/dl (70-99)
[2024-04-10 07:54] LABS: ALT (SGPT) 24 U/L (0-50); AST (SGOT) 26 U/L (17-59); Albumin 2.9 g/dl (3.5-5.0); Alkaline Phosphatase 108 U/L (38-126); Blood Urea Nitrogen 55 mg/dl (9-20); Calcium 8.5 mg/dl (8.4-10.2); Carbon Dioxide 25 mmol/L (22-30); Chloride 109 mmol/L (98-107); Estimated Creatinine Clearance 38 ml/min; Glucose 173 mg/dl (70-99); Sodium 145 mmol/L (135-145); Total Bilirubin 0.6 mg/dl (0.2-1.3); Total Protein 5.5 g/dl (6.3-8.2); eGFR 39.75
[2024-04-10 08:48] VITALS: BP 162/103
--- NOTE | 2024-04-10 09:16 | W.PN.CARDCBS ---
Addendum entered and electronically signed by Emil Membreno MD 04/10/24 12:38:
I saw and examined the patient.
The RETURNING OFFICER or PA's note was reviewed and I agree with the note.
Comment: General: Awake but confused
Neck: Supple, no JVD, HJR, carotids +2 B/L, no bruits bilaterally.
Heart: Non displaced PMI, irregular, no murmurs, No S3, S4, no rubs.
Lungs: Scattered rhonchi
Extremities: No clubbing, cyanosis or edema bilaterally.
Neuro: Awake but confused
He remains in A-fib with rapid heart rate. Will increase Coreg to 12.5 mg p.o. twice daily. Creatinine is increased to 1.[address] with IV contrast dye and diuretics given for pleural effusion seen on CAT scan. Hold IV Lasix for now.
He remains very confused. We could consider cardioversion if mental status improves and he continues to stabilize but heart rate control in A-fib may be the most appropriate measure. In addition ejection fraction has dropped to 35-40% which might
be multifactorial. Will treat with medications for now. Would like to add NIGEL inhibitor or Entresto but renal insufficiency precludes at the present time. Possibly may add Aldactone at some point as well. He was on Benzapril at home. d/w nursing
Original Note:
Today's Communication / Plan
-
Increase Coreg to 12.5 mg BID
Hold Lasix given bump in creat
Impression / Plan
-
Primary Pneumatic Tool Operator: Dr. Membreno
Assessment:
Admitted with sepsis and hypotension requiring pressors
Status postcardiac arrest
Status post VDRF
Paroxysmal atrial fibrillation 04/08/2024
Chronic anticoagulation on Eliquis
Newly reduced ejection fraction of 35-40% on echocardiogram 04/09/2024
New dilated hypokinetic right ventricle with severe pulm hypertension 04/09/2024
Chronic HFpEF
L femoral neck fracture s/p cannulated screw fixation 01/16/24
Right intertrochanteric fracture s/p ORIF 11/2023
Ongoing tobacco abuse
Hypertension
Hypercholesterolemia
RBBB
Type 2 diabetes
History of gout
Bilateral carotid artery stenosis, moderate to severe
Presumed COPD
Cervical laminectomy October 2022
Small bowel obstruction March 2023
History of reverse left total shoulder with revision in 03/17/2023
ECHO 12/06/23: EF 60 to 65%, trace AR
Echocardiogram 04/09/2024: Ejection fraction 35 to 40%, global hypokinesis, mild to moderate MR, mild AI, dilated and hypokinetic right ventricle with severe pulm hypertension and PA systolic of 70 mmHg
Plan:
He remains in atrial fibrillation with elevated heart rates.
Will attempt to continue rate control with amiodarone and carvedilol, continue Eliquis.
Increase Coreg to 12.5 mg BID due to elevated HR and BP
Change Lopressor IV to as needed
We could consider cardioversion to sinus rhythm as he has been anticoagulated since going into atrial fibrillation
However his mental status remains reduced and rate control might be appropriate at the current time
He has new reduction in ejection fraction from 60-65% to 35-40%.
Creat bumped from 1.2 to 1.7, likely due to contrast from CT chest. Hold Lasix, although he does appear wet
Etiology unclear but ejection fraction may have been difficult to determine with A-fib and could be due to sepsis.
Hold off on ischemic evaluation for now as he recovers from his ischemic bowel
Can consider repeat echo and/or ischemic evaluation as outpt once he has recovered
He also has new dilated hypokinetic right ventricle with severe pulm hypertension
CT of chest 04/09/2024 was negative for PE but did show small to moderate pleural effusions with scattered bilateral infectious/inflammatory bronchiolitis/pneumonia. Defer treatment to primary service now has elevated white count.
Progress Note - Pneumatic Tool Operator
Subjective
Date of Service: April 10, 2024
Patient seen and examined. Patient sitting up in bed and somewhat uncooperative with examination. Denies shortness of breath but appears tachypneic.
Objective
Labs:
04/10/24 06:38
04/10/24 06:38
Labs
Hgb 9.2 g/dL (13.0-18.0) L 04/10/24 06:38
Hct 28.1 % (39.0-52.0) L 04/10/24 06:38
Plt Count 259 10^3/uL (130-400) D 04/10/24 06:38
PT 17.5 Sec (11.4-14.6) H 04/02/24 20:44
INR 1.45 04/02/24 20:44
APTT 29.6 Sec (23.4-35.0) 04/02/24 20:44
Sodium 145 mmol/L (135-145) 04/10/24 06:38
Potassium 4.0 mmol/L (3.5-5.1) 04/10/24 06:38
BUN 55 mg/dl (9-20) H 04/10/24 06:38
Creatinine 1.7 mg/dL (0.7-1.3) H 04/10/24 06:38
Glucose 173 mg/dl (70-99) H 04/10/24 06:38
Vital Signs and I&O:
Vital Signs
Temp Pulse Resp BP Pulse Ox
97.2 F 115 18 162/103 95
04/10/24 08:48 04/10/24 08:48 04/10/24 08:48 04/10/24 08:48 04/10/24 08:48
Vital Signs
Temp Pulse Resp BP Pulse Ox
97.2 F 115 18 162/103 95
04/10/24 08:48 04/10/24 08:48 04/10/24 08:48 04/10/24 08:48 04/10/24 08:48
Intake & Output
04/08/24 04/09/24 04/10/24 07/24/24
06:59 06:59 06:59 06:59
Intake Total 1238.3 / 1316.6 588.2 / 588.2 1800 / 1800
Output Total 2400 / 2400 975 / 975 825 / 825
Balance -1161.7 / -1083.4 -386.8 / -386.8 975 / 975
Physical Exam
Physical Exam
GEN: No distress, awake, Ox3, sitting in bed
HEENT: supple, anicteric, mmm
LUNGS: Diffuse crackles at bilateral bases with some faint expiratory wheezes and rhonchi noted
CV: Irregularly irregular, tachycardic, S1/S2, no murmur, rub or gallop
ABD: soft, BS+, NT/ND
EXT: +1 bilateral lower extremity edema
NEURO: Uncooperative and unwilling to follow commands
SKIN: No rash, warm, dry, pink
[2024-04-10] MEDS: LOPRESSOR 5 MG IV ×2 (09:43→20:07)
--- NOTE | 2024-04-10 10:00 | W.PN.SURGUPD ---
Surgical Update
Surgical Update
No reports from patient or nurse of worsening abdominal pain, nausea, or vomiting. No reported issues with dysphagia following dietary advancement. Continues to pass loose stools.
Gen: NAD
Abd: soft, NT/ND, non-peritoneal, incision c/d/i - no erythema, ecchymosis or drainage
83M POD 7 s/p negative ex lap for presumed ischemic bowel, limited NATALIE was performed without SBR
-- No changes from a surgical perspective.
-- Diet per P[employer] SERVICES SPECIALIST
-- Plan for outpatient follow-up in 1 week's time for staple removal.
-- No heavy lifting or strenuous activities for 6 weeks postoperatively.
-- Please call with questions or concerns
[2024-04-10] MEDS: COREG PO (10:38)
[2024-04-10 11:24] VITALS: BP 152/94
[2024-04-10 11:57] LABS: Glucose - Point of Care 192 mg/dl (70-99)
[2024-04-10] MEDS: ELIQUIS 2.5 MG PO ×2 (12:17→20:07)
[2024-04-10] MEDS: NOVOLOG FLEXPEN-MODERATE RESISTANCE 1 UNITS SC ×3 (12:17→18:15)
[2024-04-10] MEDS: PACERONE 200 MG PO (12:18)
[2024-04-10] MEDS: COREG 12.5 MG PO ×2 (12:18→20:07)
[2024-04-10] MEDS: ZESTRIL 20 MG PO (12:18)
[2024-04-10] MEDS: NSS (PRESERVATIVE FREE) 10 ML IV ×2 (12:20→20:07)
[2024-04-10] MEDS: PROTONIX IV 40 MG IV ×2 (12:20→20:07)
[2024-04-10] MEDS: LASIX IV (12:20)
--- NOTE | 2024-04-10 13:10 | W.PN.HOSP.TC ---
Today's Communication/Plan
-
Uptitrate beta-elizabeth for rate control
Hold Lasix and NIGEL inhibitor, trend BMP for PABLO
Monitor mental status, delirium precautions
Assessment / Plan
Assessment / Plan
#S/P Cardiac arrest
#RV dilation on TTE
#HFrEF (EF 40%)
-Unclear cause of cardiac arrest; DDx include PE, sepsis
-S/P 3 rounds EPI/CPR; mentating adequately and near baseline
-CT head was negative; TTE showing reduced LVEF and RV dilation with new pulm HTN
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
-Was resumed on Lasix and NIGEL inhibitor yesterday though creatinine bumped and both were held
-Currently HD stable without vasopressor support, on RA, minimally symptomatic
Plan
-Uptitrate beta-blockade for tachy, add GDMT as hemodynamics allow
-Hold loop diuretic and NIGEL inhibitor for now as creatinine bumped
-Consider right heart cath as volume status difficult to assess
-Plan for cardioversion when mental status allows
-Monitor on telemetry
#PABLO
#Normal gap metabolic acidosis
-Suspect pre-renal state with dehydration; S/P agustin catheter
-Initially improved with IVF though was started on Lasix and ACEi followed by creatinine increased
-Home nephrotoxic meds held for pre-renal PABLO and hyperkalemia on admission
-nephrology following, received 1 L of IVF with bicarbonate
Plan
-Hold ACEi, Lasix, metformin
-Trend daily BMP
-Encourage oral hydration
-May need RHC to delineate volume status, as above
#Rapid AF/AFL
-Home medications include eliquis, beta-elizabeth, amiodarone
-Was NPO post-cardiac arrest but has been resumed on an oral regimen
-HR still tachycardic, in low 100s today
-Beta-elizabeth uptitrated by cardiology today
Plan
-Continue oral and as needed IV beta-elizabeth
-Continue Eliquis for anticoagulation
-Consider electrical cardioversion when mental status permits
#Metabolic encephalopathy
-Differentials include delirium versus chronic cognitive deficits
-He has had waxing and waning mental status while here
-Has had an intermittent leukocytosis here though suspicion for infection is low
-No focal signs or deficits, CT brain on admission without acute findings
-S/p 7-day course of empiric IV spectrum antibiotics
Plan
-Will consider repeat CT brain
-Trend vitals and CBC for signs of infection
-Monitor clinically
-Avoid unnecessary sedating medications
-Delirium precautions, open window, one-to-one
#S/P Circulatory shock
-Unclear cause, initially thought to be mesenteric ischemia though ex-lap did not show bowel ischemia
-shock resolved with pressors stopped; remains on IVF with bicarbonate for hypernatremia, acidosis, PABLO
-Unclear if truly infected, benefits outweigh risks of completing 7 day Unasyn course
-Blood cultures remain negative
#Acute abdomen
-CT prelim suggest bowel obstruction/ischemic
-s/p ex-lap 04/03: negative ex lap for presumed ischemic bowel, limited NATALIE was performed without sbr
-s/p NGT and VSE, back on PO diet
-resolved without known cause
-Surgery to remove velma in 1 week, no heavy lifting for 6 weeks
��
#Normocytic anemia
-Suspect multifactorial with chronic disease, age, possibly nutritional deficiency
-Hb trend has went up over last few days, no signs of active bleeding
-Trend CBC
#Hypocalcemia
-Encourage PO intake, consider Ca supplement if worsening
#H/O of Gout
-stable on allopurinol
#H/O of essential HTN
-Home BP regimen was held due to circulatory shock on arrival
-Resumed carvedilol now, plan to monitor vitals and titrate meds as needed
#HLD
-No ASCVD history known, continued on moderate intensity statin��
#type 2 diabetes
-A1c was 6.3%; c/b peripheral neuropathy for which he takes gabapentin
-Holding metformin due to PABLO, currently on ISS + AccuCheck
#Leukocytosis
-Has had leukocytosis for most of his time here, no fevers or other signs of infection now
-Status post 7-day course of IV antibiotics, broad-spectrum following cardiac arrest
-Has not spiked any fevers recently, no symptoms consistent with active infection
-Will continue to trend daily CBC
#Status post Left hip fracture with cannulated Screw 01/16/24
#Right hip fracture S/P gamma nail about one month ago
DVT ppx: Eliquis
Diet: House
Code: Full
Anticipated Discharge: > 48 hours
Subjective/Interval History
-
Date of Service: April 10, 2024
Seen and examined at the bedside. Overnight became more tachycardic, sustaining heart rates in the range of 130 to 140/min. No symptoms at this time. Remains hemodynamically stable.
Objective Data
-
Labs:
Laboratory Results
04/10/24
06:38
WBC 13.6 H
Hgb 9.2 L
Hct 28.1 L
Plt Count 259 D
Sodium 145
Potassium 4.0
Chloride 109 H
Carbon Dioxide 25
BUN 55 H
Creatinine 1.7 H
Glucose 173 H
Calcium 8.5
Total Bilirubin 0.6
AST 26
ALT 24
Alkaline Phosphatase 108
Vital Signs:
Vital Signs
Temp Pulse Resp BP Pulse Ox
98.4 F 122 18 152/94 92
04/10/24 11:24 04/10/24 11:24 04/10/24 11:24 04/10/24 11:24 04/10/24 11:24
I&O
04/09/24 04/10/24 04/11/24
06:59 06:59 06:59
Intake Total 588.2 / 588.2 1800 / 1800
Output Total 97 / 825 / 825
Balance -386.8 / -386.8 97 / 5
Review of Systems
-
History Source: Patient
All other systems: Reviewed and negative
Physical Exam
-
General: No Apparent Distress, Comfortable and Appears Chronically Ill
HEENT: Normocephalic, Atraumatic and Moist Mucous Membranes
Respiratory: Clear to Auscultation; Negative Wheezes, Rales or Rhonchi
Cardiac: S1/S2, Irregular Rhythm and Tachycardic; Negative Murmur, JVD or Gallop
GI: Soft, Nontender, Nondistended and Normal Bowel Sounds
Musculoskeletal: No Clubbing, No Cyanosis and Other (1+ edema BLLE)
Skin: Warm and Dry; Negative Rash
Neuro: AO x 3, Nonfocal/Grossly Intact and Central Nerve's Intact
Data Reviewed
-
Medical Tests (Nuc Med, Echo etc): Image personally visualized and interpreted
Labs: Labs Reviewed by me
--- NOTE | 2024-04-10 15:07 | W.PN.NEPH.PH ---
Today's Communication / Plan
-
d/c IVF
follow labs
prn lasix if needed
Assessment/Plan
-
Assessment:
PABLO (bl 1), now ATN
hypercapnice respiratory failure
s/p cardiac arrest
possible intra-abd process
BPH
T2DM
s/p recent hip fracture
Plan:
PABLO-cr improving to 1.2 but now at 1.7 post lasix and IV contrast on 04/09
remains non oliguric, avoid nephrotoxins, check U fena
mild-mod stable right hydro on recent CT-if cr increases further may need repeat imaging
hypernatremia-improving, will d/c IVF to avoid vol overload, prn lasix
met acidosis improved
echo noted with EF 35-40%, mild to mod MR, severe pulm HTN
he is on RA, no PE on CT chest
BP are high, uptitrated BB
d/w nursing
-
-
Date of Service: April 10, 2024
CC / HPI / ROS
-
Chief Complaint:
PABLO
History of Present Illness:
extubated on 04/05, on RA now
echo noted low EF and severe pulm HTN
PABLO/Cr improved at 1.2, now up at 1.7, na better 145
nonoliguric
Review of Systems:
awake,interactive
offers no complaints
aware of asp precautions. dysphagia diet appropriate
off DHT feeds since 04/08
Labs
-
Labs:
WBC 13.6 10^3/uL (4.8-10.8) H 04/10/24 06:38
RBC 3.49 10^6/uL (4.70-6.10) L 04/10/24 06:38
Hgb 9.2 g/dL (13.0-18.0) L 04/10/24 06:38
Hct 28.1 % (39.0-52.0) L 04/10/24 06:38
Plt Count 259 10^3/uL (130-400) D 04/10/24 06:38
Sodium 145 mmol/L (135-145) 04/10/24 06:38
Potassium 4.0 mmol/L (3.5-5.1) 04/10/24 06:38
Chloride 109 mmol/L (98-107) H 04/10/24 06:38
Carbon Dioxide 25 mmol/L (22-30) 04/10/24 06:38
BUN 55 mg/dl (9-20) H 04/10/24 06:38
Creatinine 1.7 mg/dL (0.7-1.3) H 04/10/24 06:38
eGFR 39.75 04/10/24 06:38
Glucose 173 mg/dl (70-99) H 04/10/24 06:38
Calcium 8.5 mg/dl (8.4-10.2) 04/10/24 06:38
Phosphorus 4.9 mg/dl (2.5-4.5) H 04/07/24 03:24
Albumin 2.9 g/dl (3.5-5.0) L 04/10/24 06:38
Physical Exam
-
Vital Signs:
Vital Signs
Temp Pulse Resp BP Pulse Ox
98.4 F 122 18 152/94 92
04/10/24 11:24 04/10/24 11:24 04/10/24 11:24 04/10/24 11:24 04/10/24 11:24
Cardiovascular:: Regular rate and rhythm
Lung Excursion:: Abnormal (decreased, kyphotic chest )
Abdomen:: Nontender and Soft
Extremity Edema:: +1: Bilateral:
Ramesh Catheter: No
[2024-04-10 15:28] LABS: Urine Albumin Trace (Neg - Trace); Urine Bilirubin Negative (Negative); Urine Character Clear (Clear); Urine Color Yellow; Urine Glucose Negative (Negative); Urine Ketone Negative (Negative); Urine Leukocyte Negative (Negative); Urine Nitrite Negative (Negative); Urine Occult Blood 4+ (Negative); Urine Specific Gravity 1.015 (<1.030); Urine Urobilinogen Negative (Neg - 1+)
[2024-04-10 15:45] VITALS: BP 133/88
[2024-04-10 15:49] LABS: Urine Bacteria Many (Negative); Urine Red Blood Cell 50-60 /HPF (0-2); Urine White Cell 0-2 /HPF (0-5)
[2024-04-10 17:44] LABS: Glucose - Point of Care 170 mg/dl (70-99)
[2024-04-10 19:49] VITALS: BP 137/91
[2024-04-10 21:36] LABS: Glucose - Point of Care 147 mg/dl (70-99)
[2024-04-10 22:29] LABS: Urine Sodium 46 mmol/L (30-90)
[2024-04-10 23:06] VITALS: BP 122/73
[2024-04-11] VITALS (8 sets, daily range): BP systolic 103–167; BP diastolic 61–97; PULSE 114–115; O2SAT 93; BMI 23.3
[2024-04-11 08:04] LABS: Glucose - Point of Care 159 mg/dl (70-99)
[2024-04-11] MEDS: NOVOLOG FLEXPEN-MODERATE RESISTANCE 1 UNITS SC ×3 (08:11→17:10)
[2024-04-11] MEDS: PACERONE 200 MG PO (08:12)
[2024-04-11] MEDS: COREG 12.5 MG PO (08:12)
[2024-04-11] MEDS: ELIQUIS 2.5 MG PO ×2 (08:12→20:34)
[2024-04-11] MEDS: NSS (PRESERVATIVE FREE) 10 ML IV ×2 (08:12→20:35)
[2024-04-11] MEDS: PROTONIX IV 40 MG IV ×2 (08:13→20:34)
[2024-04-11 12:37] LABS: Glucose - Point of Care 163 mg/dl (70-99)
--- NOTE | 2024-04-11 12:46 | W.PN.HOSP.TC ---
Today's Communication/Plan
-
Continue to titrate betablocker for rate control
Follow up AM labs, which he is now ammenable to having
Dilirium precautions, Out of bed with assistance
Assessment / Plan
Assessment / Plan
#S/P Cardiac arrest -- unclear cause
#RV dilation on TTE -- likely from pulmonary HTN
#HFrEF (EF 40%) -- Likely Tachycardia induced, cannot r/o ischemia completely
-S/P 3 rounds EPI/CPR; mentating adequately and near baseline
-CT head was negative; TTE showing reduced LVEF and RV dilation with new pulm HTN
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
-Seems to have cardiorenal physiology with volatile renal function, sensitivity to diuretics
-Currently HD stable without vasopressor support, on RA, minimally symptomatic
-I/O showing +300 ml in last 24 hours, still leg edema but no crackles or JVD
Plan
-Uptitrate beta-blockade for tachy, add GDMT as hemodynamics allow
-Hold loop diuretic for now as he does not seem grossly hypervolemic
-Monitor I/Os and daily weights
-Consider right heart cath as volume status difficult to assess
-Monitor on telemetry
#PABLO
#Normal gap metabolic acidosis
-Suspect pre-renal state with dehydration; S/P agustin catheter; likely component of CRS as well
-Home nephrotoxic meds held for pre-renal PABLO and hyperkalemia on admission
-nephrology following; Refused AM labs but is open to having them now
Plan
-Hold ACEi, Lasix, metformin
-Trend daily BMP
#Metabolic encephalopathy
-Differentials include delirium versus chronic cognitive deficits
-Has had an intermittent leukocytosis here though suspicion for infection is low
-S/p 7-day course of empiric IV spectrum antibiotics
-Seems to be improving
#Rapid AF/AFL
-Home medications include eliquis, beta-elizabeth, amiodarone
-Was NPO post-cardiac arrest but has been resumed on an oral regimen
-Now seems rate controlled with HR near 90/min
-Will continue with current dose of carvedilol, adjust as needed by HR
#S/P Circulatory shock
-Unclear cause, initially thought to be mesenteric ischemia though ex-lap did not show bowel ischemia
-shock resolved with pressors stopped; remains on IVF with bicarbonate for hypernatremia, acidosis, PABLO
-Unclear if truly infected, benefits outweigh risks of completing 7 day Unasyn course
-Blood cultures remain negative
#Acute abdomen
-CT prelim suggest bowel obstruction/ischemic
-s/p ex-lap 04/03: negative ex lap for presumed ischemic bowel, limited NATALIE was performed without sbr
-Surgery to remove velma in 1 week, no heavy lifting for 6 weeks
-resolved without known cause
��
#Normocytic anemia
-Suspect multifactorial with chronic disease, age, possibly nutritional deficiency
-Hb trend has went up over last few days, no signs of active bleeding
-Trend CBC
#Hypocalcemia
-Encourage PO intake, consider Ca supplement if worsening
#H/O of Gout
-stable on allopurinol
#H/O of essential HTN
-Home BP regimen was held due to circulatory shock on arrival
-Resumed carvedilol now, plan to monitor vitals and titrate meds as needed
#HLD
-No ASCVD history known, continued on moderate intensity statin��
#type 2 diabetes
-A1c was 6.3%; c/b peripheral neuropathy for which he takes gabapentin
-Holding metformin due to PABLO, currently on ISS + AccuCheck
#Leukocytosis
-Has had leukocytosis for most of his time here, no fevers or other signs of infection now
-Status post 7-day course of IV antibiotics, broad-spectrum following cardiac arrest
-Has not spiked any fevers recently, no symptoms consistent with active infection
-Will continue to trend daily CBC, monitor vitals
#Hoarseness
-Suspect this is related to CPR
#Status post Left hip fracture with cannulated Screw 01/16/24
#Right hip fracture S/P gamma nail about one month ago
DVT ppx: Eliquis
Diet: House
Code: Full
Anticipated Discharge: 24 - 48 hours
Subjective/Interval History
-
Date of Service: April 11, 2024
No events overnight. Refused blood draw this morning but is more ammenable now. Denies acute complaints. No chest pain or dyspnea. HR is improving, <100/min average upon my eval
Objective Data
-
Vital Signs:
Vital Signs
Temp Pulse Resp BP Pulse Ox
97 F 89 19 131/69 97
04/11/24 11:00 04/11/24 11:00 04/11/24 11:00 04/11/24 11:00 04/11/24 11:00
I&O
04/10/24 04/11/24 04/12/24
06:59 06:59 06:59
Intake Total 1800 / 1800 620 / 620
Output Total 825 / 825 275 / 275
Balance 975 / 975 345 / 345
Review of Systems
-
History Source: Patient
All other systems: Reviewed and negative
Constitutional: Reports No Symptoms
Respiratory: Reports No Symptoms
Cardiac: Reports No Symptoms
Abdomen/GI: Reports No Symptoms
Genitourinary: Reports No Symptoms
Musculoskeletal: Reports No Symptoms
Skin: Reports No Symptoms
Neuro: Reports No Symptoms
Physical Exam
-
General: No Apparent Distress, Comfortable and Appears Chronically Ill
HEENT: Normocephalic, Atraumatic and Anicteric
Respiratory: Clear to Auscultation and Non Labored Respirations; Negative Wheezes, Rales or Rhonchi
Cardiac: S1/S2 and Irregular Rhythm; Negative Murmur, Rub or JVD
GI: Soft, Nontender, Nondistended and Normal Bowel Sounds
Skin: Warm and Dry; Negative Rash
Neuro: AO x 3, Nonfocal/Grossly Intact and Central Nerve's Intact
--- NOTE | 2024-04-11 14:07 | W.PN.NEPH.PH ---
Today's Communication / Plan
-
- awaiting labs
Assessment/Plan
-
Assessment:
PABLO (bl 1), now ATN
hypercapnice respiratory failure
s/p cardiac arrest
possible intra-abd process
BPH
T2DM
s/p recent hip fracture
Plan:
PABLO-cr improving to 1.2 but now at 1.7 post lasix and IV contrast on 04/09. no repeat labs done today
remains non oliguric, avoid nephrotoxins, urine sodium not low (but this is nondiagnostic)
mild-mod stable right hydro on recent CT-if cr increases further may need repeat imaging
hypernatremia-improving, will d/c IVF to avoid vol overload, on lasix 40mg IV daily
met acidosis improved
echo noted with EF 35-40%, mild to mod MR, severe pulm HTN
he is on RA, no PE on CT chest
BPs normalized after increasing BB
patient is adamant to leave tomorrow AM
d/w nursing
-
-
Date of Service: April 11, 2024
CC / HPI / ROS
-
Chief Complaint:
PABLO
History of Present Illness:
extubated on 04/05, on RA now
echo noted low EF and severe pulm HTN
PABLO/Cr improved at 1.2, now up at 1.7, na better 145
nonoliguric
Review of Systems:
awake,interactive
offers no complaints
aware of asp precautions. dysphagia diet appropriate
off DHT feeds since 04/08
Labs
-
Labs:
eGFR 39.75 04/10/24 06:38
Albumin 2.9 g/dl (3.5-5.0) L 04/10/24 06:38
Physical Exam
-
Vital Signs:
Vital Signs
Temp Pulse Resp BP Pulse Ox
97 F 89 19 131/69 97
04/11/24 11:00 04/11/24 11:00 04/11/24 11:00 04/11/24 11:00 04/11/24 11:00
Cardiovascular:: Regular rate and rhythm
Respiratory:: Bilateral: Coarse
Lung Excursion:: Normal
Abdomen:: Nontender and Soft
Bowel Sounds:: Normal
Extremity Edema:: +2: Bilateral:
Ramesh Catheter: No
[2024-04-11 14:37] LABS: Blood Urea Nitrogen 52 mg/dl (9-20); Calcium 8.5 mg/dl (8.4-10.2); Carbon Dioxide 27 mmol/L (22-30); Chloride 108 mmol/L (98-107); Estimated Creatinine Clearance 43 ml/min; Glucose 159 mg/dl (70-99); Magnesium 1.7 mg/dl (1.6-2.3); Potassium 4.4 mmol/L (3.5-5.1); Sodium 145 mmol/L (135-145); eGFR 46.19
--- NOTE | 2024-04-11 15:03 | W.PN.CARDCBS ---
Addendum entered and electronically signed by Vinod Thornton MD 04/11/24 15:47:
I saw and examined the patient.
The Pickle Pumper's note was reviewed and I agree with the note.
Comment:
GEN: No distress, awake, Ox3
HEENT: supple, anicteric, mmm
LUNGS: CTA, no wheezes/rales
CV: irreg, S1/S2, 1/6 syst LSB, no gallop
ABD: soft, BS+, NT/ND
EXT: No edema
NEURO: Gross non-focal
SKIN: No rash
Plan:
Vent rates are elevated. Increase Coreg to 25mg po bid. Cont Amio/Eliquis
Creat down to 1.5. Follow
Hold Lasix for now. Consider restart over next 24 hours
Will need eventual ischemia eval as outpt.
Original Note:
Today's Communication / Plan
-
increase coreg, continue amio. plan for rate control at present
continue eliquis 2.5mg BID
follow Cr/volume status
OP eval of new EF reduction once recovered
Impression / Plan
-
Primary Client Care Manager: Dr. Membreno
Assessment:
Admitted with sepsis and hypotension requiring pressors
Status postcardiac arrest requiring EPI/CPR
Status post VDRF
s/p ex lap for PSBO/concern for ischemic bowel 04/03/24
Paroxysmal atrial fibrillation 04/08/2024
Chronic anticoagulation on Eliquis
Newly reduced ejection fraction of 35-40% on echocardiogram 04/09/2024
New dilated hypokinetic right ventricle with severe pulm hypertension 04/09/2024
Chronic HFpEF
L femoral neck fracture s/p cannulated screw fixation 01/16/24
Right intertrochanteric fracture s/p ORIF 11/2023
Ongoing tobacco abuse
Hypertension
Hypercholesterolemia
RBBB
Type 2 diabetes
History of gout
Bilateral carotid artery stenosis, moderate to severe
Presumed COPD
Cervical laminectomy October 2022
Small bowel obstruction March 2023
History of reverse left total shoulder with revision in 03/17/2023
ECHO 12/06/23: EF 60 to 65%, trace AR
Echocardiogram 04/09/2024: Ejection fraction 35 to 40%, global hypokinesis, mild to moderate MR, mild AI, dilated and hypokinetic right ventricle with severe pulm hypertension and PA systolic of 70 mmHg
Plan:
He was admitted with vomiting and hypotension requiring pressors on arrival. He was a cardiac arrest in ER requiring Epi and CPR with ROSC. he underwent ex lap due to concern for ischemic bowel on 04/03 which was negative. 04/08 went into atrial
fibrillation with RVR resulting in cardiology consultation.
-He remains in A-fib with suboptimal rates. Continue amiodarone 200 mg daily. Will increase Coreg to 25 mg twice daily. Continue Eliquis 2.5mg BID
-Given current altered mental status, will continue with rate control strategy at this time
-Could consider for outpatient cardioversion once recovered
-EF newly reduced at 35 to 40% by echo.
-He was given Lasix on 04/09 and creatinine bumped from 1.2 -->1.7. also felt to be due to contrast. nephrology following. holding further lasix for now
-GDMT currently limited by fluctuating renal function and altered mental status.
-Hold off on ischemic evaluation for now as he recovers. Can consider repeat echo and/or ischemic evaluation as outpt once improved
-He also has new dilated hypokinetic right ventricle with severe pulm hypertension by echo. CT of chest 04/09/2024 was negative for PE but did show small to moderate pleural effusions with scattered bilateral infectious/inflammatory
bronchiolitis/pneumonia. Defer treatment to primary service now has elevated white count.
Progress Note - Client Care Manager
Subjective
Date of Service: April 11, 2024
Patient agitated, uncooperative at times.
Objective
Labs:
04/11/24 13:38
Labs
Hgb 9.2 g/dL (13.0-18.0) L 04/10/24 06:38
Hct 28.1 % (39.0-52.0) L 04/10/24 06:38
Plt Count 259 10^3/uL (130-400) D 04/10/24 06:38
PT 17.5 Sec (11.4-14.6) H 04/02/24 20:44
INR 1.45 04/02/24 20:44
APTT 29.6 Sec (23.4-35.0) 04/02/24 20:44
Sodium 145 mmol/L (135-145) 04/11/24 13:38
Potassium 4.4 mmol/L (3.5-5.1) 04/11/24 13:38
BUN 52 mg/dl (9-20) H 04/11/24 13:38
Creatinine 1.5 mg/dL (0.7-1.3) H 04/11/24 13:38
Glucose 159 mg/dl (70-99) H 04/11/24 13:38
Vital Signs and I&O:
Vital Signs
Temp Pulse Resp BP Pulse Ox
97 F 89 19 131/69 97
04/11/24 11:00 04/11/24 11:00 04/11/24 11:00 04/11/24 11:00 04/11/24 11:00
Vital Signs
Temp Pulse Resp BP Pulse Ox
97 F 89 19 131/69 97
04/11/24 11:00 04/11/24 11:00 04/11/24 11:00 04/11/24 11:00 04/11/24 11:00
Intake & Output
04/09/24 04/10/24 04/11/24 04/12/24
07:59 07:59 07:59 07:59
Intake Total 509.9 / 509.9 1800 / 1800 620 / 620
Output Total 975 / 975 825 / 825 275 / 275
Balance -465.1 / -465.1 975 / 975 345 / 345
--- NOTE | 2024-04-11 15:12 | PTCARENOTE ---
RN went into check on pt. Pt just sounding more wheezy, moist productive cough, voice very hoarse. 02 97% RA. RN spoke with Dr. Sánchez via phone to let him know. Dr Sánchez ordered bedside cxr.
[2024-04-11 15:21] LABS: % Basophils 0.2 % (0-2); % Eosinophils 0.7 % (0-6); % Immature Granulocytes 1.6 % (0-0.5); % Lymphocytes 4.3 % (20.5-51.1); % Monocytes 4.8 % (1.7-9.3); % Neutrophils 88.4 % (42.2-75.2); Absolute Eosinophils 0.1 10^3/uL (0-0.7); Absolute Immature Granulocytes 0.2 10^3/uL (0-0.05); Absolute Lymphocytes 0.5 10^3/uL (1.2-3.4); Absolute Monocytes 0.6 10^3/uL (0.1-0.6); Absolute Neutrophils 10.8 10^3/uL (1.4-6.5); Hematocrit 29.7 % (39.0-52.0); Hemoglobin 9.6 g/dL (13.0-18.0); Mean Corp Hgb Conc. 32.3 g/dL (33.0-37.0); Mean Corpuscular Hgb 25.8 pg (27.0-31.0); Mean Corpuscular Volume 79.8 fL (80.0-94.0); Mean Platelet Volume 11.3 fL (7.4-10.4); Nucleated Red Blood Cells % 0.2 % (-); Platelet Count 318 10^3/uL (130-400); Red Blood Cell Count 3.72 10^6/uL (4.70-6.10); Red Cell Dist. Width 16.6 % (11.5-14.5); White Blood Cell Count 12.2 10^3/uL (4.8-10.8)
--- NOTE | 2024-04-11 16:00 | CM ---
Case management following for d/c planning
Chart reviewed
Remains on medsitter
Titrating beta elizabeth
Following labs
Cards, nephro following
PT/OT recs SNF - family/pt requesting [facility]
PM&R consult pending
CM will follow for d/c needs
Plan - anticipate d/c to SNF/[facility] when medically ready
[2024-04-11 16:59] LABS: Glucose - Point of Care 165 mg/dl (70-99)
[2024-04-11] MEDS: COREG 25 MG PO (20:33)
[2024-04-11 21:51] LABS: Glucose - Point of Care 192 mg/dl (70-99)
[2024-04-12 03:32] VITALS: BP 125/87
[2024-04-12 06:06] LABS: % Basophils 0.3 % (0-2); % Eosinophils 1.6 % (0-6); % Immature Granulocytes 1.2 % (0-0.5); % Lymphocytes 6.1 % (20.5-51.1); % Monocytes 5.7 % (1.7-9.3); % Neutrophils 85.1 % (42.2-75.2); Absolute Eosinophils 0.2 10^3/uL (0-0.7); Absolute Immature Granulocytes 0.1 10^3/uL (0-0.05); Absolute Lymphocytes 0.7 10^3/uL (1.2-3.4); Absolute Monocytes 0.6 10^3/uL (0.1-0.6); Absolute Neutrophils 9.1 10^3/uL (1.4-6.5); Hematocrit 27.5 % (39.0-52.0); Hemoglobin 8.9 g/dL (13.0-18.0); Mean Corp Hgb Conc. 32.4 g/dL (33.0-37.0); Mean Corpuscular Hgb 25.9 pg (27.0-31.0); Mean Corpuscular Volume 80.2 fL (80.0-94.0); Mean Platelet Volume 10.7 fL (7.4-10.4); Nucleated Red Blood Cells % 0.2 % (-); Platelet Count 301 10^3/uL (130-400); Red Blood Cell Count 3.43 10^6/uL (4.70-6.10); Red Cell Dist. Width 16.8 % (11.5-14.5); White Blood Cell Count 10.7 10^3/uL (4.8-10.8)
[2024-04-12 06:28] LABS: Blood Urea Nitrogen 47 mg/dl (9-20); Calcium 8.3 mg/dl (8.4-10.2); Carbon Dioxide 30 mmol/L (22-30); Chloride 107 mmol/L (98-107); Estimated Creatinine Clearance 40 ml/min; Glucose 135 mg/dl (70-99); Magnesium 1.7 mg/dl (1.6-2.3); Potassium 3.9 mmol/L (3.5-5.1); Sodium 142 mmol/L (135-145); eGFR 42.75
[2024-04-12 07:00] VITALS: BP 124/81
--- NOTE | 2024-04-12 09:30 | CON.MD ---
Consultation - Medical
-
Referring Provider: Emil Sánchez
Chief Complaint: Cardiac arrest with successful resuscitation and possible ischemic brain injury
History of Present Illness: The patient is a 83 year old male who was admitted to the ED on 04/02/24 with vomiting as well as severe weakness. He has a PMH of HT,HLD, PAF, HF, DM2, BPH, Gout, Peripheral vascular disease, small bowel obstruction in
the past, COPD. He was started on pressors on arrival at ED for severe hypotension. He ended up having a cardiac arrest in the CT scan and received epinephrine as well as CPR was intubated.He received chest compressions and 3 rounds of epinephrine
and was intubated. He had return of circulation. He then had seizure-like activity. Intubated - Extubated . He has been treated for acute ischemic bowel and had a s/p ex lap for PSBO/concern for ischemic bowel on 04/03/24.
Cardiology saw the patient for atrial fibrillation. The patient removed his central line out as well as NG tube on 04/08/24 by himself. The patient was seen in his chair sitting this morning. He was agitated and was uncooperative during the
conversation. He was awake and alert and oriented. He firmly denied being examined by me. Therefore, patient could not be physically examined/assessed for a possible ischemic brain injury.
Past Medical History:
Hypertension
Hyperlipidemia
Paroxysmal atrial fibrillation
Chronic diastolic congestive heart failure
Diabetes mellitus type 2,
BPH
History of gout
Peripheral vascular disease, small bowel obstruction in the past
Possible COPD
Procedure History:
Reverse left total shoulder with revision
Cervical laminectomy
Left shoulder replacement
Appendectomy
Rotator cuff procedure
Femur fracture procedure in 2023
Social History
Tobacco: Smoker
Alcohol: Occasional
Drug: None
Family History
Family History: Not Pertinent
Functional Level Premorbidly: Independent and was using a rolling walker
Functional Level Currently:Bed mobility:Supine to sit- Maximum assistance -Rolling- Maximum assistance-Comment Max A x 2 for supine to sit Patinet minimally receptive to assisting LE's to EOB. Delayed processing, Transfer: Sit to stand- Maximum
assistance,Stand to sit- Maximum assistance,Ambulation/Weight Bearing/Gait: Ambulation Patient ambulated 4 ft x 1 with RW and Mod A x 2, Gait comment: Shuffling steps ,increased flexed posture with severe forward head, wide JENNIE, decreased bilateral
foot clearance
Tobacco: Denies
Alcohol: Denies
Drug use: Denies
Lives with: Spouse
24-hour assistance available: No
Number of floors:
# steps to enter: 2
# steps to second floor:
Potential First floor set up: yes
Allergies / Home Medications
Allergies
Allergy/AdvReac Type Severity Reaction Status Date / Time
No Known Allergies Allergy Verified 04/02/24 19:56
Home Medications
apixaban 5 mg tablet 5 mg PO BID Blood Clot Prevention/Tx 03/19/23
folic acid 1 mg tablet 1 mg PO DAILY Supplement 03/19/23
simvastatin 20 mg tablet 20 mg PO QPM High Cholesterol 03/19/23
gabapentin 100 mg capsule 200 mg PO DAILY Pain 03/29/23
benazepril 20 mg tablet 20 mg PO DAILY Blood Pressure 01/13/24
gabapentin 300 mg capsule 300 mg PO HS Pain 01/13/24
metformin 500 mg tablet 500 mg PO BID Diabetes 01/13/24
carvedilol 6.25 mg tablet 6.25 mg PO BID Blood pressure 30 days #60 tabs 01/25/24
allopurinol 100 mg tablet 100 mg PO DAILY Gout 04/02/24
amiodarone 200 mg tablet (Pacerone) 200 mg PO DAILY Arrhythmia 04/02/24
polyethylene glycol 3350 17 gram oral powder packet (Miralax) 17 g PO DAILY Constipation 04/02/24
tamsulosin 0.4 mg capsule (Flomax) 0.4 mg PO DAILY Urinary Issue 04/02/24
Vital Signs:
Vital Signs
Temp Pulse Resp BP Pulse Ox
97.7 F 98 17 124/81 98
04/12/24 03:32 04/12/24 07:00 04/12/24 07:00 04/12/24 07:00 04/12/24 07:00
Physical Exam
-
General: No Apparent Distress, Comfortable and Appears Chronically Ill
HEENT: Normocephalic, Atraumatic and Anicteric
Respiratory: Clear to Auscultation and Non Labored Respirations; Negative Wheezes, Rales or Rhonchi
Cardiac: S1/S2 and Irregular Rhythm; Negative Murmur, Rub or JVD
GI: Soft, Nontender, Nondistended and Normal Bowel Sounds
Skin: Warm and Dry; Negative Rash
Neuro: AO x 3, Nonfocal/Grossly Intact and Central Nerve's Intact
Neurology Exam:
Orientation: Alert, Oriented to self, Time, Place
Memory: Intact immediately
Cranial Nerves:
CNII: Pupillary light reflex: Intact Visual Field: Intact
CN III, IV, : Extraocular muscles: Intact
CN V: Facial Sensation at Forehead: Intact, Maxilla: Intact, Mandible: Intact
CN VII: Facial movement: Symmetric
CN VIII: Hearing: Normal with normal volume conversation
CN IX/X:Patient denied to be examined
CN XI: Patient denied to be examined
CN XII: Patient denied to be examined
Sensory:
Light touch:Patient denied to be examined
Pinprick:Patient denied to be examined
Proprioception:Patient denied to be examined
Temperature:Patient denied to be examined
Reflexes:Patient denied to be examined
Biceps: Patient denied to be examined
Brachioradialis:Patient denied to be examined
Triceps: Patient denied to be examined
Patellar: Patient denied to be examined
Achilles: Patient denied to be examined
Babinski: Patient denied to be examined
Clonus: Patient denied to be examined
Rosenda: Patient denied to be examined
Cerebellar: Patient denied to be examined
Musculoskeletal:
Motor: (Manual muscle scale 0-5):Patient firmly denied to be examined
Tone:Patient denied to be examined
Range of Motion: Patient denied to be examined
Lab Results
Laboratory Data
PT 17.5 Sec (11.4-14.6) H 04/02/24 20:44
APTT 29.6 Sec (23.4-35.0) 04/02/24 20:44
Total Bilirubin 0.6 mg/dl (0.2-1.3) 04/10/24 06:38
AST 26 U/L (17-59) 04/10/24 06:38
ALT 24 U/L (0-50) 04/10/24 06:38
Alkaline Phosphatase 108 U/L (38-126) 04/10/24 06:38
Lab Results - Hematology
04/10/24 04/11/24 04/12/24
06:38 13:38 05:29
WBC 13.6 H 12.2 H 10.7
Lab Results - Chemistry
04/09/24 04/09/24 04/10/24
22:15 22:37 06:38
BUN Cancelled Cancelled 55 H
Creatinine Cancelled Cancelled 1.7 H
Estimated Creat Clear Cancelled Cancelled 38
Albumin 2.9 L
04/11/24 04/12/24
13:38 05:29
BUN 52 H 47 H
Creatinine 1.5 H 1.6 H
Estimated Creat Clear 43 40
Albumin
Lab Results - Urine
04/10/24
15:11
Urine Nitrite (Reflex) Negative
Leukocyte Esterase Rfl Negative
Urine WBC (Reflex) 0-2
Urine Bacteria (Reflex) Many A
Diagnostic Results: as per HPI
Head CT: 04/03/24
IMPRESSION: No acute intracranial abnormality. Chronic/incidental findings as detailed in the body of the report.
Assessment: The patient is a 83 year old male who was admitted to the ED on 04/02/24 with vomiting as well as severe weakness. He has a PMH of HT,HLD, PAF, HF, DM2, BPH, Gout, Peripheral vascular disease, small bowel obstruction in the past, COPD.
He was started on pressors on arrival at ED for severe hypotension. He ended up having a cardiac arrest in the CT scan and received epinephrine as well as CPR was intubated. Then he had seizure-like activity. The patient was seen in the am by me
sitting in his chair. He was agitated and was uncooperative during the conversation. He firmly denied being examined by me. Therefore, patient could not be physically examined/assessed for a possible ischemic brain injury. His Head CT from 04/03/24
reported no abnormalities.�Head MRI would be helpful to determine a possible ischemic brain injury. The patient seems debilitated and weakness possibly regarding his recent cardiac arrest and surgery.
Plan:
PM&R: Acute inpatient rehab with PT/OT/SW/RN/psychology to increase independence with ADLs, improve balance, coordination, endurance, strength, mobility, community reintegration, decreased burden of care on others and family education.
Diagnosis for ischemic brain injury: MRI�plays an important role in diagnosing this condition by demonstrating multiple areas of abnormal signal intensity on T2-weighted and FLAIR images. MRI head order would be appreciated.
Atrial fibrillation/Flutter/Chronic CHF: Per cardiology recommendation: Continue amiodarone 200 mg daily. HT:Will increase Coreg to 25 mg twice daily. Continue Eliquis 2.5mg BID, Given current altered mental status, will continue with rate control
strategy at this time, Could consider for outpatient cardioversion once recovered.
Status post Left hip fracture with cannulated Screw 01/16/24 and Right hip fracture S/P gamma nail about in 11/2023: Patient was discharged from [facility] on 01/25/24 after he received PT/OT after left hip fracture surgery. At discharge: Pt
was questionable ability to maintain PWB through left LE . Pt required constant, max verbal cues to perform PWB. Pt provided with demonstration and additional education on PWB and was still unable to adhere to precaution.He does perform step to
pattern but if forgetful at times and performs step thru pattern at times. He was in need for assistance.
Anemia: Multifactorial, postop- Hgb 8.9, recommended iron supplement
HLD: Statin
DM II: Accu-Cheks in
Gout: Patient refuses medicine. Per chart review, States that he takes gabapentin for the gout pain. Refused to take allopurinol in his previous hospitalizations.
Psych: Psychology consult would be appreciated.
Skin: monitor for pressure sores/rashes/lesions.
Bladder/BPH: Time void, PVRs, PRN straight cath. Tamsulosin 0.4 at bed time
GI Prophylaxis: Pantoprazole
DVT Prophylaxis: mechanical and already has been on Eliquis
Pulmonary: Incentive spirometry
Safety: Continue to reinforce assistance with all transfers.
Code Status:� Full code
Summary of Recommendations:
The patient firmly denied being examined this morning and reported that he does not think he has a brain injury. He reported he is not interested in being at [facility] but he wants to keep having physical therapy. There is no any objective
findings to determine if the patent has an ischemic brain injury or not after being resuscitated from cardiac arrest. Because Head CT did not show any abnormalities, Head MRI findings would be helpful.
Will continue to follow patient.
Will sign off, please re-consult if needed.
Thank you for allowing me to care for your patient. Please contact me with any questions or concerns.
--- NOTE | 2024-04-12 11:02 | W.PN.CARDCBS ---
Addendum entered and electronically signed by Vinod Thornton MD 04/12/24 13:50:
I saw and examined the patient.
The Instructor Pilot's note was reviewed and I agree with the note.
Comment:
GEN: No distress, agitated
HEENT: supple, anicteric, mmm
LUNGS: CTA, no wheezes/rales
CV: Irreg, S1/S2, 1/6 syst LSB, no gallop
ABD: soft, BS+, NT/ND
EXT: No edema
NEURO: Gross non-focal
SKIN: No rash
Plan:
Ventricular rates are overall adequate although borderline. For now I would make no changes. Continue amiodarone, Coreg 25 p.o. twice daily and Eliquis.
Agree with restarting Lasix per nephrology. Creatinine overall stable at 1.6.
Will arrange outpatient follow-up to further discuss ischemic evaluation and consideration for cardioversion.
Plan will be to let him recover from his ex lap and reevaluate him from a cardiac standpoint.
We have held off on NIGEL/ARB/Entresto/Aldactone because of his renal insufficiency.
Original Note:
Today's Communication / Plan
-
continue amio 200mg daily, coreg 25mg BID, eliquis 2.5mg BID
diuretics per nephro
GDMT limited by RI
consider for outpatient cardioversion/repeat echo/ischemic eval once recovered
will arrange OP cardiac follow up
Impression / Plan
-
Primary Donor Services Specialist: Dr. Membreno
Assessment:
Admitted with sepsis and hypotension requiring pressors
Status postcardiac arrest requiring EPI/CPR
Status post VDRF
s/p ex lap for PSBO/concern for ischemic bowel 04/03/24
Paroxysmal atrial fibrillation 04/08/2024
Chronic anticoagulation on Eliquis
Newly reduced ejection fraction of 35-40% on echocardiogram 04/09/2024
New dilated hypokinetic right ventricle with severe pulm hypertension 04/09/2024
Chronic HFpEF
L femoral neck fracture s/p cannulated screw fixation 01/16/24
Right intertrochanteric fracture s/p ORIF 11/2023
Ongoing tobacco abuse
Hypertension
Hypercholesterolemia
RBBB
Type 2 diabetes
History of gout
Bilateral carotid artery stenosis, moderate to severe
Presumed COPD
Cervical laminectomy October 2022
Small bowel obstruction March 2023
History of reverse left total shoulder with revision in 03/17/2023
ECHO 12/06/23: EF 60 to 65%, trace AR
Echocardiogram 04/09/2024: Ejection fraction 35 to 40%, global hypokinesis, mild to moderate MR, mild AI, dilated and hypokinetic right ventricle with severe pulm hypertension and PA systolic of 70 mmHg
Plan:
He was admitted with vomiting and hypotension requiring pressors on arrival. He was a cardiac arrest in ER requiring Epi and CPR with ROSC. he underwent ex lap due to concern for ischemic bowel on 04/03 which was negative. 04/08 went into atrial
fibrillation with RVR resulting in cardiology consultation.
-he remains in afib with adequate HR control ~100bpm. continue amiodarone 200mg daily, coreg 25mg BID. plan for rate control strategy at this time
-continue eliquis 2.5mg BID
-EF newly reduced at 35 to 40% by echo.
-He was given Lasix on 04/09 and creatinine bumped from 1.2 -->1.7. also felt to be due to contrast. nephrology following. holding further lasix for now. Cr 1.6 on 04/12
-GDMT currently limited by fluctuating renal function
-Could consider for outpatient cardioversion/repeat echo/ischemic eval once recovered
-He also has new dilated hypokinetic right ventricle with severe pulm hypertension by echo. CT of chest 04/09/2024 was negative for PE but did show small to moderate pleural effusions with scattered bilateral infectious/inflammatory
bronchiolitis/pneumonia. Defer treatment to primary service now has elevated white count.
-will arrange OP cardiac follow up
-plan for SNF/[facility] upon DC
Progress Note - Donor Services Specialist
Subjective
Date of Service: April 12, 2024
remains agitated at times
Objective
Labs:
04/12/24 05:29
04/12/24 05:
Labs
Hgb 8.9 g/dL (13.0-18.0) L 04/12/24 05:
Hct 27.5 % (39.0-52.0) L 04/12/24 05:29
Plt Count 301 10^3/uL (130-400) 04/12/24 05:29
PT 17.5 Sec (11.4-14.6) H 04/02/24 20:44
INR 1.45 04/02/24 20:44
APTT 29.6 Sec (23.4-35.0) 04/02/24 20:44
Sodium 142 mmol/L (135-145) 04/12/24 05:29
Potassium 3.9 mmol/L (3.5-5.1) 04/12/24 05:29
BUN 47 mg/dl (9-20) H 04/12/24 05:29
Creatinine 1.6 mg/dL (0.7-1.3) H 04/12/24 05:29
Glucose 135 mg/dl (70-99) H 04/12/24 05:29
Vital Signs and I&O:
Vital Signs
Temp Pulse Resp BP Pulse Ox
97.7 F 98 17 124/81 98
04/12/24 03:32 04/12/24 07:00 04/12/24 07:00 04/12/24 07:00 04/12/24 07:00
Vital Signs
Temp Pulse Resp BP Pulse Ox
97.7 F 98 17 124/81 98
04/12/24 03:32 04/12/24 07:00 04/12/24 07:00 04/12/24 07:00 04/12/24 07:00
Intake & Output
04/10/24 04/11/24 04/12/24 04/13/24
07:59 07:59 07:59 07:59
Intake Total 1800 / 1800 620 / 620 720 / 720
Output Total 825 / 825 275 / 275 350 / 350
Balance 975 / 975 345 / 345 370 / 370
[2024-04-12] MEDS: NOVOLOG FLEXPEN-MODERATE RESISTANCE SC ×3 (11:08→16:30)
[2024-04-12] MEDS: PACERONE PO ×2 (11:52→12:07)
[2024-04-12] MEDS: PROTONIX IV IV ×2 (11:52→12:07)
[2024-04-12] MEDS: NSS (PRESERVATIVE FREE) IV ×2 (11:52→12:07)
[2024-04-12] MEDS: ELIQUIS PO ×2 (11:55→12:07)
[2024-04-12] MEDS: COREG PO ×3 (11:58→22:34)
--- NOTE | 2024-04-12 12:04 | W.PN.HOSP.TC ---
Today's Communication/Plan
-
Continue carvedilol 25 mg twice daily for rate control
Monitor telemetry
Encourage oral intake
Assessment / Plan
Assessment / Plan
#S/P Cardiac arrest -- unclear cause
#RV dilation on TTE -- likely from pulmonary HTN
#HFrEF (EF 40%) -- Likely Tachycardia induced, cannot r/o ischemia completely
-S/P 3 rounds EPI/CPR; mentating adequately and near baseline
-CT head was negative; TTE showing reduced LVEF and RV dilation with new pulm HTN
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
-Seems to have cardiorenal physiology with volatile renal function, sensitivity to diuretics
-Currently HD stable without vasopressor support, on RA, minimally symptomatic
-I/O showing +370 ml in last 24 hours, still leg edema but no crackles or JVD
Plan
-Continue Coreg 25 mg twice daily for rate control and GDMT
-Daily consideration for loop diuretic per renal function and volume status
-Monitor I/Os and daily weights, moderate sodium restriction per diet
-Monitor on telemetry
#PABLO
#Normal gap metabolic acidosis
-Suspect pre-renal state with dehydration; S/P agustin catheter; likely component of CRS as well
-Home nephrotoxic meds held for pre-renal PABLO and hyperkalemia on admission
-nephrology following; renal function is stabilized with creatinine near 1.5
Plan
-Hold ACEi, Lasix, metformin
-Trend daily BMP
#Rapid AF/AFL
-Home medications include eliquis, beta-elizabeth, amiodarone
-Was NPO post-cardiac arrest but has been resumed on an oral regimen
-Now seems rate controlled with HR near 90/min
-Will continue with current dose of carvedilol, adjust as needed by HR
#Metabolic encephalopathy
-Differentials include delirium versus chronic cognitive deficits
-Has had an intermittent leukocytosis here though suspicion for infection is low
-S/p 7-day course of empiric IV spectrum antibiotics
-Resolved
#S/P cardiac arrest, circulatory shock
-Unclear cause, initially thought to be mesenteric ischemia though ex-lap did not show bowel ischemia
-shock resolved with pressors stopped; remains on IVF with bicarbonate for hypernatremia, acidosis, PABLO
-Unclear if truly infected, benefits outweigh risks of completing 7 day Unasyn course
-Blood cultures remain negative
#Acute abdomen
-CT prelim suggest bowel obstruction/ischemic
-s/p ex-lap 04/03: negative ex lap for presumed ischemic bowel, limited NATALIE was performed without sbr
-Surgery to remove velma in 1 week, no heavy lifting for 6 weeks
-resolved without known cause
��
#Normocytic anemia
-Suspect multifactorial with chronic disease, age, possibly nutritional deficiency
-Hb trend has went up over last few days, no signs of active bleeding
-Trend CBC
#Hypocalcemia
-Encourage PO intake, consider Ca supplement if worsening
#H/O of Gout
-stable on allopurinol
#H/O of essential HTN
-Home BP regimen was held due to circulatory shock on arrival
-Resumed carvedilol now, plan to monitor vitals and titrate meds as needed
#HLD
-No ASCVD history known, continued on moderate intensity statin��
#type 2 diabetes
-A1c was 6.3%; c/b peripheral neuropathy for which he takes gabapentin
-Holding metformin due to PABLO, currently on ISS + AccuCheck
#Leukocytosis
-Has had leukocytosis for most of his time here, no fevers or other signs of infection now
-Status post 7-day course of IV antibiotics, broad-spectrum following cardiac arrest
-Has not spiked any fevers recently, no symptoms consistent with active infection
-Will continue to trend daily CBC, monitor vitals
#Hoarseness
-Suspect this is related to CPR
#Status post Left hip fracture with cannulated Screw 01/16/24
#Right hip fracture S/P gamma nail about one month ago
DVT ppx: Eliquis
Diet: Soft, bite sized, mildly thickened fluids
Code: Full
Anticipated Discharge: Within 24 hours
Subjective/Interval History
-
Date of Service: April 12, 2024
No acute events overnight. Has remained intermittently tachycardic though much improved from previously. Has also had normal heart rate more often, remains in A-fib. Denies any acute complaints medically today. He does have multiple complaints
about his additives to his black coffee and water from his meal tray.
He denies chest pain, shortness of breath, fevers or chills this morning.
Objective Data
-
Labs:
Laboratory Results
04/12/24
05:29
WBC 10.7
Hgb 8.9 L
Hct 27.5 L
Plt Count 301
Sodium 142
Potassium 3.9
Chloride 107
Carbon Dioxide 30
BUN 47 H
Creatinine 1.6 H
Glucose 135 H
Calcium 8.3 L
Vital Signs:
Vital Signs
Temp Pulse Resp BP Pulse Ox
97.7 F 98 17 124/81 98
04/12/24 03:32 04/12/24 07:00 04/12/24 07:00 04/12/24 07:00 04/12/24 07:00
I&O
04/11/24 04/12/24 04/13/24
06:59 06:59 06:59
Intake Total 620 / 620 720 / 720
Output Total 275 / 275 350 / 350
Balance 345 / 345 370 / 370
Review of Systems
-
History Source: Patient
All other systems: Reviewed and negative
Physical Exam
-
General: No Apparent Distress, Comfortable, Conversant and Appears Chronically Ill
HEENT: Normocephalic, Atraumatic, Moist Mucous Membranes and Anicteric
Respiratory: Clear to Auscultation; Negative Wheezes, Rales or Crackles
Cardiac: S1/S2, Irregular Rhythm and Other (Irregularly irregular with average mean ventricular response); Negative Murmur, Rub, JVD or Gallop
GI: Soft, Nontender, Nondistended and Normal Bowel Sounds
Musculoskeletal: No Clubbing, No Cyanosis and Other (2+ pitting edema to BLLE)
Skin: Warm, Dry and Normal Turgor; Negative Rash
Neuro: AO x 3, Nonfocal/Grossly Intact and Central Nerve's Intact; Negative Tremors
Psych: Agitated
Data Reviewed
-
Labs: Labs Reviewed by me and Discussed with Patient
--- NOTE | 2024-04-12 12:42 | PN.CDI ---
CDI
- -
CDI:
Physician Documentation Request
Admit Date: 04/03/24 01:34
Dear Doctor Gonzalo,
Clinical Indicators:
The diagnosis of sepsis was documented on 04/10, but is not consistently noted in subsequent documentation.
04/10 PN, 'Unclear cause of cardiac arrest; DDx include PE, sepsis'
04/12 PN, 'S/P Cardiac arrest -- unclear cause...Leukocytosis-Has had leukocytosis for most of his time here, no fevers or other signs of infection now.'
Please clarify the following:
Sepsis is still a likely, suspected, probable diagnosis
After study, sepsis was ruled out.
Other, please specify
Use of terms such as suspected, likely, concern for, or probable (associated with a specific diagnosis that is being evaluated, monitored, or treated as if it exists) are acceptable and can be coded in the inpatient setting, when documented at the
time of discharge.
Thank you,
Nicolette Kaye RN BSN
CDI Specialist
available via tiger text
Please use your independent medical judgment in providing your response.
--- NOTE | 2024-04-12 12:47 | PTCARENOTE ---
Patient refusing medication, meals, accuchecks, and temperature being taken. Repeatedly called unit clerks phone as well as flame annealing machine operator requesting to see a physician. MD made aware. Patient is OOB in recliner, continues with med sitter. Call hardin
within reach. Spoke with daughter Trang and CM regarding patients behavior/refusal of care.
--- NOTE | 2024-04-12 12:54 | PN.CDI ---
CDI
- -
CDI:
Physician Documentation Request
Admit Date: 04/03/24 01:34
Dear Doctor Gonzalo,
Clinical Indicators:
Patient admitted with vomiting/lethargy;s/p cardiac arrest. PMH includes chronic diastolic heart failure.
04/09 Lasix 40 mg IV x 1.
04/10 Cardiology PN, 'Hold Lasix, although he does appear wet'
04/12 PN, 'HFrEF (EF 40%) -- Likely Tachycardia induced...I/O showing +370 ml in last 24 hours, still leg edema
but no crackles or JVD
Please provide further specificity regarding the most likely acuity of CHF you are evaluating, treating or monitoring:
Acute HFrEF
Chronic HFrEF
HFrEF, unspecified (documentation complete)
Other, please specify
Use of terms such as suspected, likely, concern for, or probable (associated with a specific diagnosis that is being evaluated, monitored, or treated as if it exists) are acceptable and can be coded in the inpatient setting, when documented at the
time of discharge.
Thank you,
Nicolette Kaye RN BSN
CDI Specialist
available via tiger text
Please use your independent medical judgment in providing your response.
--- NOTE | 2024-04-12 13:22 | W.PN.NEPH.PH ---
Today's Communication / Plan
-
- lasix daily okay
Assessment/Plan
-
Assessment:
PABLO (bl 1), now ATN
hypercapnice respiratory failure
s/p cardiac arrest
possible intra-abd process
BPH
T2DM
s/p recent hip fracture
Plan:
PABLO-cr improving to 1.2 but then worsened to 1.7 after contrast/lasix on 04/09. fortunately, slightly improved to 1.6 today.
remains non oliguric, avoid nephrotoxins, urine sodium not low (but this is nondiagnostic)
mild-mod stable right hydro on recent CT-if cr increases further may need repeat imaging
hypernatremia-improving, will d/c IVF to avoid vol overload, on lasix 40mg IV daily
met acidosis resolved
echo noted with EF 35-40%, mild to mod MR, severe pulm HTN
he is on RA, no PE on CT chest
BPs normalized after increasing BB
adamant to leave today
d/w nursing
-
-
Date of Service: April 12, 2024
CC / HPI / ROS
-
Chief Complaint:
PABLO
History of Present Illness:
extubated on 04/05, on RA now
echo noted low EF and severe pulm HTN
PABLO/Cr improved at 1.2, konstantin again to 1.7, back down to 1.6, na better 142
nonoliguric
Review of Systems:
awake,interactive
wants to be discharged
aware of asp precautions. dysphagia diet appropriate
off DHT feeds since 04/08
Labs
-
Labs:
WBC 10.7 10^3/uL (4.8-10.8) 04/12/24 05:29
RBC 3.43 10^6/uL (4.70-6.10) L 04/12/24 05:29
Hgb 8.9 g/dL (13.0-18.0) L 04/12/24 05:29
Hct 27.5 % (39.0-52.0) L 04/12/24 05:29
Plt Count 301 10^3/uL (130-400) 04/12/24 05:29
Sodium 142 mmol/L (135-145) 04/12/24 05:29
Potassium 3.9 mmol/L (3.5-5.1) 04/12/24 05:29
Chloride 107 mmol/L (98-107) 04/12/24 05:29
Carbon Dioxide 30 mmol/L (22-30) 04/12/24 05:29
BUN 47 mg/dl (9-20) H 04/12/24 05:29
Creatinine 1.6 mg/dL (0.7-1.3) H 04/12/24 05:29
eGFR 42.75 04/12/24 05:29
Glucose 135 mg/dl (70-99) H 04/12/24 05:29
Calcium 8.3 mg/dl (8.4-10.2) L 04/12/24 05:29
Phosphorus 4.0 mg/dl (2.5-4.5) 04/11/24 13:38
Albumin 2.9 g/dl (3.5-5.0) L 04/10/24 06:38
Physical Exam
-
Vital Signs:
Vital Signs
Temp Pulse Resp BP Pulse Ox
97.7 F 98 17 124/81 98
04/12/24 03:32 04/12/24 07:00 04/12/24 07:00 04/12/24 07:00 04/12/24 07:00
Cardiovascular:: Irregular rate and rhythm
Respiratory:: Bilateral: Coarse
Lung Excursion:: Normal
Abdomen:: Nontender and Soft
Bowel Sounds:: Normal
Extremity Edema:: +1: Bilateral:
Ramesh Catheter: No
--- NOTE | 2024-04-12 14:31 | CM ---
Case management following for d/c planning
Per Dr Sánchez - pt may be ready for d/c tomorrow for [facility]
TT sent to [facility] Lia[facility] - will review
Plan - transfer to [facility] when medically ready
[2024-04-12 14:40] VITALS: BP 158/103; PULSE 120
[2024-04-12 15:00] VITALS: BP 116/85
--- NOTE | 2024-04-12 15:14 | PTCARENOTE ---
Patient agreeable to taking medications after seeing MD at 1500.
[2024-04-12 15:39] LABS: Glucose - Point of Care 133 mg/dl (70-99)
[2024-04-12 19:00] VITALS: BP 88/51
[2024-04-12] MEDS: ELIQUIS 2.5 MG PO (22:33)
[2024-04-12] MEDS: NSS (PRESERVATIVE FREE) 10 ML IV (22:33)
[2024-04-12] MEDS: PROTONIX IV 40 MG IV (22:33)
[2024-04-12 23:00] VITALS: BP 114/57
--- NOTE | 2024-04-12 23:40 | PTCARENOTE ---
Patient's MRI results show a suspected acute/sub acute infarct in the right parietal lobe. Patient asymptomatic. Patient already receiving Eliquis. VICENTE Lee made aware of results. No new orders received at this time. Will continue to
monitor. Care ongoing.
[2024-04-13 03:05] VITALS: BP 130/86
[2024-04-13 06:15] VITALS: BMI 23.9
[2024-04-13 06:45] LABS: Blood Urea Nitrogen 48 mg/dl (9-20); Calcium 8.1 mg/dl (8.4-10.2); Chloride 105 mmol/L (98-107); Estimated Creatinine Clearance 43 ml/min; Glucose 123 mg/dl (70-99); Magnesium 1.7 mg/dl (1.6-2.3); Sodium 140 mmol/L (135-145); eGFR 46.19
[2024-04-13 06:56] LABS: Carbon Dioxide 27 mmol/L (22-30)
[2024-04-13] MEDS: PACERONE 200 MG PO (07:46)
[2024-04-13] MEDS: ELIQUIS 2.5 MG PO (07:46)
[2024-04-13] MEDS: PROTONIX IV 40 MG IV ×2 (07:47→21:11)
[2024-04-13] MEDS: COREG 25 MG PO ×2 (07:51→21:08)
[2024-04-13] MEDS: NSS (PRESERVATIVE FREE) 10 ML IV ×2 (07:51→21:13)
[2024-04-13 07:58] VITALS: BP 154/100
[2024-04-13 08:21] LABS: Glucose - Point of Care 116 mg/dl (70-99)
[2024-04-13] MEDS: NOVOLOG FLEXPEN-MODERATE RESISTANCE SC ×3 (08:54→16:47)
[2024-04-13] MEDS: LOW STRENGTH ASPIRIN PO (08:59)
--- NOTE | 2024-04-13 10:39 | W.PN.CARDCBS ---
Addendum entered and electronically signed by Vinod Thornton MD 04/13/24 10:58:
I saw and examined the patient.
The Reading Professor's note was reviewed and I agree with the note.
Comment:
GEN: No distress, awake, agitated
HEENT: supple, anicteric, mmm
LUNGS: scatt rhonchi
CV: Reg, S1/S2, 1/6 syst LSB, no gallop
ABD: soft, BS+, NT/ND
EXT: No edema
NEURO: Gross non-focal
SKIN: No rash
Plan:
Continue a rate control strategy for A-fib. Ventricular rates are adequate. Continue Coreg and amiodarone.
Would increase Eliquis to 5 mg p.o. twice daily for now with new stroke on the lower dose of Eliquis. Will need to follow closely his kidney function.
Okay for most from cardiology standpoint.
As outpatient we will further discuss repeat echo, ischemic evaluation, and consideration for cardioversion.
Patient remains very agitated.
Original Note:
Today's Communication / Plan
-
continue current rate control regimen
brain MRI noted, would favor increasing eliquis dosing to 5mg BID given afib and evidence of new CVA on lower dosing
consider for outpatient cardioversion/repeat echo/ischemic eval once recovered
for [facility]. OP cardiac follow up arranged
Impression / Plan
-
Primary Tab Card Press Operator: Dr. Membreno
Assessment:
Admitted with sepsis and hypotension requiring pressors
Status postcardiac arrest requiring EPI/CPR
Status post VDRF
s/p ex lap for PSBO/concern for ischemic bowel 04/03/24
Paroxysmal atrial fibrillation 04/08/2024
Chronic anticoagulation on Eliquis
Newly reduced ejection fraction of 35-40% on echocardiogram 04/09/2024
New dilated hypokinetic right ventricle with severe pulm hypertension 04/09/2024
Chronic HFpEF
L femoral neck fracture s/p cannulated screw fixation 01/16/24
Right intertrochanteric fracture s/p ORIF 11/2023
Ongoing tobacco abuse
Hypertension
Hypercholesterolemia
RBBB
Type 2 diabetes
History of gout
Bilateral carotid artery stenosis, moderate to severe
Presumed COPD
Cervical laminectomy October 2022
Small bowel obstruction March 2023
History of reverse left total shoulder with revision in 03/17/2023
ECHO 12/06/23: EF 60 to 65%, trace AR
Echocardiogram 04/09/2024: Ejection fraction 35 to 40%, global hypokinesis, mild to moderate MR, mild AI, dilated and hypokinetic right ventricle with severe pulm hypertension and PA systolic of 70 mmHg
Plan:
-he remains with agitation, frustration
-brain MRI 04/12 showed suspected tiny subacute/acute infarct in right parietal lobe. based on age and current Cr (1.5), eliquis dosing is 2.5mg BID, however given evidence of CVA and Cr earlier this year of 0.8-1.1, would favor increasing eliquis
dose to 5mg BID with close monitoring of renal function upon DC
-HRs adequately controlled in afib on amiodarone 200mg daily, coreg 25mg BID. plan for rate control strategy at this time
-EF newly reduced at 35 to 40% by echo.
-He was given Lasix on 04/09 and creatinine bumped from 1.2 -->1.7. also felt to be due to contrast. nephrology following. lasix remains on hold at present. Cr 1.5 on 04/12
-GDMT currently limited by fluctuating renal function
-Could consider for outpatient cardioversion/repeat echo/ischemic eval once recovered
-He also has new dilated hypokinetic right ventricle with severe pulm hypertension by echo. CT of chest 04/09/2024 was negative for PE but did show small to moderate pleural effusions with scattered bilateral infectious/inflammatory
bronchiolitis/pneumonia. Defer treatment to primary service now has elevated white count.
-OP cardiac follow up arranged
-plan for [facility] upon DC
ADMIT DATA:
He was admitted with vomiting and hypotension requiring pressors on arrival. He was a cardiac arrest in ER requiring Epi and CPR with ROSC. he underwent ex lap due to concern for ischemic bowel on 04/03 which was negative. 04/08 went into atrial
fibrillation with RVR resulting in cardiology consultation.
Progress Note - Tab Card Press Operator
Subjective
Date of Service: April 13, 2024
no issues overnight noted
Objective
Labs:
04/12/24 05:29
04/13/24 05:38
Labs
Hgb 8.9 g/dL (13.0-18.0) L 04/12/24 05:29
Hct 27.5 % (39.0-52.0) L 04/12/24 05:29
Plt Count 301 10^3/uL (130-400) 04/12/24 05:29
PT 17.5 Sec (11.4-14.6) H 04/02/24 20:44
INR 1.45 04/02/24 20:44
APTT 29.6 Sec (23.4-35.0) 04/02/24 20:44
Sodium 140 mmol/L (135-145) 04/13/24 05:38
Potassium 4.0 mmol/L (3.5-5.1) 04/13/24 05:38
BUN 48 mg/dl (9-20) H 04/13/24 05:38
Creatinine 1.5 mg/dL (0.7-1.3) H 04/13/24 05:38
Glucose 123 mg/dl (70-99) H 04/13/24 05:38
Vital Signs and I&O:
Vital Signs
Temp Pulse Resp BP Pulse Ox
97.5 F 131 15 154/100 92
04/13/24 07:58 04/13/24 07:58 04/13/24 07:58 04/13/24 07:58 04/13/24 07:58
Vital Signs
Temp Pulse Resp BP Pulse Ox
97.5 F 131 15 154/100 92
04/13/24 07:58 04/13/24 07:58 04/13/24 07:58 04/13/24 07:58 04/13/24 07:58
Intake & Output
04/11/24 04/12/24 04/13/24 04/14/24
07:59 07:59 07:59 07:59
Intake Total 620 / 620 720 / 720 240 / 240
Output Total 275 / 275 350 / 350 825 / 825
Balance 345 / 345 370 / 370 -585 / -585
--- NOTE | 2024-04-13 11:00 | CM ---
Addendum entered by Renuka Lau 04/13/24 12:05:
[facility] d/c'ed
Per [facility] Liaison - No beds available at [facility] until next week
[facility] may be able to accept Tuesday
Spoke with pts daughter - prefer [facility] location but would accept [facility] location for rehab
[facility] Liaison updated - will review Tuesday - pending behaviors off Medsitter
Plan - anticipate transfer to [facility] pending bed availability
Original Note:
Case management following for d/c planning
Remains on Medsitter
Per [facility] Liaison - must be off medsitter x24hrs for [facility]. Dr Sánchez made aware
[facility] liaison to notify of bed availability
Plan - anticipate transfer to [facility] pending bed availability
--- NOTE | 2024-04-13 12:14 | W.PN.NEPH.PH ---
Today's Communication / Plan
-
observe labs , prn lasix
Assessment/Plan
-
Assessment:
PABLO (bl 1), now ATN
hypercapnice respiratory failure
s/p cardiac arrest
possible intra-abd process
BPH
T2DM
s/p recent hip fracture
Plan:
PABLO-cr improving to 1.2 but then worsened to 1.7 after contrast/lasix on 04/09. fortunately, slightly improved to 1.5 today.
remains non oliguric, avoid nephrotoxins
mild-mod stable right hydro on recent CT-need out pt f/u with
hypernatremia-improving
echo noted with EF 35-40%, mild to mod MR, severe pulm HTN
he is on RA, no PE on CT chest, prn lasix
BPs labile, meds adjustment per cards, MRI shows acute/subacute CVA
not very cooperative, need leg elevation
plan [facility] noted
d/w nursing
-
-
Date of Service: April 13, 2024
CC / HPI / ROS
-
Chief Complaint:
PABLO
History of Present Illness:
extubated on 04/05, on RA now
echo noted low EF and severe pulm HTN
PABLO/Cr improved at 1.2, konstantin again to 1.7, back down to 1.5, na better 140
nonoliguric
wt slowly up
Review of Systems:
awake,interactive
offers no sob or cough
wants to be discharged
Labs
-
Labs:
WBC 10.7 10^3/uL (4.8-10.8) 04/12/24 05:29
RBC 3.43 10^6/uL (4.70-6.10) L 04/12/24 05:29
Hgb 8.9 g/dL (13.0-18.0) L 04/12/24 05:29
Hct 27.5 % (39.0-52.0) L 04/12/24 05:29
Plt Count 301 10^3/uL (130-400) 04/12/24 05:29
Sodium 140 mmol/L (135-145) 04/13/24 05:38
Potassium 4.0 mmol/L (3.5-5.1) 04/13/24 05:38
Chloride 105 mmol/L (98-107) 04/13/24 05:38
Carbon Dioxide 27 mmol/L (22-30) 04/13/24 05:38
BUN 48 mg/dl (9-20) H 04/13/24 05:38
Creatinine 1.5 mg/dL (0.7-1.3) H 04/13/24 05:38
eGFR 46.19 04/13/24 05:38
Glucose 123 mg/dl (70-99) H 04/13/24 05:38
Calcium 8.1 mg/dl (8.4-10.2) L 04/13/24 05:38
Phosphorus 4.0 mg/dl (2.5-4.5) 04/11/24 13:38
Albumin 2.9 g/dl (3.5-5.0) L 04/10/24 06:38
Physical Exam
-
Vital Signs:
Vital Signs
Temp Pulse Resp BP Pulse Ox
97.5 F 131 15 154/100 92
04/13/24 07:58 04/13/24 07:58 04/13/24 07:58 04/13/24 07:58 04/13/24 07:58
Cardiovascular:: Regular rate and rhythm
Respiratory:: Bilateral: CTA (decreased)
Lung Excursion:: Normal
Abdomen:: Nontender and Soft
Extremity Edema:: +1: Bilateral:
Ramesh Catheter: No
--- NOTE | 2024-04-13 12:50 | W.PN.HOSP.TC ---
Addendum entered and electronically signed by Emil Sánchez DO 04/13/24 13:05:
CDI update:
-Acute systolic dysfunction with HFrEF, no signs of decompensation or volume overload
-Sepsis earlier in the hospitalization was unable to be ruled out, was treated with IV antibiotics
Original Note:
Today's Communication/Plan
-
Start aspirin and statin for CVA
Discontinue TeleSitter
[facility] placement process
Assessment / Plan
Assessment / Plan
#S/P Cardiac arrest -- unclear cause
#RV dilation on TTE -- likely from pulmonary HTN
#HFrEF (EF 40%) -- Likely Tachycardia induced, cannot r/o ischemia completely
-S/P 3 rounds EPI/CPR; mentating adequately and near baseline
-CT head was negative; TTE showing reduced LVEF and RV dilation with new pulm HTN
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
-Seems to have cardiorenal physiology with volatile renal function, sensitivity to diuretics
-Currently HD stable without vasopressor support, on RA, minimally symptomatic
-I/O showing +370 ml in last 24 hours, still leg edema but no crackles or JVD
-Continue Coreg 25 mg twice daily for rate control and GDMT
-Daily consideration for loop diuretic per renal function and volume status
-Monitor I/Os and daily weights, moderate sodium restriction per diet
-Monitor on telemetry
#Subacute CVA
-MRI showed 3 mm subacute infarct within left parietal lobe, no corresponding focal deficits on exam
-Suspect that this occurred around the time of his cardiac arrest, possibly related to hypoxemia and A-fib as well
-Started him on aspirin and statin, remains on Eliquis for his atrial fibrillation
-No obvious focal deficits, pending loss rehab evaluation
#PABLO -- resolved
#Normal gap metabolic acidosis -- resolved
-Suspect pre-renal state with dehydration; S/P agustin catheter; likely component of CRS as well
-Home nephrotoxic meds held for pre-renal PABLO and hyperkalemia on admission
-nephrology following; renal function is stabilized with creatinine near 1.5
-Hold ACEi, Lasix, metformin
-Trend daily BMP
#Rapid AF/AFL
-Home medications include eliquis, beta-elizabeth, amiodarone
-Was NPO post-cardiac arrest but has been resumed on an oral regimen
-Now seems rate controlled with HR near 90/min
-Will continue with current dose of carvedilol, adjust as needed by HR
-Will benefit from PT to improve conditioning
#Metabolic encephalopathy
-Differentials include delirium versus chronic cognitive deficits
-Has had an intermittent leukocytosis here though suspicion for infection is low
-S/p 7-day course of empiric IV spectrum antibiotics
-Resolved, off telesitter
#S/P cardiac arrest, circulatory shock
-Unclear cause, initially thought to be mesenteric ischemia though ex-lap did not show bowel ischemia
-shock resolved with pressors stopped; remains on IVF with bicarbonate for hypernatremia, acidosis, PABLO
-Unclear if truly infected, benefits outweigh risks of completing 7 day Unasyn course
-Blood cultures remain negative
#Acute abdomen
-CT prelim suggest bowel obstruction/ischemic
-s/p ex-lap 04/03: negative ex lap for presumed ischemic bowel, limited NATALIE was performed without sbr
-Surgery to remove velma in 1 week, no heavy lifting for 6 weeks
-resolved without known cause
��
#Normocytic anemia
-Suspect multifactorial with chronic disease, age, possibly nutritional deficiency
-Hb trend has went up over last few days, no signs of active bleeding
-Trend CBC
#Hypocalcemia
-Encourage PO intake, consider Ca supplement if worsening
#H/O of Gout
-stable on allopurinol
#H/O of essential HTN
-Home BP regimen was held due to circulatory shock on arrival
-Resumed carvedilol now, plan to monitor vitals and titrate meds as needed
#HLD
-No ASCVD history known, continued on moderate intensity statin��
#type 2 diabetes
-A1c was 6.3%; c/b peripheral neuropathy for which he takes gabapentin
-Holding metformin due to PABLO, currently on ISS + AccuCheck
#Leukocytosis -- resolved
#Hoarseness
-Suspect this is related to CPR
#Status post Left hip fracture with cannulated Screw 01/16/24
#Right hip fracture S/P gamma nail about one month ago
DVT ppx: Eliquis
Diet: Soft, bite sized, mildly thickened fluids
Code: Full
Anticipated Discharge: Within 24 hours
Subjective/Interval History
-
Date of Service: April 13, 2024
No events overnight. MRI brain initially did show a 3 mm left parietal abnormality suspicious for subacute CVA. Currently without neurologic deficits that obvious deformity. Suspect this happened during the time around his cardiac arrest.
Pending placement with [facility] re[facility]
No agitation, telemetry sitter removed
He denies any chest pain, shortness of breath, fever or chills. States that he just wants to go to rehab, is tired of the diet plan he has in place due to his aspiration risk
Objective Data
-
Labs:
Laboratory Results
04/13/24
05:38
Sodium 140
Potassium 4.0
Chloride 105
Carbon Dioxide 27
BUN 48 H
Creatinine 1.5 H
Glucose 123 H
Calcium 8.1 L
Vital Signs:
Vital Signs
Temp Pulse Resp BP Pulse Ox
97.5 F 131 15 154/100 92
04/13/24 07:58 04/13/24 07:58 04/13/24 07:58 04/13/24 07:58 04/13/24 07:58
I&O
04/12/24 04/13/24 04/14/24
06:59 06:59 06:59
Intake Total 720 / 720 240 / 240
Output Total 350 / 350 825 / 825
Balance 370 / 370 -585 / -585
Review of Systems
-
History Source: Patient
All other systems: Reviewed and negative
Physical Exam
-
General: No Apparent Distress, Comfortable and Conversant
HEENT: Normocephalic, Atraumatic, Moist Mucous Membranes and Anicteric
Respiratory: Clear to Auscultation and Non Labored Respirations; Negative Wheezes, Rales or Rhonchi
Cardiac: S1/S2 and Irregular Rhythm; Negative Murmur, Rub, JVD or Gallop
GI: Soft, Nontender, Nondistended and Normal Bowel Sounds
Musculoskeletal: No Clubbing, No Cyanosis and No Edema (2+ pitting edema BLLE)
Skin: Warm, Dry and Normal Turgor; Negative Rash
Neuro: AO x 3, Nonfocal/Grossly Intact and Central Nerve's Intact
Data Reviewed
-
MRI: Report Reviewed by me
Labs: Labs Reviewed by me and Discussed with Family
[2024-04-13 15:48] VITALS: BP 120/68
--- NOTE | 2024-04-13 15:50 | PTOTSP ---
ST Acute Care Evaluation & Follow-Up
Pt demonstrates a mild neurocognitive impairment characterized by impaired working memory, short term recall, judgment, and insight to deficits.
At this time, given the findings of his VFSS and pt's reduced insight to deficits and impaired judgments, has recommended the continuation of the modified diet consistencies in order to ensure the pt's safety and reduce the risk of development of
infection.
Recommendations:
- Continue BOX CAR CHECKER tx for cognitive linguistic deficits while admitted as well as upon d/c at the ACUTE REHAB level of care.
- Continue with SOFT BITE SIZED SOLIDS and MILDLY THICK LIQUIDS with meds whole in applesauce.
- ARHP - WATER ONLY BETWEEN MEALS.
- Aspiration precautions.
- BOX CAR CHECKER to f/u re: diet tolerance and to trial upgrades; consideration for repeat VFSS next Tuesday.
[2024-04-13] MEDS: LIPITOR PO (16:48)
--- NOTE | 2024-04-13 17:50 | PTCARENOTE ---
Patient took morning meds and morning accucheck. Information from CM about medsitter needing to be d/c'd 24hrs prior to patient going to [facility] causing patient being unable to leave today made patient refuse further meds, accuchecks, and vitals
(11am). Family in to see patient during shift, they were updated about patient's refusal to care and eating/drinking ordered diet.
--- NOTE | 2024-04-13 20:00 | PTCARENOTE ---
Pt agitated since start of shift. Calling hydrotel operator and nurses station via phone repeatedly instead of using call hardin. Pt was educated on how to use call hardin. Pt uncooperative highly upset about not being transferred into bed from chair as quickly
as he wanted during change of shift. Highly agitated towards staff and verbally abusive while trying to assist him. Threatened to call rigger chief. Pt upset over the need for thickened fluids, pt provided education on need for thickened liquids. Pt wanted
to take meds, but refused to take meds with thickened liquids or applesauce, pt again threatened to call rigger chief. RN attempted to deescalate with little resolution. Encouraged pt to speak with family about concerns before taking thing to the police. Pt
agreed and requested that RN call family. RN spoke with daughter and informed her of the situation. Pt daughter stated that her father is known to be 'cantankerous', and that she will call him and come up if necessary.
Pt daughter and arrived to the hospital to speak with pt. Daughter convinced pt to try and take medication one at a time with thickened liquids. Pt more cooperative and medication administered successfully. Pt daughter and family raised
concerns about pt emotional state reporting that emotional/behavioral changes have been significantly worse since cardiac arrest. Family requested that Psych be consulted to see if pt is just depressed or angry about situation. Pt family would also
like to speak to MD in the am regarding MRI. Family states that they were here during the day and had not heard anything about infarct found and are wondering if this could account for behavioral changes and if this changes plan of care. Med
additions discussed, offered to have HYDROMETER CALIBRATOR come discuss. Family opted to wait for MD, will pass on the best shift.
[2024-04-13] MEDS: ELIQUIS 5 MG PO (21:00)
[2024-04-13 21:52] LABS: Glucose - Point of Care 166 mg/dl (70-99)
[2024-04-13 22:57] VITALS: BP 110/52
[2024-04-14 06:00] VITALS: BMI 23.2
[2024-04-14 07:25] VITALS: BP 150/83
[2024-04-14 07:37] LABS: Glucose - Point of Care 151 mg/dl (70-99)
[2024-04-14] MEDS: ELIQUIS 5 MG PO ×2 (08:12→21:10)
[2024-04-14] MEDS: PACERONE 200 MG PO (08:12)
[2024-04-14] MEDS: LOW STRENGTH ASPIRIN 81 MG PO (08:12)
[2024-04-14] MEDS: COREG 25 MG PO ×2 (08:12→21:11)
[2024-04-14] MEDS: PROTONIX IV 40 MG IV ×2 (08:13→21:11)
[2024-04-14] MEDS: NSS (PRESERVATIVE FREE) 10 ML IV ×2 (08:13→21:12)
[2024-04-14] MEDS: NOVOLOG FLEXPEN-MODERATE RESISTANCE 1 UNITS SC ×3 (08:13→17:10)
[2024-04-14 12:10] LABS: Glucose - Point of Care 190 mg/dl (70-99)
--- NOTE | 2024-04-14 12:29 | W.PN.HOSP.TC ---
Today's Communication/Plan
-
Thin liquids with supervision
Monitor on telemetry
Plan for [facility]
Assessment / Plan
Assessment / Plan
#S/P Cardiac arrest -- unclear cause
#RV dilation on TTE -- likely from pulmonary HTN
#HFrEF (EF 40%) -- Likely Tachycardia induced, cannot r/o ischemia completely
-S/P 3 rounds EPI/CPR; mentating adequately and near baseline
-CT head was negative; TTE showing reduced LVEF and RV dilation with new pulm HTN
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
-Seems to have cardiorenal physiology with volatile renal function, sensitivity to diuretics
-Currently HD stable without vasopressor support, on RA, minimally symptomatic
-I/O showing +370 ml in last 24 hours, still leg edema but no crackles or JVD
-Continue Coreg 25 mg twice daily for rate control and GDMT
-Daily consideration for loop diuretic per renal function and volume status
-Monitor I/Os and daily weights, moderate sodium restriction per diet
-Monitor on telemetry
#Subacute CVA
-MRI showed 3 mm subacute infarct within left parietal lobe, no corresponding focal deficits on exam
-Suspect that this occurred around the time of his cardiac arrest, possibly related to hypoxemia and A-fib as well
-Started him on aspirin and statin, remains on Eliquis for his atrial fibrillation
-No obvious focal deficits, pending loss rehab evaluation
#PABLO -- resolved
#Normal gap metabolic acidosis -- resolved
-Suspect pre-renal state with dehydration; S/P agustin catheter; likely component of CRS as well
-Home nephrotoxic meds held for pre-renal PABLO and hyperkalemia on admission
-nephrology following; renal function is stabilized with creatinine near 1.5
-Hold ACEi, Lasix, metformin
-Trend daily BMP
#Rapid AF/AFL
-Home medications include eliquis, beta-elizabeth, amiodarone
-Was NPO post-cardiac arrest but has been resumed on an oral regimen
-Now seems rate controlled with HR near 90/min
-Will continue with current dose of carvedilol, adjust as needed by HR
-Will benefit from PT to improve conditioning
#Metabolic encephalopathy
-Differentials include delirium versus chronic cognitive deficits
-Has had an intermittent leukocytosis here though suspicion for infection is low
-S/p 7-day course of empiric IV spectrum antibiotics
-Resolved, off telesitter
#S/P cardiac arrest, circulatory shock
-Unclear cause, initially thought to be mesenteric ischemia though ex-lap did not show bowel ischemia
-shock resolved with pressors stopped; remains on IVF with bicarbonate for hypernatremia, acidosis, PABLO
-Unclear if truly infected, benefits outweigh risks of completing 7 day Unasyn course
-Blood cultures remain negative
#Acute abdomen
-CT prelim suggest bowel obstruction/ischemic
-s/p ex-lap 04/03: negative ex lap for presumed ischemic bowel, limited NATALIE was performed without sbr
-Surgery to remove velma in 1 week, no heavy lifting for 6 weeks
-resolved without known cause
��
#Normocytic anemia
-Suspect multifactorial with chronic disease, age, possibly nutritional deficiency
-Hb trend has went up over last few days, no signs of active bleeding
-Trend CBC
#Hypocalcemia
-Encourage PO intake, consider Ca supplement if worsening
#H/O of Gout
-stable on allopurinol
#H/O of essential HTN
-Home BP regimen was held due to circulatory shock on arrival
-Resumed carvedilol now, plan to monitor vitals and titrate meds as needed
#HLD
-No ASCVD history known, continued on moderate intensity statin��
#type 2 diabetes
-A1c was 6.3%; c/b peripheral neuropathy for which he takes gabapentin
-Holding metformin due to PABLO, currently on ISS + AccuCheck
#Leukocytosis -- resolved
#Hoarseness
-Suspect this is related to CPR
#Status post Left hip fracture with cannulated Screw 01/16/24
#Right hip fracture S/P gamma nail about one month ago
#Generalized weakness -- deconditioning from long hospital stay, planning for [facility] Tuesday
DVT ppx: Eliquis
Diet: Soft, bite sized, mildly thickened fluids
Code: Full
Anticipated Discharge: 24 - 48 hours
Subjective/Interval History
-
Date of Service: April 14, 2024
Seen at the bedside with family. Plan for [facility] on Tuesday. He feels well and is very happy that he will be going to [facility]. Still has complaints about his diet, I added an order that he can have sips of thin liquids with supervision.
Otherwise he feels well, denies chest pain or shortness of breath. He also denies fevers chills, palpitations, nausea or vomiting, diarrhea. Does complain of some general weakness, says he is not gaining much from PT here
Objective Data
-
Labs:
Laboratory Results
04/14/24 04/14/24
06:35 11:30
Sodium Cancelled Pending
Potassium Cancelled Pending
Chloride Cancelled Pending
Carbon Dioxide Cancelled Pending
BUN Cancelled Pending
Creatinine Cancelled Pending
Glucose Cancelled Pending
Calcium Cancelled Pending
Vital Signs:
Vital Signs
Temp Pulse Resp BP Pulse Ox
97.9 F 110 16 150/83 96
04/14/24 07:25 04/14/24 07:25 04/14/24 07:25 04/14/24 07:25 04/14/24 07:25
I&O
04/13/24 04/14/24 04/15/24
06:59 06:59 06:59
Intake Total 240 / 240 800 / 800
Output Total 825 / 825 390 / 390
Balance -585 / -585 410 / 410
Review of Systems
-
History Source: Patient
All other systems: Reviewed and negative
Physical Exam
-
General: No Apparent Distress, Comfortable, Conversant and Appears Chronically Ill
HEENT: Normocephalic, Atraumatic, Moist Mucous Membranes and Anicteric
Respiratory: Clear to Auscultation and Non Labored Respirations; Negative Wheezes, Rales or Rhonchi
Cardiac: S1/S2 and Irregular Rhythm; Negative Murmur, Rub, JVD or Gallop
GI: Soft, Nontender, Nondistended and Normal Bowel Sounds
Musculoskeletal: No Clubbing, No Cyanosis and Other (2+ pitting edema bilateral lower extremities)
Skin: Warm, Dry and Normal Turgor; Negative Rash
Neuro: AO x 3, Nonfocal/Grossly Intact and Central Nerve's Intact; Negative Tremors, Slurred Speech or Facial Droop
Psych: Calm
Data Reviewed
-
MRI: Discussed with Patient and Discussed with Family
[2024-04-14 12:36] LABS: Blood Urea Nitrogen 46 mg/dl (9-20); Calcium 8.3 mg/dl (8.4-10.2); Carbon Dioxide 24 mmol/L (22-30); Chloride 107 mmol/L (98-107); Estimated Creatinine Clearance 46 ml/min; Glucose 150 mg/dl (70-99); Potassium 4.2 mmol/L (3.5-5.1); Sodium 138 mmol/L (135-145); eGFR 50.18
--- NOTE | 2024-04-14 12:56 | W.PN.NEPH.PH ---
Today's Communication / Plan
-
follow labs
Assessment/Plan
-
Assessment:
PABLO (bl 1), now ATN
hypercapnice respiratory failure
s/p cardiac arrest
possible intra-abd process
BPH
T2DM
s/p recent hip fracture
Plan:
PABLO-cr improving to 1.2 but then worsened to 1.7 after contrast/lasix on 04/09. fortunately, slightly improved to 1.4 today.
remains non oliguric, avoid nephrotoxins
mild-mod stable right hydro on recent CT-need out pt f/u with
echo noted with EF 35-40%, mild to mod MR, severe pulm HTN
he is on RA, no PE on CT chest, prn lasix
BPs labile, meds adjustment per cards, MRI shows acute/subacute CVA
not very cooperative, continues on dysphagia diet with sig asp risk which pt not happy about
plan [facility] noted
d/w nursing
-
-
Date of Service: April 14, 2024
CC / HPI / ROS
-
Chief Complaint:
PABLO
History of Present Illness:
extubated on 04/05, on RA now
echo noted low EF and severe pulm HTN
PABLO/Cr improved at 1.2, konstantin again to 1.7, back down to 1.4, na better 138
nonoliguric
wt is decreasing
Review of Systems:
awake,interactive
offers no sob
wants to drink thin liquids despite asp risk
Labs
-
Labs:
WBC 10.7 10^3/uL (4.8-10.8) 04/12/24 05:29
RBC 3.43 10^6/uL (4.70-6.10) L 04/12/24 05:29
Hgb 8.9 g/dL (13.0-18.0) L 04/12/24 05:29
Hct 27.5 % (39.0-52.0) L 04/12/24 05:29
Plt Count 301 10^3/uL (130-400) 04/12/24 05:29
Sodium 138 mmol/L (135-145) 04/14/24 11:30
Potassium 4.2 mmol/L (3.5-5.1) 04/14/24 11:30
Chloride 107 mmol/L (98-107) 04/14/24 11:30
Carbon Dioxide 24 mmol/L (22-30) 04/14/24 11:30
BUN 46 mg/dl (9-20) H 04/14/24 11:30
Creatinine 1.4 mg/dL (0.7-1.3) H 04/14/24 11:30
eGFR 50.18 04/14/24 11:30
Glucose 150 mg/dl (70-99) H 04/14/24 11:30
Calcium 8.3 mg/dl (8.4-10.2) L 04/14/24 11:30
Phosphorus 4.0 mg/dl (2.5-4.5) 04/11/24 13:38
Albumin 2.9 g/dl (3.5-5.0) L 04/10/24 06:38
Physical Exam
-
Vital Signs:
Vital Signs
Temp Pulse Resp BP Pulse Ox
97.9 F 110 16 150/83 96
04/14/24 07:25 04/14/24 07:25 04/14/24 07:25 04/14/24 07:25 04/14/24 07:25
Cardiovascular:: Regular rate and rhythm
Respiratory:: Bilateral: CTA (decreased)
Lung Excursion:: Normal
Abdomen:: Nontender and Soft
Extremity Edema:: +1: Bilateral:
Ramesh Catheter: No
[2024-04-14 15:36] VITALS: BP 112/80
[2024-04-14 16:34] LABS: Glucose - Point of Care 168 mg/dl (70-99)
[2024-04-14] MEDS: LIPITOR PO (17:10)
[2024-04-14 21:50] LABS: Glucose - Point of Care 147 mg/dl (70-99)
[2024-04-14 23:50] VITALS: BP 121/60
[2024-04-15] VITALS (7 sets, daily range): BP systolic 81–114; BP diastolic 55–65; PULSE 102–103; O2SAT 95–97; BMI 23.2
[2024-04-15 07:41] LABS: Glucose - Point of Care 138 mg/dl (70-99)
[2024-04-15] MEDS: NOVOLOG FLEXPEN-MODERATE RESISTANCE SC ×3 (08:35→16:38)
[2024-04-15] MEDS: PACERONE 200 MG PO (08:41)
[2024-04-15] MEDS: PROTONIX IV 40 MG IV ×2 (08:42→20:20)
[2024-04-15] MEDS: NSS (PRESERVATIVE FREE) 10 ML IV ×2 (08:42→20:20)
[2024-04-15] MEDS: COREG 25 MG PO ×2 (08:43→20:39)
[2024-04-15] MEDS: ELIQUIS 5 MG PO ×2 (08:44→20:19)
[2024-04-15] MEDS: LOW STRENGTH ASPIRIN 81 MG PO (08:49)
[2024-04-15] MEDS: MIRALAX 17 GRAMS PO (10:05)
[2024-04-15] MEDS: SENOKOT-S 1 TABLET PO (10:06)
--- NOTE | 2024-04-15 10:17 | W.PN.HOSP.TC ---
Today's Communication/Plan
-
Start bowel regimen
Pending [facility] tomorrow
Assessment / Plan
Assessment / Plan
#S/P Cardiac arrest -- unclear cause, likely from bowel obstruction
#RV dilation on TTE -- likely from pulmonary HTN
#HFrEF (EF 40%) -- Likely Tachycardia induced, cannot r/o ischemia completely; cardiorenal state
-Currently HD stable, on room air, without evidence of hypervolemia
-Continue Coreg 25 mg twice daily for rate control and GDMT
-Daily consideration for loop diuretic per renal function and volume status
-Monitor I/Os and daily weights, moderate sodium restriction per diet
-Monitor on telemetry
#Subacute CVA -- likely occurred around his cardiac arrest
-MRI showed 3 mm subacute infarct within left parietal lobe, no corresponding focal deficits on exam
-Started him on aspirin and statin, remains on Eliquis for his atrial fibrillation
-No obvious focal deficits, pending loss rehab evaluation
#PABLO -- resolved
#Normal gap metabolic acidosis -- resolved
-Suspect pre-renal state with dehydration; S/P agustin catheter; likely component of CRS as well
-Home nephrotoxic meds held for pre-renal PABLO and hyperkalemia on admission
-nephrology following; renal function is stabilized with creatinine near 1.5
-Hold ACEi, Lasix, metformin
-Trend daily BMP
#Rapid AF/AFL
-Home medications include eliquis, beta-elizabeth, amiodarone
-Now seems rate controlled with HR near 90/min
-Will benefit from PT to improve conditioning
#Metabolic encephalopathy
-S/p 7-day course of empiric IV spectrum antibiotics
-Resolved, off telesitter
#S/P cardiac arrest, circulatory shock
-Unclear cause, initially thought to be mesenteric ischemia though ex-lap did not show bowel ischemia
-shock resolved with pressors stopped; remains on IVF with bicarbonate for hypernatremia, acidosis, PABLO
-Unclear if truly infected, benefits outweigh risks of completing 7 day Unasyn course
-Blood cultures remain negative
#Acute abdomen
-CT prelim suggest bowel obstruction/ischemic
-s/p ex-lap 04/03: negative ex lap for presumed ischemic bowel, limited NATALIE was performed without sbr
-Surgery to remove velma as soon as 04/18
-resolved without known cause
��
#Normocytic anemia
-Suspect multifactorial with chronic disease, age, possibly nutritional deficiency
-Hb trend has went up over last few days, no signs of active bleeding
-Trend CBC
#Hypocalcemia
-Encourage PO intake, consider Ca supplement if worsening
#H/O of Gout
-stable on allopurinol
#H/O of essential HTN
-Home BP regimen was held due to circulatory shock on arrival
-Resumed carvedilol now, plan to monitor vitals and titrate meds as needed
#HLD
-No ASCVD history known, continued on moderate intensity statin��
#type 2 diabetes
-A1c was 6.3%; c/b peripheral neuropathy for which he takes gabapentin
-Holding metformin due to PABLO, currently on ISS + AccuCheck
#Leukocytosis -- resolved
#Hoarseness
-Suspect this is related to CPR
#Status post Left hip fracture with cannulated Screw 01/16/24
#Right hip fracture S/P gamma nail about one month ago
#Generalized weakness -- deconditioning from long hospital stay, planning for [facility] Tuesday
DVT ppx: Eliquis
Diet: Soft, bite sized, mildly thickened fluids
Code: Full
Anticipated Discharge: Within 24 hours
Subjective/Interval History
-
Date of Service: April 15, 2024
No acute events. He denies chest pain, shortness of breath, fevers or chills, urinary issues, nausea/vomiting/diarrhea. He does not recall when he has last bowel movement no denies feeling constipated. Was started on bowel regimen, does have mild
firmness, signs of stool burden
Objective Data
-
Vital Signs:
Vital Signs
Temp Pulse Resp BP Pulse Ox
97.7 F 106 17 114/64 94
04/15/24 07:26 04/15/24 07:26 04/15/24 07:26 04/15/24 07:26 04/15/24 07:26
I&O
04/14/24 04/15/24 04/16/24
06:59 06:59 06:59
Intake Total 800 / 800 660 / 660
Output Total 390 / 390 440 / 440
Balance 410 / 410 220 / 220
Review of Systems
-
All other systems: Reviewed and negative
Constitutional: Reports No Symptoms
Physical Exam
-
General: No Apparent Distress, Comfortable, Conversant and Appears Chronically Ill
HEENT: Normocephalic, Atraumatic and Moist Mucous Membranes
Respiratory: Clear to Auscultation and Non Labored Respirations; Negative Wheezes, Rales, Rhonchi or Accessory Resp Muscle Use
Cardiac: S1/S2 and Irregular Rhythm; Negative Murmur, Rub, JVD or Gallop
GI: Soft, Nontender, Normal Bowel Sounds and Distended (Very mild, likely stool burden)
Musculoskeletal: No Clubbing, No Cyanosis and No Edema (2+ bilateral lower extremity)
Skin: Warm and Dry; Negative Rash or Jaundice
Neuro: AO x 3, Nonfocal/Grossly Intact and Central Nerve's Intact
Data Reviewed
-
Labs: Labs Reviewed by me
[2024-04-15 11:39] LABS: Glucose - Point of Care 147 mg/dl (70-99)
--- NOTE | 2024-04-15 14:16 | W.PN.NEPH.PH ---
Today's Communication / Plan
-
labs in am
Assessment/Plan
-
Assessment:
PABLO (bl 1), now ATN
hypercapnice respiratory failure
s/p cardiac arrest
possible intra-abd process
BPH
T2DM
s/p recent hip fracture
Plan:
PABLO-cr improving to 1.2 but then worsened to 1.7 after contrast/lasix on 04/09. fortunately, slightly improved to 1.4 04/14.
remains non oliguric, avoid nephrotoxins
mild-mod stable right hydro on recent CT-need out pt f/u with
echo noted with EF 35-40%, mild to mod MR, severe pulm HTN
he is on RA, no PE on CT chest, prn lasix
BPs labile, meds adjustment per cards, MRI shows acute/subacute CVA
not very cooperative
plan [facility] noted
d/w nursing
-
-
Date of Service: April 15, 2024
CC / HPI / ROS
-
Chief Complaint:
PABLO
History of Present Illness:
extubated on 04/05, on RA now
echo noted low EF and severe pulm HTN
PABLO/Cr improved at 1.2, konstantin again to 1.7, back down to 1.4, na better 138
no labs today
nonoliguric
wt no change
Review of Systems:
awake,interactive
offers no sob
no cp
Labs
-
Labs:
WBC 10.7 10^3/uL (4.8-10.8) 04/12/24 05:29
RBC 3.43 10^6/uL (4.70-6.10) L 04/12/24 05:29
Hgb 8.9 g/dL (13.0-18.0) L 04/12/24 05:29
Hct 27.5 % (39.0-52.0) L 04/12/24 05:29
Plt Count 301 10^3/uL (130-400) 04/12/24 05:29
Sodium 138 mmol/L (135-145) 04/14/24 11:30
Potassium 4.2 mmol/L (3.5-5.1) 04/14/24 11:30
Chloride 107 mmol/L (98-107) 04/14/24 11:30
Carbon Dioxide 24 mmol/L (22-30) 04/14/24 11:30
BUN 46 mg/dl (9-20) H 04/14/24 11:30
Creatinine 1.4 mg/dL (0.7-1.3) H 04/14/24 11:30
eGFR 50.18 04/14/24 11:30
Glucose 150 mg/dl (70-99) H 04/14/24 11:30
Calcium 8.3 mg/dl (8.4-10.2) L 04/14/24 11:30
Phosphorus 4.0 mg/dl (2.5-4.5) 04/11/24 13:38
Albumin 2.9 g/dl (3.5-5.0) L 04/10/24 06:38
Physical Exam
-
Vital Signs:
Vital Signs
Temp Pulse Resp BP Pulse Ox
97.7 F 106 17 114/64 94
04/15/24 07:26 04/15/24 07:26 04/15/24 07:26 04/15/24 07:26 04/15/24 07:26
Cardiovascular:: Regular rate and rhythm
Respiratory:: Bilateral: CTA (decreased)
Lung Excursion:: Normal
Abdomen:: Nontender and Soft
Extremity Edema:: +1: Bilateral:
Ramesh Catheter: No
[2024-04-15 16:25] LABS: Glucose - Point of Care 140 mg/dl (70-99)
[2024-04-15] MEDS: LIPITOR 40 MG PO (17:05)
[2024-04-15] MEDS: TYLENOL 650 MG PO (20:19)
[2024-04-15 21:31] LABS: Glucose - Point of Care 130 mg/dl (70-99)
[2024-04-15] MEDS: NSS 250 IV (21:45)
--- NOTE | 2024-04-15 22:05 | W.PN.UPDATE ---
Update Note
Progress Note Update
Rapid Response called at 2150
Patient hypotensive at 81/55, down to 76/49, tachycardic at 104 and complaining of abdominal pain radiating to back at a 8 out of 10. Patient was asymptomatic, AAOx3, requesting something to make him more comfortable. Assessment findings of
distended abdomen, rigid with guarding, hypoactive bowel sounds with Last bowel movement documented 04/11/2024. Incision site clean, dry and intact, absent of any signs of infection.
Plan:
- STAT IVF Bolus 250mL
- Order placed for Levophed if nonresponsive to fluid bolus
- STAT Labs: CBC w/diff, BMP
- STAT Abdominal CT w/contrast
Patients blood pressure stabilized following fluid bolus (100/59). Patient adamantly refusing continued work up, stating, 'if this will effect me going to [facility] tomorrow I do not want it.' Attempted education with patient and he continued to refuse
all work up measures. Care team updated.
--- NOTE | 2024-04-15 22:50 | PTCARENOTE ---
Patient's Bp- 81/55, repeat 76/49, asymptomatic, HR- 104. Persistent c/o 7-8/10 pain lower back/ abdomen/ right groin( after Tylenol PO). Abdomen slightly distended, Hypoactive BS, patient stated not passing any gas. Rapid response called for this
patient. IV bolus NS 250 given as ordered, after bolus 100/59 . Patient adamantly refusing for blood draw/ to fo for CT of the abdomen/ any further treatments. Explained to the patient regarding Plan of care and still doesn't want to go for CT.
Patient afraid that findings may prevent him to go [facility] tomorrow. will continue to monitor
[2024-04-16] VITALS (7 sets, daily range): BP systolic 64–152; BP diastolic 40–94; PULSE 102; O2SAT 94; BMI 23.2
[2024-04-16 07:20] LABS: Glucose - Point of Care 132 mg/dl (70-99)
[2024-04-16] MEDS: MIRALAX 17 GRAMS PO (07:54)
[2024-04-16] MEDS: NSS (PRESERVATIVE FREE) 10 ML IV (08:00)
[2024-04-16] MEDS: PROTONIX IV 40 MG IV (08:00)
[2024-04-16] MEDS: PACERONE 200 MG PO (08:01)
[2024-04-16] MEDS: ELIQUIS 5 MG PO (08:01)
[2024-04-16] MEDS: LOW STRENGTH ASPIRIN 81 MG PO (08:01)
[2024-04-16] MEDS: SENOKOT-S 1 TABLET PO (08:03)
[2024-04-16] MEDS: COREG 25 MG PO (08:03)
[2024-04-16] MEDS: OMNIPAQUE 50 ML PO (09:26)
[2024-04-16] MEDS: NOVOLOG FLEXPEN-MODERATE RESISTANCE SC ×3 (09:53→17:56)
--- NOTE | 2024-04-16 10:07 | W.PN.NEPH.PH ---
Today's Communication / Plan
-
Prophylaxis IV fluids provided before CT scan
Follow BMP
Assessment/Plan
-
Assessment:
PABLO (bl 1), now ATN
hypercapnice respiratory failure
s/p cardiac arrest
possible intra-abd process
BPH
T2DM
s/p recent hip fracture
Plan:
PABLO-cr improving to 1.2 but then worsened to 1.7 after contrast/lasix on 04/09. fortunately, slightly improved to 1.4 04/14.
BMP to be drawn this morning and is pending
Patient in need of emergent CAT scan with IV contrast so we will provide contrast prophylaxis fluids
remains non oliguric, avoid nephrotoxins
mild-mod stable right hydro on recent CT-need out pt f/u with
echo noted with EF 35-40%, mild to mod MR, severe pulm HTN
he is on RA, no PE on CT chest, prn lasix
BPs labile, meds adjustment per cards, MRI shows acute/subacute CVA
patient not very cooperative
plan [facility] noted
-
-
Date of Service: April 16, 2024
CC / HPI / ROS
-
Chief Complaint:
PABLO
History of Present Illness:
extubated on 04/05, on RA now
echo noted low EF and severe pulm HTN
PABLO/Cr improved at 1.2, konstantin again to 1.7, back down to 1.4, na better 138
no labs today
nonoliguric
wt no change
Review of Systems:
awake,interactive
offers no sob
noted abdominal pain
Labs
-
Labs:
eGFR Cancelled 04/15/24 21:53
Phosphorus 4.0 mg/dl (2.5-4.5) 04/11/24 13:38
Physical Exam
-
Vital Signs:
Vital Signs
Temp Pulse Resp BP Pulse Ox
97.8 F 103 17 140/79 98
04/16/24 07:00 04/16/24 07:00 04/16/24 07:00 04/16/24 07:00 04/16/24 07:00
Cardiovascular:: Regular rate and rhythm
Respiratory:: Bilateral: CTA (decreased)
Lung Excursion:: Normal
Abdomen:: Soft and Tender
Bowel Sounds:: Decreased
Extremity Edema:: +1: Bilateral:
Ramesh Catheter: No
[2024-04-16 10:22] LABS: % Basophils 0.8 % (0-2); % Immature Granulocytes 0.6 % (0-0.5); % Lymphocytes 7.3 % (20.5-51.1); % Monocytes 4.5 % (1.7-9.3); % Neutrophils 85.8 % (42.2-75.2); Absolute Basophils 0.1 10^3/uL (0-0.2); Absolute Eosinophils 0.1 10^3/uL (0-0.7); Absolute Immature Granulocytes 0.1 10^3/uL (0-0.05); Absolute Lymphocytes 0.6 10^3/uL (1.2-3.4); Absolute Monocytes 0.4 10^3/uL (0.1-0.6); Absolute Neutrophils 7.4 10^3/uL (1.4-6.5); Hematocrit 28.5 % (39.0-52.0); Hemoglobin 9.2 g/dL (13.0-18.0); Mean Corp Hgb Conc. 32.3 g/dL (33.0-37.0); Mean Corpuscular Hgb 25.8 pg (27.0-31.0); Mean Corpuscular Volume 80.1 fL (80.0-94.0); Mean Platelet Volume 10.1 fL (7.4-10.4); Nucleated Red Blood Cells % 0 % (-); Platelet Count 410 10^3/uL (130-400); Red Blood Cell Count 3.56 10^6/uL (4.70-6.10); White Blood Cell Count 8.6 10^3/uL (4.8-10.8)
[2024-04-16] MEDS: SODIUM BICARBONATE 1150 MEQ IV (10:36)
[2024-04-16 10:40] LABS: ALT (SGPT) 14 U/L (0-50); AST (SGOT) 16 U/L (17-59); Albumin 2.5 g/dl (3.5-5.0); Alkaline Phosphatase 99 U/L (38-126); Blood Urea Nitrogen 46 mg/dl (9-20); Calcium 8.5 mg/dl (8.4-10.2); Carbon Dioxide 26 mmol/L (22-30); Chloride 105 mmol/L (98-107); Estimated Creatinine Clearance 38 ml/min; Glucose 131 mg/dl (70-99); Potassium 4.3 mmol/L (3.5-5.1); Sodium 137 mmol/L (135-145); Total Bilirubin 0.5 mg/dl (0.2-1.3); Total Protein 5.1 g/dl (6.3-8.2); eGFR 39.75
[2024-04-16 11:33] LABS: Glucose - Point of Care 133 mg/dl (70-99)
--- NOTE | 2024-04-16 11:49 | CM ---
Case management following for d/c planning
Pt for [facility] when medically stable
Pending CT of abdomen today - [facility] Liaison aware
Spoke with daughter - requesting update regarding dispo to [facility] - updated. Aware of pending CT - decision regarding d/c to be made pending findings on CT
Will update pt/family after CT
Plan - Transfer to [facility] when medically ready - pending bed availability
--- NOTE | 2024-04-16 13:04 | W.PN.HOSP.TC ---
Today's Communication/Plan
-
CT abdomen/pelvis pending to evaluate abdominal pain
Assessment / Plan
Assessment / Plan
Assessment:
Cardiac arrest in setting of acute illness, septic shock
- s/p 3 rounds EPI/CPR
Septic shock from acute ischemic bowel
- shock resolved with pressors stopped
- received IVFs
- s/p 7 day course of Unasyn
Acute abdomen (Acute ischemic bowel)
- CT prelim suggest bowel obstruction/ischemic
- s/p ex-lap 04/03: negative ex lap for presumed ischemic bowel, limited NATALIE was performed without sbr. velma due to be removed 04/18
- repeat CT pending for acute abdomen pain 04/16 AM
Rapid Atrial fibrillation/Flutter
- continue Amio/BB/Eliquis
- [facility] Cards following��
Subacute CVA -- likely occurred around his cardiac arrest
- MRI: 3 mm subacute infarct within left parietal lobe, no corresponding focal deficits on exam
- continue ASA/Statin/Eliquis
Metabolic encephalopathy - resolved
VDRF in setting of critical illness
- extubated 04/05 to CPAP
- s/p IV steroids x 2 for stridor
- repeat CXR stable
PABLO with hyperkalemia
- likely in setting of acute sepsis, ATN and later cardiorenal state
- hold nephrotoxins
- required Ramesh for critical I/Os, now removed
- nephrology following
- Cr 1.7 most recently
Acute anemia related to critical illness on chronic normocytic anemia
- also dilutional component
- monitor Hb
Hypocalcemia
RV dilation on TTE -- likely from pulmonary HTN
Acute HFrEF (EF 40%)
- s/p IV diuretics
- Monitor I/Os and daily weights, moderate sodium restriction per diet
- continue Coreg
Initial concern for UGI
- continue PPI BID
- monitor Hb
- hold off GI evaluation for now
Status post Left hip fracture with cannulated Screw 01/16/24:
Right hip fracture S/P gamma nail about one month ago
hx of Gout
hx of essential HTN
- continue Coreg
HLD - statin
��
type 2 diabetes
- holding MFM
- SSI
- A1c is 6.3%
- continue Gabapentin for peripheral neuropathy
Hoarseness
- related to vent/intubation and CPR
- improving
Generalized weakness
- PT/OT - [facility] discharge pending medical clearance
DVT ppx: Eliquis
Code: Full
Anticipated Discharge: > 48 hours
Subjective/Interval History
-
Date of Service: April 16, 2024
DIRECTOR OF DESIGN noted last evening with hypotension, abdominal pain
refused CT last evening, now agreeable and obtained, pending results
last BM 04/14 a smear
Objective Data
-
Labs:
Laboratory Results
04/16/24 04/16/24 04/16/24
09:46 09:46 09:46
WBC 8.6
Hgb 9.2 L
Hct 28.5 L
Plt Count 410 H D
Sodium Cancelled 137
Potassium Cancelled 4.3
Chloride Cancelled
Carbon Dioxide
BUN
Creatinine
Glucose
Calcium
Total Bilirubin
AST
ALT
Alkaline Phosphatase
04/16/24 04/16/24 04/16/24
09:46 09:46 09:46
WBC
Hgb
Hct
Plt Count
Sodium
Potassium
Chloride 105
Carbon Dioxide Cancelled 26
BUN Cancelled 46 H
Creatinine Cancelled
Glucose
Calcium
Total Bilirubin
AST
ALT
Alkaline Phosphatase
04/16/24 04/16/2424
09:46 09:46 09:46
WBC
Hgb
Hct
Plt Count
Sodium
Potassium
Chloride
Carbon Dioxide
BUN
Creatinine 1.7 H
Glucose Cancelled 131 H
Calcium Cancelled 8.5
Total Bilirubin 0.5
AST 16 L
ALT 14
Alkaline Phosphatase 99
Vital Signs:
Vital Signs
Temp Pulse Resp BP Pulse Ox
97.8 F 103 17 140/79 98
04/16/24 07:00 04/16/24 07:00 04/16/24 07:00 04/16/24 07:00 04/16/24 11:27
I&O
04/15/24 04/16/24 04/17/24
06:59 06:59 06:59
Intake Total 660 / 660 740 / 740
Output Total 440 / 440 500 / 500
Balance 220 / 220 240 / 240
Physical Exam
-
General: Appears Chronically Ill and Other (agitated)
HEENT: Normocephalic and Atraumatic
Respiratory: Negative Wheezes
Cardiac: Regular Rhythm and S1/S2
GI: Distended (firm)
Musculoskeletal: No Edema
Neuro: AO x 3
Hematologic / Lymphatic: No Lymphadenopathy
Psych: Calm
Data Reviewed
-
Total Time Spent with Patient (in minutes): 44
Labs: Labs Reviewed by me
--- NOTE | 2024-04-16 16:02 | PTOTSP ---
Dysphagia Therapy
Diet modified to clear liquids/thin liquids in chart by physician due to concern for SBO. Patient verbally refusing thickened liquids (mildly thick last recommended by AUTOMATIC EQUIPMENT TECHNICIAN). On last known video swallow study patient with penetration without
aspiration with thin liquids but felt to be at risk for aspiration. After discussion with physician, consider trial of thin liquids with close monitoring for clinical signs concerning for aspiration complications.
Recommend:
1. Thin Liquids with close monitoring for clinical signs concerning for aspiration complications
2. Oral care 3x daily
3. Dysphagia tx and cognitive linguistic therapy at the acute care level and after D/C at this time.
[2024-04-16 16:37] LABS: Glucose - Point of Care 134 mg/dl (70-99)
--- NOTE | 2024-04-16 17:47 | PTCARENOTE ---
Pt with distended abdomen. Three episodes of brown green emesis. Pt educated on nasogastric tube and belly decompression. Dr. Sales, notified. New order for NPO, with oral meds and small sips. Pt refusing NG tube. Pt denying any nausea. 'I feel
better now.'
--- NOTE | 2024-04-16 17:53 | W.PN.GS2 ---
Today's Communication / Plan
-
Patient refusing NG.
N.p.o., IV fluids, aspiration precautions.
Assessment / Plan
-
83M POD 13 s/p negative ex lap for presumed ischemic bowel, limited NATALIE was performed without sbr. He did have postoperative ileus that resolved but now has redeveloped nausea vomiting and CT scan concerning for small bowel obstruction.
Plan:
N.p.o., IV fluids
Recommended replacing NG tube, particularly because of his distended stomach seen on CT. I explained that he has high risk for aspiration pneumonia as well as . He refuses to proceed with NG tube placement despite knowing these risks.
Aspiration precautions.
General surgical continue to follow with serial abdominal exams. Given his timing from his previous surgery going back in for exploration would be prohibitive. Will try to manage this nonoperatively for now.
Time Spent
Total Time Spent with Patient (in minutes): 25
Subjective Data
-
Date of Service: April 16, 2024
Interval Events:
Worsening abdominal pain now with bilious emesis. Still endorsing some flatus
Objective Data
-
Intake and Output
04/15/24 04/16/24 04/17/24
06:59 06:59 06:59
Intake Total 660 / 660 740 / 740 150 / 150
Output Total 440 / 440 500 / 500 200 / 200
Balance 220 / 220 240 / 240 -50 / -50
Intake:
Oral fluids 660 / 660 490 / 490 150 / 150
IV piggybacks 250 / 250
Output:
Urine, Voided 440 / 440 500 / 500 200 / 200
Other:
Number of immeasurable emeses? 1
Vital Signs
Temp Pulse Resp BP Pulse Ox
98.6 F 69 16 152/94 97
04/16/24 15:20 04/16/24 15:20 04/16/24 15:20 04/16/24 15:20 04/16/24 15:20
Lab Results
04/16/24 09:46
04/16/24 09:46
Calcium 8.5 mg/dl (8.4-10.2) 04/16/24 09:46
Calcium Cancelled 04/16/24 09:46
Phosphorus 4.0 mg/dl (2.5-4.5) 04/11/24 13:38
Magnesium 1.7 mg/dl (1.6-2.3) 04/13/24 05:38
Total Bilirubin 0.5 mg/dl (0.2-1.3) 04/16/24 09:46
AST 16 U/L (17-59) L 04/16/24 09:46
ALT 14 U/L (0-50) 04/16/24 09:46
Alkaline Phosphatase 99 U/L (38-126) 04/16/24 09:46
Total Protein 5.1 g/dl (6.3-8.2) L 04/16/24 09:46
Albumin 2.5 g/dl (3.5-5.0) L 04/16/24 09:46
Physical Exam
-
GENERAL/NEURO: Awake, Alert, no distress
CHEST: Unlabored breathing on RA
ABDOMEN: Soft, Non-Tender, Distended, incisions clean dry and intact.
[2024-04-16] MEDS: LIPITOR PO (17:57)
--- NOTE | 2024-04-16 19:40 | PTCARENOTE ---
Patient vomiting large amounts of 'green bile'. Patient agreed for NGT. Terry ZHANG made aware. 16Fr NGT inserted and 300ml ( green )drained right away and placed NGT to Low intermittent suction. Placed med sitter for safety as patient pulled out IJ
and NGT in the past.
--- NOTE | 2024-04-16 19:44 | W.PN.UPDATE ---
Update Note
Progress Note Update
Nursing reporting significant amount of emesis at shift change, nurse able to convince patient for NG tube placement. Order entered.
--- NOTE | 2024-04-16 20:40 | PTCARENOTE ---
Patient unable to swallow PO meds with having NGT. VICENTE Muse made aware.
[2024-04-16] MEDS: NSS 250 IV (23:27)
[2024-04-16] MEDS: CHLORASEPTIC/SORE THROAT SPRAY 1 SPRAY PO (23:34)
[2024-04-17] VITALS (7 sets, daily range): BP systolic 95–128; BP diastolic 60–79; BMI 23.4
[2024-04-17 00:01] LABS: Glucose - Point of Care 109 mg/dl (70-99)
--- NOTE | 2024-04-17 00:30 | PTCARENOTE ---
Patient's BP- 88/61 , 64/40 -manual. HR- 96. VICENTE Muse made aware. Administered NSS 250 bolus given as ordered and BP after- 110/62.
--- NOTE | 2024-04-17 00:30 | PTCARENOTE ---
sulaiman's BP- 88/61 , 64/40 -manual. HR- 96. VICENTE Muse made aware. Administered NSS 250 bolus as ordered and BP after- 110/62.
--- NOTE | 2024-04-17 00:40 | PTCARENOTE ---
Patient's BP- 88/61 , 64/40 -manual. HR- 96. VICENTE Muse made aware. Administered NSS 250 bolus as ordered and BP after- 110/62.
[2024-04-17] MEDS: ELIQUIS PO ×3 (01:10→21:00)
[2024-04-17] MEDS: COREG PO ×3 (01:10→21:00)
[2024-04-17 06:07] LABS: Glucose - Point of Care 101 mg/dl (70-99)
[2024-04-17 07:07] LABS: Blood Urea Nitrogen 49 mg/dl (9-20); Calcium 8.3 mg/dl (8.4-10.2); Carbon Dioxide 23 mmol/L (22-30); Chloride 106 mmol/L (98-107); Estimated Creatinine Clearance 38 ml/min; Glucose 84 mg/dl (70-99); Potassium 4.5 mmol/L (3.5-5.1); Sodium 137 mmol/L (135-145); eGFR 39.75
[2024-04-17 07:32] LABS: % Basophils 0.6 % (0-2); % Eosinophils 0.9 % (0-6); % Immature Granulocytes 0.5 % (0-0.5); % Lymphocytes 6.4 % (20.5-51.1); % Monocytes 4.6 % (1.7-9.3); Absolute Basophils 0.1 10^3/uL (0-0.2); Absolute Eosinophils 0.1 10^3/uL (0-0.7); Absolute Lymphocytes 0.6 10^3/uL (1.2-3.4); Absolute Monocytes 0.4 10^3/uL (0.1-0.6); Absolute Neutrophils 7.6 10^3/uL (1.4-6.5); Hematocrit 27.9 % (39.0-52.0); Hemoglobin 8.9 g/dL (13.0-18.0); Mean Corp Hgb Conc. 31.9 g/dL (33.0-37.0); Mean Corpuscular Hgb 25.4 pg (27.0-31.0); Mean Corpuscular Volume 79.5 fL (80.0-94.0); Nucleated Red Blood Cells % 0 % (-); Platelet Count 433 10^3/uL (130-400); Red Blood Cell Count 3.51 10^6/uL (4.70-6.10); Red Cell Dist. Width 17.1 % (11.5-14.5); White Blood Cell Count 8.7 10^3/uL (4.8-10.8)
[2024-04-17] MEDS: PACERONE PO (08:38)
[2024-04-17] MEDS: LOW STRENGTH ASPIRIN PO (08:38)
--- NOTE | 2024-04-17 09:53 | W.PN.GS2 ---
Today's Communication / Plan
-
-- Repeat abdominal X-ray pending
-- NPO, IVF, NGT decompression
Assessment / Plan
-
Patient is an 83 yo M POD 14 s/p negative ex lap for presumed ischemic bowel, limited NATALIE was performed without SBR.
AVSS
NGT outputs low volume and light bilious
Postoperative ileus that resolved but now has redeveloped nausea, vomiting, and CT scan concerning for small bowel obstruction.
Likely partial SBO secondary to adhesions within the RLQ combined with constipation. Difficult time to consider reoperation 2 weeks out from recent laparotomy. Given his prior clinical and radiographic improvement, recommend medical management.
Care complicated by patient refusing certain elements of care and demanding discharge. In-depth discussion had with daughter reviewing prehospital stay, my current hospital stay, and current clinical situation. Current recommendations and plan
were reinforced. Expressed to daughter that she needs to discuss goals of care and willingness to proceed with current clinical care with her father. All questions answered.
Plan:
-- Repeat abdominal X-ray pending
-- NPO, IVF, NGT decompression
-- General surgical continue to follow with serial abdominal exams. Given his timing from his previous surgery going back in for exploration would be prohibitive. Will try to manage this nonoperatively
Subjective Data
-
Date of Service: April 17, 2024
Frustrated, disgruntled. Reports wanting NGT out. Reports wanting food. Reports wanting to leave the hospital. Denies abdominal pain. Reports from nursing of yesterday. Denies nausea or vomiting.
Objective Data
-
Intake and Output
04/16/24 04/17/24 04/18/24
06:59 06:59 06:59
Intake Total 740 / 740 400 / 400
Output Total 500 / 500 850 / 850
Balance 240 / 240 -450 / -450
Intake:
Oral fluids 490 / 490 150 / 150
IV piggybacks 250 / 250 250 / 250
Output:
Gastrointestinal tube output ( 400 / 400
Total)
[place] Sump 400 / 400
Urine, Voided 500 / 500 450 / 450
Other:
Number of immeasurable emeses? 1
Vital Signs
Temp Pulse Resp BP Pulse Ox
98.1 F 100 16 114/61 94
04/17/24 07:00 04/17/24 07:00 04/17/24 07:00 04/17/24 07:00 04/17/24 07:00
Lab Results
04/17/24 06:00
04/17/24 06:00
Calcium 8.3 mg/dl (8.4-10.2) L 04/17/24 06:00
Phosphorus 4.0 mg/dl (2.5-4.5) 04/11/24 13:38
Magnesium 1.7 mg/dl (1.6-2.3) 04/13/24 05:38
Total Bilirubin 0.5 mg/dl (0.2-1.3) 04/16/24 09:46
AST 16 U/L (17-59) L 04/16/24 09:46
ALT 14 U/L (0-50) 04/16/24 09:46
Alkaline Phosphatase 99 U/L (38-126) 04/16/24 09:46
Total Protein 5.1 g/dl (6.3-8.2) L 04/16/24 09:46
Albumin 2.5 g/dl (3.5-5.0) L 04/16/24 09:46
Physical Exam
-
Gen: NAD
HEENT: lightt bilious output
Abd: soft, NT, mild/moderate distension, non-peritoneal, midline c/d/i - no erythema, ecchymosis or drainage, velma in place
--- NOTE | 2024-04-17 09:59 | PTCARENOTE ---
up to this point in time pt has been refusing care. MD Morales, MD Branham are aware. Pts daughter called in to speak to pt while this Rn was in the room, this Rn spoke to her to provided update about pts noncompliance, daughter reports that she is
too having a very hard time helping her father d/t his noncompliance. Pt continues to states that he wants to leave AMA.. MD Morales aware. Awaiting for abd xray results and MD reassessment. care plan continues to be followed.
--- NOTE | 2024-04-17 11:16 | W.PN.HOSP.TC ---
Today's Communication/Plan
-
continue NGT decompression
bowel meds per GS from below
Assessment / Plan
Assessment / Plan
Assessment:
Cardiac arrest in setting of acute illness, septic shock
- s/p 3 rounds EPI/CPR
Septic shock from acute ischemic bowel
- shock resolved with pressors stopped
- received IVFs
- s/p 7 day course of Unasyn
Acute abdomen (Acute ischemic bowel)
- CT prelim suggest bowel obstruction/ischemic
- s/p ex-lap 04/03: negative ex lap for presumed ischemic bowel, limited NATALIE was performed without sbr. velma due to be removed 04/18
- repeat CT 04/16 showed: persistent small bowel and gastric dilation with oral contrast not extending to the distal small bowel, although contrast is present within the colon likely from prior swallow study. Findings may represent a new small bowel
obstruction, partial obstruction or adynamic ileus with slow transit. Small bowel is again seen lateral to the ascending colon which can be seen with internal hernia.
- NGT in place and serial exams/imaging per GS
Rapid Atrial fibrillation/Flutter
- continue Amio/BB/Eliquis
- [facility] Cards following��
Subacute CVA -- likely occurred around his cardiac arrest
- MRI: 3 mm subacute infarct within left parietal lobe, no corresponding focal deficits on exam
- continue ASA/Statin/Eliquis
Metabolic encephalopathy - resolved
VDRF in setting of critical illness
- extubated 04/05 to CPAP
- s/p IV steroids x 2 for stridor
- repeat CXR stable
PABLO with hyperkalemia
- likely in setting of acute sepsis, ATN and later cardiorenal state
- hold nephrotoxins
- required Ramesh for critical I/Os, now removed
- nephrology following
- Cr 1.7 and stable
Acute anemia related to critical illness on chronic normocytic anemia
- also dilutional component
- monitor Hb
Hypocalcemia
RV dilation on TTE -- likely from pulmonary HTN
Acute HFrEF (EF 40%)
- s/p IV diuretics
- Monitor I/Os and daily weights, moderate sodium restriction per diet
- continue Coreg
Initial concern for UGI
- continue PPI BID
- monitor Hb
- hold off GI evaluation for now
Status post Left hip fracture with cannulated Screw 01/16/24:
Right hip fracture S/P gamma nail about one month ago
hx of Gout
hx of essential HTN
- continue Coreg
HLD - statin
��
type 2 diabetes
- holding MFM
- SSI
- A1c is 6.3%
- continue Gabapentin for peripheral neuropathy
Hoarseness
- related to vent/intubation and CPR
- improving
Generalized weakness
- PT/OT - [facility] discharge pending medical clearance
DVT ppx: Eliquis
Code: Full
Anticipated Discharge: > 48 hours
Subjective/Interval History
-
Date of Service: April 17, [address] showed pSBO and later NGT placed for vomiting overnight
this AM remains with NGT
adamant to leave hospital today
Objective Data
-
Labs:
Laboratory Results
04/17/24
06:00
WBC 8.7
Hgb 8.9 L
Hct 27.9 L
Plt Count 433 H
Sodium 137
Potassium 4.5
Chloride 106
Carbon Dioxide 23
BUN 49 H
Creatinine 1.7 H
Glucose 84
Calcium 8.3 L
Vital Signs:
Vital Signs
Temp Pulse Resp BP Pulse Ox
98.1 F 100 16 114/61 94
04/17/24 07:00 04/17/24 07:00 04/17/24 07:00 04/17/24 07:00 04/17/24 07:00
I&O
04/16/24 04/17/24 04/18/24
06:59 06:59 06:59
Intake Total 740 / 740 400 / 400
Output Total 500 / 500 850 / 850
Balance 240 / 240 -450 / -450
Physical Exam
-
General: No Apparent Distress
HEENT: Normocephalic and Atraumatic
Respiratory: Negative Wheezes
Cardiac: Regular Rhythm and S1/S2
GI: Distended (firm)
Genito-urinary: No Costovertebral Tender
Neuro: AO x 3
Psych: Calm
Data Reviewed
-
Total Time Spent with Patient (in minutes): 45
Labs: Labs Reviewed by me
[2024-04-17 11:48] LABS: Glucose - Point of Care 107 mg/dl (70-99)
--- NOTE | 2024-04-17 12:46 | CM ---
Case management following for d/c planning
Chart reviewed
NGT, IVF's, NPO. Following labs and abd xrays
Surgery following - rec medical management
CM will follow for d/c needs
Plan - anticipate [facility] when medically ready
--- NOTE | 2024-04-17 12:54 | PTCARENOTE ---
Pt continues to refuse care and threatening to pull NG tube out by himself if his damands of discharge and NG tube removal are met. MD Morales and Yonas made aware. MD Morales just left bedside after speaking to pt and his daughter via speakerphone
with MD Branham just arriving to bedside getting pts daughter on speaker phone to discuss circumstances. Director [place] also just arrived to bedside to touch base with pt per pts request to speak to someone from administration. video
monitor continues to be used. bed low, rails up x 3. call be and belongings within reach. NG tube remains patent and remains on low intermittent suction putting out green/brown content.
--- NOTE | 2024-04-17 13:27 | W.PN.NEPH.PH ---
Today's Communication / Plan
-
Patient now n.p.o. with NG tube
Will provide normal saline 80 cc/hr
Kidney function unchanged at 1.7
Assessment/Plan
-
Assessment:
PABLO (bl 1), now ATN
hypercapnice respiratory failure
s/p cardiac arrest
possible intra-abd process
BPH
T2DM
s/p recent hip fracture
Persistent mild to moderate right hydronephrosis
Plan:
PABLO-cr improved to 1.2 but then worsened to 1.7 after contrast/lasix on 04/09. now unchanged at 1.7, nonoliguric
Possible small bowel obstruction on CT now n.p.o. and NGT
will provide some IVFs while npo, NSS at 80cc/hr
remains non oliguric, avoid nephrotoxins
mild-mod stable right hydro on recent CT-need out pt f/u with
echo noted with EF 35-40%, mild to mod MR, severe pulm HTN
he is on RA, no PE on CT chest, prn lasix as needed , follow daily weights
BPs labile, meds adjustment per cards, MRI shows acute/subacute CVA
patient not very cooperative
plan [facility] noted
-
-
Date of Service: April 17, 2024
CC / HPI / ROS
-
Chief Complaint:
PABLO
History of Present Illness:
extubated on 04/05, on RA now
echo noted low EF and severe pulm HTN
PABLO/Cr improved at 1.2, konstantin again to 1.7,
no labs today
nonoliguric
wt no change
Review of Systems:
awake,interactive irritated
ngt
offers no sob
noted abdominal pain
Labs
-
Labs:
WBC 8.7 10^3/uL (4.8-10.8) 04/17/24 06:00
RBC 3.51 10^6/uL (4.70-6.10) L 04/17/24 06:00
Hgb 8.9 g/dL (13.0-18.0) L 04/17/24 06:00
Hct 27.9 % (39.0-52.0) L 04/17/24 06:00
Plt Count 433 10^3/uL (130-400) H 04/17/24 06:00
Sodium 137 mmol/L (135-145) 04/17/24 06:00
Potassium 4.5 mmol/L (3.5-5.1) 04/17/24 06:00
Chloride 106 mmol/L (98-107) 04/17/24 06:00
Carbon Dioxide 23 mmol/L (22-30) 04/17/24 06:00
BUN 49 mg/dl (9-20) H 04/17/24 06:00
Creatinine 1.7 mg/dL (0.7-1.3) H 04/17/24 06:00
eGFR 39.75 04/17/24 06:00
Glucose 84 mg/dl (70-99) 04/17/24 06:00
Calcium 8.3 mg/dl (8.4-10.2) L 04/17/24 06:00
Phosphorus 4.0 mg/dl (2.5-4.5) 04/11/24 13:38
Albumin 2.5 g/dl (3.5-5.0) L 04/16/24 09:46
Physical Exam
-
Vital Signs:
Vital Signs
Temp Pulse Resp BP Pulse Ox
98.1 F 100 16 114/61 94
04/17/24 07:00 04/17/24 07:00 04/17/24 07:00 04/17/24 07:00 04/17/24 07:00
Cardiovascular:: Regular rate and rhythm
Respiratory:: Bilateral: CTA
Lung Excursion:: Normal
Abdomen:: Distended and Nontender
Bowel Sounds:: None
Extremity Edema:: +1: Bilateral:
Ramesh Catheter: No
--- NOTE | 2024-04-17 13:30 | PTCARENOTE ---
Met with patient at his request to speak to administration. He is stating forceably that he is getting poor medical care. States he has not been updated on when his tube will come out, when he will go to [facility], or any explaination as to why he had
surgery or when velma will be removed. Demanding NG tube be removed and food allowed that is not diabetic food, stating he is not a diabetic. He states he understands his 'better half' may not allow him to come home, but that he plans on getting
the [employer] bus to go to his home to get his car and he will find a place to stay. I reinforced and reexplained his medical course and why he has the NG tube and that he is not medically stable for [facility] yet but it is still in the plans. I also
explained exact dates cannot be provided on when things will happen as it depends on his recovery and response to treatment and if he allows treatment. He did not remember that he had to have CPR during this hospitalization and he stated that he did
not have surgery here, but it was before he came here.
--- NOTE | 2024-04-17 14:01 | CS.PSYCHR ---
Consult Summary - Psychiatry
-
Pt is 83 yo male, presented 04/02/24 with nausea, low BP, had cardiac arrest and was resuscitated, then underwent exploratory lap for small bowel obstruction/ischemic bowel on 04/03/24. Pt now redeveloped nausea, vomiting, with CT scan concerning for
SBO. Medical management recommended due to being 2 weeks out from exploratory lap; NGT tube placed, pt made NPO. Psychiatry asked to assess capacity due to refusal of care, pt demanding NGT be removed, wants to leave. On interview, pt complains
of his care being 'extreme,' states he agreed to the NGT only if he was going to be transferred to [facility]. Pt aware of his basic situation, but he expresses skepticism about having small bowel obstruction, states if that is the case, what was
the purpose of the surgery. Pt alert, mostly oriented, is outspoken, insisting on having the NGT out immediately. He c/o he can't eat, drink, or breath with it in. He states he wants to drink coffee and water, and eat food. Pt also c/o that he
has no energy and they want him to do PT. Pt resting in bed with NGT in place, answering questions, mildly verbally agitated, affect irritable.
Psych Hx: denied
MSE: alert, mostly oriented, sensorium appears intact. Speech coherent, pt able to state his wishes, demanding to have NGT removed. However, pt is unable to show understanding of his need for medical treatment or the consequences of refusal;
expresses disbelief about having dx of recurrent SBO, does not give a clear rationale for refusing/insisting on having NGT removed. 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 Insight/judgement appear to be impaired
regarding his medical risks.
Imp/Rec: Pt does not appear to have full capacity for medical decisions at this point. Although he is very forceful about his wish to have NGT tube and diet restrictions removed, he is not able to show understanding of the potential consequences,
or to give a logical rationale. He does not appear to have psychosis or dementia; this may be related to personality factors along with the stress of his complicated course
Agree with involving family/dtr to assist with care.
Will try Ativan prn for agitation. Will follow
--- NOTE | 2024-04-17 14:07 | PTCARENOTE ---
Pt refusing IVF just ordered by Nephro . 10 mins spent with pt discussing importance of ordered fluids to no avail. grown grandchildren at bedside present during this discussion. MD Morales, MD Branham, md enriquez and director ciaran made aware
via T.T. care plan continues to be followed per orders.
[2024-04-17] MEDS: NSS IV (14:10)
[2024-04-17] MEDS: NSS 1000 IV (16:01)
[2024-04-17] MEDS: NSS (PRESERVATIVE FREE) 0.25 ML IV (16:05)
[2024-04-17] MEDS: ATIVAN 0.5 MG IV (16:06)
[2024-04-17 16:40] LABS: Glucose - Point of Care 93 mg/dl (70-99)
--- NOTE | 2024-04-17 16:46 | PTCARENOTE ---
Confirmed with Risk Director that daughter may make medical decisions due to patients lack of capacity to make decisions. Spoke to daughter about this. She states she also has POA papers at home, advised to bring in. She wants physican orders
followed including IV fluids and NG tube maintance. Daughter also states she has taken his cell phone home with her.
--- NOTE | 2024-04-17 16:53 | PTCARENOTE ---
Prior to leaving, pts daughter informed this Rn that she decided NOT to take pts cell phone home and that it is located at his side table for him to use. Daughter explicitly stated that she gives staff permission to confiscate the cell phone if pt
is using it inappropriate e.i calling the hospital motel clerk repeatedly or threatening to call 911 like pt was throughout the morning portion of the shift.
--- NOTE | 2024-04-17 17:14 | W.PN.UPDATE ---
Update Note
Progress Note Update
Daughter has requested code status be made to DNR. Order entered
[2024-04-17] MEDS: LIPITOR 40 MG PO (17:43)
[2024-04-17 18:03] LABS: Glucose - Point of Care 90 mg/dl (70-99)
--- NOTE | 2024-04-17 20:10 | PTCARENOTE ---
@1999;Pt raised his voiced,yelled at this RN and stated ,'No ,I'm not doing it'.
[2024-04-17 22:57] LABS: Glucose - Point of Care 99 mg/dl (70-99)
[2024-04-18] MEDS: NSS 1000 IV ×2 (03:16→16:27)
--- NOTE | 2024-04-18 04:08 | PTCARENOTE ---
@0330;Pt has been not compliant with pt care this shift.Pt is oriented x3.Pt is agitated,angry,forgetful and uncooperative with staff members.Pt demands to have his head lower than 30 degrees and threatens to notify people in charge.Pt is yelling at
staff at intervals and raising his right arm while pointing his finger at staff.Instructed pt on aspiration precautions.Pt declined NIHSS,neuro checks and q2hour turns.Pt remains on bed alarm and med sitter for safety.
[2024-04-18 05:57] VITALS: BMI 23.8
[2024-04-18 06:04] LABS: Glucose - Point of Care 89 mg/dl (70-99)
[2024-04-18] MEDS: ATIVAN 0.5 MG IV ×3 (08:25→20:55)
[2024-04-18 08:38] VITALS: BP 153/83
[2024-04-18] MEDS: ELIQUIS PO (09:05)
[2024-04-18] MEDS: COREG PO (09:05)
[2024-04-18] MEDS: PACERONE PO (09:06)
[2024-04-18] MEDS: LOW STRENGTH ASPIRIN PO (09:06)
[2024-04-18 11:08] LABS: Hematocrit 29.9 % (39.0-52.0); Hemoglobin 9.7 g/dL (13.0-18.0); Mean Corp Hgb Conc. 32.4 g/dL (33.0-37.0); Mean Corpuscular Hgb 26.4 pg (27.0-31.0); Mean Corpuscular Volume 81.3 fL (80.0-94.0); Mean Platelet Volume 10.2 fL (7.4-10.4); Platelet Count 414 10^3/uL (130-400); Red Blood Cell Count 3.68 10^6/uL (4.70-6.10); Red Cell Dist. Width 16.8 % (11.5-14.5); White Blood Cell Count 8.5 10^3/uL (4.8-10.8)
[2024-04-18 11:08] LABS: Glucose - Point of Care 79 mg/dl (70-99)
[2024-04-18 11:32] LABS: Blood Urea Nitrogen 45 mg/dl (9-20); Calcium 8.5 mg/dl (8.4-10.2); Carbon Dioxide 24 mmol/L (22-30); Chloride 107 mmol/L (98-107); Estimated Creatinine Clearance 40 ml/min; Glucose 73 mg/dl (70-99); Potassium 4.3 mmol/L (3.5-5.1); Sodium 140 mmol/L (135-145); eGFR 42.75
[2024-04-18] MEDS: NSS (PRESERVATIVE FREE) 0.25 ML IV ×2 (11:54→20:56)
--- NOTE | 2024-04-18 12:34 | PTCARENOTE ---
RN attempted to administer morning Meds to patient, patient refused. Patient repositioned and change by RN and PCT. Patient reports he wants NG tube out and if he is not allowed to eat he will take it out himself. Patient educated on the importance
of tube and reasoning. Patient unable to comprehend and became very agitated. Patient daughter requested for staff to take patient phone away as he kept calling administration as well as stating to contact police. Room phone and cell phone removed
to bedside, patient became agitated/hostile towards staff. Code purple called, PRN ativan given, restraints applied. MD Dr. Morales made aware. Nursing filling and packing supervisor, information systems audit manager, and security at bedside.
--- NOTE | 2024-04-18 12:41 | PTCARENOTE ---
RN spoke with patient daughter Trang this am, informed daughter of patient current situation. Patient was a code purple, Ativan given, and restraints applied. Patient daughter was okay with medical treatment provided and states she wants all
medical treatment given to father in order for him to go to [facility]. Daughter informed of patient not being medically stable for old b[place] and patient wanting to eat, wants NG tube removed,and refusing am meds. Trang requesting staff give meds to
patient even if he doesn't want to take them. Daughter informed we do not force patients to take Meds, pt. cognitively impaired and at risk for aspiration. Daughter was informed that DR. Morales would call her with medical treatment risk and benefits.
--- NOTE | 2024-04-18 12:51 | PTCARENOTE ---
Patient made attempt to remove NG tube, patient agitated stating he wants to eat. Threatens staff to break fingers if we touch him. One time dose of Ativan stat given/ ordered by MD. Patient repositioned in bed and restraints in place.
--- NOTE | 2024-04-18 12:54 | W.PN.UPDATE ---
Update Note
Progress Note Update
patient seen chart reviewed. discussed at length with dr pastor and with nursing. the patient is here after a cardiac arrest and surgery for complicated small bowel obstruction. he continues w sbo and has an ng tube and is npo which is causing him
great consternation. he had demanded to remove it which places him at risk for other complications including aspiration . dr mayo deemed him incompetent to make medical decisions with which i agree.while he did talk w me today he did not have an
understanding of the medical decisions he is making and their deleterious effect upon his health potentially. he even denied having had a cardiac arrest. while i would not necessarily say he was psychotic he seemed to believe he was being
misdiagnosed and mistreated and that his treating doctors might not have his best interests at heart. it is my understanding that his d is making decisions on his behalf. for now would use ativan prn which does seem to be helping when he gets
agitated.
--- NOTE | 2024-04-18 12:55 | W.PN.NEPH.PH ---
Today's Communication / Plan
-
decrease IVF rate
Assessment/Plan
-
Assessment:
PABLO (bl 1), now ATN
hypercapnice respiratory failure
s/p cardiac arrest
possible intra-abd process
BPH
T2DM
s/p recent hip fracture
Persistent mild to moderate right hydronephrosis
echo noted with EF 35-40%, mild to mod MR, severe pulm HTN
Plan:
PABLO-recurrent elevation cr possibly prerenal, contrast mediated
current cr 1.6 slowly improving
possible SBO , NPO -cont gentle IVF
would lower rate specially with pulm HTN and increasing wt
remains non oliguric, avoid nephrotoxins
mild-mod stable right hydro on recent CT-need out pt f/u with
he is on RA, prn lasix as needed , follow daily weights
BPs labile
DNR
-
-
Date of Service: April 18, 2024
CC / HPI / ROS
-
Chief Complaint:
PABLO
History of Present Illness:
extubated on 04/05, on RA now
echo noted low EF and severe pulm HTN
PABLO/Cr improved at 1.2, konstantin again to 1.7, now at 1.6
nonoliguric
wt increasing
BP labile
Review of Systems:
sleepy
ngt
no fever
Labs
-
Labs:
WBC 8.5 10^3/uL (4.8-10.8) 04/18/24 10:48
RBC 3.68 10^6/uL (4.70-6.10) L 04/18/24 10:48
Hgb 9.7 g/dL (13.0-18.0) L 04/18/24 10:48
Hct 29.9 % (39.0-52.0) L 04/18/24 10:48
Plt Count 414 10^3/uL (130-400) H 04/18/24 10:48
Sodium 140 mmol/L (135-145) 04/18/24 10:48
Potassium 4.3 mmol/L (3.5-5.1) 04/18/24 10:48
Chloride 107 mmol/L (98-107) 04/18/24 10:48
Carbon Dioxide 24 mmol/L (22-30) 04/18/24 10:48
BUN 45 mg/dl (9-20) H 04/18/24 10:48
Creatinine 1.6 mg/dL (0.7-1.3) H 04/18/24 10:48
eGFR 42.75 04/18/24 10:48
Glucose 73 mg/dl (70-99) 04/18/24 10:48
Calcium 8.5 mg/dl (8.4-10.2) 04/18/24 10:48
Phosphorus 4.0 mg/dl (2.5-4.5) 04/11/24 13:38
Albumin 2.5 g/dl (3.5-5.0) L 04/16/24 09:46
Physical Exam
-
Vital Signs:
Vital Signs
Temp Pulse Resp BP Pulse Ox
97.4 F 82 16 153/83 94
04/18/24 08:38 04/18/24 08:38 04/18/24 08:38 04/18/24 08:38 04/18/24 08:38
Cardiovascular:: Regular rate and rhythm
Lung Excursion:: Abnormal (decreased )
Abdomen:: Nontender and Soft
Extremity Edema:: None: Bilateral: (trace)
Ramesh Catheter: No
--- NOTE | 2024-04-18 13:37 | W.PN.HOSP.TC ---
Today's Communication/Plan
-
continue prn Ativan, as needed restraints
continue NGT decompression
Assessment / Plan
Assessment / Plan
Assessment:
Cardiac arrest in setting of acute illness, septic shock
- s/p 3 rounds EPI/CPR
Septic shock from acute ischemic bowel
- shock resolved with pressors stopped
- received IVFs
- s/p 7 day course of Unasyn
Acute abdomen (Acute ischemic bowel)
- CT prelim suggest bowel obstruction/ischemic
- s/p ex-lap 04/03: negative ex lap for presumed ischemic bowel, limited NATALIE was performed without sbr. velma due to be removed 04/18
- repeat CT 04/16 showed: persistent small bowel and gastric dilation with oral contrast not extending to the distal small bowel, although contrast is present within the colon likely from prior swallow study. Findings may represent a new small bowel
obstruction, partial obstruction or adynamic ileus with slow transit. Small bowel is again seen lateral to the ascending colon which can be seen with internal hernia.
- NGT in place and serial exams/imaging per GS
Rapid Atrial fibrillation/Flutter
- continue Amio/BB/Eliquis
- [facility] Cards following��
Subacute CVA -- likely occurred around his cardiac arrest
- MRI: 3 mm subacute infarct within left parietal lobe, no corresponding focal deficits on exam
- continue ASA/Statin/Eliquis
Metabolic encephalopathy - resolved
VDRF in setting of critical illness
- extubated 04/05 to CPAP
- s/p IV steroids x 2 for stridor
- repeat CXR stable
PABLO with hyperkalemia
- likely in setting of acute sepsis, ATN and later cardiorenal state
- hold nephrotoxins
- required Ramesh for critical I/Os, now removed
- nephrology following
- Cr 1.6 and stable
Acute anemia related to critical illness on chronic normocytic anemia
- also dilutional component
- monitor Hb
Hypocalcemia
RV dilation on TTE -- likely from pulmonary HTN
Acute HFrEF (EF 40%)
- s/p IV diuretics
- Monitor I/Os and daily weights, moderate sodium restriction per diet
- continue Coreg
Initial concern for UGI
- continue PPI BID
- monitor Hb
- hold off GI evaluation for now
Status post Left hip fracture with cannulated Screw 01/16/24:
Right hip fracture S/P gamma nail about one month ago
hx of Gout
hx of essential HTN
- continue Coreg
HLD - statin
��
type 2 diabetes
- holding MFM
- SSI
- A1c is 6.3%
- continue Gabapentin for peripheral neuropathy
Hoarseness
- related to vent/intubation and CPR
- improving
Generalized weakness
- PT/OT - [facility] discharge pending medical clearance
DVT ppx: Eliquis
Code: Full
Anticipated Discharge: > 48 hours
Subjective/Interval History
-
Date of Service: April 18, 2024
code purple this morning, threatening to remove NGT and also refusing meds
given Ativan and restraints applied
Objective Data
-
Labs:
Laboratory Results
04/18/24
10:48
WBC 8.5
Hgb 9.7 L
Hct 29.9 L
Plt Count 414 H
Sodium 140
Potassium 4.3
Chloride 107
Carbon Dioxide 24
BUN 45 H
Creatinine 1.6 H
Glucose 73
Calcium 8.5
Vital Signs:
Vital Signs
Temp Pulse Resp BP Pulse Ox
97.4 F 82 16 153/83 94
04/18/24 08:38 04/18/24 08:38 04/18/24 08:38 04/18/24 08:38 04/18/24 08:38
I&O
04/17/24 04/18/24 04/19/24
06:59 06:59 06:59
Intake Total 400 / 400 1668 / 1668
Output Total 850 / 850 1275 / 1275
Balance -450 / -450 393 / 393
Physical Exam
-
General: No Apparent Distress
HEENT: Normocephalic and Atraumatic
Respiratory: Negative Wheezes
Cardiac: Regular Rhythm and S1/S2
GI: Soft
Genito-urinary: No Costovertebral Tender
Musculoskeletal: No Edema
Neuro: Awake and Sedated
Hematologic / Lymphatic: No Lymphadenopathy
Psych: Calm
Data Reviewed
-
Total Time Spent with Patient (in minutes): 44
Labs: Labs Reviewed by me
--- NOTE | 2024-04-18 15:09 | W.PN.GS2 ---
Addendum entered and electronically signed by Joey Garces MD 04/18/24 15:21:
KUB reviewed. On my interpretation there is a non-obstructive bowel gas pattern. NGT DC'ed. Will start sips and chips. For OPEN SOAPER TENDER jory in the am.
Original Note:
Today's Communication / Plan
-
KUB
Daughter Trang contacted by phone, clinical update provided, all ?s answered.
Assessment / Plan
-
Patient is an 83 yo M POD 15 s/p negative ex lap for presumed ischemic bowel, limited NATALIE was performed without SBR.
AVSS
NGT outputs low volume and light bilious
Postoperative ileus that resolved but subsequently redeveloped nausea, vomiting, and CT scan at that time concerning for small bowel obstruction. Since then he has improved again. KUB yesterday non-obstructive with PO contrast to the rectum. NGT
with appropriate outputs
Likely partial SBO secondary to adhesions within the RLQ combined with constipation. Difficult time to consider reoperation 2 weeks out from recent laparotomy. Given his prior clinical and radiographic improvement, recommend medical management.
Care complicated by patient refusing certain elements of care and demanding discharge. In-depth discussion had with daughter reviewing prehospital stay, my current hospital stay, and current clinical situation. Current recommendations and plan
were reinforced. Expressed to daughter that she needs to discuss goals of care and willingness to proceed with current clinical care with her father. All questions answered.
Plan:
-- Repeat abdominal X-ray pending, if remains benign, would DC NGT and start clears (with supervision per OPEN SOAPER TENDER)
-- NPO, IVF, NGT decompression
-- OPEN SOAPER TENDER eval tomorrow
-- General surgical continue to follow with serial abdominal exams. Given his timing from his previous surgery going back in for exploration would be prohibitive. Will try to manage this nonoperatively
Subjective Data
-
Date of Service: April 18, 2024
AFVSS, issues with agitation requiring restraints, he was trying to remove the restraints when i entered the room; passing BMs, endorses flatus, denies n/v, lacks insight
Objective Data
-
Intake and Output
04/17/24 04/18/24 04/19/24
06:59 06:59 06:59
Intake Total 400 / 400 1667 / 1668
Output Total 850 / 850 1275 / 1275
Balance -450 / -450 393 / 393
Intake:
Oral fluids 150 / 150
IV fluids (Total) 1667
IV piggybacks 250 / 250
Amount instilled into GI Tube ( 0 / 0
Total)
[place] Sump 0 / 0
Output:
Gastrointestinal tube output ( 400 / 400 500 / 500
Total)
[place] Sump 400 / 400 500 / 500
Urine, Voided 450 / 450 775 / 775
Other:
Number of immeasurable emeses? 1
Vital Signs
Temp Pulse Resp BP Pulse Ox
97.4 F 82 16 153/83 94
04/18/24 08:38 04/18/24 08:38 04/18/24 08:38 04/18/24 08:38 04/18/24 08:38
Lab Results
04/18/24 10:48
04/18/24 10:48
Calcium 8.5 mg/dl (8.4-10.2) 04/18/24 10:48
Phosphorus 4.0 mg/dl (2.5-4.5) 04/11/24 13:38
Magnesium 1.7 mg/dl (1.6-2.3) 04/13/24 05:38
Total Bilirubin 0.5 mg/dl (0.2-1.3) 04/16/24 09:46
AST 16 U/L (17-59) L 04/16/24 09:46
ALT 14 U/L (0-50) 04/16/24 09:46
Alkaline Phosphatase 99 U/L (38-126) 04/16/24 09:46
Total Protein 5.1 g/dl (6.3-8.2) L 04/16/24 09:46
Albumin 2.5 g/dl (3.5-5.0) L 04/16/24 09:46
Physical Exam
-
Gen: NAD
Abd: soft, nd, nt, incision cdi with velma
--- NOTE | 2024-04-18 15:13 | CM ---
Case management following for discharge planning
NPO, NGT, IVF's
Increased agitation, ativan prn, medsitter
Surgery following
Family prefers [facility] at d/c
CM will follow for d/c needs
Plan - tbd - anticipate [facility] vs SNF when medically stable
[2024-04-18 16:36] LABS: Glucose - Point of Care 83 mg/dl (70-99)
[2024-04-18 21:00] VITALS: BP 146/80
[2024-04-18] MEDS: ELIQUIS 5 MG PO (21:00)
[2024-04-18] MEDS: NSS (PRESERVATIVE FREE) 10 ML IV (21:44)
[2024-04-18] MEDS: PROTONIX IV 40 MG IV (21:45)
[2024-04-18 21:51] LABS: Glucose - Point of Care 176 mg/dl (70-99)
--- NOTE | 2024-04-18 22:14 | W.PN.UPDATE ---
Update Note
Progress Note Update
Patient with coarse lung sound, denied SOB on exam but he seems to have a difficult breathing. On Lasix daily but currently on hold. Temp 97.9, hr98, BP146/80, RR 40 and SPO2 95% RA
-One time order of IV Lasix 20 mg, PRN nebs, and chest x-ray ordered.
[2024-04-18] MEDS: LASIX 20 MG IV (22:38)
--- NOTE | 2024-04-18 23:00 | PTCARENOTE ---
9323;Pt respiratory rate ranging 32- 40. Lung sounds course.Instructed VICENTE Doss on above note.Lasix 20mg IV ordered and administered @0175.
[2024-04-18 23:02] VITALS: BP 157/87
[2024-04-19] MEDS: DUONEB 3 ML INH (03:14)
--- NOTE | 2024-04-19 06:00 | PTCARENOTE ---
@0600; Pt slept very little during shift.Pt yelling for watch and phone frequently.Pt attempted to get OOB and sherri sawant called this RN to notify situation.@2054 ;Pt unable to follow verbal redirection,trying to get OOB and Ativan 0.5mg IV given
for agitation.Pt would not urinate in attends or urinal. Sherri sawant instructed this RN that pt would pee all over the bed. This happened 5 times during shift.Pt uncooperative with pt care throughout the night.
[2024-04-19 06:02] VITALS: BMI 24.0
[2024-04-19 07:00] VITALS: BP 161/104
[2024-04-19] MEDS: ELIQUIS 5 MG PO ×2 (08:07→21:52)
[2024-04-19] MEDS: LOW STRENGTH ASPIRIN 81 MG PO (08:08)
[2024-04-19] MEDS: PACERONE 200 MG PO (08:08)
[2024-04-19] MEDS: ATIVAN 0.5 MG IV (08:11)
[2024-04-19] MEDS: PROTONIX IV 40 MG IV ×2 (08:11→21:51)
[2024-04-19] MEDS: NSS (PRESERVATIVE FREE) 10 ML IV ×2 (08:11→21:51)
[2024-04-19] MEDS: NSS 1000 IV (08:15)
--- NOTE | 2024-04-19 10:31 | W.PN.GS2 ---
Addendum entered and electronically signed by Hair Leblanc MD 04/19/24 15:54:
Patient evaluated with FOSTER CARE WORKER this afternoon.
Mr. Fry was comfortably sleeping so I did not disturb him.
Examination deferred
AF VSS (low-grade tachycardia)
Assessment/plan: Early postop partial small bowel obstruction improving radiographically and clinically
Full liquids today
Follow-up abdominal imaging tomorrow to confirm continued passage of previous oral contrast and no recurrent bowel distention.
Subsequent consideration of careful dietary advancement to soft/low fibrous foods with bowel regiment and smaller portions
Original Note:
Today's Communication / Plan
-
ADAT
Assessment / Plan
-
Patient is an 83 yo M POD 16 s/p negative ex lap for presumed ischemic bowel, limited NATALIE was performed without SBR.
AFVSS
Tolerating clears
Postoperative ileus that resolved but subsequently redeveloped nausea, vomiting, and CT scan at that time concerning for small bowel obstruction. Since then he has improved again. KUB yesterday non-obstructive with PO contrast to the rectum. NGT
with appropriate outputs
Likely partial SBO secondary to adhesions within the RLQ combined with constipation. Difficult time to consider reoperation 2 weeks out from recent laparotomy. Given his prior clinical and radiographic improvement, recommend medical management.
Care complicated by patient refusing certain elements of care and demanding discharge.
KUB on 04/18 with passage of contrast into colon, now with +stools/flatus. Interim resolution of nausea.
Plan:
-- Continued on Clears. Reached out to [employer] EQUIPMENT OPERATOR for dietary recs: Ok to advance diet as tolerated
-- Hold laxatives at this time
Subjective Data
-
Date of Service: April 19, 2024
Patient seen and examined at bedside. Denies pain. Irritated that he is still in the hospital. Notes he is passing flatus/stools which his RN confirms. He notes he is hungry. Declining most meds.
Objective Data
-
Intake and Output
04/18/24 04/19/24 04/20/24
06:59 06:59 06:59
Intake Total 1667 / 8 940 / 940
Output Total 1275 / 1275 125 / 125
Balance 393 / 393 815 / 815
Intake:
Oral fluids 220 / 220
IV fluids (Total) 1667 / 1667 720 / 720
Amount instilled into GI Tube ( 0 / 0
Total)
[place] Sump 0 / 0
Output:
Gastrointestinal tube output ( 500 / 500
Total)
[place] Sump 500 / 500
Urine, Voided 775 / 775 125 / 125
Other:
How many times incontinent 1
SMALL amount urine
How many times incontinent 1
MODERATE amount urine
How many times incontinent 4
SATURATED amount urine
Vital Signs
Temp Pulse Resp BP Pulse Ox
97.7 F 107 17 161/104 93
04/18/24 23:02 04/19/24 07:00 04/19/24 07:00 04/19/24 07:00 04/19/24 08:00
Calcium 8.5 mg/dl (8.4-10.2) 04/18/24 10:48
Phosphorus 4.0 mg/dl (2.5-4.5) 04/11/24 13:38
Magnesium 1.7 mg/dl (1.6-2.3) 04/13/24 05:38
Total Bilirubin 0.5 mg/dl (0.2-1.3) 04/16/24 09:46
AST 16 U/L (17-59) L 04/16/24 09:46
ALT 14 U/L (0-50) 04/16/24 09:46
Alkaline Phosphatase 99 U/L (38-126) 04/16/24 09:46
Total Protein 5.1 g/dl (6.3-8.2) L 04/16/24 09:46
Albumin 2.5 g/dl (3.5-5.0) L 04/16/24 09:46
Physical Exam
-
Gen: NAD
Abd: soft, nd, nt, incision cdi with intact velma
--- NOTE | 2024-04-19 11:58 | W.PN.NEPH.PH ---
Today's Communication / Plan
-
- hold fluids today
Assessment/Plan
-
Assessment:
PABLO (bl 1), now ATN
hypercapnice respiratory failure
s/p cardiac arrest
possible intra-abd process
BPH
T2DM
s/p recent hip fracture
Persistent mild to moderate right hydronephrosis
echo noted with EF 35-40%, mild to mod MR, severe pulm HTN
Plan:
PABLO-recurrent elevation cr possibly prerenal, contrast mediated
last cr 1.6 slowly improving, awaiting labs from today
possible SBO , NPO
had some episode of ?SOB although patient is satting fine and no complaints of SOB --> off fluids now
Ok to hold fluids for today and reassess tomorrow especially with pulm HTN and increasing wt
remains non oliguric, avoid nephrotoxins
mild-mod stable right hydro on recent CT-need out pt f/u with
he is on RA, prn lasix as needed , follow daily weights
BPs labile
DNR
-
-
Date of Service: April 19, 2024
CC / HPI / ROS
-
Chief Complaint:
PABLO
History of Present Illness:
extubated on 04/05, on RA now
echo noted low EF and severe pulm HTN
PABLO/Cr improved at 1.2, konstantin again to 1.7, now at 1.6
nonoliguric
wt increasing
BP labile
Review of Systems:
sleepy
ngt
no fever
Labs
-
Labs:
eGFR 42.75 04/18/24 10:48
Phosphorus 4.0 mg/dl (2.5-4.5) 04/11/24 13:38
Albumin 2.5 g/dl (3.5-5.0) L 04/16/24 09:46
Physical Exam
-
Vital Signs:
Vital Signs
Temp Pulse Resp BP Pulse Ox
97.7 F 107 17 161/104 93
04/18/24 23:02 04/19/24 07:00 04/19/24 07:00 04/19/24 07:00 04/19/24 08:00
Cardiovascular:: Regular rate and rhythm
Respiratory:: Bilateral: Coarse
Lung Excursion:: Normal
Abdomen:: Nontender and Soft
Bowel Sounds:: Normal
Extremity Edema:: None: Bilateral:
Ramesh Catheter: No
[2024-04-19 12:25] VITALS: BP 152/103; BP 160/115; PULSE 113; O2SAT 91
--- NOTE | 2024-04-19 12:25 | PTOTSP ---
Dysphagia Therapy
Patient has cognitive deficits impacting his ability to independently recall and implement safe swallowing strategies. For this reason combined with signs of oral/pharyngeal dysphagia including slow mastication of solids, recommend dysphagia diet
with supervision as outlined below.
Recommend:
1. IDDSI Level 6 Soft/Bite Sized, IDDSI Level 0 Thin Liquids
2. Supervision with PO intake
3. Medications - 1 at a time with sips of water or whole in puree
4. Strategies: small single sips/bites, double swallows, reflux precautions, oral care 3x daily
5. Dysphagia therapy and cognitive linguistic therapy at the acute care level.
[2024-04-19 12:30] VITALS: BP 152/103; BP 160/115; PULSE 108; PULSE 117; O2SAT 91
--- NOTE | 2024-04-19 12:54 | W.PN.HOSP.TC ---
Today's Communication/Plan
-
IV Lasix x 1
resume PO meds
diet per ST with advancement per GS
Assessment / Plan
Assessment / Plan
Assessment:
Cardiac arrest in setting of acute illness, septic shock
- s/p 3 rounds EPI/CPR
Septic shock from acute ischemic bowel
- shock resolved with pressors stopped
- received IVFs
- s/p 7 day course of Unasyn
Acute abdomen (Acute ischemic bowel)
- CT prelim suggest bowel obstruction/ischemic
- s/p ex-lap 04/03: negative ex lap for presumed ischemic bowel, limited NATALIE was performed without sbr. velma due to be removed 04/18
- repeat CT 04/16 showed: persistent small bowel and gastric dilation with oral contrast not extending to the distal small bowel, although contrast is present within the colon likely from prior swallow study. Findings may represent a new small bowel
obstruction, partial obstruction or adynamic ileus with slow transit. Small bowel is again seen lateral to the ascending colon which can be seen with internal hernia.
- s/p NGT and conservative management, now advancing diet with GS/speech therapy recs
- hold Miralax
Rapid Atrial fibrillation/Flutter
- continue Amio/BB/Eliquis
- [facility] Cards following��
Subacute CVA -- likely occurred around his cardiac arrest
- MRI: 3 mm subacute infarct within left parietal lobe, no corresponding focal deficits on exam
- continue ASA/Statin/Eliquis
Metabolic encephalopathy - resolved
VDRF in setting of critical illness
- extubated 04/05 to CPAP
- s/p IV steroids x 2 for stridor
- repeat CXR stable
PABLO with hyperkalemia
- likely in setting of acute sepsis, ATN and later cardiorenal state
- hold nephrotoxins
- required Ramesh for critical I/Os, now removed
- nephrology following
- Cr 1.6 most recently
Acute anemia related to critical illness on chronic normocytic anemia
- also dilutional component
- monitor Hb
Hypocalcemia
RV dilation on TTE -- likely from pulmonary HTN
Acute HFrEF (EF 40%)
- s/p IV diuretics
- Monitor I/Os and daily weights, moderate sodium restriction per diet
- continue Coreg
Initial concern for UGI
- continue PPI BID
- monitor Hb
- hold off GI evaluation for now
Status post Left hip fracture with cannulated Screw 01/16/24:
Right hip fracture S/P gamma nail about one month ago
hx of Gout
hx of essential HTN
- continue Coreg
HLD - statin
��
type 2 diabetes
- holding MFM
- SSI
- A1c is 6.3%
- continue Gabapentin for peripheral neuropathy
Hoarseness
- related to vent/intubation and CPR
- improving
Generalized weakness
- PT/OT - [facility] discharge pending medical clearance
DVT ppx: Eliquis
Code: Full
Anticipated Discharge: > 48 hours
Subjective/Interval History
-
Date of Service: April 19, 2024
bowel obstruction improving, with NGT removed yesterday and now on full liquids
s/p IV Lasix last evening and IVF capped; CXR showing pulm edema
Objective Data
-
Vital Signs:
Vital Signs
Temp Pulse Resp BP Pulse Ox
97.7 F 107 17 161/104 93
04/18/24 23:02 04/19/24 07:00 04/19/24 07:00 04/19/24 07:00 04/19/24 08:00
I&O
04/18/24 04/19/24 04/20/24
06:59 06:59 06:59
Intake Total 1668 / 1668 940 / 940
Output Total 1275 / 1275 125 / 125
Balance 393 / 393 815 / 815
Physical Exam
-
General: No Apparent Distress
HEENT: Normocephalic and Atraumatic
Respiratory: Crackles; Negative Wheezes
Cardiac: Regular Rhythm and S1/S2
GI: Soft and Nontender
Musculoskeletal: Edema, Right Lower Extrem and Edema, Left Lower Extrem
Neuro: AO x 3
Hematologic / Lymphatic: No Lymphadenopathy
Psych: Calm
Data Reviewed
-
Total Time Spent with Patient (in minutes): 51
Labs: Labs Reviewed by me
[2024-04-19] MEDS: LASIX 40 MG IV (13:23)
[2024-04-19 15:00] VITALS: BP 153/87
[2024-04-19 15:29] LABS: Hematocrit 30.6 % (39.0-52.0); Mean Corp Hgb Conc. 32.7 g/dL (33.0-37.0); Mean Corpuscular Hgb 26.4 pg (27.0-31.0); Mean Corpuscular Volume 80.7 fL (80.0-94.0); Mean Platelet Volume 9.9 fL (7.4-10.4); Platelet Count 399 10^3/uL (130-400); Red Blood Cell Count 3.79 10^6/uL (4.70-6.10); Red Cell Dist. Width 16.8 % (11.5-14.5)
--- NOTE | 2024-04-19 15:39 | W.PN.UPDATE ---
Update Note
Progress Note Update
patient seen chart reviewed. discussed w nursing. ng tube removed . diet advance to full liquids. patient has today been a very different person than yesterday and prior to yesterday. he has been cooperative w all that nursing has asked him to do
thus far. when i saw him he looked sad. i told him he looked 'wistful'. he said 'i am wistful'. i asked him to tell me about that and he said he essentially is sick of being sick. he still seemed to feel somehow that the treatment recommended to
him eg ng tube was not appropriate and i tried to explain to him that sometimes the treatment can seem really difficult or painful but that does not mean it was not necessary. he then closed his eyes. asked him if he wanted to sleep and he said yes
and could i get lower the head of the bed and get some more pillows which i was able to do. at this point hopefully he will continue to cooperative. will check in on him tomorrow and then if all is relatively well will sign off.
[2024-04-19 15:47] LABS: Blood Urea Nitrogen 41 mg/dl (9-20); Calcium 8.5 mg/dl (8.4-10.2); Carbon Dioxide 25 mmol/L (22-30); Chloride 108 mmol/L (98-107); Estimated Creatinine Clearance 40 ml/min; Glucose 166 mg/dl (70-99); Potassium 4.1 mmol/L (3.5-5.1); Sodium 139 mmol/L (135-145); eGFR 42.75
[2024-04-19] MEDS: LIPITOR 40 MG PO (18:11)
[2024-04-19] MEDS: COREG 25 MG PO (21:51)
[2024-04-19 23:25] VITALS: BP 110/60
[2024-04-20] MEDS: TYLENOL 650 MG PO ×2 (03:24→19:41)
[2024-04-20 06:00] VITALS: BMI 23.5
[2024-04-20 07:00] VITALS: BP 127/77
[2024-04-20] MEDS: COREG 25 MG PO ×2 (07:23→21:47)
[2024-04-20] MEDS: ELIQUIS 5 MG PO ×2 (07:23→19:42)
[2024-04-20] MEDS: LOW STRENGTH ASPIRIN 81 MG PO (07:23)
[2024-04-20] MEDS: PACERONE 200 MG PO (07:23)
[2024-04-20] MEDS: PROTONIX IV 40 MG IV ×2 (07:23→20:49)
[2024-04-20] MEDS: NSS (PRESERVATIVE FREE) 10 ML IV ×2 (07:24→20:49)
--- NOTE | 2024-04-20 09:34 | W.PN.NEPH.PH ---
Today's Communication / Plan
-
Observe
Assessment/Plan
-
Assessment:
PABLO (bl 1), now ATN
hypercapnice respiratory failure
s/p cardiac arrest
possible intra-abd process
BPH
T2DM
s/p recent hip fracture
Persistent mild to moderate right hydronephrosis
echo noted with EF 35-40%, mild to mod MR, severe pulm HTN
Plan:
PABLO-recurrent elevation cr possibly prerenal, contrast mediated
last cr 1.6 slowly improving, awaiting labs from today
possible SBO , NPO
Off IV fluid
Ok to hold fluids for today and reassess tomorrow especially with pulm HTN
remains non oliguric, avoid nephrotoxins
mild-mod stable right hydro on recent CT-need out pt f/u with
he is on RA, prn lasix as needed , follow daily weights
BPs labile
DNR
-
-
Date of Service: April 20, 2024
CC / HPI / ROS
-
Chief Complaint:
PABLO
History of Present Illness:
extubated on 04/05, on RA now
echo noted low EF and severe pulm HTN
PABLO/Cr improved at 1.2, konstantin again to 1.7, now at 1.6
nonoliguric
BP labile
Review of Systems:
no fever
Weight down
Labs
-
Labs:
eGFR 42.75 04/19/24 15:18
Phosphorus 4.0 mg/dl (2.5-4.5) 04/11/24 13:38
Albumin 2.5 g/dl (3.5-5.0) L 04/16/24 09:46
Physical Exam
-
Vital Signs:
Vital Signs
Temp Pulse Resp BP Pulse Ox
97.7 F 92 17 127/77 96
04/19/24 23:25 04/20/24 07:00 04/20/24 07:00 04/20/24 07:00 04/20/24 07:00
Cardiovascular:: Regular rate and rhythm
Respiratory:: Bilateral: Coarse
Lung Excursion:: Normal
Abdomen:: Nontender and Soft
Bowel Sounds:: Normal
Extremity Edema:: None: Bilateral:
Ramesh Catheter: No
[2024-04-20 09:49] LABS: Hematocrit 27.1 % (39.0-52.0); Hemoglobin 8.6 g/dL (13.0-18.0); Mean Corp Hgb Conc. 31.7 g/dL (33.0-37.0); Mean Corpuscular Hgb 25.4 pg (27.0-31.0); Mean Corpuscular Volume 79.9 fL (80.0-94.0); Mean Platelet Volume 10.1 fL (7.4-10.4); Platelet Count 356 10^3/uL (130-400); Red Blood Cell Count 3.39 10^6/uL (4.70-6.10); Red Cell Dist. Width 17.1 % (11.5-14.5); White Blood Cell Count 6.3 10^3/uL (4.8-10.8)
--- NOTE | 2024-04-20 10:20 | W.PN.GS2 ---
Addendum entered and electronically signed by Hair Leblanc MD 04/20/24 14:19:
Patient seen and examined. Agree with GLOBAL RISK MANAGEMENT DIRECTOR progress note.
Patient upset about diet. He wants chicken fingers.
Denies nausea, denies vomiting, denies abdominal pain.
AFVSS
ABD: Soft, protuberant, nontender
Assessment/plan: Early postop PSBO versus ileus improving
Generally would recommend low fiber foods and smaller portion sizes
Diet per speech therapy otherwise
Signing off. Please call if general surgery can be of further assistance.
Original Note:
Today's Communication / Plan
-
[place] removed
ADAT
Assessment / Plan
-
Patient is an 83 yo M POD 17 s/p negative ex lap for presumed ischemic bowel, limited NATALIE was performed without SBR.
AFVSS
Tolerating fulls
Postoperative ileus that resolved but subsequently redeveloped nausea, vomiting, and CT scan at that time concerning for small bowel obstruction. Since then he has improved again.
KUBs with PO contrast to the rectum and no residual contrast within the small bowel. Repeat today with ?gastric bubble vs area of small bowel distention. Still with residual contrast within the colon. Suspect pSBO secondary to adhesions within the
RLQ combined with constipation.
GI function improving with liquid stools and no c/o abdominal pain/nausea
Care complicated by patient refusing certain elements of care and demanding discharge.
Plan:
-- Advance to soft/bite sized diet as per PANTOGRAPH SETTER recs
-- Velma removed today at bedside
-- Miralax for bowel regimen
Subjective Data
-
Date of Service: April 20, 2024
Patient seen and examined at bedside. Very eager to try solid foods. He denies n/v or abdominal pain. He has been passing BM's, with the last one early this am. He notes passage of flatus.
Objective Data
-
Intake and Output
04/19/24 04/20/24 04/21/24
06:59 06:59 06:59
Intake Total 940 / 940 1740 / 1740
Output Total 125 / 125 630 / 630
Balance 815 / 815 1110 / 1110
Intake:
Oral fluids 220 / 220 1740 / 1740
IV fluids (Total) 720 / 720
Output:
Urine, Voided 125 / 125 630 / 630
Other:
Number of approximated MODERATE 2
amounts of urine
How many times incontinent 1
SMALL amount urine
How many times incontinent 1
MODERATE amount urine
How many times incontinent 4 1
SATURATED amount urine
Number of unmeasured liquid
stools
Rectum 1
Vital Signs
Temp Pulse Resp BP Pulse Ox
97.7 F 92 17 127/77 96
04/19/24 23:25 04/20/24 07:00 04/20/24 07:00 04/20/24 07:00 04/20/24 07:00
Lab Results
04/20/24 09:10
Calcium 8.5 mg/dl (8.4-10.2) 04/19/24 15:18
Phosphorus 4.0 mg/dl (2.5-4.5) 04/11/24 13:38
Magnesium 1.7 mg/dl (1.6-2.3) 04/13/24 05:38
Total Bilirubin 0.5 mg/dl (0.2-1.3) 04/16/24 09:46
AST 16 U/L (17-59) L 04/16/24 09:46
ALT 14 U/L (0-50) 04/16/24 09:46
Alkaline Phosphatase 99 U/L (38-126) 04/16/24 09:46
Total Protein 5.1 g/dl (6.3-8.2) L 04/16/24 09:46
Albumin 2.5 g/dl (3.5-5.0) L 04/16/24 09:46
Physical Exam
-
Gen: NAD
Abd: soft, nd, nt, incision cdi, velma intact (removed)
[2024-04-20 10:33] LABS: Blood Urea Nitrogen 37 mg/dl (9-20); Calcium 8.2 mg/dl (8.4-10.2); Carbon Dioxide 26 mmol/L (22-30); Chloride 107 mmol/L (98-107); Estimated Creatinine Clearance 38 ml/min; Glucose 123 mg/dl (70-99); Potassium 3.9 mmol/L (3.5-5.1); Sodium 137 mmol/L (135-145); eGFR 39.75
--- NOTE | 2024-04-20 11:14 | W.PN.UPDATE ---
Update Note
Progress Note Update
patient seen chart reviewed. patient seen w nursing and with his partner at bedside. the patient is railing against the hospital. he seems to feel he is being kept here for no good reason and he demands to know when he is going to [facility]. (texted
dr pastor to discuss w him). his ng tube is out. his stitches are out. the ng tube and stables were upsetting him on prior visits tuesday and . tried to reassure him that every effort is made to get him in shape quickly for dc to [facility] or
other rehab if not [facility] (i fear 'other rehab' is not going to please him) but he does not seem to believe me. he is on no psych meds...except prn ativan. psych will sign off at this point. please let us know if you wish us to return.
[2024-04-20 12:45] VITALS: BP 110/61
[2024-04-20 12:46] VITALS: BP 110/61; PULSE 95; O2SAT 95
[2024-04-20] MEDS: LASIX 20 MG IV (14:25)
[2024-04-20 15:00] VITALS: BP 85/48
--- NOTE | 2024-04-20 15:16 | W.PN.HOSP.TC ---
Today's Communication/Plan
-
prn Lasix doses, follow weights
advance diet per GS and continue Miralax
Assessment / Plan
Assessment / Plan
Assessment:
Cardiac arrest in setting of acute illness, septic shock
- s/p 3 rounds EPI/CPR
Septic shock from acute ischemic bowel
- shock resolved with pressors stopped
- received IVFs
- s/p 7 day course of Unasyn
Acute abdomen (Acute ischemic bowel)
- CT prelim suggest bowel obstruction/ischemic
- s/p ex-lap 04/03: negative ex lap for presumed ischemic bowel, limited NATALIE was performed without sbr. velma due to be removed 04/18
- repeat CT 04/16 showed: persistent small bowel and gastric dilation with oral contrast not extending to the distal small bowel, although contrast is present within the colon likely from prior swallow study. Findings may represent a new small bowel
obstruction, partial obstruction or adynamic ileus with slow transit. Small bowel is again seen lateral to the ascending colon which can be seen with internal hernia.
- s/p NGT and conservative management, now advancing diet with GS/speech therapy recs
- continue Miralax
Rapid Atrial fibrillation/Flutter
- continue Amio/BB/Eliquis
- [facility] Cards following��
Subacute CVA -- likely occurred around his cardiac arrest
- MRI: 3 mm subacute infarct within left parietal lobe, no corresponding focal deficits on exam
- continue ASA/Statin/Eliquis
Metabolic encephalopathy - resolved
VDRF in setting of critical illness
- extubated 04/05 to CPAP
- s/p IV steroids x 2 for stridor
- repeat CXR stable
PABLO with hyperkalemia
- likely in setting of acute sepsis, ATN and later cardiorenal state
- hold nephrotoxins
- required Ramesh for critical I/Os, now removed
- nephrology following
- Cr 1.7 most recently
- prn Lasix for edema
Acute anemia related to critical illness on chronic normocytic anemia
- also dilutional component
- monitor Hb
Hypocalcemia
RV dilation on TTE -- likely from pulmonary HTN
Acute HFrEF (EF 40%)
- s/p IV diuretics scheduled doses, now on prn doses
- Monitor I/Os and daily weights, moderate sodium restriction per diet
- continue Coreg
Initial concern for UGI
- continue PPI BID
- monitor Hb
- hold off GI evaluation for now
Status post Left hip fracture with cannulated Screw 01/16/24:
Right hip fracture S/P gamma nail about one month ago
hx of Gout
hx of essential HTN
- continue Coreg
HLD - statin
��
type 2 diabetes
- holding MFM
- SSI
- A1c is 6.3%
- continue Gabapentin for peripheral neuropathy
Hoarseness
- related to vent/intubation and CPR
- improving
Generalized weakness
- PT/OT - [facility] discharge pending medical clearance
DVT ppx: Eliquis
Code: Full
Anticipated Discharge: > 48 hours
Subjective/Interval History
-
Date of Service: April 20, 2024
advancing diet to LRD
given 1 dose IV Lasix for edema
Objective Data
-
Labs:
Laboratory Results
04/20/24
09:10
WBC 6.3
Hgb 8.6 L
Hct 27.1 L
Plt Count 356
Sodium 137
Potassium 3.9
Chloride 107
Carbon Dioxide 26
BUN 37 H
Creatinine 1.7 H
Glucose 123 H
Calcium 8.2 L
Vital Signs:
Vital Signs
Temp Pulse Resp BP Pulse Ox
97.7 F 92 17 127/77 96
04/19/24 23:25 04/20/24 07:00 04/20/24 07:00 04/20/24 07:00 04/20/24 07:00
I&O
04/19/24 04/20/24 04/21/24
06:59 06:59 06:59
Intake Total 940 / 940 1740 / 1740
Output Total 125 / 125 630 / 630
Balance 815 / 815 1110 / 1110
Physical Exam
-
General: Appears Chronically Ill
HEENT: Normocephalic and Atraumatic
Respiratory: Negative Wheezes or Rales
Cardiac: Regular Rhythm and S1/S2
GI: Soft
Genito-urinary: No Costovertebral Tender
Musculoskeletal: Edema, Right Lower Extrem and Edema, Left Lower Extrem
Neuro: AO x 3
Hematologic / Lymphatic: No Lymphadenopathy
Psych: Calm
Data Reviewed
-
Total Time Spent with Patient (in minutes): 51
Labs: Labs Reviewed by me
--- NOTE | 2024-04-20 15:52 | CM ---
Case management following for d/c planning
Chart reviewed
Advancing diet - tolerating thus far
Plan - [facility] when med ready
Per Saeed Gaitan Liaison, will evaluate Tuesday and review bed status
CM will follow for d/c needs
Plan - anticipate transfer to [facility] when medically stable
[2024-04-20] MEDS: LIPITOR 40 MG PO (17:02)
[2024-04-20 19:22] VITALS: BP 97/65
[2024-04-20] MEDS: DUONEB 3 ML INH (19:52)
[2024-04-20] MEDS: MIRALAX 17 GRAMS PO (23:33)
[2024-04-20 23:56] VITALS: BP 108/72
[2024-04-21 00:04] VITALS: BP 110/71
[2024-04-21 06:00] VITALS: BMI 23.5
[2024-04-21 07:00] VITALS: BP 117/66
[2024-04-21] MEDS: PROTONIX IV 40 MG IV (08:21)
[2024-04-21] MEDS: LOW STRENGTH ASPIRIN 81 MG PO (08:21)
[2024-04-21] MEDS: ELIQUIS 5 MG PO ×2 (08:21→20:23)
[2024-04-21] MEDS: NSS (PRESERVATIVE FREE) 10 ML IV (08:21)
[2024-04-21] MEDS: COREG 25 MG PO ×2 (08:22→20:23)
[2024-04-21] MEDS: PACERONE 200 MG PO (08:22)
[2024-04-21 09:24] LABS: Blood Urea Nitrogen 40 mg/dl (9-20); Calcium 8.3 mg/dl (8.4-10.2); Carbon Dioxide 27 mmol/L (22-30); Chloride 107 mmol/L (98-107); Estimated Creatinine Clearance 36 ml/min; Glucose 107 mg/dl (70-99); Potassium 4.1 mmol/L (3.5-5.1); Sodium 138 mmol/L (135-145); eGFR 37.12
[2024-04-21 09:31] LABS: Hematocrit 29.4 % (39.0-52.0); Hemoglobin 9.6 g/dL (13.0-18.0); Mean Corp Hgb Conc. 32.7 g/dL (33.0-37.0); Mean Corpuscular Hgb 26.2 pg (27.0-31.0); Mean Corpuscular Volume 80.3 fL (80.0-94.0); Mean Platelet Volume 10.7 fL (7.4-10.4); Platelet Count 323 10^3/uL (130-400); Red Blood Cell Count 3.66 10^6/uL (4.70-6.10); Red Cell Dist. Width 16.7 % (11.5-14.5); White Blood Cell Count 5.4 10^3/uL (4.8-10.8)
--- NOTE | 2024-04-21 10:32 | W.PN.HOSP.TC ---
Today's Communication/Plan
-
no Lasix dose today
continue diet + bowel regimen
ongoing PT/OT
Dispo to acute rehab when bed available
Assessment / Plan
Assessment / Plan
Assessment:
Cardiac arrest in setting of acute illness, septic shock
- s/p 3 rounds EPI/CPR
Septic shock from acute ischemic bowel
- shock resolved with pressors stopped
- received IVFs
- s/p 7 day course of Unasyn
Acute abdomen (Acute ischemic bowel)
- CT prelim suggest bowel obstruction/ischemic
- s/p ex-lap 04/03: negative ex lap for presumed ischemic bowel, limited NATALIE was performed without sbr. velma due to be removed 04/18
- repeat CT 04/16 showed: persistent small bowel and gastric dilation with oral contrast not extending to the distal small bowel, although contrast is present within the colon likely from prior swallow study. Findings may represent a new small bowel
obstruction, partial obstruction or adynamic ileus with slow transit. Small bowel is again seen lateral to the ascending colon which can be seen with internal hernia.
- s/p NGT and conservative management, now advancing diet with GS/speech therapy recs
- continue Miralax
Rapid Atrial fibrillation/Flutter
- continue Amio/BB/Eliquis
- [facility] Cards following��
Subacute CVA -- likely occurred around his cardiac arrest
- MRI: 3 mm subacute infarct within left parietal lobe, no corresponding focal deficits on exam
- continue ASA/Statin/Eliquis
Metabolic encephalopathy - resolved
VDRF in setting of critical illness
- extubated 04/05 to CPAP
- s/p IV steroids x 2 for stridor
- repeat CXR stable
PABLO with hyperkalemia
- likely in setting of acute sepsis, ATN and later cardiorenal state
- hold nephrotoxins
- required Ramesh for critical I/Os, now removed
- nephrology following
- Cr 1.8 most recently
Acute anemia related to critical illness on chronic normocytic anemia
- also dilutional component
- monitor Hb
Hypocalcemia
RV dilation on TTE -- likely from pulmonary HTN
Acute HFrEF (EF 40%)
- s/p IV diuretics scheduled doses, now on prn doses
- Monitor I/Os and daily weights, moderate sodium restriction per diet
- continue Coreg
Initial concern for UGI
- continue PPI BID
- monitor Hb
- hold off GI evaluation for now
Status post Left hip fracture with cannulated Screw 01/16/24:
Right hip fracture S/P gamma nail about one month ago
hx of Gout
hx of essential HTN
- continue Coreg
HLD - statin
��
type 2 diabetes
- holding MFM
- SSI
- A1c is 6.3%
- continue Gabapentin for peripheral neuropathy
Hoarseness
- related to vent/intubation and CPR
- improving
Generalized weakness
- PT/OT - for [facility] transfer
DVT ppx: Eliquis
Code: Full
Dispo: to [facility] when bed/auth available
Anticipated Discharge: > 48 hours
Subjective/Interval History
-
Date of Service: April 21, 2024
tolerating diet
Objective Data
-
Labs:
Laboratory Results
04/21/24
08:29
WBC 5.4
Hgb 9.6 L
Hct 29.4 L
Plt Count 323
Sodium 138
Potassium 4.1
Chloride 107
Carbon Dioxide 27
BUN 40 H
Creatinine 1.8 H
Glucose 107 H
Calcium 8.3 L
Vital Signs:
Vital Signs
Temp Pulse Resp BP Pulse Ox
97.6 F 100 18 117/66 97
04/21/24 07:00 04/21/24 08:22 04/21/24 07:00 04/21/24 08:22 04/21/24 08:43
I&O
04/20/24 04/21/24 04/22/24
06:59 06:59 06:59
Intake Total 1740 / 1740 1260 / 1260
Output Total 630 / 630 250 / 250
Balance 1110 / 1110 1010 / 1010
Physical Exam
-
General: No Apparent Distress
HEENT: Normocephalic and Atraumatic
Respiratory: Negative Wheezes
Cardiac: Regular Rhythm and S1/S2
GI: Soft and Nontender
Genito-urinary: No Costovertebral Tender
Musculoskeletal: No Edema
Neuro: AO x 3
Psych: Calm
Data Reviewed
-
Total Time Spent with Patient (in minutes): 41
Labs: Labs Reviewed by me
[2024-04-21 11:35] VITALS: BP 102/62; PULSE 80; O2SAT 97
[2024-04-21 15:00] VITALS: BP 98/65
[2024-04-21] MEDS: DUONEB 3 ML INH (15:44)
--- NOTE | 2024-04-21 16:18 | CHAP ---
Mr. Fry was resting in bed - said he is eager to move on from here. I empathized with the long process. Assured him we care about him and are here for him.
[2024-04-21] MEDS: TYLENOL 650 MG PO ×2 (16:48→21:32)
[2024-04-21] MEDS: LIPITOR 40 MG PO (16:49)
[2024-04-21] MEDS: PROTONIX 40 MG PO (20:23)
[2024-04-21] MEDS: MIRALAX PO ×2 (21:12→23:09)
[2024-04-21 23:06] VITALS: BP 110/71
[2024-04-21] MEDS: MYLICON 80 MG PO (23:57)
[2024-04-21] MEDS: TYLENOL 325 MG PO (23:57)
[2024-04-22] MEDS: BENADRYL 12.5 MG IV (02:38)
--- NOTE | 2024-04-22 03:12 | PTCARENOTE ---
During this RN's shift, pt c/o pain throughout abd. PRN tylenol given at 2131 (see mar). At 231, pt c/o 8 abd pain. Abd full and distended w/ +BS. VICENTE Veras notified, tylenol and simethicone ordered and given (see mar). Pt refused scheduled
miralax d/t feeling 'full'.
@ 0225, pt vomited 100mls of brown bile. VICENTE notified. Benadryl 12.5mg IV ordered and given. Pt stated 'I want to go to [facility]. I don't want that tube in my nose again'. Abd distended and full w/ +BS. Plan of care ongoing.
--- NOTE | 2024-04-22 04:43 | W.PN.UPDATE ---
Addendum entered and electronically signed by VICENTE Patterson 04/22/24 06:40:
patient resting in bed, will keep patient NPO and order abdomen Xray r/o obstruction, ileus.
Original Note:
Update Note
Progress Note Update
RN notified SANITATION SUPERINTENDENT, patient with abdomen pain, Tylenol PO and Simethecone PO ordered once. Later patient had an episode of brown emesis 100CC. Abdomen distended, tender +BS 4 quad, per RN patient refused possible NG tube. IV Benadryl given once. Advised
RN if vomiting persists, will do a CT scan of Abdomen. Stable at present. stable VS.
[2024-04-22 06:00] VITALS: BMI 23.5
[2024-04-22 07:00] VITALS: BP 90/51
[2024-04-22] MEDS: PROTONIX 40 MG PO ×2 (08:36→22:02)
[2024-04-22] MEDS: LOW STRENGTH ASPIRIN 81 MG PO (08:36)
[2024-04-22] MEDS: ELIQUIS 5 MG PO ×2 (08:36→22:02)
[2024-04-22] MEDS: PACERONE 200 MG PO (09:25)
[2024-04-22] MEDS: COREG 25 MG PO ×2 (09:25→22:02)
[2024-04-22] MEDS: DULCOLAX 10 MG RECTAL (10:25)
--- NOTE | 2024-04-22 10:39 | W.PN.GS2 ---
Addendum entered and electronically signed by Hair Leblanc MD 04/22/24 11:03:
Patient seen and examined this a.m. with nurse practitioner. Agree with documented progress note with additions noted here.
Patient adamantly denies any events overnight. On questioning he denies abdominal pain, he denies that he had nausea and also states there is no vomiting even when I advised patient regarding documented notes and the fact that he got a follow up
xray for these reasons. He is adamant that he gets discharged tomorrow to [facility].
AF heart rate 100, vital signs stable
Abdomen softly protuberant, nontender
Assessment/plan: 83-year-old male with probable postop low-grade partial small bowel obstruction status post ex lap
Attempted to explain to patient clinical situation without much success suspect he has a low-grade partial small bowel obstruction and every time he attempts to eat larger quantities of solid food partial obstructive symptoms arise.
Typically this would be managed with dietary measures/nonoperatively after a recent laparotomy - full liquids to minimal residue soft foods/smaller portions and gentle bowel regiment with miralax daily. It is very difficult to get pt to adhere to
these recommendations which is causing relapsing SBO symptoms.
will give dulcolax suppository x 1
resume clear liquid diet
follow up abdominal xray tomorrow to monitor for bowel distention
d/w hospitalist
Original Note:
Today's Communication / Plan
-
Clear liquids
Suppository
XR in am
Assessment / Plan
-
Patient is an 83 yo M POD 19 s/p negative ex lap for presumed ischemic bowel, limited NATALIE was performed without SBR.
AFVSS
Postoperative ileus that resolved but subsequently redeveloped nausea, vomiting, and CT scan at that time concerning for small bowel obstruction. Since then he improved again.
KUBs with PO contrast to the rectum and no residual contrast within the small bowel. Repeat XR's with continued retained contrast indicating delayed motility. Suspect pSBO secondary to adhesions within the RLQ combined with constipation.
XR with more bowel dilitation today with reported vomiting this am
Plan:
-- Ok for clear liquids
-- Dulcolax supp today
-- XR of abd in am
-- He would ideally not advance much beyond FLD with supplements for the short term. Compliance with this will likely be an issue.
Subjective Data
-
Date of Service: April 22, 2024
Patient seen and examined at bedside with Dr. Leblanc. Denies n/v but records indicate he vomited this am. He is adamant he go to rehab and it is difficult to have discussions regarding his medical care.
Objective Data
-
Intake and Output
04/21/24 04/22/24 04/23/24
06:59 06:59 06:59
Intake Total 1260 / 1260 570 / 570
Output Total 250 / 250 400 / 400
Balance 1010 / 1010 170 / 170
Intake:
Oral fluids 1260 / 1260 570 / 570
Output:
Emesis 100 / 100
Urine, Voided 250 / 250 300 / 300
Other:
Number of approximated MODERATE 2 2
amounts of urine
Vital Signs
Temp Pulse Resp BP Pulse Ox
97.7 F 100 18 104/68 95
04/22/24 07:00 04/22/24 09:25 04/22/24 07:00 04/22/24 09:25 04/22/24 09:37
Calcium 8.3 mg/dl (8.4-10.2) L 04/21/24 08:29
Phosphorus 4.0 mg/dl (2.5-4.5) 04/11/24 13:38
Magnesium 1.7 mg/dl (1.6-2.3) 04/13/24 05:38
Total Bilirubin 0.5 mg/dl (0.2-1.3) 04/16/24 09:46
AST 16 U/L (17-59) L 04/16/24 09:46
ALT 14 U/L (0-50) 04/16/24 09:46
Alkaline Phosphatase 99 U/L (38-126) 04/16/24 09:46
Total Protein 5.1 g/dl (6.3-8.2) L 04/16/24 09:46
Albumin 2.5 g/dl (3.5-5.0) L 04/16/24 09:46
Physical Exam
-
Gen: NAD
Abd: soft, mild distention, nt, incision cdi
--- NOTE | 2024-04-22 11:41 | W.PN.NEPH.PH ---
Today's Communication / Plan
-
Observe
Assessment/Plan
-
Assessment:
PABLO (bl 1), now ATN
hypercapnice respiratory failure
s/p cardiac arrest
possible intra-abd process
BPH
T2DM
s/p recent hip fracture
Persistent mild to moderate right hydronephrosis
echo noted with EF 35-40%, mild to mod MR, severe pulm HTN
Plan:
Abdominal x-ray this morning notes increased dilatation of loops of small bowel consistent with worsening ileus
Creatinine was up to 1.8 yesterday labs pending today
Patient has been resistant to treatment including NG tube and IV fluid
possible SBO , NPO
Urine output not very well recorded
remains subjectively nonoliguric
mild-mod stable right hydro on recent CT-need out pt f/u with
Hypotensive today holding Lasix I would favor IV fluids if patient allows
Patient has been noncompliant in regards to physician recommendations including general surgery
-
-
Date of Service: April 22, 2024
CC / HPI / ROS
-
Chief Complaint:
PABLO
History of Present Illness:
extubated on 04/05, on RA now
echo noted low EF and severe pulm HTN
PABLO/Cr improved at 1.2, konstantin again to 1.7, now at 1.8
nonoliguric
BP labile
Review of Systems:
Subjectively
no fever
Weight stable
Labs
-
Labs:
eGFR 37.12 04/21/24 08:29
Phosphorus 4.0 mg/dl (2.5-4.5) 04/11/24 13:38
Albumin 2.5 g/dl (3.5-5.0) L 04/16/24 09:46
Physical Exam
-
Vital Signs:
Vital Signs
Temp Pulse Resp BP Pulse Ox
97.7 F 100 18 104/68 95
04/22/24 07:00 04/22/24 09:25 04/22/24 07:00 04/22/24 09:25 04/22/24 09:37
Cardiovascular:: Regular rate and rhythm
Respiratory:: Bilateral: Coarse
Lung Excursion:: Normal
Abdomen:: Nontender and Soft
Bowel Sounds:: Normal
Extremity Edema:: +1: Bilateral:
Ramesh Catheter: No
--- NOTE | 2024-04-22 12:20 | W.PN.HOSP.TC ---
Today's Communication/Plan
-
downgrade to clears, suppository
patient refusing NGT
Assessment / Plan
Assessment / Plan
Assessment:
Cardiac arrest in setting of acute illness, septic shock
- s/p 3 rounds EPI/CPR
Septic shock from acute ischemic bowel
- shock resolved with pressors stopped
- received IVFs
- s/p 7 day course of Unasyn
Acute abdomen (Acute ischemic bowel)
- CT prelim suggest bowel obstruction/ischemic
- s/p ex-lap 04/03: negative ex lap for presumed ischemic bowel, limited NATALIE was performed without sbr. velma due to be removed 04/18
- repeat CT 04/16 showed: persistent small bowel and gastric dilation with oral contrast not extending to the distal small bowel, although contrast is present within the colon likely from prior swallow study. Findings may represent a new small bowel
obstruction, partial obstruction or adynamic ileus with slow transit. Small bowel is again seen lateral to the ascending colon which can be seen with internal hernia.
- That episode resolved with NGT and conservative management.
- Abd pain and vomiting 04/21; AXR showed There is increased dilation of the loops of small bowel projecting over the left midabdomen which may represent worsening ileus.
- diet downgraded to clears; patient refusing NGT
- continue Miralax
Rapid Atrial fibrillation/Flutter
- continue Amio/BB/Eliquis
- [facility] Cards following��
Subacute CVA -- likely occurred around his cardiac arrest
- MRI: 3 mm subacute infarct within left parietal lobe, no corresponding focal deficits on exam
- continue ASA/Statin/Eliquis
Metabolic encephalopathy - resolved
VDRF in setting of critical illness
- extubated 04/05 to CPAP
- s/p IV steroids x 2 for stridor
- repeat CXR stable
PABLO with hyperkalemia
- likely in setting of acute sepsis, ATN and later cardiorenal state
- hold nephrotoxins
- required Ramesh for critical I/Os, now removed
- nephrology following
- Cr 1.8 most recently
Acute anemia related to critical illness on chronic normocytic anemia
- also dilutional component
- monitor Hb
Hypocalcemia
RV dilation on TTE -- likely from pulmonary HTN
Acute HFrEF (EF 40%)
- s/p IV diuretics scheduled doses, now on prn doses
- Monitor I/Os and daily weights, moderate sodium restriction per diet
- continue Coreg
Initial concern for UGI
- continue PPI BID
- monitor Hb
- hold off GI evaluation for now
Status post Left hip fracture with cannulated Screw 01/16/24:
Right hip fracture S/P gamma nail about one month ago
hx of Gout
hx of essential HTN
- continue Coreg
HLD - statin
��
type 2 diabetes
- holding MFM
- SSI
- A1c is 6.3%
- continue Gabapentin for peripheral neuropathy
Hoarseness
- related to vent/intubation and CPR
- improving
Generalized weakness
- PT/OT - for [facility] transfer
DVT ppx: Eliquis
Code: Full
Dispo: to [facility] when medically stable and bed/auth available
Anticipated Discharge: 24 - 48 hours
Subjective/Interval History
-
Date of Service: April 22, 2024
abd pain and vomiting overnight
AM AXR showed There is increased dilation of the loops of small bowel projecting over the left midabdomen which may represent worsening ileus.
Objective Data
-
Vital Signs:
Vital Signs
Temp Pulse Resp BP Pulse Ox
97.7 F 100 18 104/68 95
04/22/24 07:00 04/22/24 09:25 04/22/24 07:00 04/22/24 09:25 04/22/24 09:37
I&O
04/21/24 04/22/24 04/23/24
06:59 06:59 06:59
Intake Total 1260 / 1260 570 / 570
Output Total 250 / 250 400 / 400
Balance 1010 / 1010 170 / 170
Physical Exam
-
General: Pain
HEENT: Normocephalic and Atraumatic
Respiratory: Negative Wheezes
Cardiac: Regular Rhythm and S1/S2
GI: Tender and Distended
Genito-urinary: No Costovertebral Tender
Neuro: AO x 3
Data Reviewed
-
Total Time Spent with Patient (in minutes): 42
Diagnostic Radiology: Report Reviewed by me
Labs: Labs Reviewed by me
[2024-04-22 15:00] VITALS: BP 104/66
--- NOTE | 2024-04-22 15:14 | PTCARENOTE ---
Pt. agitated throughout the day. Pt. refused to have his blood drawn four times, and refusing aspects of care till he speaks to a heel caser. table games shift manager made aware. Will continue to assess needs.
[2024-04-22] MEDS: DUONEB 3 ML INH (15:44)
[2024-04-22] MEDS: LIPITOR 40 MG PO (17:00)
[2024-04-22 21:00] VITALS: BP 101/67
[2024-04-22] MEDS: MIRALAX 17 GRAMS PO (22:03)
[2024-04-22 23:19] VITALS: BP 113/71
[2024-04-23 06:15] VITALS: BMI 23.3
[2024-04-23 07:00] VITALS: BP 116/72
[2024-04-23 08:16] LABS: Hematocrit 27.6 % (39.0-52.0); Hemoglobin 9.2 g/dL (13.0-18.0); Mean Corp Hgb Conc. 33.3 g/dL (33.0-37.0); Mean Corpuscular Hgb 26.4 pg (27.0-31.0); Mean Corpuscular Volume 79.3 fL (80.0-94.0); Mean Platelet Volume 10.4 fL (7.4-10.4); Platelet Count 267 10^3/uL (130-400); Red Blood Cell Count 3.48 10^6/uL (4.70-6.10); Red Cell Dist. Width 16.9 % (11.5-14.5); White Blood Cell Count 4.9 10^3/uL (4.8-10.8)
[2024-04-23 08:30] LABS: Blood Urea Nitrogen 38 mg/dl (9-20); Calcium 8.3 mg/dl (8.4-10.2); Carbon Dioxide 25 mmol/L (22-30); Chloride 106 mmol/L (98-107); Estimated Creatinine Clearance 36 ml/min; Glucose 94 mg/dl (70-99); Potassium 4.2 mmol/L (3.5-5.1); Sodium 138 mmol/L (135-145); eGFR 37.12
[2024-04-23] MEDS: ELIQUIS 5 MG PO ×2 (08:47→21:35)
[2024-04-23] MEDS: LOW STRENGTH ASPIRIN 81 MG PO (08:47)
[2024-04-23] MEDS: PACERONE 200 MG PO (08:47)
[2024-04-23] MEDS: PROTONIX 40 MG PO ×2 (08:47→21:36)
[2024-04-23] MEDS: COREG 25 MG PO ×2 (08:48→21:35)
--- NOTE | 2024-04-23 10:54 | W.PN.GS2 ---
Today's Communication / Plan
-
Full liquids
Assessment / Plan
-
Patient is an 83 yo M s/p ROSC after cardiac arrest POD 20 s/p negative ex lap for presumed ischemic bowel, limited NATALIE was performed without SBR.
AFVSS
Early postop PSBO versus ileus improving
XR with improvement of SB dilation but with residual contrast in the colon (contrast was administered 04/16)
Plan:
-- Ok for full liquids with supplements today. Generally would recommend low fiber foods and smaller portion sizes. Diet as per speech therapy otherwise
-- Continue miralax, prn suppositories
Subjective Data
-
Date of Service: April 23, 2024
Patient seen and examined at bedside with Dr. Philip. SPRING to chair. Denies pain/discomfort. Passed a stool yesterday. Passing flatus. Some belching persists. Upset he has not yet been transferred to rehab.
Objective Data
-
Intake and Output
04/22/24 04/23/24 04/24/24
06:59 06:59 06:59
Intake Total 570 / 570 480 / 480
Output Total 400 / 400 225 / 225
Balance 170 / 170 255 / 255
Intake:
Oral fluids 570 / 570 480 / 480
Output:
Emesis 100 / 100
Urine, Voided 300 / 300 225 / 225
Other:
Number of approximated MODERATE 2 1
amounts of urine
How many times incontinent 1
SMALL amount urine
How many times incontinent 1
MODERATE amount urine
Vital Signs
Temp Pulse Resp BP Pulse Ox
98.0 F 99 18 116/72 97
04/23/24 07:00 04/23/24 07:00 04/23/24 07:00 04/23/24 07:00 04/23/24 07:00
Lab Results
04/23/24 07:28
04/23/24 07:28
Calcium 8.3 mg/dl (8.4-10.2) L 04/23/24 07:28
Phosphorus 4.0 mg/dl (2.5-4.5) 04/11/24 13:38
Magnesium 1.7 mg/dl (1.6-2.3) 04/13/24 05:38
Total Bilirubin 0.5 mg/dl (0.2-1.3) 04/16/24 09:46
AST 16 U/L (17-59) L 04/16/24 09:46
ALT 14 U/L (0-50) 04/16/24 09:46
Alkaline Phosphatase 99 U/L (38-126) 04/16/24 09:46
Total Protein 5.1 g/dl (6.3-8.2) L 04/16/24 09:46
Albumin 2.5 g/dl (3.5-5.0) L 04/16/24 09:46
Physical Exam
-
Gen: NAD
Abd: soft, mild distention, nt, incision well approximated and healing well
--- NOTE | 2024-04-23 12:02 | W.PN.NEPH.PH ---
Today's Communication / Plan
-
- hold fluids/diuretics
Assessment/Plan
-
Assessment:
PABLO (bl 1), now ATN
hypercapnice respiratory failure
s/p cardiac arrest
possible intra-abd process
BPH
T2DM
s/p recent hip fracture
Persistent mild to moderate right hydronephrosis
echo noted with EF 35-40%, mild to mod MR, severe pulm HTN
Plan:
Abdominal x-ray this morning notes increased dilatation of loops of small bowel consistent with worsening ileus
Creatinine stable at 1.8
Patient has been resistant to treatment including NG tube and IV fluid
possible SBO, NPO
Urine output not very well recorded
remains subjectively nonoliguric
mild-mod stable right hydro on recent CT-need out pt f/u with
okay to hold diuretics and fluids today
Patient has been noncompliant in regards to physician recommendations including general surgery
reiterates how much he wants to leave the hospital daily
-
-
Date of Service: April 23, 2024
CC / HPI / ROS
-
Chief Complaint:
PABLO
History of Present Illness:
extubated on 04/05, on RA now
echo noted low EF and severe pulm HTN
PABLO/Cr improved at 1.2, konstantin again to 1.7, now at 1.8
nonoliguric
BP labile
Review of Systems:
Subjectively
no fever
Weight stable
Labs
-
Labs:
WBC 4.9 10^3/uL (4.8-10.8) 04/23/24 07:28
RBC 3.48 10^6/uL (4.70-6.10) L 04/23/24 07:28
Hgb 9.2 g/dL (13.0-18.0) L 04/23/24 07:28
Hct 27.6 % (39.0-52.0) L 04/23/24 07:28
Plt Count 267 10^3/uL (130-400) 04/23/24 07:28
Sodium 138 mmol/L (135-145) 04/23/24 07:28
Potassium 4.2 mmol/L (3.5-5.1) 04/23/24 07:28
Chloride 106 mmol/L (98-107) 04/23/24 07:28
Carbon Dioxide 25 mmol/L (22-30) 04/23/24 07:28
BUN 38 mg/dl (9-20) H 04/23/24 07:28
Creatinine 1.8 mg/dL (0.7-1.3) H 04/23/24 07:28
eGFR 37.12 04/23/24 07:28
Glucose 94 mg/dl (70-99) 04/23/24 07:28
Calcium 8.3 mg/dl (8.4-10.2) L 04/23/24 07:28
Phosphorus 4.0 mg/dl (2.5-4.5) 04/11/24 13:38
Albumin 2.5 g/dl (3.5-5.0) L 04/16/24 09:46
Physical Exam
-
Vital Signs:
Vital Signs
Temp Pulse Resp BP Pulse Ox
98.0 F 99 18 116/72 97
04/23/24 07:00 04/23/24 07:00 04/23/24 07:00 04/23/24 07:00 04/23/24 07:00
Cardiovascular:: Regular rate and rhythm
Respiratory:: Bilateral: Coarse
Lung Excursion:: Normal
Abdomen:: Distended and Soft
Bowel Sounds:: Decreased
Extremity Edema:: +1: Bilateral:
Ramesh Catheter: No
--- NOTE | 2024-04-23 12:56 | CM ---
Addendum entered by Renuka Lau 04/23/24 16:00:
Message left with [facility] - bed availability
Message left with [facility] - bed availability
[facility] - no male beds
[facility] - no beds
[facility] - reviewing referral
Original Note:
Case management following for d/c planning
Chart reviewed. Spoke with pts daughter Trang
Advancing diet - full liquids
Discussed dispo with daughter - asking referrals be made to [facility] and [facility]
Requested additional options - undecided at this time
Referrals sent in [facility]
Daughter updated
Plan - tbd based on pt needs
[2024-04-23 14:53] VITALS: BP 98/66; PULSE 91; O2SAT 95
[2024-04-23 15:00] VITALS: BP 98/66; PULSE 99; O2SAT 97
--- NOTE | 2024-04-23 15:48 | W.PN.HOSP.TC ---
Today's Communication/Plan
-
Monitor for bowel movements
Continue with full liquid diet
Plan for [facility]
Assessment / Plan
Assessment / Plan
Cardiac arrest in setting of acute illness, septic shock
- s/p 3 rounds EPI/CPR
Septic shock from acute ischemic bowel
- shock resolved with pressors stopped
- received IVFs
- s/p 7 day course of Unasyn
Acute abdomen (Acute ischemic bowel)
- CT prelim suggest bowel obstruction/ischemic
- s/p ex-lap 04/03: negative ex lap for presumed ischemic bowel, limited NATALIE was performed without sbr. velma due to be removed 04/18
- repeat CT 04/16 showed: persistent small bowel and gastric dilation with oral contrast not extending to the distal small bowel, although contrast is present within the colon likely from prior swallow study. Findings may represent a new small bowel
obstruction, partial obstruction or adynamic ileus with slow transit. Small bowel is again seen lateral to the ascending colon which can be seen with internal hernia.
- That episode resolved with NGT and conservative management.
- Abd pain and vomiting 04/21; AXR showed There is increased dilation of the loops of small bowel projecting over the left midabdomen which may represent worsening ileus.
- Initially refused NGT, was downgraded to clears though symptomatically stable, tolerated full liquids today
- continue bowel regimen and monitor clinically
- Will need to follow-up outpatient with surgical team, consider further intervention
Rapid Atrial fibrillation/Flutter
- continue Amio/BB/Eliquis
- DCA Cards following��
Subacute CVA -- likely occurred around his cardiac arrest
- MRI: 3 mm subacute infarct within left parietal lobe, no corresponding focal deficits on exam
- continue ASA/Statin/Eliquis
Metabolic encephalopathy - resolved
VDRF in setting of critical illness
- extubated 04/05 to CPAP
- s/p IV steroids x 2 for stridor
- repeat CXR stable
PABLO with hyperkalemia
- likely in setting of acute sepsis, ATN and later cardiorenal state
- hold nephrotoxins
- required Ramesh for critical I/Os, now removed
- nephrology following
- Cr 1.8 most recently
Acute anemia related to critical illness on chronic normocytic anemia
- also dilutional component
- monitor Hb
Acute HFrEF (EF 40%)
-RV dilation on TTE -- likely from pulmonary HTN
- s/p IV diuretics scheduled doses, now on prn doses
- Monitor I/Os and daily weights, moderate sodium restriction per diet
- continue Coreg
Initial concern for UGI
- continue PPI BID
- monitor Hb
- hold off GI evaluation for now
Status post Left hip fracture with cannulated Screw 01/16/24:
Right hip fracture S/P gamma nail about one month ago
hx of Gout
hx of essential HTN
- continue Coreg
HLD - statin
��
type 2 diabetes
- holding MFM
- SSI
- A1c is 6.3%
- continue Gabapentin for peripheral neuropathy
Hoarseness
- related to vent/intubation and CPR
- improving
Generalized weakness
- PT/OT - for [facility] transfer
DVT ppx: Eliquis
Code: Full
Dispo: to [facility] when medically stable and bed/auth available
Anticipated Discharge: Within 24 hours
Subjective/Interval History
-
Date of Service: April 23, 2024
Seen and examined at the bedside. He is much more calm than he has been on previous days where he was on my service. Really just wants to get out of the hospital and go to rehab.
No signs of recurrent bowel obstruction today. Was notified by nursing early afternoon that he had a bowel movement. Remains on full liquid diet.
Objective Data
-
Labs:
Laboratory Results
04/23/24
07:28
WBC 4.9
Hgb 9.2 L
Hct 27.6 L
Plt Count 267
Sodium 138
Potassium 4.2
Chloride 106
Carbon Dioxide 25
BUN 38 H
Creatinine 1.8 H
Glucose 94
Calcium 8.3 L
Vital Signs:
Vital Signs
Temp Pulse Resp BP Pulse Ox
98.0 F 99 18 116/72 97
04/23/24 07:00 04/23/24 07:00 04/23/24 07:00 04/23/24 07:00 04/23/24 07:00
I&O
04/22/24 04/23/24 04/24/24
06:59 06:59 06:59
Intake Total 570 / 570 480 / 480
Output Total 400 / 400 225 / 225
Balance 170 / 170 255 / 255
Review of Systems
-
History Source: Patient
Constitutional: Reports No Symptoms
Respiratory: Reports No Symptoms
Cardiac: Reports No Symptoms
Abdomen/GI: Reports No Symptoms; Denies Abdominal Pain, Nausea, Vomiting, Constipated or Bloody Stools
Genitourinary: Reports No Symptoms
Musculoskeletal: Reports No Symptoms
Skin: Reports No Symptoms
Neuro: Reports No Symptoms
Hematologic / Lymphatic: Reports No Symptoms
Physical Exam
-
General: No Apparent Distress, Comfortable and Other (Thin and frail appearing)
HEENT: Normocephalic, Atraumatic and Moist Mucous Membranes
Respiratory: Clear to Auscultation; Negative Wheezes, Rales or Rhonchi
Cardiac: Regular Rhythm and S1/S2; Negative Murmur, Rub or JVD
GI: Soft, Nontender, Normal Bowel Sounds and Distended (Mild distention with firmness (prior to BM today))
Musculoskeletal: No Clubbing, No Cyanosis and No Edema
Skin: Warm and Dry; Negative Rash or Jaundice
Neuro: AO x 3, Nonfocal/Grossly Intact and Central Nerve's Intact
Data Reviewed
-
Labs: Labs Reviewed by me
[2024-04-23] MEDS: LIPITOR 40 MG PO (17:54)
[2024-04-23] MEDS: MIRALAX PO (21:21)
--- NOTE | 2024-04-23 21:25 | PTCARENOTE ---
Pt taken off of medsitter per MD order. Pt ringing appropriately. Bed alarm in place and plan of care ongoing.
[2024-04-23] MEDS: TYLENOL 650 MG PO (22:32)
[2024-04-23 23:30] VITALS: BP 110/68
[2024-04-24 06:00] VITALS: BMI 23.4
[2024-04-24 07:00] VITALS: BP 116/69
[2024-04-24] MEDS: PACERONE 200 MG PO (09:17)
[2024-04-24] MEDS: ELIQUIS 5 MG PO (09:17)
[2024-04-24] MEDS: PROTONIX 40 MG PO (09:17)
[2024-04-24] MEDS: LOW STRENGTH ASPIRIN 81 MG PO (09:18)
[2024-04-24] MEDS: COREG 25 MG PO (09:18)
--- NOTE | 2024-04-24 09:18 | W.PN.GS2 ---
Today's Communication / Plan
-
-- No changes from surgical perspective
Assessment / Plan
-
Patient is an 83 yo M s/p ROSC after cardiac arrest POD 21 s/p negative ex lap for presumed ischemic bowel, limited NATALIE was performed without SBR.
AFVSS
Early postop PSBO versus ileus improving
XR with improvement of SB dilation but with residual contrast in the colon (contrast was administered 04/16)
Plan:
-- Ok for full liquids with supplements today. Generally would recommend low fiber foods and smaller portion sizes. Diet as per speech therapy otherwise
-- Continue miralax, prn suppositories
Subjective Data
-
Date of Service: April 24, 2024
Denies abdominal pain. No reports of nausea. Reports passing flatus and having a bowel movement this morning. Afebrile.
Objective Data
-
Intake and Output
04/23/24 04/24/24 04/25/24
06:59 06:59 06:59
Intake Total 480 / 480 720 / 720
Output Total 225 / 225 300 / 300
Balance 255 / 255 420 / 420
Intake:
Oral fluids 480 / 480 720 / 720
Output:
Urine, Voided 225 / 225 300 / 300
Other:
Number of approximated MODERATE 1 2
amounts of urine
How many times incontinent 1
SMALL amount urine
How many times incontinent 1
MODERATE amount urine
How many times incontinent 1
SATURATED amount urine
Vital Signs
Temp Pulse Resp BP Pulse Ox
97.5 F 72 17 116/69 96
04/24/24 07:00 04/24/24 07:00 04/24/24 07:00 04/24/24 07:00 04/24/24 07:00
Lab Results
04/23/24 07:28
04/23/24 07:28
Calcium 8.3 mg/dl (8.4-10.2) L 04/23/24 07:28
Phosphorus 4.0 mg/dl (2.5-4.5) 04/11/24 13:38
Magnesium 1.7 mg/dl (1.6-2.3) 04/13/24 05:38
Total Bilirubin 0.5 mg/dl (0.2-1.3) 04/16/24 09:46
AST 16 U/L (17-59) L 04/16/24 09:46
ALT 14 U/L (0-50) 04/16/24 09:46
Alkaline Phosphatase 99 U/L (38-126) 04/16/24 09:46
Total Protein 5.1 g/dl (6.3-8.2) L 04/16/24 09:46
Albumin 2.5 g/dl (3.5-5.0) L 04/16/24 09:46
Physical Exam
-
Gen: NAD
Abd: slightly firm, NT, ND, non-peritoneal
--- NOTE | 2024-04-24 10:12 | CM ---
Addendum entered by Edgar Onlineerty 04/24/24 13:19:
Transport at 3PM
Facility and pts daughter made aware
Addendum entered by Edgar Onlineerty 04/24/24 12:38:
Pt accepted by [facility], [facility], [facility]
Discussed with pts jing Costello
Family - declining [facility]; Chose [facility]
Dr Sánchez made aware
Plan - anticipate transfer to [facility]
R - [phone]
F - [phone]
Addendum entered by Edgar Onlineerty 04/24/24 11:27:
Navin Stovall - no beds available at [facility] or [facility] today
Spoke with pts daughter Trang - updated on accepting facility's, awaiting response. Requested more options. Will update when bed available
Original Note:
Case management following for discharge planning
Pt medically ready for d/c
[facility] - LM x2 - waiting for return call
[facility] - LM - waiting for return call
[facility] - LM - waiting on return call
[facility] - accepted pending bed availably - spoke with Jerrell - will check on availability and return call
Plan - snf when bed obtained
[2024-04-24 10:15] VITALS: BP 120/74; PULSE 88; O2SAT 98
[2024-04-24 10:23] VITALS: BP 120/74; PULSE 94; O2SAT 97
--- NOTE | 2024-04-24 11:14 | W.PN.HOSP.TC ---
Today's Communication/Plan
-
Continue current diet and bowel regimen
Discharged to SNF when bed available
Assessment / Plan
Assessment / Plan
Cardiac arrest in setting of acute illness, septic shock
- s/p 3 rounds EPI/CPR
- See below for more details
Septic shock from acute ischemic bowel vs SBO
- shock resolved with pressors stopped
- received IVFs
- s/p 7 day course of Unasyn
Acute abdomen (Acute ischemic bowel)
- CT prelim suggest bowel obstruction/ischemic
- s/p ex-lap 04/03: negative ex lap for presumed ischemic bowel, limited NATALIE was performed without sbr. velma due to be removed 04/18
- repeat CT 04/16 showed: persistent small bowel and gastric dilation with oral contrast not extending to the distal small bowel, although contrast is present within the colon likely from prior swallow study. Findings may represent a new small bowel
obstruction, partial obstruction or adynamic ileus with slow transit. Small bowel is again seen lateral to the ascending colon which can be seen with internal hernia.
- That episode resolved with NGT and conservative management.
- Abd pain and vomiting 04/21; AXR showed There is increased dilation of the loops of small bowel projecting over the left midabdomen which may represent worsening ileus.
- Initially refused NGT, was downgraded to clears though symptomatically stable, tolerated full liquids today
- continue bowel regimen and monitor clinically
- Will need to follow-up outpatient with surgical team, consider further intervention
- Plan to discharge on Plan to discharge on low fiber diet with small portion sizes for short-term rehab
Rapid Atrial fibrillation/Flutter
- continue Amio/BB/Eliquis
- DCA Cards following��
Subacute CVA -- likely occurred around his cardiac arrest
- MRI: 3 mm subacute infarct within left parietal lobe, no corresponding focal deficits on exam
- continue ASA/Statin/Eliquis
Metabolic encephalopathy - resolved
VDRF in setting of critical illness
- extubated 04/05 to CPAP
- s/p IV steroids x 2 for stridor
- repeat CXR stable
PABLO with hyperkalemia
- likely in setting of acute sepsis, ATN and later cardiorenal state
- hold nephrotoxins
- required Ramesh for critical I/Os, now removed
- nephrology following
- Cr 1.8 most recently
Acute anemia related to critical illness on chronic normocytic anemia
- also dilutional component
- monitor Hb
Acute HFrEF (EF 40%)
-RV dilation on TTE -- likely from pulmonary HTN
- s/p IV diuretics scheduled doses, now on prn doses
- Monitor I/Os and daily weights, moderate sodium restriction per diet
- continue Coreg
Initial concern for UGI
- continue PPI BID
- monitor Hb
- hold off GI evaluation for now
Status post Left hip fracture with cannulated Screw 01/16/24:
Right hip fracture S/P gamma nail about one month ago
hx of Gout
hx of essential HTN
- continue Coreg
HLD - statin
��
type 2 diabetes
- holding MFM
- SSI
- A1c is 6.3%
- continue Gabapentin for peripheral neuropathy
Hoarseness
- related to vent/intubation and CPR
- improving
Generalized weakness
- PT/OT - for [facility] transfer
DVT ppx: Eliquis
Code: Full
Dispo: to SNF when bed/auth available
Anticipated Discharge: Today
Subjective/Interval History
-
Date of Service: April 24, 2024
No acute events. States he feels well today, says he is moving his bowels consistently. Denies any constipation, abdominal pain, nausea or vomiting. He is again persistent on getting to rehab
Objective Data
-
Vital Signs:
Vital Signs
Temp Pulse Resp BP Pulse Ox
97.5 F 72 17 116/69 96
04/24/24 07:00 04/24/24 07:00 04/24/24 07:00 04/24/24 07:00 04/24/24 07:00
I&O
04/23/24 04/24/24 04/25/24
06:59 06:59 06:59
Intake Total 480 / 480 720 / 720
Output Total 225 / 225 300 / 300
Balance 255 / 255 420 / 420
Review of Systems
-
History Source: Patient
All other systems: Reviewed and negative
Constitutional: Reports No Symptoms
Respiratory: Reports No Symptoms
Cardiac: Reports No Symptoms
Abdomen/GI: Reports No Symptoms
Genitourinary: Reports No Symptoms
Musculoskeletal: Reports No Symptoms
Skin: Reports No Symptoms
Neuro: Reports No Symptoms
Physical Exam
-
General: No Apparent Distress, Comfortable and Appears Chronically Ill
HEENT: Normocephalic, Atraumatic and Moist Mucous Membranes
Respiratory: Clear to Auscultation and Non Labored Respirations; Negative Wheezes, Rales or Rhonchi
Cardiac: S1/S2 and Irregular Rhythm; Negative Murmur, Rub, Gallop or Tachycardic
GI: Soft (Slightly firm, improved from previous days), Nontender, Nondistended and Normal Bowel Sounds
Musculoskeletal: No Clubbing, No Cyanosis and No Edema
Skin: Warm, Dry and Rash
Neuro: AO x 3, Nonfocal/Grossly Intact and Central Nerve's Intact
Psych: Calm
--- NOTE | 2024-04-24 12:42 | W.DCSUMMARY ---
Discharge Summary
Discharge Data
Date of Admission: 04/03/24
Date of Discharge: 04/24/24
-
Pending Results: No
Hospital Course
Presented to hospital with symptoms of recurrent small bowel obstruction, underwent cardiac arrest while in CT scan in ED. ROSC was achieved and he was intubated and on mechanical ventilation from which he was liberated. Was found to have a
subacute CVA following his cardiac arrest. Also developed worsening A-fib with RVR. Carvedilol was uptitrated for rate control, he was started on high intensity statin and aspirin for CVA. Hemodynamically stable with well-controlled heart rate by
time of admission. No obvious residual deficits from his CVA.
He underwent an exploratory laparotomy after his cardiac arrest for presumed ischemic bowel however no ischemic findings were noted. Suspect that he had recurrent small bowel obstruction. Was evaluated for [facility] then developed recurrent small
bowel obstruction with dilated bowel loops seen on x-ray. Surgery reevaluated and did not recommend inpatient procedure. His obstruction spontaneously resolved with full liquids and standing to his bowel regimen. Patient states he had normal
bowel habitus prior to discharge. Should be continued on MiraLAX and docusate�senna, can upgrade diet to soft bite sized with low fiber. Will need to follow-up with surgery as an outpatient for consideration of further interventions.
Discharge Plan
-
Diet: Other diet
Additional Diets: Soft and Bite sized, supervised thin liquids, low fiber
Activity: As tolerated
Driving Restrictions: No driving
Other Services: PT, OT and ST
Referrals:
Emil Membreno MD [Active] - 05/17/24 2:20 pm (You have a cardiology follow-up appointment at the [facility] office in [facility]. Please call with questions)
Sarmad Quiles MD [Family Provider] -
Additional Discharge Medication Instructions: Start standing dose senna�docusate and MiraLAX daily
Start Protonix 40 mg twice daily
Start aspirin 81 mg daily
Start atorvastatin 40 mg daily
Start carvedilol 25 mg twice
Continue with DuoNebs as needed
Continue with bisacodyl suppository as needed for constipation.
Stop benazepril
Stop simvastatin
Prescriptions:
New
acetaminophen 325 mg Tablet
650 mg PO Q4HPRN PRN (Reason: MILD TO MODERATE PAIN) 7 Days Qty: 30 0RF
carvedilol 25 mg Tablet
25 mg PO BID 30 Days Qty: 60 0RF
Rx Instructions:
Call PCP for refill
aspirin 81 mg Tablet,Chewable
81 mg PO DAILY 30 Days Qty: 30 0RF
Rx Instructions:
Call PCP for refills
atorvastatin 40 mg Tablet
40 mg PO QPM 30 Days Qty: 30 0RF
Rx Instructions:
Call PCP for refill
sennosides-docusate sodium [Stool Softener-Laxative] 8.6-50 mg Tablet
1 tab PO DAILY 7 Days Qty: 7 0RF
ipratropium-albuterol 0.5 mg-3 mg(2.5 mg base)/3 mL Solution For Nebulization
3 ml inhalation R Q4HPRN PRN (Reason: SOB or wheezing) 30 Days Qty: 90 0RF
polyethylene glycol 3350 [HealthyLax] 17 gram Powder In Packet
17 g PO HS 30 Days Qty: 14 0RF
pantoprazole 40 mg Tablet,Delayed Release (Dr/Ec)
40 mg PO BID 30 Days Qty: 60 0RF
bisacodyl 10 mg Suppository
10 mg WV DAILYPRN PRN (Reason: constipation) 30 Days Qty: 30 0RF
Continued
folic acid 1 mg Tablet
1 mg PO DAILY
apixaban 5 mg Tablet
5 mg PO BID
gabapentin 100 mg capsule
200 mg PO DAILY
metformin 500 mg Tablet
500 mg PO BID
gabapentin 300 mg Capsule
300 mg PO HS
polyethylene glycol 3350 [Miralax] 17 gram Powder In Packet
17 g PO DAILY
allopurinol 100 mg Tablet
100 mg PO DAILY
tamsulosin [Flomax] 0.4 mg Capsule
0.4 mg PO DAILY
amiodarone [Pacerone] 200 mg tablet
200 mg PO DAILY
Discontinued
simvastatin 20 mg tablet
20 mg PO QPM
benazepril 20 mg Tablet
20 mg PO DAILY
carvedilol 6.25 mg Tablet
6.25 mg PO BID 30 Days Qty: 60 0RF
Discharge Orders:
Discharge Patient (As Directed); Ordered 04/24/24
Ordered By: Emil Sánchez
Discharge Date and Time
Print Language: GEORGIAN
== END 2024-04-24 15:45 | DRG 853 ==
LOC: 3 WEST ACU 01:34
PROVIDERS: Internal Medicine; Nurse Practitioner Family; ADMITTING PHYSICIAN Internal Medicine; ATTENDING PHYSICIAN Internal Medicine; CONSULT PHYSICIAN Internal Medicine Cardiovascular Disease; CONSULT PHYSICIAN Student in an Organized Health Care Education/Training Program; CONSULT PHYSICIAN Surgery; EMERGENCY PHYSICIAN Student in an Organized Health Care Education/Training Program; FAMILY PHYSICIAN Family Medicine; OTHER PHYSICIAN Internal Medicine Critical Care Medicine; OTHER PHYSICIAN Physical Medicine & Rehabilitation; OTHER PHYSICIAN Psychiatry & Neurology Psychiatry
PROC: 5A1945Z Respiratory Ventilation, 24-96 Consecutive Hours (ICD-10-PCS; 2024-04-03)
PROC: 0BH17EZ Insertion of Endotracheal Airway into Trachea, Via Natural or Artificial Opening (ICD-10-PCS; 2024-04-03)
PROC: 0DNB0ZZ Release Ileum, Open Approach (ICD-10-PCS; 2024-04-03)
PROC: 0DNU0ZZ Release Omentum, Open Approach (ICD-10-PCS; 2024-04-03)
PROC: 03HY32Z Insertion of Monitoring Device into Upper Artery, Percutaneous Approach (ICD-10-PCS; 2024-04-03)
PROC: 5A09357 Assistance with Respiratory Ventilation, Less than 24 Consecutive Hours, Continuous Positive Airway Pressure (ICD-10-PCS; 2024-04-05)
DX: A41.9 Sepsis, unspecified organism (principal); G93.41 Metabolic encephalopathy; I46.8 Cardiac arrest due to other underlying condition; R65.21 Severe sepsis with septic shock; N17.0 Acute kidney failure with tubular necrosis; J96.02 Acute respiratory failure with hypercapnia; I63.89 Other cerebral infarction; I50.23 Acute on chronic systolic (congestive) heart failure; K92.0 Hematemesis; I48.92 Unspecified atrial flutter; E87.20 Acidosis, unspecified; K56.51 Intestinal adhesions [bands], with partial obstruction; R18.8 Other ascites; N13.30 Unspecified hydronephrosis; Z66 Do not resuscitate; I48.0 Paroxysmal atrial fibrillation; I11.0 Hypertensive heart disease with heart failure; E11.51 Type 2 diabetes mellitus with diabetic peripheral angiopathy without gangrene; D64.9 Anemia, unspecified; E78.00 Pure hypercholesterolemia, unspecified; E86.0 Dehydration; E11.65 Type 2 diabetes mellitus with hyperglycemia; E87.5 Hyperkalemia; I65.23 Occlusion and stenosis of bilateral carotid arteries; I45.10 Unspecified right bundle-branch block; N40.0 Benign prostatic hyperplasia without lower urinary tract symptoms; M10.9 Gout, unspecified; E83.51 Hypocalcemia; J44.9 Chronic obstructive pulmonary disease, unspecified; E11.42 Type 2 diabetes mellitus with diabetic polyneuropathy; I27.20 Pulmonary hypertension, unspecified; F17.210 Nicotine dependence, cigarettes, uncomplicated; Z79.01 Long term (current) use of anticoagulants; Z79.84 Long term (current) use of oral hypoglycemic drugs; Z79.899 Other long term (current) drug therapy; Z90.49 Acquired absence of other specified parts of digestive tract; Z78.1 Physical restraint status
CPT/HCPCS: 31500; 70450; 70551; 71045; 71250; 71275; 74018; 74174; 74176; 74230; 80048; 80053; 80202; 81003; 81015; 82330; 82570; 82607; 82728; 82746; 82805; 82962; 83036; 83540; 83550; 83605; 83735; 84100; 84132; 84134; 84300; 84302; 84478; 84484; 85014; 85018; 85025; 85027; 85610; 85730; 86850; 86900; 86901; 86920; 87040; 87086; 87324; 87449; 92507; 92523; 92526; 92610; 92611; 93005; 93306; 93971; 94002; 94003; 94640; 94660; 96365; 96375; 97110; 97116; 97163; 97167; 97530; 97535; 99291; 99292; C1776; Q9967